=== PATIENT | female | born 1955 | race Caucasian/White ===

== ENCOUNTER 2021-03-06 13:57 | Inpatient (IN) | payer MEDICARE, MEDICAID, SELFPAY ==
[2021-03-06 14:02] VITALS: BP 151/88; PULSE 100; RESP 20; TEMP 36.8; O2SAT 98; BMI 19.1
--- NOTE | 2021-03-06 14:27 | DI.RAD.S_ITS ---
PROCEDURE: XR CHEST 1V INDICATIONS: chest pain TECHNIQUE: One view of the chest was acquired. COMPARISON: , , CHEST 1VW (PORTABLE), 08/28/2012, 6:35. FINDINGS: Surgical changes and devices: Thoracolumbar spine fixation hardware. Cholecystectomy clips. Lungs and pleura: Lungs are clear. No pleural effusions or pneumothorax. Mediastinum: Mediastinal contours appear normal. Heart size is normal. Bones and chest wall: No suspicious bony lesions. Overlying soft tissues appear unremarkable. IMPRESSION: No acute cardiopulmonary disease process. Dictated by: Gertrude Arreola MD, PhD on 03/06/2021 at 15:26 Approved by: Gertrude Arreola MD, PhD on 03/06/2021 at 15:27
[2021-03-06] MEDS: SODIUM CHLORIDE 0.9% 1,000 ML 1000 ML IV (14:32)
[2021-03-06] MEDS: ONDANSETRON 4 MG/2 ML INJ IV ×3 (14:32→23:53)
[2021-03-06 14:44] LABS: Alanine Aminotransferase 14 IU/L (<35); Albumin 5.1 g/dL (3.5-5.0); Albumin Globulin Ratio 1.5 (1.0-2.8); Alkaline Phosphatase 108 U/L (38-126); Aspartate Aminotransferase 26 IU/L (14-36); BUN Creatinine Ratio 23.1 (6-22); Bilirubin Total 0.4 mg/dL (0.2-1.3); Blood Urea Nitrogen 12 mg/dL (7-17); Calcium 10.6 mg/dL (8.4-10.2); Carbon Dioxide 27 mmol/L (22-32); Chloride 105 mmol/L (98-107); Estimated Glomerular Filt Rate > 60.0 mL/min (>60); Globulin 3.5 g/dL (1.7-4.1); Glucose 98 mg/dL (80-110); HEMOLYSIS 29 (0-50); Lipase 23 U/L (23-300); Potassium 4.2 mmol/L (3.4-5.1); Sodium 139 mmol/L (137-145); Total Protein 8.6 g/dL (6.3-8.2)
[2021-03-06 14:45] LABS: Creatine Kinase 23 U/L (30-135)
[2021-03-06 14:46] LABS: Add Manual Diff / Slide Review NO; Basophils Absolute Auto 0 /uL (0-100); Basophils Percent Auto 0.4 % (0-2); Eosinophils Absolute Auto 100 /uL (0-450); Eosinophils Percent Auto 0.6 % (2-4); Hematocrit 45.7 % (36-46); Hemoglobin 15.5 g/dL (12.0-16.0); Lymphocytes Absolute Auto 2200 /uL (1100-4500); Mean Corpuscular Hemoglobin 32.6 PG (26-34); Mean Corpuscular Volume 95.9 fL (80-100); Monocytes Absolute Auto 800 /uL (0-900); Neutrophils Absolute Auto 8300 /uL (1500-7000); Platelet Count 374 X10^3/uL (150-400); Red Blood Cell Count 4.77 X10^6/uL (4.0-5.2); Red Cell Distribution Width 14.6 % (11.6-14.8); White Blood Cell Count 11.4 X10^3/uL (4.5-11.0)
[2021-03-06 14:56] LABS: Troponin I < 0.012 ng/mL (0.01-0.034)
--- NOTE | 2021-03-06 15:20 | DI.CT.S_ITS ---
PROCEDURE: CT ABDOMEN PELVIS W CON INDICATIONS: abdominal pain, upper quadrants, 30lb wt loss in 2 months TECHNIQUE: After the administration of intravenous contrast, axial sections acquired from the lung bases to the pubic symphysis. Coronal and sagittal reformats were performed. For radiation dose reduction, the following was used: automated exposure control, adjustment of mA and/or kV according to patient size. COMPARISON: [facility], CR, L-SPINE 2-3 VIEWS, 09/12/2014, 20:07. [facility], CT, L-SPINE W/O CONTRAST, 07/05/2011, 1:19. [facility], CT, KIDNEY/ URETER/BLADDER, 10/19/2014, 15:34. FINDINGS: Image quality: Excellent. Lung bases: Bibasilar dependent atelectasis at lung bases. Heart: Heart size is normal. There is mild coronary artery calcification. ABDOMEN: Liver: Liver is normal in size. There is intrahepatic biliary dilation. Gallbladder: Surgically absent Biliary ducts: Dilated intrahepatic and extrahepatic biliary system. Common bile duct measures up to 18 mm in diameter. Pancreas: Foci of punctate calcification in pancreas, compatible with chronic pancreatitis. Spleen: Unremarkable. Adrenal Glands: Unremarkable. Kidneys and Ureters: There is a 7.0 x 8.0 cm cyst in the mid to inferior inferior left kidney and a 4.2 x 4.7 cm simple appearing cyst in the inferior pole of the right kidney. Stomach and Bowel: Stomach is normal in size. There is an air-fluid level in stomach, which is nonspecific. There is mild segmental wall thickening involving the proximal small intestine. There is a large amount of stool in colon. Peritoneum: No abnormal intraperitoneal fluid. No free air. Ventral Wall: No hernias. Abdominal Nodes: No retroperitoneal or mesenteric adenopathy by size criteria. Vessels: Aorta and inferior vena cava are normal in size. [id number] atherosclerotic calcifications. PELVIS: Pelvic Organs: Unremarkable. Bladder: Unremarkable. Pelvic Nodes: No enlarged lymph nodes. Miscellaneous: No hernias are seen. Bones: Extensive degenerative changes in lower thoracic and lumbar spine. There is osteopenia. Mild compression fracture of T11 of uncertain chronicity. IMPRESSION: 1. Segmental small bowel wall thickening involving the proximal small intestine. Differential diagnoses include infectious enteritis or inflammatory bowel disease. CT enterography may be helpful if clinically indicated. 2. Punctate calcifications of pancreas consistent with chronic pancreatitis. 3. Cholecystectomy. There is marked intrahepatic and extrahepatic biliary dilation. Recommend clinical correlation for biliary obstruction. If clinically indicated, MRCP may be helpful for further evaluation. 4. A large amount of stool in colon. 5. Bilateral large simple appearing renal cysts. 6. Mild compression fracture of T11 of uncertain chronicity. Dictated by: Yolie Mills M.D. on 03/06/2021 at 16:09 Approved by: Yolie Mills M.D. on 03/06/2021 at 16:26
[2021-03-06] MEDS: HYDROMORPHONE 0.5 MG INJ IV ×6 (15:27→23:42)
[2021-03-06] MEDS: LORazepam 2 MG/ML INJ 0.5 MG IV (15:33)
[2021-03-06 16:04] VITALS: BP 134/60; PULSE 79; O2SAT 97
[2021-03-06 17:50] VITALS: BP 140/75; PULSE 73; O2SAT 97
--- NOTE | 2021-03-06 18:39 | ED_ITS ---
HPI - General Adult General Chief complaint: Abdominal Pain Stated complaint: Digestive blockage-cant eat/weight loss Time Seen by Provider: 03/06/21 14:38 Source: patient Mode of arrival: Ambulatory Limitations: no limitations History of Present Illness HPI narrative: 65-year-old woman with a history of depression presents with abdominal pain and severe weight loss starting in early December. She is having recurrent vomiting, nausea, upper abdominal pain, unable to sleep, exhausted, poor balance overall, significant headache and complains of being cold all the time. She has lost 30 lb in that time frame. She notes that she is a smoker. She has been unable to drink or eat much and has had minimal bowel movements due to that. 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 She currently is reportedly on Suboxone for chronic pain management however she does not indicate that she is using this any longer. Related Data Home Medications Medication Instructions Recorded Confirmed FERROUS SULFATE 325 mg PO BID #0 10/04/16 cholecalciferol (vitamin D3) 1,250 50,000 unit PO QWEEK #0 10/04/16 mcg (50,000 unit) capsule citalopram 10 mg tablet (Celexa) 30 mg PO QDAY #0 10/04/16 folic acid 800 mcg tablet 1 mg PO QDAY #0 10/04/16 Allergies Allergy/AdvReac Type Severity Reaction Status Date / Time aspirin [ASPIRIN] Allergy Unknown Verified 03/06/21 14:02 NSAIDS (Non-Steroidal Allergy Unknown Verified 03/06/21 14:02 Anti-Inflamma [NSAIDS (NON-STEROIDAL ANTI-INFLAMMA] Review of Systems Review of Systems Narrative: Remainder of complete review of systems is otherwise unremarkable except for that included in the HPI. Patient History Surgical History (Updated 03/06/21 @ 18:42 by Carlie Wall MD) History of cholecystectomy Previous back surgery Social History Smoking Status: Current every day smoker Smoking Status: Current every day smoker Substance Use Type: marijuana Exam Narrative Exam Narrative: General: Cachectic with significant upper abdominal pain Able to give a complete and coherent history. HEENT: Moist mucous membranes, normal sclera with reactive pupils, Neck: No JVD, supple, no cervical or supraclavicular adenopathy Respiratory: Lungs are clear to auscultation, no wheezing no rales no rhonchi. Full and symmetrical air movement Cardiac: Regular rate and rhythm no murmurs no bruits Abdomen: Scaphoid, tender across the entire upper abdomen, firm over the lower abdomen without rebound or guarding. No palpable masses Skin: Pale and dry, no rashes Neurologic: Globally weak but Grossly neurologically intact with no obvious asymmetries or abnormalities Extremities: No trauma, well perfused Psych: Cooperative, upset and anxious Initial Vital Signs Initial Vital Signs: Vital Signs Temperature 98.3 F 03/06/21 14:02 Pulse Rate 100 H 03/06/21 14:02 Respiratory Rate 20 03/06/21 14:02 Blood Pressure 151/88 H 03/06/21 14:02 Pulse Oximetry 98 03/06/21 14:02 Course Orders Ordered: ED Orders 03/06/21 14:15 Complete Blood Count AUTO DIFF Stat Comprehensive Metabolic Panel Stat Lipase Stat Troponin & CK Cardiac Panel Stat 03/06/21 14:25 EKG-12 Lead Stat 03/06/21 14:27 XR chest 1V Stat 03/06/21 15:20 CT abdomen pelvis w con Stat 03/06/21 18:58 COVID19 - ADMIT (SYSTEMS ARCHITECTURE ANALYST swab/PCR) Stat Hydromorphone HCl (Hydromorphone 0.5 Mg Inj) 0.5 mg IV Q15MIN PRN PRN Reason: Pain, Last Admin: 03/06/21 18:33 Dose: 0.5 mg Documented by: Admin: 03/06/21 17:22 Dose: 0.5 mg Documented by: Admin: 03/06/21 16:18 Dose: 0.5 mg Documented by: Admin: 03/06/21 15:27 Dose: 0.5 mg Documented by: GIGI Sodium Chloride (Normal Saline 0.9%) 1,000 mls @ 150 mls/hr IV CONT LOTTIE Last Admin: 03/06/21 19:07 Dose: 150 mls/hr Documented by: Discontinued Medications Bisacodyl (Bisacodyl 5 Mg Tablet) 10 mg PO NOW ONE Stop: 03/06/21 18:59 Last Admin: 03/06/21 19:09 Dose: 10 mg Documented by: Diazepam (Diazepam 5 Mg Tablet) 5 mg PO NOW ONE Stop: 03/06/21 18:59 Last Admin: 03/06/21 19:08 Dose: 5 mg Documented by: Sodium Chloride (Normal Saline 0.9%) 1,000 mls @ 1,000 mls/hr IV BOLUS ONE Stop: 03/06/21 15:25 Last Infusion: 03/06/21 15:35 Dose: 0 mls/hr Documented by: Admin: 03/06/21 14:32 Dose: 1,000 mls/hr Documented by: GIGI Lorazepam (Lorazepam 2 Mg/Ml Inj) 0.5 mg IV NOW ONE Stop: 03/06/21 15:21 Last Admin: 03/06/21 15:33 Dose: 0.5 mg Documented by: GIIG Ondansetron HCl (Ondansetron 4 Mg/2 Ml Inj) 4 mg IV NOW ONE Stop: 03/06/21 14:26 Last Admin: 03/06/21 14:32 Dose: 4 mg Documented by: GIGI Ondansetron HCl (Ondansetron 4 Mg/2 Ml Inj) 4 mg IV NOW ONE Stop: 03/06/21 18:06 Last Admin: 03/06/21 18:16 Dose: 4 mg Documented by: GIGI Oxycodone HCl (Oxycodone Ir 5 Mg Tablet) 10 mg PO NOW ONE Stop: 03/06/21 18:59 Last Admin: 03/06/21 19:07 Dose: 10 mg Documented by: Vital Signs Vital signs: Vital Signs - 8 hr 03/06/21 14:02 03/06/21 16:04 03/06/21 17:50 Temperature 98.3 F Pulse Rate 100 H 79 73 Respiratory Rate 20 Blood Pressure 151/88 H 134/60 140/75 Pulse Oximetry 98 97 97 Medical Decision Making Lab Data Result diagrams: 03/06/21 14:15 03/06/21 14:15 Labs: Lab Results 03/06/21 03/06/21 03/06/21 Range/Units 14:15 14:15 14:15 WBC 11.4 H (4.5-11.0) X10^3/uL RBC 4.77 (4.0-5.2) X10^6/uL Hgb 15.5 (12.0-16.0) g/dL Hct 45.7 (36-46) % MCV 95.9 (80-100) fL MCH 32.6 (26-34) PG MCHC 34.0 (30-36) % RDW 14.6 (11.6-14.8) % Plt Count 374 (150-400) X10^3/uL Neut % (Auto) 73.0 (50-75) % Lymph % (Auto) 19.0 L (25-40) % [place] % (Auto) 7.0 (3-14) % Eos % (Auto) 0.6 L (2-4) % Baso % (Auto) 0.4 (0-2) % Neut # (Auto) 8300 H (7647-3070) /uL Lymph # (Auto) 2200 (8253-8216) /uL [place] # (Auto) 800 (0-900) /uL Eos # (Auto) 100 (0-450) /uL Baso # (Auto) 0 (0-100) /uL Sodium 139 (137-145) mmol/L Potassium 4.2 (3.4-5.1) mmol/L Chloride 105 (98-107) mmol/L Carbon Dioxide 27 (22-32) mmol/L BUN 12 (7-17) mg/dL Creatinine 0.52 (0.52-1.04) mg/dL Estimated GFR > 60.0 (>60) mL/min BUN/Creatinine Ratio 23.1 H (6-22) Glucose 98 (80-110) mg/dL Calcium 10.6 H (8.4-10.2) mg/dL Total Bilirubin 0.4 (0.2-1.3) mg/dL AST 26 (14-36) IU/L ALT 14 (<35) IU/L Alkaline Phosphatase 108 (38-126) U/L Total Creatine Kinase 23 L (30-135) U/L CK-MB (CK-2) TNP CK-MB (CK-2) Rel Index TNP Troponin I < 0.012 (0.01-0.034) ng/mL Total Protein 8.6 H (6.3-8.2) g/dL Albumin 5.1 H (3.5-5.0) g/dL Globulin 3.5 (1.7-4.1) g/dL Albumin/Globulin Ratio 1.5 (1.0-2.8) Lipase 23 (23-300) U/L Urine Dip Bedside Urine Glucose Negative Bedside Urine Bilirubin - Negative Bedside Urine Ketone - Negative Urine Specific [place] 1.010 Bedside Urine Occult Blood - Negative Bedside Urine pH 6.5 Bedside Urine Protein - Negative Bedside Urine Urobilinogen - Negative Bedside Urine Nitrite - Negative Bedside Urine Leukocytes - Negative Esterase Point of care testing: Urine Dip Bedside Urine Glucose Negative Bedside Urine Bilirubin - Negative Bedside Urine Ketone - Negative Urine Specific [place] 1.010 Bedside Urine Occult Blood - Negative Bedside Urine pH 6.5 Bedside Urine Protein - Negative Bedside Urine Urobilinogen - Negative Bedside Urine Nitrite - Negative Bedside Urine Leukocytes - Negative Esterase Imaging Data Chest x-ray: Radiologist's Impression: FINDINGS: Surgical changes and devices: Thoracolumbar spine fixation hardware. Cholecystectomy clips. Lungs and pleura: Lungs are clear. No pleural effusions or pneumothorax. Mediastinum: Mediastinal contours appear normal. Heart size is normal. Bones and chest wall: No suspicious bony lesions. Overlying soft tissues appear unremarkable. IMPRESSION: No acute cardiopulmonary disease process. Dictated by: Gertrude Arreola MD, PhD on 03/06/2021 at 15:26 CT scan - abdomen/pelvis: Radiologist's Impression: FINDINGS: Image quality: Excellent. Lung bases: Bibasilar dependent atelectasis at lung bases. Heart: Heart size is normal. There is mild coronary artery calcification. ABDOMEN: Liver: Liver is normal in size. There is intrahepatic biliary dilation. Gallbladder: Surgically absent Biliary ducts: Dilated intrahepatic and extrahepatic biliary system. Common bile duct measures up to 18 mm in diameter. Pancreas: Foci of punctate calcification in pancreas, compatible with chronic pancreatitis. Spleen: Unremarkable. Adrenal Glands: Unremarkable. Kidneys and Ureters: There is a 7.0 x 8.0 cm cyst in the mid to inferior inferior left kidney and a 4.2 x 4.7 cm simple appearing cyst in the inferior pole of the right kidney. Stomach and Bowel: Stomach is normal in size. There is an air-fluid level in stomach, which is nonspecific. There is mild segmental wall thickening involving the proximal small intestine. There is a large amount of stool in colon. Peritoneum: No abnormal intraperitoneal fluid. No free air. Ventral Wall: No hernias. Abdominal Nodes: No retroperitoneal or mesenteric adenopathy by size criteria. Vessels: Aorta and inferior vena cava are normal in size. [id number] atherosclerotic calcifications. PELVIS: Pelvic Organs: Unremarkable. Bladder: Unremarkable. Pelvic Nodes: No enlarged lymph nodes. Miscellaneous: No hernias are seen. Bones: Extensive degenerative changes in lower thoracic and lumbar spine. There is osteopenia. Mild compression fracture of T11 of uncertain chronicity. IMPRESSION: 1. Segmental small bowel wall thickening involving the proximal small intestine. Differential diagnoses include infectious enteritis or inflammatory bowel disease. CT enterography may be helpful if clinically indicated. 2. Punctate calcifications of pancreas consistent with chronic pancreatitis. 3. Cholecystectomy. There is marked intrahepatic and extrahepatic biliary dilation. Recommend clinical correlation for biliary obstruction. If clinically indicated, MRCP may be helpful for further evaluation. 4. A large amount of stool in colon. 5. Bilateral large simple appearing renal cysts. 6. Mild compression fracture of T11 of uncertain chronicity. Dictated by: Yolie Mills M.D. on 03/06/2021 at 16:09 ECG Data Interpretation: Sinus Rhythm at a rate of 85 normal axis, normal intervals No acute ischemic changes MDM Narrative Medical decision making narrative: 65-year-old woman with increased abdominal pain, nausea vomiting weight loss of 30 lb over the last 2 months. Unable to eat or drink at this point. Comes in for additional evaluation. Slightly elevated white blood cell count with normal differential. Chemistries reveal a slightly elevated calcium with normal bilirubin, alkaline phosphatase and AST ALT. CT scan shows marked intrahepatic and extrahepatic biliary dilatation. Given her severe weight loss persistent nausea, and severe upper abdominal pain I am significantly concerned for neoplasia. No obvious source appreciated on the CT scan or on chest x-ray. I do believe additional workup is going to be indicated. She may benefit from either MRCP or CT scan of the abdomen with pancreatic protocols. Head has not been imaged with no acute neurologic findings not sure that is indicated. With her significant dehydration and pain I do believe that hospital admission overnight for continued hydration and nausea control and to further facilitate more thorough workup for her dramatic weight loss and abdominal pain is warranted. Pain and anxiety continued to be a significant component for this evening. She does feel like the nausea is controlled enough that she can try pills. Will add laxative, oxycodone for pain control and Valium for anxiety Care is reviewed with Ms. Ruggiero, hospitalist OF[facility]. Patient will be admitted for further workup, pain and nausea control. Discharge Plan Departure Patient Disposition: Admitted as Observation Clinical Impression: Abnormal weight loss Abdominal pain Qualifiers: Abdominal location: upper abdomen, unspecified Qualified Code(s): R10.10 - Upper abdominal pain, unspecified
[2021-03-06] MEDS: OXYCODONE IR 5 MG TABLET 10 MG PO (19:07)
[2021-03-06] MEDS: SODIUM CHLORIDE 0.9% 1,000 ML 150 ML IV (19:07)
[2021-03-06] MEDS: diazePAM 5 MG TABLET PO (19:08)
[2021-03-06] MEDS: BISACODYL 5 MG TABLET 10 MG PO (19:09)
[2021-03-06 19:42] VITALS: BP 126/71; PULSE 76; RESP 14; O2SAT 95
[2021-03-06 19:50] VITALS: BP 136/72; PULSE 77; RESP 16; TEMP 36.9; O2SAT 96; BMI 19.4
[2021-03-06 20:48] LABS: COVID19 - ADMIT (NP swab/PCR) Negative (Negative)
--- NOTE | 2021-03-06 21:10 | DI.MRI.S_ITS ---
PROCEDURE: MR ABDOMEN WO CON INDICATIONS: Intractable nausea vomiting,abd pain, Wt loss TECHNIQUE: Coronal HASTE through the abdomen, axial 2-D FLASH in- and [id number], and breath-hold T2 FSE with fat saturation through the biliary system and pancreas. Oblique coronal and axial thin-slice HASTE, radial thick-slab HASTE centered on the extrahepatic bile ducts. Intravenous secretin: Not requested. COMPARISON: None. FINDINGS: Image quality: Excellent. Pancreas and biliary system: Status post cholecystectomy. Diffuse enlargement of the extrahepatic bile ducts and the central intrahepatic bile ducts is seen. No filling defect or extrinsic mass is seen within the biliary system. There is mild diffuse enlargement of the main pancreatic duct, which may be related to chronic pancreatitis. Calcifications within the pancreas are better demonstrated on the recent prior CT. Other solid organs: Liver is normal in size. Spleen is normal in size. No adrenal nodules. Large simple appearing renal cysts are seen bilaterally. Nodes and vessels: No retroperitoneal or mesenteric adenopathy by size criteria. Aorta and inferior vena cava are normal in size. Bowel and peritoneum: Unenhanced bowel loops are normal in caliber. No free fluid. Lung bases: No basal pleural effusions. Heart size is normal. Bones and soft tissues: No ventral hernias. Postsurgical changes are seen throughout the included thoracolumbar spine with associated metallic artifact. Previously seen lower thoracic compression fracture is better demonstrated on CT. IMPRESSION: 1. Status post cholecystectomy. Diffuse enlargement of the extrahepatic bile ducts and the central intrahepatic bile ducts is nonspecific. No choledocholithiasis or extrinsic mass. 2. Diffuse enlargement of the pancreatic duct with calcifications seen on CT are consistent with chronic pancreatitis. Dictated by: Bernard Monzon M.D. on 03/07/2021 at 16:46 Approved by: Bernard Monzon M.D. on 03/07/2021 at 16:55
[2021-03-06 21:20] LABS: INR 1.2 (0.9-1.3)
[2021-03-06 21:27] LABS: Magnesium 1.8 mg/dL (1.6-2.3)
[2021-03-06 21:31] LABS: Erythrocyte Sedimentation Rate 6 MM/HR (0-20)
[2021-03-06 21:39] VITALS: O2SAT 96
[2021-03-06 21:46] LABS: HEMOLYSIS < 15 (0-50); Iron 101 ug/dL (37-170)
[2021-03-06 21:57] LABS: Percent Iron Saturation 37 % (15-50); Total Iron Binding Capacity 270 ug/dL (265-497); Transferrin 209 mg/dL (206-381)
[2021-03-06 22:04] LABS: Ferritin 44 ng/mL (11-264)
[2021-03-06 22:19] LABS: C-Reactive Protein Quant 0.6 mg/dL (<1.0)
[2021-03-06] MEDS: LORazepam 0.5 MG TABLET PO (22:31)
[2021-03-06] MEDS: KETOROLAC 30 MG/ML VIAL IV (22:32)
[2021-03-06 22:35] LABS: RBC Urine None Seen (0-5/HPF); WBC Urine None Seen (0-5/HPF)
[2021-03-06 22:36] LABS: Bilirubin Urine UA NEGATIVE (NEGATIVE); Glucose Urine UA TRACE g/dL (Negative); Ketones Urine UA TRACE (NEGATIVE); Leukocyte Esterase Urine UA NEGATIVE (NEGATIVE); Nitrite Urine UA NEGATIVE (Negative); Occult Blood Urine UA TRACE-LYSED (Negative); Protein Urine UA NEGATIVE (Negative); Urobilinogen Urine UA 0.2 E.U./dL (0.2)
[2021-03-06 22:47] LABS: Appearance Urine UA Slightly Cloudy; Color Urine UA Dark Yellow; pH Urine UA 7.5 (4.5-8.0)
[2021-03-06 22:53] LABS: Bacteria Urine Many (>30); Squamous Epithelial Cell Urine 0-1 /HPF (0-5/HPF)
--- NOTE | 2021-03-06 22:53 | PC.NURSE ---
Patient up from ED to AC unit around 2100. Patient believes only home medication is celexa at 10mg. She is anxious after conversation with hospitalist, but cooperative. Patient has two IVF orders, with NS running at 150. Per hospitalist, keep the NS until it runs out, then switch to LR. Ativan PO NOW ordered for anxiety. Glucose not needed at this time as patient drinking coffee with creamer and sugar. Holding heparin as PT is 13 and will resume tomorrow per hospitalist. Urine and stool collected and sent to lab. Patient resting with bed low and locked with call light within reach.
[2021-03-06 22:56] LABS: Amorphous Sediment Urine 2+; Culture Indicated Urine Cult Not Indicated
--- NOTE | 2021-03-06 23:02 | P.HP_ITS ---
History of Present Illness History of Present Illness Date Patient Seen: 03/06/21 Time Patient Seen: 20:43 Chief complaint: Digestive blockage-cant eat/weight loss Narrative: Patient 65-year-old female Mayra Jacobs with a history of Major depression disorder with anxiety, hx of ETOH abuse, chronic pain management for 8 spinal fusions (C-1/Lumbar) presents with severe Rt. abdominal pain, intractable nausea/vomting and severe weight loss starting in early December 2020.? Patient complains of recurrent vomiting and nausea since Mid December due to abd pain, upper RT &LT abdominal pain, Upper & lower Right abd pain- constant dull pain, with sharp pain brought on by movement or eating, nothing improves and is now radiating into her left side back over kidney area. Patient also reports, frequent NARVAEZ, abd bloating, inny changed to outty umbilicus, decreased appetite x 2 months, decreased BM's, bilateral leg swelling, difficulty sleeping, muscle wasting, severe exhaustion, poor balance overall, and complains of being cold all the time.? Patient reports a 30 lb weight loss in the past 2 months. Patient is a 1/2 PPD smoker, history of alcohol abuse stop drinking in 2016, chronic pain management due to her 8 spinal fusion surgeries, and reports a hx of taking butrans per pain management. Patient currently upon admit denies chest pain, shortness of breath, mild nausea but is tolerating sips of coffee with cream and sugar at the bedside without vomiting at this time. Patient denies diarrhea, greasy or foul-smelling stool, hemataemesis, melena, hematuria, urinary symptoms, recent illness injury or trauma, no changes in medication, no travel or exposure to illness. Patient reports a family history father and grandmother of colon cancer. Patient is stable resting comfortably in bed and although complains of severe pain does not physically demonstrate any pain with physical exam/abd palpation. Patient's vitals upon admit are stable temp 98.4?, BP 136/72, HR 77, RR 16, O2 saturation 96% on room air, BMI demonstrates malnutrition of 19.4. Patient has a mildly elevated WBC at 11.4, neutrophils 8300, the rest of patient's CBC and chemistry including liver panel are all within normal limits, mildly elevated calcium at 10.6, total creatinine kinase 23, initial troponin within normal limits, total protein 8.6, lipase WNL. EKG demonstrated normal sinus rhythm with a ventricular rate of [address] or T-wave changes. Of the abdomen demonstrated segmental small bowel wall thickening involving the proximal small intestine. Punctate calcifications of pancreas consistent with chronic pancreatitis, marked intrahepatic and extrahepatic biliary dilation. Patient admitted for intractable nausea vomiting, abdominal pain and weight loss of unk nown etiology. Patient History Medical History (Updated 03/07/21 @ 00:49 by JELENA Gaona-) History of alcohol abuse History of anemia History of chronic pain Major depressive disorder, recurrent episode, in partial remission with anxious distress Tobacco abuse Surgical History (Updated 03/07/21 @ 00:49 by JELENA Gaona-BC) History of cholecystectomy History of hysterectomy History of spinal fusion Previous back surgery Family & Social History Family History (Updated 03/07/21 @ 00:52 by JELENA Gaona-CARMELITA) Father Cancer Grandmother Cancer Social History: household members Lives with her sister, patient on permanent disability. Prior Living Arrangements Apartment/Condo Safety & Behavioral: Feels Safe in Current Yes Environment Been Physically Hurt or No Threatened By a Person Suicidal Ideation Description None Suicide Plan Description No Plan Tobacco & Substance use: Smoking Status Current every day smoker Smoking packs per day 0.5 alcohol intake Hx of abuse, quit in 2017 Substance Use Type marijuana Meds Home Medications and Allergies Home Medications Medication Instructions Recorded Confirmed Type citalopram 10 mg tablet (Celexa) 10 mg PO QDAY #0 10/04/16 03/06/21 History Allergies Allergy/AdvReac Type Severity Reaction Status Date / Time aspirin [ASPIRIN] Allergy Unknown Verified 03/06/21 14:02 NSAIDS (Non-Steroidal Allergy Unknown Verified 03/06/21 14:02 Anti-Inflamma [NSAIDS (NON-STEROIDAL ANTI-INFLAMMA] Review of Systems Review of Systems Narrative: All 12 point systems reviewed with the patient and are negative except otherwise documented. Exam Vital Signs (past 8 hours): - 03/06/21 16:04 03/06/21 17:50 03/06/21 19:42 Temperature Pulse Rate 79 73 76 Respiratory Rate 14 Blood Pressure 134/60 140/75 126/71 Pulse Oximetry 97 97 95 03/06/21 19:50 03/06/21 21:39 Temperature 98.4 F Pulse Rate 77 Respiratory Rate 16 Blood Pressure 136/72 Pulse Oximetry 96 96 Oxygen Delivery Method Room Air Oxygen Flow Rate 0 Narrative Exam Narrative: General: Patient is a thin, frail, poorly nourished, muscle wasted female, no distress at this time. HEENT: Normocephalic, atraumatic, extraocular muscles intact, oral pharynx is clear and mucous membranes are dry. Neck is supple and symmetric, trachea is midline, no adenopathy, no thyroid enlargement, nontender, no masses palpated. Negative for JVD Chest: Secondary kyphosis, no use of accessory muscles, nasal flaring, retractions, or tachypneic labored breathing. Lungs: Auscultation of all lung oneill are clear but coarse, decreased, with out adventitious sounds, wheezes, rhonchi, or rales. Cardio: S1 & S2 with regular rate and rhythm without murmur, rubs, or gallops, no carotid bruit, no cardiac pulsations present. Abdomen: Soft, appears slightly distended, negative for organomegaly, or masses. Patient demonstrated no tenderness with physical exam/ palpation. Hyperactive Bowel sounds are present in all 4 quadrants without guarding or rebound, no CVA tenderness, or suprapubic tenderness Musculoskeletal: Muscle strength and tone are equal, but appear decreased for age, no obvious deformity, crepitus, effusions, cyanosis, or clubbing present. Full range of motion intact radial and pedal pulses are normal. Noted mild equal bilateral non-pitting lower extremity +1 edema. Skin: Warm dry and intact without rashes, ulcerations or petechiae. Neuro: Alert and orientated x3, sensation to touch intact, no gross deficits noted of cranial nerves. Psych: Patient has a moderate-kept appearance, appropriate affect, mental status attitude thought context and judgment are appropriate for age. Patient verbalized repeatedly ?I feel like I am dying, I do not want to . Patient is very anxious. Objective Labs Result Diagrams: 03/06/21 14:15 03/06/21 14:15 Labs: Laboratory Results - last 24 hr 03/06/21 03/06/21 03/06/21 14:15 14:15 14:15 WBC 11.4 H RBC 4.77 Hgb 15.5 Hct 45.7 MCV 95.9 MCH 32.6 MCHC 34.0 RDW 14.6 Plt Count 374 Neut % (Auto) 73.0 Lymph % (Auto) 19.0 L [place] % (Auto) 7.0 Eos % (Auto) 0.6 L Baso % (Auto) 0.4 Neut # (Auto) 8300 H Lymph # (Auto) 2200 [place] # (Auto) 800 Eos # (Auto) 100 Baso # (Auto) 0 ESR PT INR Sodium 139 Potassium 4.2 Chloride 105 Carbon Dioxide 27 BUN 12 Creatinine 0.52 Estimated GFR > 60.0 BUN/Creatinine Ratio 23.1 H Glucose 98 Calcium 10.6 H Magnesium Iron TIBC % Saturation Transferrin Ferritin Total Bilirubin 0.4 AST 26 ALT 14 Alkaline Phosphatase 108 Total Creatine Kinase 23 L CK-MB (CK-2) TNP CK-MB (CK-2) Rel Index TNP Troponin I < 0.012 C-Reactive Protein Total Protein 8.6 H Albumin 5.1 H Globulin 3.5 Albumin/Globulin Ratio 1.5 Lipase 23 Urine Color Urine Appearance Urine pH Ur Specific [place] Urine Protein Urine Glucose (UA) Urine Ketones Urine Occult Blood Urine Nitrate Urine Bilirubin Urine Urobilinogen Ur Leukocyte Esterase Urine RBC Urine WBC Ur Squamous Epith Cells Amorphous Sediment Urine Bacteria Ur Culture Indicated? SARS-CoV-2 (PCR) 03/06/21 03/06/21 03/06/21 19:05 21:02 21:02 WBC RBC Hgb Hct MCV MCH MCHC RDW Plt Count Neut % (Auto) Lymph % (Auto) [place] % (Auto) Eos % (Auto) Baso % (Auto) Neut # (Auto) Lymph # (Auto) [place] # (Auto) Eos # (Auto) Baso # (Auto) ESR 6 PT INR Sodium Potassium Chloride Carbon Dioxide BUN Creatinine Estimated GFR BUN/Creatinine Ratio Glucose Calcium Magnesium 1.8 Iron TIBC % Saturation Transferrin Ferritin 44 Total Bilirubin AST ALT Alkaline Phosphatase Total Creatine Kinase CK-MB (CK-2) CK-MB (CK-2) Rel Index Troponin I C-Reactive Protein Total Protein Albumin Globulin Albumin/Globulin Ratio Lipase Urine Color Urine Appearance Urine pH Ur Specific [place] Urine Protein Urine Glucose (UA) Urine Ketones Urine Occult Blood Urine Nitrate Urine Bilirubin Urine Urobilinogen Ur Leukocyte Esterase Urine RBC Urine WBC Ur Squamous Epith Cells Amorphous Sediment Urine Bacteria Ur Culture Indicated? SARS-CoV-2 (PCR) Negative 03/06/21 03/06/21 03/06/21 21:02 21:02 21:02 WBC RBC Hgb Hct MCV MCH MCHC RDW Plt Count Neut % (Auto) Lymph % (Auto) [place] % (Auto) Eos % (Auto) Baso % (Auto) Neut # (Auto) Lymph # (Auto) [place] # (Auto) Eos # (Auto) Baso # (Auto) ESR PT 13.0 H INR 1.2 Sodium Potassium Chloride Carbon Dioxide BUN Creatinine Estimated GFR BUN/Creatinine Ratio Glucose Calcium Magnesium Iron 101 TIBC 270 % Saturation 37 Transferrin 209 Ferritin Total Bilirubin AST ALT Alkaline Phosphatase Total Creatine Kinase CK-MB (CK-2) CK-MB (CK-2) Rel Index Troponin I C-Reactive Protein 0.6 Total Protein Albumin Globulin Albumin/Globulin Ratio Lipase Urine Color Urine Appearance Urine pH Ur Specific [place] Urine Protein Urine Glucose (UA) Urine Ketones Urine Occult Blood Urine Nitrate Urine Bilirubin Urine Urobilinogen Ur Leukocyte Esterase Urine RBC Urine WBC Ur Squamous Epith Cells Amorphous Sediment Urine Bacteria Ur Culture Indicated? SARS-CoV-2 (PCR) 03/06/21 22:33 WBC RBC Hgb Hct MCV MCH MCHC RDW Plt Count Neut % (Auto) Lymph % (Auto) [place] % (Auto) Eos % (Auto) Baso % (Auto) Neut # (Auto) Lymph # (Auto) [place] # (Auto) Eos # (Auto) Baso # (Auto) ESR PT INR Sodium Potassium Chloride Carbon Dioxide BUN Creatinine Estimated GFR BUN/Creatinine Ratio Glucose Calcium Magnesium Iron TIBC % Saturation Transferrin Ferritin Total Bilirubin AST ALT Alkaline Phosphatase Total Creatine Kinase CK-MB (CK-2) CK-MB (CK-2) Rel Index Troponin I C-Reactive Protein Total Protein Albumin Globulin Albumin/Globulin Ratio Lipase Urine Color Dark yellow Urine Appearance Slightly cloudy Urine pH 7.5 Ur Specific [place] 1.010 Urine Protein Negative Urine Glucose (UA) Trace H Urine Ketones Trace H Urine Occult Blood Trace-lysed Urine Nitrate Negative Urine Bilirubin Negative Urine Urobilinogen 0.2 Ur Leukocyte Esterase Negative Urine RBC None seen Urine WBC None seen Ur Squamous Epith Cells 0-1 /hpf Amorphous Sediment 2+ Urine Bacteria Many (>30) H Ur Culture Indicated? Cult not indicated SARS-CoV-2 (PCR) Assessment & Plan Assessment & Plan narrative: Patient 65-year-old female Mayra Jacobs with a history of Major depression disorder with anxiety, hx of ETOH abuse, chronic pain management due to 8 spinal fusions (T4-10 revision PSF, PCO 02/16) who presented and was admited with severe Rt. abdominal pain, intractable nausea/vomting and severe weight loss starting in early December 2020.? 1. Right abdominal pain ( bilateral upper & lower right), with intractable nausea/vomiting([id number]), resulting in 30 lb weight loss in 2 months, evidenced by malnourished BMI of 19.4, of unknown etiology, acute, present on admission -I suspect possible chronic pancreatitis secondary to history of alcohol abuse with induced pancreatic endocrine insufficiency (adrenal, thyroid,or DM) and biliary obstruction. -Rule out: Acute pancreatitis, Chronic pancreatitis, rotavirus, enteric adenovirus, norovirus, Staph aureus, eosinphillic gastroenteritis, pancreatogenic diabetes, endocrine pancreatic insufficiency, vitamin deficiency, ulcer disease, superimposed pancreatic carcinoma, narcotic bowel, gastroparesis, pancreatic pseudocyst, duodenal or biliary obstruction, inflammatory bowel disease, thyroid dysfunction, or adrenal insufficiency, cannabis hyperemesis syndrome. -I suspect possible chronic pancreatitis secondary to history of alcohol abuse with induced pancreatic endocrine insufficiency (adrenal, thyroid,DM,) and possible biliary obstruction. -ABD/Pelvis CT:Segmental small bowel wall thickening involving the proximal small intestine.? Differential diagnoses include infectious enteritis or inflammatory bowel disease.? CT enterography may be helpful if clinically indicated. 2. Punctate calcifications of pancreas consistent with chronic pancreatitis. 3. Cholecystectomy.? There is marked intrahepatic and extrahepatic biliary dilation.? Recommend clinical correlation for biliary obstruction.? If clinically indicated, MRCP may be helpful for further evaluation. -ERCP ordered for tomorrow NPO 4Hrs prior -Labs Ordered: stool culture and O&P to rule out parasitic infections, CA 19-9 (cancer), a.m. cortisol/A1c/TSH-Endo, Lipase/amylase/B12/vitamin-D/Lipids - Chronic vs acute Pancreatitis. Procalcitonin/sed rate/CRP/Blood cultures- Bacterial/infectious. -urinalysis-positive for trace glucose, trace ketones, many bacteria, no culture indicated. Tox screen positive for oxycodone, benzodiazepine, THC. (note that urine was collected on admit to the floor) -patient started on clear liquids advanced to regular diet as tolerated, if vomiting reoccurs-NPO. -Admit-Telemed, V/S Q4, check orthostatics Qam, activity as tolerated, strict I&O, daily weights, call for urinary output less than 200 mL per shift or an SaO2 less than 92%,Fluids: LR @100cc/Hr -antiemetics to manage the nausea and vomiting, acute pain management. -provide patient with cannabis cessation, and cannabis hyperemesis syndrome education 2. Major depressive disorder with anxiety, acute on chronic, present on admission -Continue patient's Celexa -patient denies SI 3. Elevated blood pressure, without the diagnosis of hypertension, acute, present on admission -ordered to start lisinopril 10 mg p.o. q.day tomorrow I personally reviewed the physical chart note from Medicine 08/29/20 [facility] neuro surgery clinic visit and and nothing documented below was in the chart that was made available to me. Per Dr. Valentin in ED: Medical records are available: Brief review indicates a history of hypertension, ETOH disorder and has been sober since 2017, chronic pancreatitis with dilated ducts and apparently an ERCP has been recommended.? She currently is reportedly on Suboxone for chronic pain management however she does not indicate that she is using this any longer. Code status: Full code Surrogate decision maker: Lora Zepeda sister COVID PCR: Negative COVID vaccination: Pfizer October 2020 DVT/VTE prophylaxis: Heparin 5000 units b.i.d. and SCDs Disposition: Estimated length of stay greater than 2 midnights I have utilized all available immediate resources to obtain, update, or review the patient's current medications. I confirmed that the patient's advanced care plan is present, Code status is documented and/or surrogate decision maker is listed in the patient's medical record. Time Spent With Patient Critical Care time: I spent a total of [] minutes of critical care time on this patient's care today; this time is exclusive of procedural time. Scores [facility] [place] coma scale eye opening: Spontaneous [place] coma scale verbal response: Orientated [place] coma scale motor response: Obey commands [place] coma scale total score: 15
[2021-03-07] VITALS (11 sets, daily range): BP systolic 129–150; BP diastolic 56–86; PULSE 72–87; RESP 16–18; TEMP 36.2–36.6; O2SAT 94–96
[2021-03-07 00:22] LABS: UR Morphine/Opiate cutoff 300 Negative (Negative); Ur Creatinine Normal (Normal); Ur Specific Gravity Normal (Normal); Urine Amphetamines Negative (Negative); Urine Barbiturates Negative (Negative); Urine Benzodiazepines Positive (Negative); Urine Cocaine Negative (Negative); Urine MDMA Negative (Negative); Urine Methadone Negative (Negative); Urine Methamphetamines Negative (Negative); Urine Oxycodone Positive (Negative); Urine Phencyclidine Negative (Negative); Urine Tetrahydrocannabinol Positive (Negative); Urine Tricyclic Antidepressant Negative (Negative); Urine pH Normal (Normal)
[2021-03-07] MEDS: OXYCODONE IR 10 MG TABLET PO ×3 (02:10→14:28)
[2021-03-07] MEDS: LACTATED RINGERS 1,000 ML 100 ML IV ×2 (02:11→13:45)
--- NOTE | 2021-03-07 02:14 | PC.NURSE ---
Addendum entered by Julia Aguilera R.N. 03/07/21 04:32: Patient complaining of 9/10 pain and was offered IV Toradol but adamantly declines stating that will not help and she needs Dilaudid. Last Dilaudid was given at 2342 so is too early to give additional dose now so discussed with Bahman THAKUR. After review of pain meds already given NURSING INFORMATICS ANALYST stated to give additional dose of Dilaudid now for the 9/10 pain but to tell patient future doses will need to be maintained no earlier that q6h. Medicated patient and informed of plan going forward. Patient remains quite upset. Original Note: Patient is alert and oriented. Breath sounds CTA with RA sat of 94%. HRR with telemetry reading of SR w/1st degree AVB. Complains of dull ache in right upper abdomen and sharp pain in mid upper abdomen with severity of 8/10 so was medicated earlier with IV Dilaudid which provided some relief. Currently again complaining of 8/10 abdominal pain so medicated now with oxycodone. Also complained of nausea earlier and was medicated with Zofran. Is currently NPO except for ice chips until vomiting resolved so may be able to advance diet in a.m. Abdomen is soft but appears distended. BT are hyperactive; had formed stool on previous shift. Denies dysuria, frequency or urgency with urination. Able to move self in bed. Up to bathroom with SBA and complains of generalized weakness. Cachectic appearance. Wearing bilateral calf SCD's. Fall risk score is moderate and bed alarm is activated.
[2021-03-07] MEDS: HYDROMORPHONE 0.5 MG INJ IV ×2 (04:31→10:40)
[2021-03-07] MEDS: lisinopriL 10 MG TABLET PO (08:25)
[2021-03-07] MEDS: HEPARIN 5,000 UNIT/ML VIAL 5000 UNIT SUBCUT (08:25)
[2021-03-07] MEDS: CITALOPRAM 10 MG TABLET PO (08:25)
[2021-03-07] MEDS: ONDANSETRON 4 MG/2 ML INJ IV ×3 (08:25→22:58)
[2021-03-07] MEDS: NICOTINE 14 PATCH 14 MG TOP (10:39)
--- NOTE | 2021-03-07 12:18 | DIET.CONS ---
Dietary Consultation Note Admission Date: 03/06/2021 19:21 Assessment: 65y F admitted for dehydration, significant weight loss, and nausea/vomiting referred to nutrition for same. Pt has pmhx of major depression/anxiety, etoh abuse, chronic pain secondary to significant spinal fusions. Pt has UBW 130# most adult life until early December 2020 when she starting having N/V causing her to severely limit her PO intake resulting in 23.9% unintentional weight loss in 2 mo (severe). Pt wants to eat and wants to be alive, she is very upset and scared that she has lost so much weight. Pt has lost weight in the past but never to the extent and as quickly as this. Pt reports significant pain in RUQ which worsens after a meal. Pt vomits bile most mornings before she eats. Pt has had good success in past using both zofran and marinol for nausea control and appetite stimulation. Pt really only tolerating hot coffee (warm feels good in her abdomen) and chocolate milkshakes. Pt is food insecure and on EBT. Pt does like Ensure but having difficulty affording it out of pocket. Nutrition Focused Physical Exam: Significant fat and muscle wasting throughout, rob temples, deltoid, ribs, clavicle, masseter, scapula. Positive for loose skin indicating rapid weight loss. Ht: 152.4 cm Wt: 46.755 kg (-23.9% in 2mo, severe) BMI: 19.4 (severe for age) UBW: 59kg Last BM: 03/07/21 (03/07/21 08:13) Ollie Score: 20 Diet: 03/07/21 Lunch Full Liquid Diet Diet Modifications: chocolate milkshake tid, Ensure Enlive tid Labs: RBC 4.77 X10^6/uL (4.0-5.2) 03/06/21 14:15 Hgb 15.5 g/dL (12.0-16.0) 03/06/21 14:15 Hct 45.7 % (36-46) 03/06/21 14:15 Creatinine 0.52 mg/dL (0.52-1.04) 03/06/21 14:15 Iron 101 ug/dL (37-170) 03/06/21 21:02 % Saturation 37 % (15-50) 03/06/21 21:02 Ferritin 44 ng/mL (11-264) 03/06/21 21:02 Nutrition Diagnosis: Severe Acute Protein Calorie Malnutrition r/t RUQ pain limiting PO intake aeb 23.9% unintended weight loss in 2mo (severe), BMI 20.1 (severe for age), pt only tolerating coffee and milkshakes x2mo, NPFE showing severe muscle and fat wasting in temples, masseter, clavicle, deltoid, ribs, scapula, pt vomits bile each morning when she wakes. Interventions: 1. To support PO intake upon d/c, provided pt coupons for Ensure Enlive which is ONS of choice for this pts malnutrition. Discussed adding scoop protein powder to milkshakes to support muscle mass. 2. To support malnourished state while hospitalized, providing ONS Ensure Enlive tid and chocolate milkshake tid as pt most easily consumes liquids at this time. These nourishments provide 100% protein needs and 100% kcal needs. EER: 1,645 kcal (35kcal/kg per PCM), 60g PRO (1.3g/kg per PCM) Monitoring/Evaluations: POs, diet advancement
[2021-03-07] MEDS: LORazepam 1 MG TABLET PO ×2 (14:28→22:06)
--- NOTE | 2021-03-07 14:45 | CM.DANOTE ---
DCP/Assessment: Reviewed chart. Patient is a 65yr old female admitted to [facility] with abdominal pain with nausea and vomiting. Patient reports that she goes to the [facility] for outpatient health care. Primary payor is 1)Medicare 2)[facility]. Met with patient this afternoon explained CM/SW role. Patient resting in bed, alert and oriented at time of visit. Patient reports current frustration with her medical situation. Patient reports that in the last few months that she has been unable to eat. Patient reports that when she does try to eat she gets abdominal pain with nausea and vomiting. Patient has reached out to her primary care clinical at [facility] but does not feel that they have done a whole lot. Per provider notes patient with chronic pancreatitis which could be cause of her ongoing abdominal pain. MRI scheduled for this afternoon. Patient indicates that she is worried that she might have cancer patient reports that he Father of colon cancer. Patient has h/o ETOH abuse. Patient denies that she currently drinks. Patient does report that she has chronic pain and takes approximately 24mg of suboxene per day. Patient enrolled at [facility], where she gets suboxone. Currently patient is not on suboxone and reports that she has not taken it for a week? Currently patient on narcotics to control pain. Patient complaining of generalized weakness. GEODETIC SURVEYOR will discuss with provider and determine if PT evaluation indicated. Patient also requesting chocolate ensure. Notified RN/Callie of patient's request. P: Anticipate home when stable. GEODETIC SURVEYOR to f/u on 03-08-21 re: d/c planning needs. BRAULIO Discharge Planning/Care Management CM Discharge Assessment Start: 03/07/21 14:35 Freq: Status: Active Protocol: Document 03/07/21 14:35 KJS (Rec: 03/07/21 14:45 KJS [id number]) Discharge Planning Assessment Assigned Protection Engineer TENA Cadena Contact Information Lora Zepeda (sister) # [phone] Advance Directives? No History Provided By Patient,Medical Record Prior Living Arrangements Apartment/Condo Household Members family Type of transporation used prior to Relies on Others admit Independent with ADL's Yes Is patient alert and oriented? Yes Barriers to Discharge No Discharge Plan Home Transportation Arrangement Family? Additional Comment D/C needs unknown at this time . Whiteboard Updated in Patient Room with Yes name and ext. # of Protection Engineer Review Status In Process Next Review Type Continued Stay Review
[2021-03-07 16:10] LABS: Add Manual Diff / Slide Review NO; Basophils Absolute Auto 100 /uL (0-100); Basophils Percent Auto 0.7 % (0-2); Eosinophils Absolute Auto 100 /uL (0-450); Eosinophils Percent Auto 0.7 % (2-4); Hematocrit 41.1 % (36-46); Hemoglobin 13.9 g/dL (12.0-16.0); Lymphocytes Absolute Auto 2000 /uL (1100-4500); Lymphocytes Percent Auto 23.5 % (25-40); Mean Corpuscular HGB Conc 33.8 % (30-36); Mean Corpuscular Hemoglobin 32.3 PG (26-34); Mean Corpuscular Volume 95.5 fL (80-100); Monocytes Absolute Auto 500 /uL (0-900); Monocytes Percent Auto 6.6 % (3-14); Neutrophils Absolute Auto 5700 /uL (1500-7000); Neutrophils Percent Auto 68.5 % (50-75); Platelet Count 346 X10^3/uL (150-400); Red Blood Cell Count 4.31 X10^6/uL (4.0-5.2); Red Cell Distribution Width 14.4 % (11.6-14.8); White Blood Cell Count 8.3 X10^3/uL (4.5-11.0)
--- NOTE | 2021-03-07 16:15 | P.PN_ITS ---
Subjective Subjective Date Patient Seen: 03/07/21 Time Patient Seen: 08:00 Interval history: She continues to complain of abdominal discomfort. She continues to have nausea. No further vomiting. Her pain is mainly in RUQ and epigastric region. Per patient she has seen her PCP and general surgeon for this, they recommended MRCP, she has not done this, and she says she can not get through for follow up. She was recommended colonoscopy but this has also not happened and is not scheduled. Exam Vital Signs (past 8 hours): - 03/07/21 08:25 03/07/21 11:54 Temperature 97.7 F Pulse Rate 75 72 Respiratory Rate 16 Blood Pressure 145/76 H 133/56 L Pulse Oximetry 96 Oxygen Delivery Method Room Air Oxygen Flow Rate 0 Narrative Exam Narrative: General: thin, frail, no acute distress, anxious Lungs: Auscultation of all lung oneill are clear but coarse, decreased, without adventitious sounds, wheezes, rhonchi, or rales. Cardio: regular rate and rhythm without murmur, rubs, or gallops Abdomen: Soft, nondistended, negative for organomegaly, or masses. minimal tenderness to palpation Skin: Warm dry and intact without rashes. Psych: very anxious Objective Labs Result Diagrams: 03/06/21 14:15 03/06/21 14:15 Labs: Laboratory Results - last 24 hr 03/06/21 03/06/21 03/06/21 19:05 21:02 21:02 ESR 6 PT INR Magnesium 1.8 Iron TIBC % Saturation Transferrin Ferritin 44 C-Reactive Protein Urine Color Urine Appearance Urine pH Ur Specific [place] Urine Protein Urine Glucose (UA) Urine Ketones Urine Occult Blood Urine Nitrate Urine Bilirubin Urine Urobilinogen Ur Leukocyte Esterase Urine RBC Urine WBC Ur Squamous Epith Cells Amorphous Sediment Urine Bacteria Ur Culture Indicated? U Opiates 300ng/mL cut Ur Oxycodone Screen Urine Methadone Screen Ur Barbiturates Screen U Tricyclic Antidepress Ur Phencyclidine Scrn Ur Amphetamines Screen U Methamphetamines Scrn Ur MDMA Scrn (Ecstasy) U Benzodiazepines Scrn Urine Cocaine Screen U Marijuana (THC) Screen SARS-CoV-2 (PCR) Negative 03/06/21 03/06/21 03/06/21 21:02 21:02 21:02 ESR PT 13.0 H INR 1.2 Magnesium Iron 101 TIBC 270 % Saturation 37 Transferrin 209 Ferritin C-Reactive Protein 0.6 Urine Color Urine Appearance Urine pH Ur Specific [place] Urine Protein Urine Glucose (UA) Urine Ketones Urine Occult Blood Urine Nitrate Urine Bilirubin Urine Urobilinogen Ur Leukocyte Esterase Urine RBC Urine WBC Ur Squamous Epith Cells Amorphous Sediment Urine Bacteria Ur Culture Indicated? U Opiates 300ng/mL cut Ur Oxycodone Screen Urine Methadone Screen Ur Barbiturates Screen U Tricyclic Antidepress Ur Phencyclidine Scrn Ur Amphetamines Screen U Methamphetamines Scrn Ur MDMA Scrn (Ecstasy) U Benzodiazepines Scrn Urine Cocaine Screen U Marijuana (THC) Screen SARS-CoV-2 (PCR) 03/06/21 03/06/21 22:33 22:33 ESR PT INR Magnesium Iron TIBC % Saturation Transferrin Ferritin C-Reactive Protein Urine Color Dark yellow Urine Appearance Slightly cloudy Urine pH 7.5 Ur Specific [place] 1.010 Urine Protein Negative Urine Glucose (UA) Trace H Urine Ketones Trace H Urine Occult Blood Trace-lysed Urine Nitrate Negative Urine Bilirubin Negative Urine Urobilinogen 0.2 Ur Leukocyte Esterase Negative Urine RBC None seen Urine WBC None seen Ur Squamous Epith Cells 0-1 /hpf Amorphous Sediment 2+ Urine Bacteria Many (>30) H Ur Culture Indicated? Cult not indicated U Opiates 300ng/mL cut Negative Ur Oxycodone Screen Positive H Urine Methadone Screen Negative Ur Barbiturates Screen Negative U Tricyclic Antidepress Negative Ur Phencyclidine Scrn Negative Ur Amphetamines Screen Negative U Methamphetamines Scrn Negative Ur MDMA Scrn (Ecstasy) Negative U Benzodiazepines Scrn Positive H Urine Cocaine Screen Negative U Marijuana (THC) Screen Positive H SARS-CoV-2 (PCR) [facility] Medical History (Updated 03/07/21 @ 00:49 by JELENA Gaona-CARMELITA) History of alcohol abuse History of anemia History of chronic pain Major depressive disorder, recurrent episode, in partial remission with anxious distress Tobacco abuse Surgical History (Updated 03/07/21 @ 00:49 by JELENA Gaona-CARMELITA) History of cholecystectomy History of hysterectomy History of spinal fusion Previous back surgery Family History (Updated 03/07/21 @ 00:52 by JELENA Gaona-CARMELITA) Father Cancer Grandmother Cancer Social History household members: family Smoking Status: Current every day smoker alcohol intake: never Assessment & Plan Assessment & Plan narrative: 65-year-old female Mayra Jacobs with a history of Major depression disorder with anxiety, hx of ETOH abuse, chronic pain management due to 8 spinal fusions (T4-10 revision PSF, PCO 02/16) who presented and was admited with severe Rt. abdominal pain, intractable nausea/vomting and severe weight loss starting in early December 2020. 1. Right abdominal pain ( bilateral upper & lower right), nausea/vomiting([id number]), resulting in 30 lb weight loss in 2 months, with protein calorie malnutrition and BMI of 20.1 -etiology include IBD, chronic pancreatitis, malignancy, gastritis, cannabis hyperemesis -CT shows segmental small bowel thickening, intrahepatic and extrahepatic biliary dilation -ERCP ordered for tomorrow NPO 4Hrs prior -stool culture and O&P pending -CA 19-9 pending -cortisol/A1c/TSH pending -ESR 6 -provide patient with cannabis cessation, and cannabis hyperemesis syndrome education 2. Major depressive disorder with anxiety, acute on chronic, present on admission -Continue patient's Celexa -patient denies SI 3. Elevated blood pressure, without the diagnosis of hypertension, acute, present on admission -ordered to start lisinopril 10 mg p.o. q.day tomorrow 4. Chronic pain -had been on suboxone -will try to avoid IV opiated, and avoid benzos Time Spent With Patient Critical Care time: I spent a total of [] minutes of critical care time on this patient's care today; this time is exclusive of procedural time.
[2021-03-07 16:31] LABS: Amylase 43 U/L (30-110); Blood Urea Nitrogen 8 mg/dL (7-17); Calcium 9.2 mg/dL (8.4-10.2); Carbon Dioxide 22 mmol/L (22-32); Chloride 107 mmol/L (98-107); Cholesterol 147 mg/dL (140-199); Estimated Glomerular Filt Rate > 60.0 mL/min (>60); Glucose 117 mg/dL (80-110); HDL Cholesterol 50 mg/dL (40-60); HEMOLYSIS < 15 (0-50); LDL Cholesterol Calculated 72 mg/dL (<100); Potassium 3.8 mmol/L (3.4-5.1); Sodium 135 mmol/L (137-145); Triglycerides 127 mg/dL (35-150)
[2021-03-07] MEDS: OXYCODONE IR 10 MG TABLET 20 MG PO (16:42)
[2021-03-07 16:43] LABS: Troponin I < 0.012 ng/mL (0.01-0.034)
[2021-03-07] MEDS: PANTOPRAZOLE DR 20 MG TABLET 40 MG PO (16:44)
[2021-03-07 16:48] LABS: Hemoglobin A1C% w Est Avg Glu 5.7 % (4.0-6.0)
[2021-03-07 16:50] LABS: Procalcitonin 0.06 ng/mL (<0.5)
[2021-03-07 16:58] LABS: Vitamin D 25 Hydroxy (D3) 45.6 ng/mL (30.0-100.0)
[2021-03-07 17:03] LABS: Cortisol Random 7.59 ug/dL
[2021-03-07 17:12] LABS: TSH w/ Reflex to FT4 2.01 uIU/mL (0.47-4.68)
[2021-03-07 17:21] LABS: Vitamin B12 374 pg/mL (239-931)
[2021-03-07] MEDS: HYDROMORPHONE 2 MG TABLET PO (22:06)
[2021-03-08] VITALS (7 sets, daily range): BP systolic 143–158; BP diastolic 67–95; PULSE 74–78; RESP 14–22; TEMP 36.1–36.6; O2SAT 93–97
[2021-03-08] MEDS: OXYCODONE IR 10 MG TABLET 20 MG PO ×3 (00:12→14:22)
[2021-03-08 00:45] LABS: Add Manual Diff / Slide Review NO; Basophils Absolute Auto 100 /uL (0-100); Basophils Percent Auto 0.6 % (0-2); Eosinophils Absolute Auto 100 /uL (0-450); Eosinophils Percent Auto 0.9 % (2-4); Hematocrit 40.2 % (36-46); Hemoglobin 13.8 g/dL (12.0-16.0); Lymphocytes Absolute Auto 2300 /uL (1100-4500); Lymphocytes Percent Auto 23.9 % (25-40); Mean Corpuscular HGB Conc 34.4 % (30-36); Mean Corpuscular Hemoglobin 32.5 PG (26-34); Mean Corpuscular Volume 94.5 fL (80-100); Monocytes Absolute Auto 800 /uL (0-900); Neutrophils Absolute Auto 6400 /uL (1500-7000); Neutrophils Percent Auto 66.6 % (50-75); Platelet Count 344 X10^3/uL (150-400); Red Blood Cell Count 4.26 X10^6/uL (4.0-5.2); Red Cell Distribution Width 14.3 % (11.6-14.8); White Blood Cell Count 9.6 X10^3/uL (4.5-11.0)
[2021-03-08] MEDS: LACTATED RINGERS 1,000 ML 100 ML IV ×2 (00:48→10:57)
[2021-03-08 01:08] LABS: Troponin I < 0.012 ng/mL (0.01-0.034)
--- NOTE | 2021-03-08 01:22 | PC.NURSE ---
Addendum entered by Julia Aguilera R.N. 03/08/21 02:22: Complained, at shift change, of spasm like pain in back and shoulders but declined offer to contact [employer] to get additional pain medication ordered. Original Note: Patient complaining heard crying out stating she is in so much pain. Indicates pain is in chest and epigastric area and states severity is 10/10. Medicated with oxycodone and almost immediately patient states it's easing up some now. OFE Ruggiero, informed of chest pain and BP being elevated at 152/95. EKG and troponin ordered and both were negative. Patient continues to state she is having pain and that it is illegal to allow someone to be in this much pain. Wants to see MD and someone from administration. Informed coordinator, Monica, as well as Bahman THAKUR. Is alert and oriented. Breath sounds coarse but CTA with RA sat of 96%. HRR with telemetry reading of SR. Complains of nausea but continues to drink coffee/eat snacks and has had no vomiting; was medicated at shift change with Zofran. Continues to have upper abdominal pain and complains of pain usually at 8/10 range but with FLACC of 0. BT present and abdomen is soft but states it is tender over epigastric area. Voiding frequently but denies dysuria. Able to turn self in bed. Out of bed with SBA. Refusing to wear SCD's tonight so reminded to ankle wave when awake. Fall risk score is moderate and bed alarm is activated.
[2021-03-08 01:27] LABS: Cortisol AM (Before 10AM) 23.4 ug/dL (4.46-22.7)
--- NOTE | 2021-03-08 02:23 | PC.NURSE ---
Patient complaining heard crying out stating she is in so much pain. Indicates pain is in chest and epigastric area and states severity is 10/10. Medicated with oxycodone and almost immediately patient states it's easing up some now. OFE Ruggiero, informed of chest pain and BP being elevated at 152/95. EKG and troponin ordered and both were negative. Patient continues to state she is having pain and that it is illegal to allow someone to be in this much pain. Wants to see MD and someone from administration. Informed coordinator, Monica, as well as Bahman THAKUR. Is alert and oriented. Breath sounds coarse but CTA with RA sat of 96%. HRR with telemetry reading of SR. Complains of nausea but continues to drink coffee/eat snacks and has had no vomiting; was medicated at shift change with Zofran. Continues to have upper abdominal pain and complains of pain usually at 8/10 range but with FLACC of 0. BT present and abdomen is soft but states it is tender over epigastric area. Voiding frequently but denies dysuria. Able to turn self in bed. Out of bed with SBA. Refusing to wear SCD's tonight so reminded to ankle wave when awake. Fall risk score is moderate and bed alarm is activated.
[2021-03-08] MEDS: HYDROMORPHONE 2 MG TABLET PO ×2 (04:03→10:58)
[2021-03-08] MEDS: ONDANSETRON 4 MG/2 ML INJ IV ×2 (07:41→14:22)
[2021-03-08] MEDS: LIPASE/PROTEASE/AMYLASE 5/17/24 CAP 4 CAP PO ×2 (08:14→12:13)
[2021-03-08] MEDS: HEPARIN 5,000 UNIT/ML VIAL 5000 UNIT SUBCUT (08:14)
[2021-03-08] MEDS: CITALOPRAM 10 MG TABLET PO (08:14)
[2021-03-08] MEDS: lisinopriL 10 MG TABLET PO (08:14)
[2021-03-08] MEDS: NICOTINE 14 PATCH 14 MG TOP (08:14)
[2021-03-08 09:34] LABS: Cancer (Carbohydrate) Ag 19-9 11 U/mL (0-35)
[2021-03-08] MEDS: LORazepam 1 MG TABLET PO (09:50)
--- NOTE | 2021-03-08 14:46 | PC.NURSE ---
Pt is ready for d/c to home. Medicated with 20 mg oxycodone and 4 mg of zofran. IV and tele removed. Patient is upset about her prescriptions and discharge. Asking for us to dispense meds here for her to take home. Informed that she will have to fill the prescriptions at a pharmacy and we don't dispense meds for patients to take home with them. Went over discharge instructions. Discussed opiate use, s/s of stroke, and follow up instructions. Patient states that she has no questions but states that she is upset about going home. Refusing WC but walked down by TICK SEWER and sister to d/c to home via private vehicle.
--- NOTE | 2021-03-08 20:47 | PM.DS.1 ---
History of Present Illness History of Present Illness Chief complaint: Digestive blockage-cant eat/weight loss Narrative: Per Rossi Ruggiero: Patient 65-year-old female Mayra Jacobs with a history of Major depression disorder with anxiety, hx of ETOH abuse, chronic pain management for 8 spinal fusions (C-1/Lumbar) presents with severe Rt. abdominal pain, intractable nausea/vomting and severe weight loss starting in early December 2020.? Patient complains of recurrent vomiting and nausea since Mid December due to abd pain, upper RT &LT abdominal pain, Upper & lower Right abd pain- constant dull pain, with sharp pain brought on by movement or eating, nothing improves and is now radiating into her left side back over kidney area. Patient also reports, frequent NARVAEZ, abd bloating, inny changed to outty umbilicus, decreased appetite x 2 months, decreased BM's, bilateral leg swelling, difficulty sleeping, muscle wasting, severe exhaustion, poor balance overall, and complains of being cold all the time.? Patient reports a 30 lb weight loss in the past 2 months. Patient is a 1/2 PPD smoker, history of alcohol abuse stop drinking in 2016, chronic pain management due to her 8 spinal fusion surgeries, and reports a hx of taking butrans per pain management.? Patient currently upon admit denies chest pain, shortness of breath, mild nausea but is tolerating sips of coffee with cream and sugar at the bedside without vomiting at this time.? Patient denies diarrhea, greasy or foul-smelling stool, hemataemesis, melena, hematuria, urinary symptoms, recent illness injury or trauma, no changes in medication, no travel or exposure to illness.? Patient reports a family history father and grandmother of colon cancer.? Patient is stable resting comfortably in bed and although complains of severe pain does not physically demonstrate any pain with physical exam/abd palpation. Patient's vitals upon admit are stable temp 98.4?, BP 136/72, HR 77, RR 16, O2 saturation 96% on room air, BMI demonstrates malnutrition of 19.4.? Patient has a mildly elevated WBC at 11.4, neutrophils 8300, the rest of patient's CBC and chemistry including liver panel are all within normal limits, mildly elevated calcium at 10.6, total creatinine kinase 23, initial troponin within normal limits, total protein 8.6, lipase WNL.? EKG demonstrated normal sinus rhythm with a ventricular rate of [address] or T-wave changes.? Of the abdomen demonstrated segmental small bowel wall thickening involving the proximal small intestine. Punctate calcifications of pancreas consistent with chronic pancreatitis, marked intrahepatic and extrahepatic biliary dilation.? Patient admitted for intractable nausea vomiting, abdominal pain and weight loss of unknown etiology. Discharge Providers Provider Date of admission: 03/06/21 19:21 Discharge Date: 03/08/21 Consults: 03/06/21 20:38 Consult to Dietitian, Adult Routine Comment: Reason For Exam: wt loss BMI 19.4 Discharge provider: Chris Hendrickson MD Summary Hospital Course Discharge Diagnosis: 1. Possible chronic pancreatitis 2. Dilated intrahepatic, extrahepatic bile ducts 3. Dilated pancreatic duct 4. History of chronic pain with opiate addiction, on suboxone 5. Depression with anxiety 6. Weight loss, severe protein calorie malnutrition 7. Tobacco abuse 8. History of alcohol use Hospital Course: Ms. Jacosb presented to the hospital with abdominal pain and weight loss. She has been having these symptoms for approximately 2 months. She did have extensive workup done. Initial CT showed segmental bowel thickening, intrahepatic/extrahepatic dilated ducts, and pancreas calcifications. She was not having significant diarrhea. She did have nausea, no significant vomiting in the hospital. Her liver function tests were normal. She had a mild leukocytosis at 11.4 that resolved on its own. Lipase normal. Lfts normal. CA 19-9 normal. Cortisol in AM was not low. She had not been using her suboxone, per admitting provider patient stated this was for a long period of time, though to me she said it was only a few days and she had stopped it because of reasons of nausea. She did get an MRCP which in addition to the CT findings showed dilated duct in the pancreas. No stones or mass was seen. Did discuss with GI at [facility] about further workup and they recommended an outpatient EUS for further evaluation of the dilated ducts. It is possible they are sequelae from cholecystectomy and chronic pancreatitis. Pain control was attempted with oral opiates, she declined nsaids and tylenol. She requested IV pain meds and IV benzos. Care was given with these medications their addictive potential. She was trialed on creon as well to attempt to help her with eating. She was given small amounts of pain medications, nausea medication, and creon on discharge and urged to follow up closely with her PCP, extracorporeal circulation specialist, and she was referred to gastroenterology. She was offered a referral to a pain specialist, but she has said she has been referred and seen pain specialist previously. Exam Vital Signs (past 8 hours): Oxygen Delivery Method Room Air Oxygen Flow Rate 0 Narrative Exam Narrative: ?General:? thin, frail, no acute distress, anxious Lungs:? Auscultation of all lung oneill are clear? but coarse, decreased, without adventitious sounds, wheezes, rhonchi, or rales. Cardio:? regular rate and rhythm without murmur, rubs, or gallops Abdomen:? Soft, nondistended,? negative for organomegaly, or masses. minimal tenderness to palpation Skin:? Warm dry and intact without rashes. Psych:? very anxious Objective Labs Result Diagrams: 03/08/21 00:27 03/07/21 15:55 Labs: Laboratory Results - last 24 hr 03/06/21 03/06/21 03/08/21 21:02 22:33 00:27 WBC RBC Hgb Hct MCV MCH MCHC RDW Plt Count Neut % (Auto) Lymph % (Auto) [place] % (Auto) Eos % (Auto) Baso % (Auto) Neut # (Auto) Lymph # (Auto) [place] # (Auto) Eos # (Auto) Baso # (Auto) Troponin I CA 19-9 Antigen 11 Cortisol AM Sample 23.4 H Urine Color Dark yellow Urine Appearance Slightly cloudy Urine pH 7.5 Ur Specific [place] 1.010 Urine Protein Negative Urine Glucose (UA) Trace H Urine Ketones Trace H Urine Occult Blood Trace-lysed Urine Nitrate Negative Urine Bilirubin Negative Urine Urobilinogen 0.2 Ur Leukocyte Esterase Negative Urine RBC None seen Urine WBC None seen Ur Squamous Epith Cells 0-1 /hpf Amorphous Sediment 2+ Urine Bacteria Many (>30) H Ur Culture Indicated? Cult not indicated 03/08/21 03/08/21 00:27 00:27 WBC 9.6 RBC 4.26 Hgb 13.8 Hct 40.2 MCV 94.5 MCH 32.5 MCHC 34.4 RDW 14.3 Plt Count 344 Neut % (Auto) 66.6 Lymph % (Auto) 23.9 L [place] % (Auto) 8.0 Eos % (Auto) 0.9 L Baso % (Auto) 0.6 Neut # (Auto) 6400 Lymph # (Auto) 2300 [place] # (Auto) 800 Eos # (Auto) 100 Baso # (Auto) 100 Troponin I < 0.012 CA 19-9 Antigen Cortisol AM Sample Urine Color Urine Appearance Urine pH Ur Specific [place] Urine Protein Urine Glucose (UA) Urine Ketones Urine Occult Blood Urine Nitrate Urine Bilirubin Urine Urobilinogen Ur Leukocyte Esterase Urine RBC Urine WBC Ur Squamous Epith Cells Amorphous Sediment Urine Bacteria Ur Culture Indicated? [facility] Medical History (Updated 03/07/21 @ 00:49 by JELENA Gaona-CARMELITA) History of alcohol abuse History of anemia History of chronic pain Major depressive disorder, recurrent episode, in partial remission with anxious distress Tobacco abuse Surgical History (Updated 03/07/21 @ 00:49 by JELENA Gaona-CARMELITA) History of cholecystectomy History of hysterectomy History of spinal fusion Previous back surgery Family History (Updated 03/07/21 @ 00:52 by JELENA Gaona-CARMELITA) Father Cancer Grandmother Cancer Social History household members: family Smoking Status: Current every day smoker alcohol intake: never Discharge Plan Discharge Plan Patient Disposition: Home Provider Discharge Comment: Ms. Jacobs came in with abdominal pain. She had findings concerning for chronic pancreatitis. She was encouraged to stop smoking. She was ordered for creon. She had an MRCP done that showed that finding. She also is recommended to get an endoscopic ultrasound done for further evaluation as she had some of the ducts slightly enlarged. No cancer was seen on this study, but she should follow up with gastroenterology. Discharge orders & Medications Prescriptions: New hydromorphone 2 mg Tablet 2 mg PO Q8HR Qty: 8 RF: 0 Zenpep 5,000-17,000- 24,000 unit Capsule,Delayed Release(Dr/Ec) 4 cap PO TIDWM Qty: 180 RF: 0 ondansetron HCl [Zofran] 4 mg tablet 4 mg PO Q8H Qty: 30 RF: 0 Continued citalopram [Celexa] 10 MG tablet 10 mg PO QDAY Qty: 0 RF: 0 Follow up/Referrals: [facility] Gastroenterology [Provider Group] (please follow up mohan, patient losing weight, possible chronic pancreatitis, mrcp shows no stone or cancer, but spoke with GI Dr. Goins who recommends endoscopic ultrasound and follow up soon) Diet/Activity/Treatments Diet: Regular Visit Report/Discharge Packet Instructions: DI for Prescription Opioid Use
== END 2021-03-08 14:52 | disposition home or self-care (01) | DRG 438 ==
LOC: ED 19:01 → AC 03-07 07:44
PROVIDERS: Internal Medicine; Admitting Provider Nurse Practitioner Family; Emergency Provider Emergency Medicine; Visit Provider Nurse Practitioner Family
DX: K86.1 Other chronic pancreatitis (principal); E43 Unspecified severe protein-calorie malnutrition; Z68.1 Body mass index [BMI] 19.9 or less, adult; F11.20 Opioid dependence, uncomplicated; K86.89 Other specified diseases of pancreas; K83.8 Other specified diseases of biliary tract; F17.200 Nicotine dependence, unspecified, uncomplicated; F32.9 Major depressive disorder, single episode, unspecified; F41.9 Anxiety disorder, unspecified; R03.0 Elevated blood-pressure reading, without diagnosis of hypertension; G89.29 Other chronic pain; F10.21 Alcohol dependence, in remission; Z20.822 Contact with and (suspected) exposure to COVID-19
CPT/HCPCS: 36415; 71045; 74177; 74181; 80048; 80053; 80061; 80305; 81001; 81003; 82150; 82306; 82533; 82550; 82607; 82728; 82962; 83036; 83540; 83550; 83690; 83735; 84145; 84443; 84484; 85025; 85610; 85651; 86140; 86301; 87040; 87045; 87177; 87635; 87899; 93005; 94760; 96361; 96374; 96375; 96376; 99284; 99285; C9803; A9270; J1170; J1644; J1885; J2060; J2405; Q9967

== ENCOUNTER 2022-05-16 15:25 | Emergency (ER) | payer MEDICARE, MEDICAID, SELFPAY ==
[2022-05-16] VITALS (7 sets, daily range): BP systolic 133–159; BP diastolic 61–83; PULSE 71–82; RESP 18; TEMP 37.1; O2SAT 94–98
--- NOTE | 2022-05-16 16:04 | PC.NURSE ---
failed iv attempt, was able to obtain labs.
[2022-05-16 16:16] LABS: Add Manual Diff / Slide Review NO; Basophils Absolute Auto 100 /uL (0-100); Basophils Percent Auto 0.7 % (0-2); Eosinophils Absolute Auto 100 /uL (0-450); Eosinophils Percent Auto 0.7 % (2-4); Hematocrit 43.2 % (36-46); Hemoglobin 14.6 g/dL (12.0-16.0); Lymphocytes Absolute Auto 2200 /uL (1100-4500); Lymphocytes Percent Auto 19.5 % (25-40); Mean Corpuscular HGB Conc 33.7 % (30-36); Mean Corpuscular Hemoglobin 32.8 PG (26-34); Mean Corpuscular Volume 97.4 fL (80-100); Monocytes Absolute Auto 800 /uL (0-900); Monocytes Percent Auto 6.6 % (3-14); Neutrophils Absolute Auto 8200 /uL (1500-7000); Neutrophils Percent Auto 72.5 % (50-75); Platelet Count 392 X10^3/uL (150-400); Red Blood Cell Count 4.43 X10^6/uL (4.0-5.2); Red Cell Distribution Width 13.8 % (11.6-14.8); White Blood Cell Count 11.4 X10^3/uL (4.5-11.0)
[2022-05-16 16:19] LABS: Alanine Aminotransferase 15 IU/L (<35); Albumin 4.5 g/dL (3.5-5.0); Albumin Globulin Ratio 1.3 (1.0-2.8); Alkaline Phosphatase 108 U/L (38-126); Aspartate Aminotransferase 20 IU/L (14-36); Bilirubin Total 0.4 mg/dL (0.2-1.3); Blood Urea Nitrogen 11 mg/dL (7-17); Carbon Dioxide 29 mmol/L (22-32); Chloride 105 mmol/L (98-107); Estimated Glomerular Filt Rate > 60 mL/min (>60); Globulin 3.5 g/dL (1.7-4.1); Glucose 131 mg/dL (80-110); HEMOLYSIS 16 (0-50); Lipase 29 U/L (23-300); Potassium 4.1 mmol/L (3.4-5.1); Sodium 137 mmol/L (137-145)
[2022-05-16] MEDS: ONDANSETRON 4 MG ODT PO (16:39)
--- NOTE | 2022-05-16 17:05 | DI.CT.S_ITS ---
PROCEDURE: CT ABDOMEN PELVIS W CON INDICATIONS: Epigastric pain, hx of chronic pancreatitis TECHNIQUE: After the administration of oral and IV contrast, axial sections were acquired from the lung bases to the pubic symphysis. Coronal and sagittal reformats were performed. For radiation dose reduction, the following was used: automated exposure control, adjustment of mA and/or kV according to patient size. COMPARISON: [facility], CT, CT ABDOMEN PELVIS WITH CONTRAST, 03/13/2021, 17:45. [facility], CT, CT ABDOMEN PELVIS W CON, 03/06/2021, 15:24. FINDINGS: Image quality: Excellent. Lung bases: Bibasilar opacity may be atelectasis or infiltrate. No pleural effusions. Heart: No significant findings. ABDOMEN: Liver: Unremarkable. Gallbladder: Surgically removed Biliary ducts: There is intrahepatic biliary dilation. Common bile duct is dilated measuring up to 16 mm. No obstructive stones are identified. Pancreas: Pancreas is atrophic Punctate calcifications in pancreas consistent with chronic pancreatitis. Pancreatic duct is mildly dilated measuring 4 mm. Spleen: Unremarkable. Adrenal Glands: Unremarkable. Kidneys and Ureters: There is a large simple cyst in the inferior pole of the left kidney measuring 7.6 x 7.6 cm x 6.1 cm. A large simple cyst is also seen in the inferior pole of the right kidney measuring 4 point 2 x 4.8 x 6.9 cm. Stomach and Bowel: Stomach, small bowel loops, and colon are normal in caliber. There is a large amount of stool in colon. Peritoneum: No abnormal intraperitoneal fluid. No free air. Ventral Wall: No hernia. Abdominal Nodes: No retroperitoneal or mesenteric adenopathy by size criteria. Vessels: Aorta and inferior vena cava are normal in size. PELVIS: Pelvic Organs: Unremarkable. Bladder: Bladder is mildly distended with normal wall thickness. No bladder stones. Pelvic Nodes: No enlarged lymph nodes. Miscellaneous: No inguinal hernias are seen. Bones: Extensive postsurgical changes in lumbar spine. Mild chronic compression fracture of T11 appears unchanged. IMPRESSION: 1. Chronic pancreatitis. 2. Cholecystectomy. There is intrahepatic and extrahepatic biliary dilation. Pancreatic duct is also dilated. Please correlate with serum bilirubin for biliary obstruction. If clinically indicated, MRCP can be obtained. 3. Bilateral large simple appearing renal cysts. 4. A large amount of stool in colon. 5. Bibasilar atelectasis or pneumonia. Dictated by: Yolie Mills M.D. on 05/16/2022 at 18:39 Approved by: Yolie Mills M.D. on 05/16/2022 at 18:48
--- NOTE | 2022-05-16 17:11 | ED.ABDPAIN ---
HPI - Abdominal Pain <Don Maldonado PA-C - Last Filed: 05/16/22 19:25> General Chief Complaint: Abdominal Pain Stated Complaint: pancreatitis flare, pain Time Seen by Provider: 05/16/22 16:12 Source: patient Mode of arrival: Ambulatory History of Present Illness HPI narrative: This is a 66-year-old female presents to the emergency department due to acute abdominal pain onset last night. Patient states that she is is a pancreatitis flare up and she is a history of chronic pancreatitis. Reports nausea and ?can not keep anything down?. Denies any diarrhea, constipation, or any other concerning signs or symptoms. Denies any fevers. On record review patient seen here year ago due to abdominal pain where she had a CT scan which showed findings suggestive of chronic pancreatitis. Patient was admitted for few days for pain control. Ended up being discharged with recommendation she follow up with GI for possible ultrasound ended endoscopy. Related Data Home Medications Medication Instructions Recorded Confirmed citalopram 10 mg tablet (Celexa) 10 mg PO QDAY ##0 10/04/16 03/06/21 Previous Rx's Medication Instructions Recorded hydromorphone 2 mg tablet 2 mg PO Q8HR #8 tabs 03/08/21 ariwtb-odnyizqu-bulxtqq 4 cap PO TIDWM #180 caps 03/08/21 5,000-17,000-24,000 unit capsule, delayed rel (Zenpep) ondansetron HCl 4 mg tablet 4 mg PO Q8H #30 tabs 03/08/21 (Zofran) hydrocodone 5 mg-acetaminophen 325 1 tab PO Q8H PRN pain #14 tabs 05/16/22 mg tablet ondansetron 4 mg disintegrating 4 mg PO Q8H PRN nausea and 05/16/22 tablet vomiting #20 tabs Allergies Allergy/AdvReac Type Severity Reaction Status Date / Time aspirin [ASPIRIN] Allergy Unknown Verified 03/06/21 14:02 NSAIDS (Non-Steroidal Allergy Unknown Verified 03/06/21 14:02 Anti-Inflamma [NSAIDS (NON-STEROIDAL ANTI-INFLAMMA] bupropion [From Wellbutrin] Allergy Anaphylaxis Verified 05/16/22 15:50 gabapentin Allergy Verified 05/16/22 15:50 pregabalin [From Lyrica] Allergy Verified 05/16/22 15:50 Review of Systems <Don Maldonado PA-C - Last Filed: 05/16/22 19:25> Review of Systems Narrative: GENERAL: Denies chills, fatigue, malaise, fever, sweats. HEENT: Denies sinus pain, ear pain, sore throat, difficulty swallowing, dizziness. RESPIRATORY: Denies dyspnea, cough, wheezing, hemoptysis, sputum. CARDIOVASCULAR: Denies chest pain, palpitations, orthopnea, edema, GASTROINTESTINAL: Reports abdominal pain and nausea and vomiting : Denies dysuria, frequency, incontinence, hematuria, urinary retention. MUSCULOSKELETAL: denies weakness, joint pain, or bony pain SKIN: Denies rash, skin lesions, or other NEUROLOGIC: Denies weakness, headache, numbness, change in speech, confusion, seizures, incoordination. PSYCHIATRIC: No concerning psychosocial issues. 12 point review of systems is negative except for those stated above Patient History <Don Maldonado PA-C - Last Filed: 05/16/22 19:25> Medical History (Updated 05/16/22 @ 19:17 by Don Maldonado PA-C) History of alcohol abuse History of anemia History of chronic pain Major depressive disorder, recurrent episode, in partial remission with anxious distress Tobacco abuse Surgical History (Updated 03/07/21 @ 00:49 by KELSEY Gaona) History of cholecystectomy History of hysterectomy History of spinal fusion Previous back surgery Family History (Updated 03/07/21 @ 00:52 by KELSEY Gaona) Father Cancer Grandmother Cancer Social History household members: family Smoking Status: Current every day smoker alcohol intake: never Smoking Status: Current every day smoker Substance Use Type: marijuana Exam <Don Maldonado PA-C - Last Filed: 05/16/22 19:25> Narrative Exam Narrative: GENERAL: Well-developed patient, in mild distress. HEAD: Atraumatic. Normocephalic. EYES: Pupils equal round and reactive. Extraocular motions intact. No scleral icterus. No injection or drainage. ENT: Nose without bleeding, purulent drainage. Throat without erythema, tonsillar hypertrophy or exudate. Airway patent. NECK: Trachea midline. Non tender CARDIOVASCULAR: Regular rate and rhythm without murmurs, gallops, or rubs. RESPIRATORY: Clear to auscultation. Breath sounds equal bilaterally. No wheezes, rales, or rhonchi. GASTROINTESTINAL: Abdomen fairly mildly distended, moderate epigastric tenderness to palpation. EXTREMITIES: No edema or joint tenderness. BACK: Nontender without deformity or crepitance. No flank tenderness. NEURO: AOx3. SKIN: No rash or erythema of visible areas Initial Vital Signs Initial Vital Signs: Vital Signs Temperature 98.7 F 05/16/22 15:43 Pulse Rate 78 05/16/22 15:43 Respiratory Rate 18 05/16/22 15:43 Blood Pressure 159/74 H 05/16/22 15:43 Pulse Oximetry 98 05/16/22 15:43 Oxygen Delivery Method 05/16/22 15:43 <Bea Farfan DO - Last Filed: 05/17/22 08:25> Initial Vital Signs Initial Vital Signs: Vital Signs Temperature 98.7 F 05/16/22 15:43 Pulse Rate 78 05/16/22 15:43 Respiratory Rate 18 05/16/22 15:43 Blood Pressure 159/74 H 05/16/22 15:43 Pulse Oximetry 98 05/16/22 15:43 Oxygen Delivery Method 05/16/22 15:43 Course <Don Maldonado PA-C - Last Filed: 05/16/22 19:25> Orders Ordered: Discontinued Medications Sodium Chloride (Normal Saline 0.9%) 1,000 mls @ 1,000 mls/hr IV BOLUS ONE Stop: 05/16/22 18:04 Last Infusion: 05/16/22 19:00 Dose: 0 mls/hr Documented By: Admin: 05/16/22 17:46 Dose: 1,000 mls/hr Documented By: ARACELIS Morphine Sulfate (Morphine 4 Mg/Ml Inj) 4 mg IV NOW ONE Stop: 05/16/22 17:06 Last Admin: 05/16/22 17:45 Dose: 4 mg Documented By: ARACELIS Morphine Sulfate (Morphine 4 Mg/Ml Inj) 4 mg IV NOW ONE Stop: 05/16/22 19:02 Last Admin: 05/16/22 19:17 Dose: 4 mg Documented By: HELDER Ondansetron HCl (Ondansetron 4 Mg Odt) 4 mg PO NOW ONE Stop: 05/16/22 16:04 Last Admin: 05/16/22 16:39 Dose: 4 mg Documented By: ARACELIS Ondansetron HCl (Ondansetron 4 Mg/2 Ml Inj) 4 mg IV NOW ONE Stop: 05/16/22 16:04 Last Admin: 05/16/22 16:40 Dose: Not Given Documented By: ARACELIS Ondansetron HCl (Ondansetron 4 Mg/2 Ml Inj) 4 mg IV NOW ONE Stop: 05/16/22 17:06 Last Admin: 05/16/22 17:45 Dose: 4 mg Documented By: ARACELIS Vital Signs Vital signs: Vital Signs - 8 hr 05/16/22 15:43 05/16/22 16:35 05/16/22 16:35 Temperature 98.7 F Pulse Rate 78 73 Respiratory Rate 18 Blood Pressure 159/74 H 134/83 Pulse Oximetry 98 95 Oxygen Delivery Method Room Air 05/16/22 17:00 Temperature Pulse Rate 82 Respiratory Rate Blood Pressure Pulse Oximetry 96 Oxygen Delivery Method <Bea Farfan DO - Last Filed: 05/17/22 08:25> Orders Ordered: Discontinued Medications Sodium Chloride (Normal Saline 0.9%) 1,000 mls @ 1,000 mls/hr IV BOLUS ONE Stop: 05/16/22 18:04 Last Infusion: 05/16/22 19:00 Dose: 0 mls/hr Documented By: Admin: 05/16/22 17:46 Dose: 1,000 mls/hr Documented By: ARACELIS Morphine Sulfate (Morphine 4 Mg/Ml Inj) 4 mg IV NOW ONE Stop: 05/16/22 17:06 Last Admin: 05/16/22 17:45 Dose: 4 mg Documented By: ARACELIS Morphine Sulfate (Morphine 4 Mg/Ml Inj) 4 mg IV NOW ONE Stop: 05/16/22 19:02 Last Admin: 05/16/22 19:17 Dose: 4 mg Documented By: HELDER Ondansetron HCl (Ondansetron 4 Mg Odt) 4 mg PO NOW ONE Stop: 05/16/22 16:04 Last Admin: 05/16/22 16:39 Dose: 4 mg Documented By: ARACELIS Ondansetron HCl (Ondansetron 4 Mg/2 Ml Inj) 4 mg IV NOW ONE Stop: 05/16/22 16:04 Last Admin: 05/16/22 16:40 Dose: Not Given Documented By: ARACELIS Ondansetron HCl (Ondansetron 4 Mg/2 Ml Inj) 4 mg IV NOW ONE Stop: 05/16/22 17:06 Last Admin: 05/16/22 17:45 Dose: 4 mg Documented By: ARACELIS Vital Signs Vital signs: Vital Signs - 8 hr 05/16/22 15:43 05/16/22 16:35 05/16/22 16:35 Temperature 98.7 F Pulse Rate 78 73 Respiratory Rate 18 Blood Pressure 159/74 H 134/83 Pulse Oximetry 98 95 Oxygen Delivery Method Room Air 05/16/22 17:00 Temperature Pulse Rate 82 Respiratory Rate Blood Pressure Pulse Oximetry 96 Oxygen Delivery Method MDM - Abdominal Pain <Don Maldonado PA-C - Last Filed: 05/16/22 19:25> Lab Data Result diagrams: 05/16/22 16:00 05/16/22 16:00 Labs: Lab Results 05/16/22 05/16/22 Range/Units 16:00 16:00 WBC 11.4 H (4.5-11.0) X10^3/uL RBC 4.43 (4.0-5.2) X10^6/uL Hgb 14.6 (12.0-16.0) g/dL Hct 43.2 (36-46) % MCV 97.4 (80-100) fL MCH 32.8 (26-34) PG MCHC 33.7 (30-36) % RDW 13.8 (11.6-14.8) % Plt Count 392 (150-400) X10^3/uL Neut % (Auto) 72.5 (50-75) % Lymph % (Auto) 19.5 L (25-40) % Davis % (Auto) 6.6 (3-14) % Eos % (Auto) 0.7 L (2-4) % Baso % (Auto) 0.7 (0-2) % Neut # (Auto) 8200 H (2897-5444) /uL Lymph # (Auto) 2200 (8780-2238) /uL Davis # (Auto) 800 (0-900) /uL Eos # (Auto) 100 (0-450) /uL Baso # (Auto) 100 (0-100) /uL Sodium 137 (137-145) mmol/L Potassium 4.1 (3.4-5.1) mmol/L Chloride 105 (98-107) mmol/L Carbon Dioxide 29 (22-32) mmol/L BUN 11 (7-17) mg/dL Creatinine 0.50 L (0.52-1.04) mg/dL Estimated GFR > 60 (>60) mL/min BUN/Creatinine Ratio 22.0 (6-22) Glucose 131 H (80-110) mg/dL Calcium 10.0 (8.4-10.2) mg/dL Total Bilirubin 0.4 (0.2-1.3) mg/dL AST 20 (14-36) IU/L ALT 15 (<35) IU/L Alkaline Phosphatase 108 (38-126) U/L Total Protein 8.0 (6.3-8.2) g/dL Albumin 4.5 (3.5-5.0) g/dL Globulin 3.5 (1.7-4.1) g/dL Albumin/Globulin Ratio 1.3 (1.0-2.8) Lipase 29 (23-300) U/L Imaging Data CT scan - abdomen/pelvis: Radiologist's Impression: [address] [address] [address] Scan Report Signed Patient: Mayra Jacobs MR#: [id number] : 1955 Acct:[id number] Age/Sex: 66 / F Date of Service: 05/16/22 Loc: ED Accession Number: [id number] ?? Procedure: CT abdomen pelvis w con Ordering Provider: Don Maldonado P.A-C PROCEDURE:? CT ABDOMEN PELVIS W CON ? INDICATIONS:? Epigastric pain, hx of chronic pancreatitis ? TECHNIQUE:? After the administration of oral and IV contrast, axial sections were acquired from the lung bases to the pubic symphysis.? Coronal and sagittal reformats were performed.? For radiation dose reduction, the following was used:? automated exposure control, adjustment of mA and/or kV according to patient size. ? COMPARISON:? [facility], CT, CT ABDOMEN PELVIS WITH CONTRAST, 03/13/2021, 17:45.? [facility], CT, CT ABDOMEN PELVIS W CON, 03/06/2021, 15:24. ? FINDINGS:? Image quality:? Excellent.? ? Lung bases:? Bibasilar opacity may be atelectasis or infiltrate.? No pleural effusions. ? ? Heart:? No significant findings. ? ? ABDOMEN: Liver:? Unremarkable.? ? Gallbladder:? Surgically removed? ? Biliary ducts:? There is intrahepatic biliary dilation.? Common bile duct is dilated measuring up to 16 mm.? No obstructive stones are identified.? ? Pancreas:? Pancreas is atrophic Punctate calcifications in pancreas consistent with chronic pancreatitis.? Pancreatic duct is mildly dilated measuring 4 mm.? ? Spleen:? Unremarkable.? ? Adrenal Glands:? Unremarkable.? ? Kidneys and Ureters:? There is a large simple cyst in the inferior pole of the left kidney measuring 7.6 x 7.6 cm x 6.1 cm.? A large simple cyst is also seen in the inferior pole of the right kidney measuring 4 point 2 x 4.8 x 6.9 cm. ? ? Stomach and Bowel:? Stomach, small bowel loops, and colon are normal in caliber.? There is a large amount of stool in colon.? Peritoneum:? No abnormal intraperitoneal fluid.? No free air.? ? Ventral Wall: ? No hernia.? Abdominal Nodes:? No retroperitoneal or mesenteric adenopathy by size criteria.? Vessels:? Aorta and inferior vena cava are normal in size.? ? PELVIS: Pelvic Organs:? Unremarkable.? ? Bladder:? Bladder is mildly distended with normal wall thickness.? No bladder stones. ? Pelvic Nodes: No enlarged lymph nodes.? Miscellaneous: No inguinal hernias are seen. ? ? ? Bones:? Extensive postsurgical changes in lumbar spine.? Mild chronic compression fracture of T11 appears unchanged. ? ? ? IMPRESSION:? ? 1. Chronic pancreatitis.? 2. Cholecystectomy.? There is intrahepatic and extrahepatic biliary dilation.? Pancreatic duct is also dilated.? Please correlate with serum bilirubin for biliary obstruction.? If clinically indicated, MRCP can be obtained. 3. Bilateral large simple appearing renal cysts. 4. A large amount of stool in colon. 5. Bibasilar atelectasis or pneumonia. ? ? Dictated by: Yolie Mills M.D. on 05/16/2022 at 18:39 ? ? Approved by: Yolie Mills M.D. on 05/16/2022 at 18:48 ? MDM Narrative Medical decision making narrative: This is a 66-year-old female with a history of chronic presents emergency department due to epigastric pain onset last night with associated nausea. Initial lab work unremarkable for infection or other abnormalities. CT showed findings consistent with a chronic pancreatitis noted above. Bilirubin within normal limits. Did recommend a possible MRCP if clinically indicated. Recommend she follow up with the primary care provider and GI who is she has been referred to and has an appointment with next month. It did also note bibasilar atelectasis for which I recommended deep breathing exercises. Low suspicion for pneumonia as low white count and no fevers. Patient as well on history and is being closely followed by primary care as well as GI and recommended she follow up with these. It appears that during her previous hospitalization she was instructed to follow-up with pain management for chronic management of the pancreatic pain but it sounds like she did not do so. Will prescribe a very short course of narcotics for pain management until she is able to follow up with the primary care provider. <Bea Farfan, - Last Filed: 05/17/22 08:25> Lab Data Labs: Lab Results 05/16/22 05/16/22 Range/Units 16:00 16:00 WBC 11.4 H (4.5-11.0) X10^3/uL RBC 4.43 (4.0-5.2) X10^6/uL Hgb 14.6 (12.0-16.0) g/dL Hct 43.2 (36-46) % MCV 97.4 (80-100) fL MCH 32.8 (26-34) PG MCHC 33.7 (30-36) % RDW 13.8 (11.6-14.8) % Plt Count 392 (150-400) X10^3/uL Neut % (Auto) 72.5 (50-75) % Lymph % (Auto) 19.5 L (25-40) % Davis % (Auto) 6.6 (3-14) % Eos % (Auto) 0.7 L (2-4) % Baso % (Auto) 0.7 (0-2) % Neut # (Auto) 8200 H (8574-8879) /uL Lymph # (Auto) 2200 (4437-1932) /uL Davis # (Auto) 800 (0-900) /uL Eos # (Auto) 100 (0-450) /uL Baso # (Auto) 100 (0-100) /uL Sodium 137 (137-145) mmol/L Potassium 4.1 (3.4-5.1) mmol/L Chloride 105 (98-107) mmol/L Carbon Dioxide 29 (22-32) mmol/L BUN 11 (7-17) mg/dL Creatinine 0.50 L (0.52-1.04) mg/dL Estimated GFR > 60 (>60) mL/min BUN/Creatinine Ratio 22.0 (6-22) Glucose 131 H (80-110) mg/dL Calcium 10.0 (8.4-10.2) mg/dL Total Bilirubin 0.4 (0.2-1.3) mg/dL AST 20 (14-36) IU/L ALT 15 (<35) IU/L Alkaline Phosphatase 108 (38-126) U/L Total Protein 8.0 (6.3-8.2) g/dL Albumin 4.5 (3.5-5.0) g/dL Globulin 3.5 (1.7-4.1) g/dL Albumin/Globulin Ratio 1.3 (1.0-2.8) Lipase 29 (23-300) U/L Discharge Plan Departure Patient Disposition: Home Clinical Impression: Acute on chronic pancreatitis Instructions: DI for Pancreatitis Activity Restrictions/Additional Instructions: Thank you for coming to the [facility] Emergency Department today. The CT scan we did today shows no evidence of any new abdominal pathologies. It shows evidence of the chronic pancreatitis which you are aware of. As we discussed I recommend you follow-up with your primary care provider for help with the chronic pain management as well speak to them to referral to a pain management. Please follow-up with the GI specialist you were referred to as they are the best people to manage your symptoms and pathologies. I will prescribe a very short course of may pain medication but please follow-up with your primary care provider for long-term management. I hope you feel better soon. Prescriptions: New hydrocodone-acetaminophen 5-325 mg tablet 1 tab PO Q8H PRN (Reason: pain) Qty: 14 0RF ondansetron 4 mg tablet,disintegrating 4 mg PO Q8H PRN (Reason: nausea and vomiting) Qty: 20 0RF No Action citalopram [Celexa] 10 MG tablet 10 mg PO QDAY Qty: 0 hydromorphone 2 mg Tablet 2 mg PO Q8HR Qty: 8 0RF Zenpep 5,000-17,000- 24,000 unit Capsule,Delayed Release(Dr/Ec) 4 cap PO TIDWM Qty: 180 0RF ondansetron HCl [Zofran] 4 mg tablet 4 mg PO Q8H Qty: 30 0RF Referrals: Amy Ma MD [Primary Care Provider] - Visit Report Forms: Patient Portal/API <Bea Farfan DO - Last Filed: 05/17/22 08:25> Cosign ED Attending Sandeepature Attestation: I was immediately available in the department for consultation. Documentation has been reviewed.
[2022-05-16] MEDS: ONDANSETRON 4 MG/2 ML INJ IV (17:45)
[2022-05-16] MEDS: MORPHINE 4 MG/ML INJ IV ×2 (17:45→19:17)
[2022-05-16] MEDS: SODIUM CHLORIDE 0.9% 1,000 ML 1000 ML IV (17:46)
== END 2022-05-16 19:35 | disposition home or self-care (01) ==
PROVIDERS: Emergency Medicine; Emergency Provider Physician Assistant Medical; PCP Internal Medicine
DX: K85.90 Acute pancreatitis without necrosis or infection, unspecified (principal)
CPT/HCPCS: 36415; 74177; 80053; 83690; 85025; 96361; 96374; 96375; 96376; 99284; J2270; J2405; Q9967

== ENCOUNTER 2023-02-24 15:22 | Inpatient (IN) | payer MEDICARE, MEDICAID, SELFPAY ==
[2023-02-24 15:30] VITALS: BP 145/71; PULSE 102; RESP 18; TEMP 36.9; O2SAT 98; BMI 13.1
--- NOTE | 2023-02-24 16:07 | ED.BACK ---
HPI - Back Pain/Injury General Chief Complaint: Back Pain/Injury Stated Complaint: states failure to thrive/unsafe discharge Time Seen by Provider: 02/24/23 15:57 Source: patient Mode of arrival: Ambulatory History of Present Illness HPI Narrative: 67-year-old female who is here for evaluation of failure to thrive and uncontrolled discomfort. She states that she recently spent a 10 day hospital stay at [facility] to have ?tests? done in order to determine whether not she was going to get surgery on her cervical spine. She stated that the decision ultimately was to not have surgery. Apparently she was offered care home facility but she declined. Has been home for couple days. 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 She has chronic neck pain. States she can not heat because of how much discomfort that she is in. She is lost weight. Is unable to take care of herself. Home health came to see her and stated that she is not safe being home. Related Data Home Medications Medication Instructions Recorded Confirmed albuterol sulfate 90 mcg/actuation 2 puff inhalation Q4-6H PRN 02/24/23 02/24/23 aerosol inhaler wheezing cyclobenzaprine 10 mg tablet 10 mg PO 3XD 02/24/23 02/24/23 duloxetine 60 mg capsule,delayed 60 mg PO QAM 02/24/23 02/24/23 release morphine 15 mg immediate release 15 mg PO TID PRN Pain (Scale Score 02/24/23 02/24/23 tablet 7-10) pantoprazole 40 mg tablet,delayed 40 mg PO DAILY 02/24/23 02/24/23 release tizanidine 4 mg tablet 4 mg PO 3XD 02/24/23 02/24/23 trazodone 100 mg tablet 200 mg PO ONCE PM 02/24/23 02/24/23 Allergies Allergy/AdvReac Type Severity Reaction Status Date / Time bupropion [From Wellbutrin] Allergy Anaphylaxis Verified 02/24/23 15:30 gabapentin Allergy Muscle Verified 02/24/23 15:30 contractions pregabalin [From Lyrica] Allergy Muscle Verified 02/24/23 15:30 contractions aspirin [ASPIRIN] AdvReac Unknown Gastrointestinal Verified 02/24/23 15:30 Upset NSAIDS (Non-Steroidal AdvReac Unknown Gastrointestinal Verified 02/24/23 17:04 Anti-Inflamma Upset [NSAIDS (NON-STEROIDAL ANTI-INFLAMMA] Review of Systems Constitutional Constitutional: Reports system reviewed and no additional complaints, except as documented Cardiovascular Cardiovascular: Reports system reviewed and no additional complaints, except as documented Respiratory Respiratory: Reports system reviewed and no additional complaints, except as documented Gastrointestinal Gastrointestinal: Reports system reviewed and no additional complaints, except as documented Musculoskeletal Musculoskeletal: Reports system reviewed and no additional complaints, except as documented Integumentary/Breasts Skin/Breast: Reports system reviewed and no additional complaints, except as documented Neurologic Neurologic: Reports system reviewed and no additional complaints, except as documented Patient History Medical History Anxiety Cachexia Chronic back pain Dorsalgia Failure of spinal fusion Fibromyalgia History of alcohol abuse History of anemia History of chronic pain Major depressive disorder, recurrent episode, 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, thoracic region Tobacco abuse Surgical History (Updated 03/07/21 @ 00:49 by KELSEY Gaona) History of cholecystectomy History of hysterectomy History of spinal fusion Previous back surgery Family History (Updated 03/07/21 @ 00:52 by KELSEY Gaona) Father Cancer Grandmother Cancer Social History household members: family Smoking Status: Current every day smoker alcohol intake: never Smoking Status: Current every day smoker Substance Use Type: marijuana Exam Initial Vital Signs Initial Vital Signs: Vital Signs Temperature 98.4 F 02/24/23 15:30 Pulse Rate 102 H 02/24/23 15:30 Respiratory Rate 18 02/24/23 15:30 Blood Pressure 145/71 H 02/24/23 15:30 Pulse Oximetry 98 02/24/23 15:30 Oxygen Delivery Method Room Air 02/24/23 15:30 Const General: cooperative, frail appearing and ill appearing HENMT Head: normal to inspection and normocephalic Chest Chest: normal inspection of the chest Resp Effort & Inspection: normal respiratory effort Cardio Rate: regular rate GI Inspection: normal to inspection Skin General: no rashes or lesions noted Extrem General: capillary refill normal Course Orders Ordered: ED Orders 02/24/23 15:37 Consult to [employer]INTER[employer]IL - 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 Stat 02/24/23 15:54 Consult to Physical Therapy Evaluate & Treat 02/24/23 16:30 Complete Blood Count AUTO DIFF Stat Comprehensive Metabolic Panel Stat Ethanol (ETOH) Stat Lipase Stat Thyroid Stimulating Hormone Stat 02/24/23 16:55 Consult to Dietitian, Adult Stat Discontinued Medications Acetaminophen (Acetaminophen 325 Mg Tablet) 975 mg PO NOW ONE Stop: 02/24/23 17:20 Last Admin: 02/24/23 17:35 Dose: 975 mg Documented By: MACK Vital Signs Vital signs: Vital Signs - 8 hr 02/24/23 15:30 02/24/23 18:22 Temperature 98.4 F Pulse Rate 102 H 87 Respiratory Rate 18 18 Blood Pressure 145/71 H 145/73 H Pulse Oximetry 98 97 Oxygen Delivery Method Room Air Room Air MDM - Back Pain/Injury Lab Data Attestation: I reviewed the patient's lab results. 02/24/23 16:30 02/24/23 16:30 Labs: Lab Results 02/24/23 02/24/23 02/24/23 Range/Units 16:30 16:30 16:30 WBC 10.1 (4.5-11.0) X10^3/uL RBC 4.01 (4.0-5.2) X10^6/uL Hgb 13.9 (12.0-16.0) g/dL Hct 39.4 (36-46) % MCV 98.4 (80-100) fL MCH 34.6 H (26-34) PG MCHC 35.2 (30-36) % RDW 13.4 (11.6-14.8) % Plt Count 342 (150-400) X10^3/uL Neut % (Auto) 79.2 H (50-75) % Lymph % (Auto) 15.3 L (25-40) % [place] % (Auto) 4.7 (3-14) % Eos % (Auto) 0.5 L (2-4) % Baso % (Auto) 0.3 (0-2) % Neut # (Auto) 8000 H (8224-8212) /uL Lymph # (Auto) 1500 (3006-8581) /uL [place] # (Auto) 500 (0-900) /uL Eos # (Auto) 100 (0-450) /uL Baso # (Auto) 0 (0-100) /uL Sodium 135 L (137-145) mmol/L Potassium 4.1 (3.4-5.1) mmol/L Chloride 102 (98-107) mmol/L Carbon Dioxide 24 (22-32) mmol/L BUN 15 (7-17) mg/dL Creatinine 0.50 L (0.52-1.04) mg/dL Estimated GFR > 60 (>60) mL/min BUN/Creatinine Ratio 30.0 H (6-22) Glucose 92 (80-110) mg/dL Calcium 9.9 (8.4-10.2) mg/dL Total Bilirubin 0.3 (0.2-1.3) mg/dL AST 30 (14-36) IU/L ALT 26 (<35) IU/L Alkaline Phosphatase 115 (38-126) U/L Total Protein 7.5 (6.3-8.2) g/dL Albumin 4.4 (3.5-5.0) g/dL Globulin 3.1 (1.7-4.1) g/dL Albumin/Globulin Ratio 1.4 (1.0-2.8) Lipase 37 (23-300) U/L TSH 1.44 (0.47-4.68) uIU/mL Ethyl Alcohol < 10 ( - 10) mg/dL Urine Dip Bedside Urine Glucose Negative Bedside Urine Bilirubin - Negative Bedside Urine Ketone - Negative Urine Specific [place] 1.005 Bedside Urine Occult Blood - Negative Bedside Urine pH 7.5 Bedside Urine Protein - Negative Bedside Urine Urobilinogen - Negative Bedside Urine Nitrite - Negative Bedside Urine Leukocytes - Negative Esterase MDM Narrative Medical decision making narrative: Patient is cachectic. Is 30 kg which is down approximately 20-30 kg from a year ago. Patient is obviously malnourished. Her pain is not controlled. There is some concern reading prior notes about drug-seeking behavior. Has been seen by social work and it appears that she is going to qualify for care home facility since she was just admitted to hospital recently. Dietary consult placed. Physical therapy consult placed. Social work consult placed. Discussed the case with Dr. Burleson. We will admit for further evaluation and treatment. Discharge Plan Departure Patient Disposition: Admitted As Inpatient Clinical Impression: Malnutrition, Cervical spine pain, Opioid dependence, Adult failure to thrive
[2023-02-24 16:40] LABS: Add Manual Diff / Slide Review NO; Basophils Absolute Auto 0 /uL (0-100); Basophils Percent Auto 0.3 % (0-2); Eosinophils Absolute Auto 100 /uL (0-450); Eosinophils Percent Auto 0.5 % (2-4); Hematocrit 39.4 % (36-46); Hemoglobin 13.9 g/dL (12.0-16.0); Lymphocytes Absolute Auto 1500 /uL (1100-4500); Lymphocytes Percent Auto 15.3 % (25-40); Mean Corpuscular HGB Conc 35.2 % (30-36); Mean Corpuscular Hemoglobin 34.6 PG (26-34); Mean Corpuscular Volume 98.4 fL (80-100); Monocytes Absolute Auto 500 /uL (0-900); Monocytes Percent Auto 4.7 % (3-14); Neutrophils Absolute Auto 8000 /uL (1500-7000); Neutrophils Percent Auto 79.2 % (50-75); Platelet Count 342 X10^3/uL (150-400); Red Blood Cell Count 4.01 X10^6/uL (4.0-5.2); Red Cell Distribution Width 13.4 % (11.6-14.8); White Blood Cell Count 10.1 X10^3/uL (4.5-11.0)
[2023-02-24 16:57] LABS: Alanine Aminotransferase 26 IU/L (<35); Albumin 4.4 g/dL (3.5-5.0); Albumin Globulin Ratio 1.4 (1.0-2.8); Alkaline Phosphatase 115 U/L (38-126); Aspartate Aminotransferase 30 IU/L (14-36); Bilirubin Total 0.3 mg/dL (0.2-1.3); Blood Urea Nitrogen 15 mg/dL (7-17); Calcium 9.9 mg/dL (8.4-10.2); Carbon Dioxide 24 mmol/L (22-32); Chloride 102 mmol/L (98-107); Estimated Glomerular Filt Rate > 60 mL/min (>60); Ethanol (ETOH) < 10 mg/dL; Globulin 3.1 g/dL (1.7-4.1); Glucose 92 mg/dL (80-110); HEMOLYSIS < 15 (0-50); Lipase 37 U/L (23-300); Potassium 4.1 mmol/L (3.4-5.1); Sodium 135 mmol/L (137-145); Total Protein 7.5 g/dL (6.3-8.2)
[2023-02-24 17:25] LABS: Thyroid Stimulating Hormone 1.44 uIU/mL (0.47-4.68)
[2023-02-24] MEDS: ACETAMINOPHEN 325 MG TABLET 975 MG PO (17:35)
--- NOTE | 2023-02-24 17:45 | CM.SWNOTE ---
ED ENVIRONMENTAL PROGRAMS MANAGER Assessment Patient is 67 y/o female who presents to ED via POV with sister. ENVIRONMENTAL PROGRAMS MANAGER received call from [facility] regarding new referral intake appt with patient today and concern for patient unsafe at home and state that they declined patient for HH services. Patient was seen earlier today at [facility] for medication refill and was not given requested rx because patient just had rx filled on 02/20/23. Patient endorses significant chronic pain. Patient endorses concern for her significant weight loss, not being able to eat because of pain. Patient was admitted at [facility] from 02/11/23 to 02/20/23 regarding surgery regarding repairs from postsurgial spinal fusion changes. Patient reports that she ended up not having surgery and discharged with pain management. ENVIRONMENTAL PROGRAMS MANAGER reviews that patient was also discharged with [facility] referral as patient declined SNF rehab and believed that she could manage care at home. Patient has hx of Opiate dependence, chronic neck and back pain and hx of alcohol use disorder. Patient has hx of muliple thoracolumbar spine surgeries, & unintentional weight loss. Patient's PCP is Dr. Ma, patient has [facility], Medicare & Medicaid insurance. ENVIRONMENTAL PROGRAMS MANAGER enters room to meet with patient, patient presents as tearful and endorses she is in pain. Patient presents as A/Ox4. Patient endorses concern for withdrawing from opiate medication, ENVIRONMENTAL PROGRAMS MANAGER endorses that patient had recent rx filled for opiates on 02/20/23 and ED provider will to manage pain but patient cannot be over-prescribed. Patient endorses she has not been able to eat regularly for several months, but states she last ate yesterday and had a shake. Patient endorses concern for her significant weight loss and is surprised she weighs 30.66 kg, at last ED encounter in April 2022 patient weighed 46+ kg. Prior to meeting with patient, ED director recommends Foreign Student Adviser Teacher consult due to concern for patient's rapid weight loss. Patient endorses hx of senior tax accountant consults and states that they recommend she have protein shakes but patient states I am only able to eat here and there. Patient resides at home with sister Lora in [place], patient endorses she has not been able to bathe, is very shaky when she walks, states she can manage toileting needs, but has not been able to eat due to pain. It is reported that patient's sister helps when she can. Patient denies DME at home. ENVIRONMENTAL PROGRAMS MANAGER discusses SNF rehab and patient endorses that she has concern for managing needs at home and is interested in SNF rehab. Patient denies interest in [facility] and preference for [facility] in [place] or surrounding SNF rehabs in [facility]. ENVIRONMENTAL PROGRAMS MANAGER calls Ya at [facility] SNF rehab and leaves VM regarding referral for SNF. PT and Foreign Student Adviser Teacher orders pending. Plan: pending PT and senior tax accountant TENA hugo seeking SNF rehab placement for patient. Patient to board in ED. JANET Garcia
--- NOTE | 2023-02-24 17:53 | PC.NURSE ---
SURVEY CHIEF note: Assisted pt. in ambulating to the bathroom. pt. sat up on the gurney and ambulated by themselves into the bathroom. Instructed pt. on clean catch urine for a sample.
[2023-02-24 18:22] VITALS: BP 145/73; PULSE 87; RESP 18; O2SAT 97
[2023-02-24] MEDS: MORPHINE IR 15 MG TABLET PO ×2 (19:34→20:07)
--- NOTE | 2023-02-24 19:48 | PC.NURSE ---
Notified Dr. Ritchie, hospitalist director of donor relations: Pt awaiting bed placement. Her morphine IR dose is actually 30 mg tid as prescribed. (she says it is 60mg tid but it is prescribed 30 mg tid prn. It was origionally recorded in med rec as 15 mg tid prn. Just an FYI is you want to change the current order. New order obtained verbally for 30 mg po tid prn severe pain.
[2023-02-24] MEDS: TIZANIDINE 4 MG TABLET PO (20:05)
[2023-02-24] MEDS: CYCLOBENZAPRINE 10 MG TABLET PO (20:07)
[2023-02-24] MEDS: ONDANSETRON 4 MG/2 ML INJ IV (20:15)
[2023-02-24 20:30] VITALS: BP 139/74; PULSE 76; RESP 18; TEMP 36.2; O2SAT 98
[2023-02-24 21:23] VITALS: BMI 13.1
[2023-02-24] MEDS: TRAZODONE 50 MG TABLET 200 MG PO (21:30)
--- NOTE | 2023-02-24 21:31 | PM.HP.1 ---
History of Present Illness History of Present Illness Chief complaint: states failure to thrive/unsafe discharge Narrative: 67-year-old female who is here for evaluation of failure to thrive and uncontrolled discomfort.? She states that she recently spent a 10 day hospital stay at [facility] to have ?tests? done in order to determine whether not she was going to get surgery on her cervical spine.? She stated that the decision ultimately was to not have surgery.? Apparently she was offered usp facility but she declined.? Has been home for couple days.? Went to an outside emergency department this morning because she is out of all of her pain medication and her next appointment with her painter set is not until tomorrow.? She has chronic neck pain.? States she can not heat because of how much discomfort that she is in.? She is lost weight.? Is unable to take care of herself.? Home health came to see her and stated that she is not safe being home. The patient lost around 60 pounds in the last 3 months. Complain of chronic nausea and poor appetite. 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, thoracic region Tobacco abuse Surgical History (Updated 03/07/21 @ 00:49 by KELSEY Gaona) History of cholecystectomy History of hysterectomy History of spinal fusion Previous back surgery Family History (Updated 03/07/21 @ 00:52 by KELSEY Gaona) Father Cancer Grandmother Cancer Social History household members: family Smoking Status: Current every day smoker alcohol intake: never Meds Home Medications and Allergies Home Medications Medication Instructions Recorded Confirmed Type albuterol sulfate 90 mcg/actuation 2 puff inhalation Q4-6H PRN 02/24/23 02/24/23 History aerosol inhaler wheezing cyclobenzaprine 10 mg tablet 10 mg PO 3XD 02/24/23 02/24/23 History duloxetine 60 mg capsule,delayed 60 mg PO QAM 02/24/23 02/24/23 History release morphine 15 mg immediate release 30 mg PO TID PRN Pain (Scale Score 08/28/23 08/28/23 History tablet 7-10) pantoprazole 40 mg tablet,delayed 40 mg PO DAILY 02/24/23 02/24/23 History release tizanidine 4 mg tablet 4 mg PO 3XD 02/24/23 02/24/23 History trazodone 100 mg tablet 200 mg PO ONCE PM 02/24/23 02/24/23 History Allergies Allergy/AdvReac Type Severity Reaction Status Date / Time bupropion [From Wellbutrin] Allergy Anaphylaxis Verified 02/24/23 15:30 gabapentin Allergy Muscle Verified 02/24/23 15:30 contractions pregabalin [From Lyrica] Allergy Muscle Verified 02/24/23 15:30 contractions aspirin [ASPIRIN] AdvReac Unknown Gastrointestinal Verified 02/24/23 15:30 Upset NSAIDS (Non-Steroidal AdvReac Unknown Gastrointestinal Verified 02/24/23 17:04 Anti-Inflamma Upset [NSAIDS (NON-STEROIDAL ANTI-INFLAMMA] Review of Systems Review of Systems ROS: Yes All systems reviewed with the patient and are negative except as otherwise documented Constitutional Constitutional: Reports as per HPI and Reports system reviewed and no additional complaints, except as documented Eyes Eyes: Reports as per HPI and Reports system reviewed and no additional complaints, except as documented ENT Ears, Nose, Mouth, and Throat: Yes as per HPI and Yes system reviewed and no additional complaints, except as documented Cardiovascular Cardiovascular: Reports system reviewed and no additional complaints, except as documented Respiratory Respiratory: Reports system reviewed and no additional complaints, except as documented Gastrointestinal Gastrointestinal: Reports system reviewed and no additional complaints, except as documented Genitourinary Genitourinary: Reports system reviewed and no additional complaints, except as documented Musculoskeletal Musculoskeletal: Reports system reviewed and no additional complaints, except as documented, Reports abnormal gait and Reports numbness Neurologic Neurologic: Reports system reviewed and no additional complaints, except as documented, Reports abnormal gait, Reports confusion and Reports numbness Psychiatric Psychiatric: Reports system reviewed and no additional complaints, except as documented and Reports confusion Exam Vital Signs (past 8 hours): - 02/24/23 15:30 02/24/23 18:22 02/24/23 20:30 Temperature 98.4 F 97.2 F L Pulse Rate 102 H 87 76 Respiratory Rate 18 18 18 Blood Pressure 145/71 H 145/73 H 139/74 Pulse Oximetry 98 97 98 Oxygen Delivery Method Room Air Room Air Oxygen Flow Rate 0 Oxygen Delivery Method Room Air Oxygen Flow Rate 0 Const General: cooperative, comfortable and well developed Orientation: alert and oriented x3 HENOR Head: normal to inspection, normocephalic and atraumatic Face and sinus: normal facial exam Mouth: oral mucosae normal and moist mucous membranes Throat: posterior oropharynx normal Eyes General: appearance normal, both eyes and all related structures Pupils: PERRL EOM: EOM intact bilaterally Neck Neck: normal visual inspection and full ROM Chest Chest: normal inspection of the chest Resp Effort & Inspection: normal respiratory effort and able to speak in complete sentences Auscultation: clear to auscultation bilaterally Cardio Palpation: normal PMI Rate: regular rate Rhythm: regular rhythm Heart Sounds: S1 normal and S2 normal GI Inspection: normal to inspection Palpation: soft and no hepatosplenomegaly Auscultation: normal bowel sounds Skin General: no rashes or lesions noted Lesions: no lesions Rashes: no rashes Trauma: no lacerations or abrasions Neuro General: patient alert, patient awake, patient oriented x3 and no focal motor deficits Cranial Nerves: CN's II-XI intact bilaterally Cognition: normal cognition Speech: speech normal Gait: normal gait Motor: muscle tone normal throughout Sensory Exam: no sensory deficits noted Extrem General: full ROM and no calf tenderness Psych Appearance: grossly normal Mental Status: mental status grossly normal Speech and Movement: speech and movement normal Objective Labs 02/24/23 16:30 02/24/23 16:30 Labs: Laboratory Results - last 24 hr 02/24/23 02/24/23 02/24/23 16:30 16:30 16:30 WBC 10.1 RBC 4.01 Hgb 13.9 Hct 39.4 MCV 98.4 MCH 34.6 H MCHC 35.2 RDW 13.4 Plt Count 342 Neut % (Auto) 79.2 H Lymph % (Auto) 15.3 L Lyman % (Auto) 4.7 Eos % (Auto) 0.5 L Baso % (Auto) 0.3 Neut # (Auto) 8000 H Lymph # (Auto) 1500 Lyman # (Auto) 500 Eos # (Auto) 100 Baso # (Auto) 0 Sodium 135 L Potassium 4.1 Chloride 102 Carbon Dioxide 24 BUN 15 Creatinine 0.50 L Estimated GFR > 60 BUN/Creatinine Ratio 30.0 H Glucose 92 Calcium 9.9 Total Bilirubin 0.3 AST 30 ALT 26 Alkaline Phosphatase 115 Total Protein 7.5 Albumin 4.4 Globulin 3.1 Albumin/Globulin Ratio 1.4 Lipase 37 TSH 1.44 Ethyl Alcohol < 10 Assessment & Plan Assessment and plan (1) Adult failure to thrive: Status: Acute Plan: -Have physical therapy and occupational therapy consultation and opinion in the morning in regards to appropriate assessment of patient's needs for mobility and maintenance of activities of daily living as appropriate for patient's medical condition and age. -warehouse production worker consult for placement (2) Malnutrition: Problem details: Lost around 60 pounds in the last 3 months Status: Acute Plan: - Dietitian consult (3) Major depressive disorder, recurrent episode, in partial remission with anxious distress: Problem details: Depression and chronic pain Status: Acute Plan: -Restart Lyrica, Wellbutrin and gabapentin -Restart morphine (4) Tobacco abuse: Status: Acute Plan: - We will order nicotine patch Time Spent With Patient Time with patient: 50 to 69 minutes with 50% spent counseling/coordinating care Quality VTE Deep Vein Thrombosis/Pulmonary Embolism Present on Admission: No MIPS - Admit I confirm the patient?s Advance Care Plan is present, Code status is documented, Surrogate decision maker is in patient?s record [If Yes, STOP here]: Yes MIPS - Meds 'Current medications' to include all prescriptions, [id number] products, herbals, cannabis/cannabidiol products, and vitamin/mineral/dietary (nutritional) supplements. I have utilized all available resources to obtain, update, or review the patient?s current medications. [If Yes, STOP here]: Yes
[2023-02-24 21:43] VITALS: BMI 17.7
[2023-02-24 21:44] LABS: BUN Creatinine Ratio 33.3 (6-22); Blood Urea Nitrogen 15 mg/dL (7-17); Calcium 9.1 mg/dL (8.4-10.2); Carbon Dioxide 23 mmol/L (22-32); Chloride 105 mmol/L (98-107); Estimated Glomerular Filt Rate > 60 mL/min (>60); Glucose 105 mg/dL (80-110); HEMOLYSIS < 15 (0-50); Sodium 133 mmol/L (137-145)
[2023-02-24] MEDS: HYDROMORPHONE 4 MG TABLET PO (21:54)
--- NOTE | 2023-02-24 22:03 | PC.NURSE ---
Addendum entered by Tera Lopez R.N. 02/24/23 22:05: Med rec difficult to complete d/t discrepency report from pt and rx. Filled out to best of this Rn abilities w/ sister telling me rx from home. Original Note: Med rec completed via phone w/ sister Lora Zepeda.
[2023-02-24] MEDS: PRAMIPEXOLE 0.25 MG TABLET 0.125 MG PO (23:10)
--- NOTE | 2023-02-24 23:28 | PC.ADMIT ---
Addendum entered by Julia Aguilera R.N. 02/25/23 06:26: Has had a total of 4 cups of coffee w/3 creams and 1 sugar in each, 1 carton of milk, 11 packs of saltines and 2 turkey sandwiches this shift. Was given chocolate ensure but only taking sips. After she receives pain medication will ask when she can next have pain meds and requests then 30 min before they are due. When up to bathroom makes no grimacing or difficulty with ambulation, talks pleasantly and very conversant but then will state her pain is 8/10 in neck, back and shoulders. Original Note: [address] Admission Note: The patient,Mayra Jacobs,67 y/o, was given written information regarding hospital policies, unit procedures and contact persons. Patient's smoking status: Current every day smoker. Vital Signs - 8 hr 02/24/23 15:30 02/24/23 18:22 02/24/23 20:30 Temperature 98.4 F 97.2 F L Pulse Rate 102 H 87 76 Respiratory Rate 18 18 18 Blood Pressure 145/71 H 145/73 H 139/74 Pulse Oximetry 98 97 98 Oxygen Delivery Method Room Air Room Air Oxygen Flow Rate 0 02/24/23 22:00 Temperature Pulse Rate Respiratory Rate Blood Pressure Pulse Oximetry Oxygen Delivery Method Room Air Oxygen Flow Rate Patient admitted to room 218 per wheelchair from ER. Is alert and oriented although anxious and complaining of chronic pain. Breath sounds CTA with RA sat of 98%. HRR. Denies nausea although states she has had nausea related to pain and did receive Zofran earlier in ER. BT present and denies any problems with constipation/diarrhea. Reports weight loss in past 3 months stating she has lost weight to 60 pounds although admission weight is indicating she is 41.2kg upon admit. Denies dysuria, frequency or urgency with urination; has not voided as yet. Is able to turn herself in bed and ER nurse reports she was able to walk to bathroom with SBA. Complains of chronic back, neck and bilateral shoulder pain; received Morphine 30mg in ER but states she was taking 60mg at home. RNTera, contacted sister and verified her prescription bottle was for 15mg 1-[address] tabs [address] Arthur saw patient via telecommunications and was sent heart and lung sounds via [employer]. He did order prn Dilaudid which was given at 2154 and patient stated pain only improved from 7/10 to 6/10 but when checked on short time ago was asleep. Is also receiving scheduled Flexeril, Tizanidine and Mirapex. Declined her Duloxetine stating that made her sleep walk. Bilateral calf SCD's were applied. Fall risk score is high and bed alarm is activated. Oriented to call light and bed controls. Did request coffee and saltines and ate several packets of crackers and then requested more.
[2023-02-25] MEDS: hydrOXYzine pamoate 25 MG CAPSULE 50 MG PO ×3 (01:03→14:03)
[2023-02-25 01:58] LABS: Appearance Urine UA CLEAR; Bilirubin Urine UA NEGATIVE (NEGATIVE); Color Urine UA YELLOW; Glucose Urine UA NEGATIVE (Negative); Ketones Urine UA NEGATIVE (NEGATIVE); Leukocyte Esterase Urine UA TRACE (NEGATIVE); Nitrite Urine UA NEGATIVE (Negative); Occult Blood Urine UA NEGATIVE (Negative); Protein Urine UA NEGATIVE (Negative); Urobilinogen Urine UA 0.2 E.U./dL (0.2)
[2023-02-25] MEDS: HYDROMORPHONE 4 MG TABLET PO ×2 (02:02→06:22)
[2023-02-25 02:08] LABS: Bacteria Urine None Seen; RBC Urine None Seen (0-5/HPF); Squamous Epithelial Cell Urine None Seen (0-5/HPF); WBC Urine 0-1/HPF (0-5/HPF)
[2023-02-25 02:09] LABS: Culture Indicated Urine Specimen Cultured
[2023-02-25] MEDS: MORPHINE IR 15 MG TABLET 30 MG PO ×3 (04:28→20:31)
[2023-02-25 07:00] VITALS: BP 135/73; PULSE 81; RESP 18; TEMP 36.2; O2SAT 96
[2023-02-25] MEDS: ONDANSETRON 4 MG/2 ML INJ IV (08:32)
[2023-02-25] MEDS: CYCLOBENZAPRINE 10 MG TABLET PO ×3 (08:32→20:31)
[2023-02-25] MEDS: BACLOFEN 10 MG TABLET 5 MG PO (08:32)
[2023-02-25] MEDS: TIZANIDINE 4 MG TABLET PO ×3 (08:32→20:31)
[2023-02-25] MEDS: NICOTINE 14 PATCH 14 MG TOP (08:32)
[2023-02-25] MEDS: PANTOPRAZOLE DR 40 MG TABLET PO (08:32)
[2023-02-25] MEDS: SODIUM CHLORIDE 0.9% FLUSH 10 ML IV ×4 (08:33→23:08)
--- NOTE | 2023-02-25 09:29 | PT-IP ANOTE ---
The pt is agreeable to PT evaluation initially. After subjective portion of PT eval, the pt reports she is in too much pain to attempt objective portion of eval and is requesting to try again later this morning.
[2023-02-25] MEDS: methocarbamoL 500 MG TABLET PO ×2 (10:01→15:50)
[2023-02-25] MEDS: HYDROMORPHONE 1 MG INJ IV ×3 (10:01→15:50)
[2023-02-25] MEDS: THIAMINE 100 MG TABLET PO (10:01)
[2023-02-25 10:27] LABS: Magnesium 1.7 mg/dL (1.6-2.3)
[2023-02-25 10:34] LABS: Prealbumin 27.8 mg/dL (17.6-36.0)
[2023-02-25] MEDS: MAGNESIUM SULFATE 2 GM/50 ML PIGGYBACK IV (11:32)
[2023-02-25 11:35] LABS: Folate 7.6 ng/mL (2.76-20.0); Vitamin B12 Reflex MMA if <400 554 pg/mL (239-931)
[2023-02-25] MEDS: KETOROLAC 30 MG/ML VIAL IV ×3 (11:43→23:02)
[2023-02-25] MEDS: droNABinol 2.5 MG CAPSULE 5 MG PO (11:51)
--- NOTE | 2023-02-25 11:57 | DIET.CONS ---
Dietary Consultation Note Admission Date: 02/24/2023 19:05 Assessment: 67y F with pmhx chronic pancreatitis admitted for pain management and failure to thrive (FULL CODE) referred to nutrition for MNA 3 (malnourished). RD last saw patient 02/2021 for malnutrition related to chronic N/V and chronic pain where BMI was 19.4 (severe for age). RD met with pt at bedside. Pt reports inability to eat due to pain, nausea. Despite adequate nutrition education at various hospitals, pt has not regained the weight she lost 2y ago and continues to drop lower. Current weight is 31% below UBW and 24% below adequate body weight for age. Pt is cachectic with nutrition focused physical exam positive for severely wasted muscles and absent fat mass globally. Pt experiencing food insecurity in home environment, receives SSI and EBT food benefits but reports runs out of funds after 2 weeks each month then her sister/housemate goes to food [employer] for remainder of month. Pt desires weight and mobility repletion to be able to visit her great granddaughter in [place], currently too weak to travel. Pt with high opiate use and tolerance which likely impacts appetite and worsens nausea/constipation. Per pt, no difficulty swallowing, per CT imaging pts pancreas is atrophic, punctate calcifications in pancreas consistent with chronic pancreatitis. Pt has been unable to replete weight to safe levels for age via PO or ONS intake x2y. Pt indicated for enteral nutrition supported weight repletion. Ht: 152.4 cm Wt: 41.2 kg (31% below UBW) BMI: 17.7 (severe) UBW: 59kg Last BM: 02/24/23 (02/24/23 21:43) MNA: 3 (malnourished) Ollie Score: 22 Diet: 02/25/23 Breakfast Heart Healthy Diet Diet Modifications: Nutrition Percent Meal Consumed 10 02/25/23 09:09 Labs: RBC 4.01 X10^6/uL (4.0-5.2) 02/24/23 16:30 Hgb 13.9 g/dL (12.0-16.0) 02/24/23 16:30 Hct 39.4 % (36-46) 02/24/23 16:30 Creatinine 0.45 mg/dL (0.52-1.04) L 02/24/23 21:07 Nutrition Diagnosis: Severe Acute on Chronic Protein Calorie Malnutrition r/t inability to meet nutrition needs orally and opioid dependence aeb BMI 17.7 (severe), MNA 3 (malnourished), pt food insecure running out of food for 2 weeks each month, pt weight continues to drop despite nutrition education and ONS therapy, pt with chronic uncontrolled pain despite high opioid use. Interventions: 1. Recc initiation of enteral nutrition via NG tube. Pt at moderate risk for refeeding sydrome, please check K+, Mg, and Phos labs bid until goal rate reached and replete per protocol. Continuous enteral nutrition via NG using Jevity 1.2 formula. Starting Rate: 20mL/h increase by 10mL/h q12h as tolerated up to goal of 50mL/h. Free water flushes 60mL q4h. Goal rate formula provides 968mL free water, 1440 kcals (35kcal/kg), 67g PRO (1.6g/kg), 203g CHO and 47g fat. Free water in formula and flushes provide 1,328mL fluids. Pt may drink 250mL water PO or add as flush depending on tolerance. EER: 1440kcals (35kcal/kg per PCM), 67g PRO (1.6g/kg per PCM) Monitoring/Evaluations: following daily for tolerance Electronically Signed by: Rae Morales 02/25/23 11:57 Clinical Dietitian [address] [address]
[2023-02-25] MEDS: ACETAMINOPHEN 325 MG TABLET 650 MG PO (12:11)
--- NOTE | 2023-02-25 12:54 | PM.PN.1 ---
Subjective Subjective Interval history: Patient says she is in alot of pain. Has barely eaten anything in weeks other than crackers and ensure. Has very little appetite. NG tube being placement for tube feeds after dietary assessed and rec enteral nutrition. Exam Vital Signs (past 8 hours): - 02/25/23 07:00 Temperature 97.1 F L Pulse Rate 81 Respiratory Rate 18 Blood Pressure 135/73 Pulse Oximetry 96 Oxygen Delivery Method Room Air Oxygen Flow Rate 0 Narrative Exam Narrative: GEN: no acute distress, cachectic and anorexic appearing female HEENT: moist mucous membranes, PERRL NECK: trachea midline, no JVD CV: regular rate and rhythm, no murmurs PULM: clear bilaterally ABD: firm, nontender, distended, no organomegaly EXT: warm and well perfused with no edema NEURO: awake, alert, oriented, no focal deficits Objective Labs 02/24/23 16:30 02/24/23 21:07 Labs: Laboratory Results - last 24 hr 02/24/23 02/24/23 02/24/23 16:30 16:30 16:30 WBC 10.1 RBC 4.01 Hgb 13.9 Hct 39.4 MCV 98.4 MCH 34.6 H MCHC 35.2 RDW 13.4 Plt Count 342 Neut % (Auto) 79.2 H Lymph % (Auto) 15.3 L Collin % (Auto) 4.7 Eos % (Auto) 0.5 L Baso % (Auto) 0.3 Neut # (Auto) 8000 H Lymph # (Auto) 1500 Collin # (Auto) 500 Eos # (Auto) 100 Baso # (Auto) 0 Sodium 135 L Potassium 4.1 Chloride 102 Carbon Dioxide 24 BUN 15 Creatinine 0.50 L Estimated GFR > 60 BUN/Creatinine Ratio 30.0 H Glucose 92 Calcium 9.9 Magnesium Total Bilirubin 0.3 AST 30 ALT 26 Alkaline Phosphatase 115 Total Protein 7.5 Albumin 4.4 Globulin 3.1 Albumin/Globulin Ratio 1.4 Prealbumin Lipase 37 Vitamin B12 Folate TSH 1.44 Urine Color Urine Appearance Urine pH Ur Specific [place] Urine Protein Urine Glucose (UA) Urine Ketones Urine Occult Blood Urine Nitrate Urine Bilirubin Urine Urobilinogen Ur Leukocyte Esterase Urine RBC Urine WBC Ur Squamous Epith Cells Urine Bacteria Ur Culture Indicated? Ethyl Alcohol < 10 02/24/23 02/25/23 02/25/23 21:07 01:55 09:51 WBC RBC Hgb Hct MCV MCH MCHC RDW Plt Count Neut % (Auto) Lymph % (Auto) Collin % (Auto) Eos % (Auto) Baso % (Auto) Neut # (Auto) Lymph # (Auto) Collin # (Auto) Eos # (Auto) Baso # (Auto) Sodium 133 L Potassium 4.0 Chloride 105 Carbon Dioxide 23 BUN 15 Creatinine 0.45 L Estimated GFR > 60 BUN/Creatinine Ratio 33.3 H Glucose 105 Calcium 9.1 Magnesium 1.7 Total Bilirubin AST ALT Alkaline Phosphatase Total Protein Albumin Globulin Albumin/Globulin Ratio Prealbumin 27.8 Lipase Vitamin B12 554 Folate 7.6 TSH Urine Color Yellow Urine Appearance Clear Urine pH 7.0 Ur Specific [place] 1.010 Urine Protein Negative Urine Glucose (UA) Negative Urine Ketones Negative Urine Occult Blood Negative Urine Nitrate Negative Urine Bilirubin Negative Urine Urobilinogen 0.2 Ur Leukocyte Esterase Trace H Urine RBC None seen Urine WBC 0-1/hpf Ur Squamous Epith Cells None seen Urine Bacteria None seen Ur Culture Indicated? 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 CISCO ADMINISTRATOR arranging. (2) Malnutrition: Problem details: Lost around 60 pounds in the last 3 months Status: Acute Plan: - Dietitian consulted and will have NG tube placed for tube feeds due to severe malnutrition -goal TF 50mL/hr (3) Chronic pain: Status: Acute Plan: -continue home morphine 30mg q8h with IV dilaudid for breakthrough pain -may try to transition back to subutex 8mg TID which she was on previously (4) Major depressive disorder, recurrent episode, in partial remission with anxious distress: Problem details: Depression and chronic pain Status: Acute Plan: -Restart Lyrica, Wellbutrin and gabapentin, cymbalta -Restart morphine (5) Tobacco abuse: Status: Acute Plan: -continue nicotine patch Plan Dispo: Pending SNF placement and tube feeds at goal. Time Spent With Patient Time with patient: 50 to 69 minutes with 50% spent counseling/coordinating care Quality VTE Deep Vein Thrombosis/Pulmonary Embolism Present on Admission: No
--- NOTE | 2023-02-25 13:00 | OT.IPNOTE ---
Per nursing pt is in lots of pain, just given Ativan earlier and best to see pt tomorrow for OT eval. To check on the pt tomorrow.
--- NOTE | 2023-02-25 13:20 | DI.RAD.S_ITS ---
PROCEDURE: XR CHEST 1V INDICATIONS: NG tube placement TECHNIQUE: One view of the chest was acquired. COMPARISON: [facility], CT, CT ABDOMEN PELVIS WITH CONTRAST, 02/03/2023, 18:20. [facility], CT, CT THORACIC SPINE WITHOUT CONTRAST, 02/10/2023, 21:35. [facility], CR, XR CHEST 1V, 03/06/2021, 14:46. FINDINGS: Surgical changes and devices: A gastric tube is placed. The tip is not well seen, yet it does not seen below the level of the diaphragm. Advanced thoracolumbar fixation rods are seen. Cholecystectomy clips are seen. Lungs and pleura: Lungs are clear. No pleural effusions or pneumothorax. Mediastinum: Mediastinal contours appear normal. Heart size is normal. Bones and chest wall: No suspicious bony lesions. Overlying soft tissues appear unremarkable. IMPRESSION: Gastric tube seen, with the tip not traversing below the level of diaphragm. Recommended advancement 10-15 cm. Dictated by: Salvador Mckeon M.D. on 02/25/2023 at 13:39 Approved by: Salvador Mckeon M.D. on 02/25/2023 at 13:40
[2023-02-25] MEDS: LORazepam 2 MG/ML INJ 0.5 MG IV (13:34)
--- NOTE | 2023-02-25 14:56 | DI.RAD.S_ITS ---
PROCEDURE: XR CHEST 1V INDICATIONS: recheck NG tube s/p advancement TECHNIQUE: One view of the chest was acquired. COMPARISON: [facility], CR, XR CHEST 1V, 02/25/2023, 13:24. FINDINGS: Surgical changes and devices: NG tube tip is in the region of proximal stomach lumen below the left hemidiaphragm. Extensive spinal fixation is seen. Lungs and pleura: Lungs are clear. No pleural effusions or pneumothorax. Mediastinum: Mediastinal contours appear normal. Heart size is normal. Bones and chest wall: No suspicious bony lesions. Overlying soft tissues appear unremarkable. IMPRESSION: NG tube tip is in the expected location of proximal stomach lumen below the left hemidiaphragm. No acute cardiopulmonary pathology. Dictated by: Jhon Lockhart M.D. on 02/25/2023 at 16:31 Approved by: Jhon Lockhart M.D. on 02/25/2023 at 16:32
--- NOTE | 2023-02-25 15:07 | CM.DPC ---
Addendum entered by TENA Donnelly 02/25/23 15:34: ELECTRICAL ENGINEERING DIRECTOR completed PASRR. ELECTRICAL ENGINEERING DIRECTOR gave PASRR to ABDI Lucio. RENE Original Note: DCP Continued: ELECTRICAL ENGINEERING DIRECTOR called and lvm with Savanna at [facility] to inquire about benefits/potential pending KENZIE applications for patient. ELECTRICAL ENGINEERING DIRECTOR lvm with Mary, decorating supervisor with [facility] to inquire about benefits/potential pending KENZIE applications for patient. ELECTRICAL ENGINEERING DIRECTOR lvm with Genevieve [facility] office to inquire about benefits/potential pending KENZIE applications for patient. CM team will continue to follow and pursue Medicaid benefits to assist in d/c/longterm care giving planning. TENA Donnelly
[2023-02-25] MEDS: droNABinol 2.5 MG CAPSULE PO (16:35)
[2023-02-25] MEDS: HYDROMORPHONE 0.5 MG INJ 1 MG IV (16:36)
[2023-02-25] MEDS: HYDROMORPHONE 1 MG INJ 2 MG IV ×2 (18:48→23:03)
[2023-02-25 19:00] VITALS: BP 115/61; PULSE 91; RESP 16; TEMP 36.2; O2SAT 96
[2023-02-25] MEDS: PRAMIPEXOLE 0.25 MG TABLET 0.125 MG PO (20:31)
[2023-02-25] MEDS: TRAZODONE 50 MG TABLET 200 MG PO (20:31)
[2023-02-26] MEDS: MORPHINE IR 15 MG TABLET 30 MG PO ×2 (03:02→11:27)
[2023-02-26] MEDS: HYDROMORPHONE 1 MG INJ 2 MG IV ×4 (03:03→12:17)
[2023-02-26] MEDS: KETOROLAC 30 MG/ML VIAL IV ×4 (05:32→23:59)
[2023-02-26] MEDS: SODIUM CHLORIDE 0.9% FLUSH 10 ML IV ×6 (05:33→20:54)
[2023-02-26 06:04] LABS: Magnesium 2.1 mg/dL (1.6-2.3)
[2023-02-26 07:00] VITALS: BP 129/74; PULSE 70; RESP 18; TEMP 36.3; O2SAT 98
--- NOTE | 2023-02-26 07:52 | PM.PN.1 ---
Subjective Subjective Interval history: Patient was doing ok on morphine 30mg TID, dilaudid IV 2mg q3h but states the IV dilaudid isn't quite taking the pain away enough. Calculated her COLTEN and found it to be 230 per day. Attempted to switch her to methadone and called her PCP Dr. Cochran to verify that she can prescribe it and she says she will. After switching over to methadone plus IV morphine, patient called me to room and was distraught saying she is in so much pain and that methadone doesn't work for her. Says she has been on it in the past and it made her head fuzzy. She is begging to go back on her prior regimen with the goal to switch to her subutex 8mg TID once she is out of the SNF. She will return to [facility] to prescribe this. She states she is motivated to try to get out of pain and not rely so much on her pain meds, but that she is in agony without them currently. Orders were placed to go back to po morphine, but with IV plus po dilaudid for breakthrough pain. Exam Vital Signs (past 8 hours): Oxygen Delivery Method Room Air Oxygen Flow Rate 0 Narrative Exam Narrative: GEN: no acute distress, cachectic and anorexic appearing female HEENT: moist mucous membranes, PERRL NECK: trachea midline, no JVD CV: regular rate and rhythm, no murmurs PULM: clear bilaterally ABD: firm, nontender, distended, no organomegaly EXT: warm and well perfused with no edema NEURO: awake, alert, oriented, no focal deficits Objective Labs 02/26/23 15:00 02/26/23 15:00 Labs: Laboratory Results - last 24 hr 02/25/23 02/26/23 09:51 05:10 Magnesium 1.7 2.1 Prealbumin 27.8 Vitamin B12 554 Folate 7.6 PFSH Medical History Anxiety Cachexia Chronic back pain Dorsalgia Failure of spinal fusion Fibromyalgia History of alcohol abuse History of anemia History of chronic pain Major depressive disorder, recurrent episode, 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 APPLICATION DEFENSE MANAGER arranging. (2) Malnutrition: Problem details: Lost around 60 pounds in the last 3 months Status: Acute Plan: -Dietitian consulted and will have NG tube placed for tube feeds due to severe malnutrition -goal TF 50mL/hr (3) Chronic pain: Status: Acute Plan: -attempted to switch to methadone 10mg per day, QTc was 418, but patient refused and said she doesn't want methadone -will continue home morphine 30mg q8h with IV and po dilaudid plus IV toradol for breakthrough pain -she will try to transition back to subutex 8mg TID which she was on previously for 5 years once she leaves the SNF, to be prescribed by Dr. Núñez at [facility] (4) Major depressive disorder, recurrent episode, in partial remission with anxious distress: Problem details: Depression and chronic pain Status: Acute Plan: -Restart Lyrica, Wellbutrin and gabapentin -patient states she no longer takes cymbalta as she feels funny on it -may try to use venlafaxine (5) Tobacco abuse: Status: Acute Plan: -continue nicotine patch Plan Dispo: Pending SNF placement and tube feeds at goal. Time Spent With Patient Time with patient: 50 to 69 minutes with 50% spent counseling/coordinating care Quality VTE Deep Vein Thrombosis/Pulmonary Embolism Present on Admission: No
[2023-02-26] MEDS: CYCLOBENZAPRINE 10 MG TABLET PO ×3 (09:09→20:54)
[2023-02-26] MEDS: PANTOPRAZOLE DR 40 MG TABLET PO (09:09)
[2023-02-26] MEDS: TIZANIDINE 4 MG TABLET PO ×3 (09:09→20:54)
[2023-02-26] MEDS: NICOTINE 14 PATCH 14 MG TOP (09:09)
[2023-02-26] MEDS: ONDANSETRON 4 MG/2 ML INJ IV (09:09)
[2023-02-26] MEDS: THIAMINE 100 MG TABLET PO (09:10)
[2023-02-26] MEDS: droNABinol 2.5 MG CAPSULE PO ×2 (10:27→17:24)
--- NOTE | 2023-02-26 10:54 | PT.IIE ---
Current Diagnoses Unspecified protein-calorie malnutrition (02/24/23) Major depressive disorder, recurrent, in partial remission (02/24/23) Other specified anxiety disorders (02/24/23) Other chronic pain (02/24/23) Adult failure to thrive (02/24/23) Tobacco use (02/24/23) Surgical History (Last Updated 03/07/21 @ 00:49 by JELENA Gaona-) History of cholecystectomy History of hysterectomy History of spinal fusion Previous back surgery Medical History (Last Reviewed 02/24/23 @ 18:51 by Javier Lindsay DO) Anxiety Cachexia Chronic back pain Dorsalgia Failure of spinal fusion Fibromyalgia History of alcohol abuse History of anemia History of chronic pain Major depressive disorder, recurrent episode, 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 She has a 4WW that she uses sometimes as needed to manage her pain. At the grocery store she hold onto a cart. Activities of Daily Living and IADL's Independent with basic ADL's. She normally does the cooking. Her Sister does the driving. She normally stands to take a shower. She has not been able to shower nor cook since getting home from [facility]. Prior Functional Level (Other details) Pt was at [facility] 02/11- and since going home she had been very limited in her activity tolerance due to high levels of pain and nausea. She had not eaten very much at home lately. She has been able to walk around the house and get to the toilet. She can not lift her arms up due to pain in her neck. Social History Household Members family Living Arrangements Apartment/Condo Number of Floors (Floors) One Floor Number of Stairs To Enter/Railing? none Home Environment Standard Height Toilet,Tub/ Shower Home Equipment Four Wheel Walker Additional Social History Comment she also has walking stick M2 PT-IP Current Condition Start: 02/26/23 12:32 Freq: NEEDED Status: Active Protocol: Document 02/26/23 10:54 DLM (Rec: 02/26/23 13:14 DL [id number]) Physical Therapy Current Condition Current Condition Evaluation Date 02/26/23 Treatment Diagnosis Chronic pain and nausea, decreased activity tolerance Onset Date 02/24/23 M3 PT-IP Subjective Start: 02/26/23 12:32 Freq: NEEDED Status: Active Protocol: Document 02/26/23 10:54 DLM (Rec: 02/26/23 13:14 DL [id number]) Subjective Physical Therapy Visit Type Type Initial Evaluation Visit Start Time 10:25 Visit Stop Time 10:54 Total Visit Minutes 29 Number of TOWER EQUIPMENT REPAIRER Visits 0 Physical Therapy Visit Comments Patient Comments She thinks she needs SNF rehab , was not doing well at home since leaving [facility]. She reports her pain goal is a 6/ 10. She believes if her pain was lower she would not be nauseated and she can return to eating normally. Patient Goals improve her pain Therapy Pain Assessment Pain When Pain Assessed During Mobility Pain Present Pain Present Pain Reported Location back, neck, shoulders Intensity 8 Scale Used Numeric (0 - 10) Description Aching,Radiating,Tender, Tightness,With Movement Pain Behaviors Facial Grimacing,Guarding, Holding Area Pain Management Techniques Re-positioning,Timing of Activity with Medications M4 PT-IP Mobility and Gait Start: 02/26/23 12:32 Freq: NEEDED Status: Active Protocol: Document 02/26/23 10:54 DLM (Rec: 02/26/23 13:14 DL [id number]) PT-Bed Mobility Assessment Rolling Level of Assist Independent Supine to Sit Supine to Sit Independent Scooting Scooting to Edge of Bed Independent PT-Transfer Assessment Sit to and From Stand Sit to and from Stand Standby Assistance,Contact Guard Assistance,Use of Upper Extremities Equipment Transfer Assistive Device Gait Belt Transfers Transfer Destination Chair Transfer Technique Stand Step Pivot Transfer Ability Level of Assist Standby Assistance,Contact Guard Assistance,Use of Upper Extremities Comments Mobility Comments Her upper back pain limits her functional movements. She was left up in the recliner this visit with waffle cushion for pressure relief and pillows for back/neck support. Gait Assessment Gait Gait Assistance Required: Standby Assistance,Contact Guard Assist Distance (Feet) 120 Able to Maintain Weight Bearing Status Yes During Gait Assistive Devices Assistive Device Gait Belt Factors Limiting Gait Function Factors Limiting Gait Function Decreased Activity Tolerance, Decreased Strength,Limited Range of Motion,Pain,Poor Balance Comments Gait Comments She demonstrates mild decreased standing balance during gait with lateral deviations in her path. She has poor ROM of her neck that also affects her balance since she can not look directly up nor turn her head functionaly to see her environment. Pt intermittently holds her head to support her neck/upper back when up moving. Stair Climbing Assessment Comments Stair Climbing Comments not assessed this visit since she reports no stairs at home PT-Balance Assessment Sitting Balance and Reactions Static Sitting Balance Ability Good Dynamic Sitting Balance Ability Good Standing Balance and Reactions Static Standing Balance Ability Good Dynamic Standing Balance Ability Fair Device Used none M5 PT-IP Objective Assessments Start: 02/26/23 12:32 Freq: NEEDED Status: Active Protocol: Document 02/26/23 10:54 DLM (Rec: 02/26/23 13:14 DLM [id number]) Orientation Orientation/Cognition Level of Alertness Alert Orientation Name,Age,Birthday,Month,Date, Year,Day of Week,Place, Situation Language Function Ability No Deficits Noted Safety Awareness Understands Safety Issues Memory Description No Deficits Noted Gross Range of Motion Upper Extremity ROM Assessment Bilaterally Impaired Impairments shoulder elevation limited by her neck/upper back pain, intermittent pain into her UE' s Lower Extremity ROM Assessment Within Functional Limits Strength Upper Extremity Strength Assessment Bilaterally Impaired Shoulder see OT Eval Lower Extremity Strength Assessment Bilaterally Impaired Hip flexion 3+/5 with back pain Knee ext 4/5 with back pain, flex 4 +/5 Ankle DF 5/5 Comments Strength Comments low back pain with resisted LE movements, functional UE strength in shoulders limited by neck and upper back pain Cervical ROM is severely limited with very little active movement which are painful. She hold her head in forward position and can not look directly up in front of her. Leaning back in the recliner with back and neck support she reports decreased pain. Coordination Assessment Gross Coordination Gross Coordination WNL Sensation Assessment Comments Sensation Comments no changes reported by pt this admission Muscle Tone Muscle Tone WNL Yes M6 PT-IP Treatment Start: 02/26/23 12:32 Freq: NEEDED Status: Active Protocol: Document 02/26/23 10:54 DLM (Rec: 02/26/23 13:14 DLM [id number]) Physical Therapy Treatment Education Education Provided Safety M7 PT-IP Assessment and Plan Start: 02/26/23 12:32 Freq: NEEDED Status: Active Protocol: Document 02/26/23 10:54 SJ (Rec: 02/26/23 13:14 DLM [id number]) PT Summary Assessment and Plan Potential Rehabilitation Potential Good Status of Condition at Evaluation Evolving Summary Impairments Pain,ROM,Strength,Balance, Transfers,Gait,Activity Tolerance Progress Towards Goals Slow Progress due to Pain Assessment Summary Mayra is alert and resting in bed. She agrees to participate in physical therapy. She reports her pain has improved this admission but is not at her goal of 6/10 yet. She was able to ambulate in the singer with mild decreased standing balance and increased neck pain. She agreed to sit up in the recliner. Her back and neck pain is significantly limiting her functional strength. She did not do well at home after her discharge from [facility] on 02/20/23. She is agreeable to going to SNF rehab at discharge to better manage her pain and functionally improve. She reports she does not feel safe to discharge home and that her Sister can not care for her. Goals Bed Mobility Goal Independent Transfer Goal Independent Gait Goal Independent,Cane,Four Wheel Walker Gait Distance 300 feet Other Goals up/down curb with SBA for community ambulation Days to Meet Goals 5 Frequency of Treatment Frequency Of Treatment Once a Day Treatment Plan Physical Therapy Treatment Plan Bed Mobility Training,Transfer Training,Gait Training, Therapeutic Exercise,Balance Retraining,Post Op Education, Discharge Planning,Hot or Cold Pack,Neuromuscular Re-ed Other Recommendations and Next Treatment determine the least Focus restrictive assistive device for pt that helps manage her pain Precautions Other Precautions chronic neck and back pain has NG tube for tube feedings Recommendations To Nursing Amount of Assist Needed 1 Person Assist Discharge Recommendations PT Discharge Recommendations SNF Rehab Transportation Needs at Discharge Private Vehicle
--- NOTE | 2023-02-26 10:59 | OT.IP.EVAL ---
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, thoracic region Tobacco abuse Surgical History (Last Updated 03/07/21 @ 00:49 by JELENA Gaona-) History of cholecystectomy History of hysterectomy History of spinal fusion Previous back surgery Occupational Therapy Inpatient Evaluation/Re-Eval M1 PT/OT-IP Prior Functional Status Start: 02/26/23 12:32 Freq: NEEDED Status: Active Protocol: Document 02/26/23 10:54 D[facility] (Rec: 02/26/23 13:14 DLM [id number]) Medical Review Prior Functional Status Medical History Reviewed Yes Diet/Fluid Consistency Regular Communication WFL, has dentures, has not been eating at home due to high levels of pain and nausea Mobility and Gait Independent without device. She has a 4WW that she uses sometimes as needed to manage her pain. At the grocery store she hold onto a cart. Activities of Daily Living and IADL's Independent with basic ADL's. She normally does the cooking. Her Sister does the driving. She normally stands to take a shower. She has not been able to shower nor cook since getting home from [facility]. Prior Functional Level (Other details) Pt was at [facility] 02/11- and since going home she had been very limited in her activity tolerance due to high levels of pain and nausea. She had not eaten very much at home lately. She has been able to walk around the house and get to the toilet. She can not lift her arms up due to pain in her neck. Social History Household Members family Living Arrangements Apartment/Condo Number of Floors (Floors) One Floor Number of Stairs To Enter/Railing? none Home Environment Standard Height Toilet,Tub/ Shower Home Equipment Four Wheel Walker Additional Social History Comment she also has walking stick M2 OT-IP Current Condition Start: 02/26/23 14:06 Freq: Status: Active Protocol: Document 02/26/23 10:35 [facility] (Rec: 02/26/23 14:19 [facility] [id number]) Occupational Therapy Current Condition Current Condition Evaluation Date 02/26/23 Treatment Diagnosis Chronic pain, generalized weakness. Diagnosis Onset Date 02/24/23 Post Operative Precautions Lumbar Precautions Log Roll,No Twisting,Limit Bending,Lifting Restriction of 10 lbs,Gait Belt above Incisional Area M3 OT- IP Subjective and Pain Start: 02/26/23 14:06 Freq: Status: Active Protocol: Document 02/26/23 10:35 [facility] (Rec: 02/26/23 14:19 [facility] [id number]) OT- Subjective Occupational Therapy Visit Type Type Initial Evaluation Visit Start Time 10:35 Visit Stop Time 10:59 Total Visit Minutes 24 Occupational Therapy Visit Comments Patient Comments Pt just having pain medication agreed to get up with OT/PT for eval. Patient/Caregiver Goals To get better and not hurt so much. OT Pain Assessment Pain When Pain Assessed At Rest Pain Present Pain Present Pain Reported Location back, neck, shoulders Intensity 9 Scale Used Numeric (0 - 10) M4 OT- IP ADL's Start: 02/26/23 14:06 Freq: Status: Active Protocol: Document 02/26/23 10:35 [facility] (Rec: 02/26/23 14:19 [facility] [id number]) OT [id number] Comments OT Self-Feeding Comments Pt has NG tube OT ADL-Grooming General Evaluation Grooming Ability Minimal Assistance Areas Needing Assistance Combing/Brushing Hair Comments OT Grooming Comments Pt able to do while seated in the recliner and needing assist to help comb the back of her hair due to decreased AROM. OT ADL-Oral Care Comments Oral Care Comments Pt not wanting to do at this time. OT ADL-Dressing General Eval Lower Body Dressing Ability Minimal Assistance,Maximum Assistance Areas Needing Assistance Socks Assistive Devices Dressing Assistive Devices Manufactured Buildings Supervisor,Sock Aid Comments OT Dressing Comments Pt has back and neck pain and needing assist for all LB dressing needs. Pt able to practice use of the internet marketing specialist and sock aid for her socks. Pt will benefit from more practice. OT ADL-Toileting Comments OT Toileting Comments Not performed. OT ADL-Bathing Comments OT Bathing Comments Not performed. M5 OT- IP IADL's Start: 02/26/23 14:06 Freq: Status: Active Protocol: Document 02/26/23 10:35 [facility] (Rec: 02/26/23 14:19 [facility] [id number]) OT-Instrumental Activities of Daily Living Deficits IADL Deficits Identified Deficits Home Safety Awareness Home Safety Comments Pt states has not been able to take care of herself due to pain and weakness. M6 OT- IP Functional Cognition Start: 02/26/23 14:06 Freq: Status: Active Protocol: Document 02/26/23 10:35 [facility] (Rec: 02/26/23 14:19 [facility] [id number]) Cognitive Factors Limiting Selfcare Function Cognitive Ability Level of Alertness Alert Patient Orientation Name,Place,Situation Attention Span Ability Capable of Focused Attention, Capable of Sustained Attention Ability to Follow Commands Able to Follow One Step Commands Cognitive Comments Cognitive Assessment Comments Pt able to follow commands for ADl and mobility needs. OT- Vision and Hearing OT- Hearing Assessment OT- Hearing Assessment WFL M7 OT- IP Mobility and Balance Start: 02/26/23 14:06 Freq: Status: Active Protocol: Document 02/26/23 10:35 [facility] (Rec: 02/26/23 14:19 [facility] [id number]) OT- Bed Mobility Assessment Supine to Sit Supine to Sit Assist Contact Guard Assistance OT-Transfer Assessment Sit to and From Stand Sit to and from Stand Contact Guard Assistance Transfers Transfer Ability Contact Guard Assistance Technique Transfer Destination Bed,Chair Transfer Technique Stand Step Pivot Devices Transfer Assistive Devices Gait Belt,Front Wheeled Walker Comments Mobility Comments CGA to get up to the edge of the bed and to transfer without device at this time. OT- Balance Assessment Sitting Balance and Reactions Static Sitting Balance Ability Normal Dynamic Sitting Balance Ability Good Standing Balance and Reactions Static Standing Balance Ability Good Dynamic Standing Balance Ability Fair M8 OT- IP Objective Assessments Start: 02/26/23 14:06 Freq: Status: Active Protocol: Document 02/26/23 10:35 [facility] (Rec: 02/26/23 14:19 [facility] [id number]) OT Gross Range of Motion Upper Extremity Range of Motion Assessment Bilaterally Impaired OT Strength Upper Extremity Strength Assessment Bilaterally Impaired M9 OT- IP Assessment and Plan Start: 02/26/23 14:06 Freq: Status: Active Protocol: Document 02/26/23 10:35 [facility] (Rec: 02/26/23 14:19 [facility] [id number]) OT Summary Assessment and Plan Potential Rehabilitation Potential Good Analytic Complexity at Evaluation Moderate Summary OT Impairments Pain,Range of Motion,Strength, Balance,Functional Mobility, Grooming,Dressing,Toileting, Bathing,Toilet Transfers, Shower Transfers,Activity Tolerance Progress Towards Goals Slow Progress due to Pain,Slow Progress due to Medical Issues Assessment Summary Pt MOD complexity and main barrier are pain, decreased activity tolerance , now needing assist for ADL needs due to her pain and limited AROM with BUE. Pt will benefit from skilled rehab to improve her independence with needs and for pain management needs. Goals Self-Feeding Goal Independent Grooming Goal Independent Dressing Goal Independent,Manufactured Buildings Supervisor,Sock Aid Toileting Goal Independent Bathing Goal Independent Toilet Transfer Goal Independent Shower Transfer Goal Independent Days to Meet Goals 15 Frequency of Treatment Frequency Of Treatment Once a Day Treatment Plan OT Treatment Plan ADL Training,Functional Mobility,Patient/Family Education,Discharge Planning Other Treatment Recommendations and Next stand at sink for ADL needs Treatment Focus Discharge Recommendations OT Discharge Recommendations SNF Rehab Transportation Needs at Discharge Wheelchair/Cabulance
[2023-02-26] MEDS: hydrOXYzine pamoate 25 MG CAPSULE 50 MG PO (12:17)
--- NOTE | 2023-02-26 12:56 | CM.DPC ---
DCP Cont. T/C-Left message for November at [facility] re: referral and request to review for rehab acceptance. Requested that if she accepts, to please initiate the auth prior to d/c. Pt appears much more comfortable at lunch time, visiting w/her sister. Will continue to monitor.
--- NOTE | 2023-02-26 14:34 | CM.DANOTE ---
Initial D/C Assessment Note FIELD RESEARCH ASSISTANT reviewed EMR for medical status and SW needs. Pt is a 67-year old female admitted for failure to thrive, acute/chronic unmanaged pain, and severe malnutrition. PCP: Dr. Lilly, [facility] Payor: [facility], Medicaid Met with pt, introduced self and role. Pt presents as withdrawn, expressing severe pain, appearing very cachectic and emaciated. Multiple comorbidities and several back surgeries have resulted in chronic pain, surgery deemed not an option. Last hospitalization was 02/11-02/20 at [facility] due to pain, she was not able to get refills for her pain from PCP due to overuse of opiods, as well as several prescriptions coming from different pharmacies. Pt shared that pain and the drowsiness from pain meds result in poor appetite. Additionally, she indicates food insecurity. She does have EBT for food assistance, however, she states that her and her sister are both disabled, and that they run out of food within 2-weeks of receiving benefits each month. Pt is totally dependent on her sister for transportation and home ADL's. She shares that she is now ready to go to a rehab facility, wants everything done. NG feeding tube placed 02/25, which is anticipated to be a possible barrier to SNIF placement. FIELD RESEARCH ASSISTANT will begin the process of referrals for rehab. She also shared that her primary goal was to improve enough to meet her new great grand baby out of state. PT eval pending, pt has refused to participate as of 02/25 due to acute pain. Pain and symptom management, as well as nutritional improvement are primary areas of focus at this time. Will continue to monitor pt's status and assist with ongoing d/c planning needs. Discharge Planning/Care Management CM Discharge Assessment Start: 02/26/23 14:22 Freq: Status: Active Protocol: Document 02/26/23 14:22 [facility] (Rec: 02/26/23 14:33 [facility] [id number]) Discharge Planning Assessment Assigned Director College TE[employer] Lucio DPOA/Assigned Designee Name N/A Advance Directives? No History Provided By Patient,Medical Record Expected Length of Stay 3 Has Patient been admitted in last 30 No days? Comment Pt was admitted at [facility] 02/11-02/20. Prior Living Arrangements Apartment/Condo Household Members family Comment Sister Type of transporation used prior to Relies on Others admit Independent with ADL's No Is patient alert and oriented? Yes Needs Assistance With Bathing,Grooming,Meal Prep, Managing Medications,Home Chores / Shopping Comment Sister assists as much as she can. Caregiver for Another No Patient/Family Preference [facility] Facility Comment [facility] is reviewing chart for admission. Pending. Barriers to Discharge No Discharge Plan Home Transportation Arrangement SNIF, need to still confirm once she's been accepted. Referrals Initiated Penitentiary Additional Comment Pending acceptance to [facility]. If patient plan is SNF: Has PASSR been Yes completed? Inpatient Status as of 02/24/23 Medicare Choice List Provided Yes Medicare choice list reviewed on patient electronic tablet with SNF/HH Preference [facility], also [facility] Boggs [facility]. Has Agency SNF been contacted Yes Whiteboard Updated in Patient Room with Yes name and ext. # of Director College Review Status In Process Please Provide Date Initial DC 02/25/23 Assessment Was Performed
[2023-02-26 15:06] LABS: Add Manual Diff / Slide Review NO; Basophils Absolute Auto 100 /uL (0-100); Basophils Percent Auto 0.5 % (0-2); Eosinophils Absolute Auto 200 /uL (0-450); Eosinophils Percent Auto 1.6 % (2-4); Lymphocytes Absolute Auto 1300 /uL (1100-4500); Lymphocytes Percent Auto 11.5 % (25-40); Mean Corpuscular HGB Conc 34.2 % (30-36); Mean Corpuscular Hemoglobin 33.7 PG (26-34); Mean Corpuscular Volume 98.7 fL (80-100); Monocytes Absolute Auto 700 /uL (0-900); Neutrophils Absolute Auto 9400 /uL (1500-7000); Neutrophils Percent Auto 80.4 % (50-75); Platelet Count 333 X10^3/uL (150-400); Red Blood Cell Count 3.85 X10^6/uL (4.0-5.2); Red Cell Distribution Width 13.6 % (11.6-14.8); White Blood Cell Count 11.7 X10^3/uL (4.5-11.0)
[2023-02-26 15:19] LABS: Alanine Aminotransferase 24 IU/L (<35); Albumin 3.9 g/dL (3.5-5.0); Albumin Globulin Ratio 1.4 (1.0-2.8); Alkaline Phosphatase 94 U/L (38-126); Aspartate Aminotransferase 30 IU/L (14-36); BUN Creatinine Ratio 31.3 (6-22); Bilirubin Total 0.4 mg/dL (0.2-1.3); Blood Urea Nitrogen 15 mg/dL (7-17); Calcium 9.6 mg/dL (8.4-10.2); Carbon Dioxide 26 mmol/L (22-32); Chloride 101 mmol/L (98-107); Estimated Glomerular Filt Rate > 60 mL/min (>60); Globulin 2.8 g/dL (1.7-4.1); Glucose 123 mg/dL (80-110); HEMOLYSIS 29 (0-50); Potassium 4.6 mmol/L (3.4-5.1); Sodium 132 mmol/L (137-145); Total Protein 6.7 g/dL (6.3-8.2)
[2023-02-26] MEDS: MORPHINE 2 MG/ML INJ IV (15:58)
[2023-02-26] MEDS: METHADONE 5 MG TABLET 2.5 MG PO (17:25)
[2023-02-26] MEDS: HYDROMORPHONE 4 MG TABLET PO (18:14)
[2023-02-26] MEDS: HYDROMORPHONE 2 MG INJ IV (18:28)
--- NOTE | 2023-02-26 18:35 | PC.NURSE ---
MADE AWARE OF PATIENTS CONTINUOUS ASKING FOR MORE PAIN MEDS, MD TALKED WITH PATIENT MEDS CHANGED. NEW MEDS GIVE PER MD.PATIENT CALM ASKING FOR COFFEE NOW
[2023-02-26 19:22] VITALS: BP 119/58; PULSE 83; RESP 18; TEMP 36.7; O2SAT 97
[2023-02-26] MEDS: TRAZODONE 50 MG TABLET 200 MG PO (20:54)
[2023-02-26] MEDS: PRAMIPEXOLE 0.25 MG TABLET 0.125 MG PO (20:54)
[2023-02-26] MEDS: MORPHINE 10 MG/0.5 ML ORAL SYRINGE 30 MG PO (21:54)
[2023-02-27] MEDS: HYDROMORPHONE 2 MG INJ IV (02:21)
[2023-02-27] MEDS: KETOROLAC 30 MG/ML VIAL IV ×2 (05:31→11:04)
[2023-02-27] MEDS: MORPHINE 10 MG/0.5 ML ORAL SYRINGE 30 MG PO ×3 (05:31→20:03)
[2023-02-27] MEDS: SODIUM CHLORIDE 0.9% FLUSH 10 ML IV ×3 (05:32→22:45)
[2023-02-27 05:37] LABS: Add Manual Diff / Slide Review NO; Basophils Absolute Auto 0 /uL (0-100); Basophils Percent Auto 0.4 % (0-2); Eosinophils Absolute Auto 300 /uL (0-450); Eosinophils Percent Auto 3.4 % (2-4); Hematocrit 34.4 % (36-46); Hemoglobin 12.1 g/dL (12.0-16.0); Lymphocytes Absolute Auto 1700 /uL (1100-4500); Lymphocytes Percent Auto 17.9 % (25-40); Mean Corpuscular HGB Conc 35.3 % (30-36); Mean Corpuscular Hemoglobin 34.7 PG (26-34); Mean Corpuscular Volume 98.2 fL (80-100); Monocytes Absolute Auto 700 /uL (0-900); Neutrophils Absolute Auto 6600 /uL (1500-7000); Neutrophils Percent Auto 70.3 % (50-75); Platelet Count 319 X10^3/uL (150-400); Red Cell Distribution Width 13.6 % (11.6-14.8); White Blood Cell Count 9.3 X10^3/uL (4.5-11.0)
[2023-02-27 05:57] LABS: Alanine Aminotransferase 23 IU/L (<35); Albumin 3.3 g/dL (3.5-5.0); Albumin Globulin Ratio 1.3 (1.0-2.8); Alkaline Phosphatase 99 U/L (38-126); Aspartate Aminotransferase 25 IU/L (14-36); BUN Creatinine Ratio 33.3 (6-22); Bilirubin Total 0.2 mg/dL (0.2-1.3); Blood Urea Nitrogen 22 mg/dL (7-17); Calcium 9.6 mg/dL (8.4-10.2); Carbon Dioxide 28 mmol/L (22-32); Chloride 100 mmol/L (98-107); Estimated Glomerular Filt Rate > 60 mL/min (>60); Globulin 2.6 g/dL (1.7-4.1); Glucose 143 mg/dL (80-110); HEMOLYSIS < 15 (0-50); Magnesium 1.8 mg/dL (1.6-2.3); Phosphorous 4.2 mg/dL (2.8-4.1); Potassium 4.4 mmol/L (3.4-5.1); Sodium 132 mmol/L (137-145); Total Protein 5.9 g/dL (6.3-8.2)
[2023-02-27 08:10] VITALS: BP 129/63; PULSE 87; RESP 18; TEMP 36.3; O2SAT 94
[2023-02-27] MEDS: PANTOPRAZOLE DR 40 MG TABLET PO (08:52)
[2023-02-27] MEDS: THIAMINE 100 MG TABLET PO (08:52)
[2023-02-27] MEDS: CYCLOBENZAPRINE 10 MG TABLET PO ×3 (08:52→22:59)
[2023-02-27] MEDS: droNABinol 2.5 MG CAPSULE PO ×2 (08:53→16:54)
[2023-02-27] MEDS: NICOTINE 14 PATCH 14 MG TOP (08:53)
[2023-02-27] MEDS: TIZANIDINE 4 MG TABLET PO ×3 (08:53→20:02)
[2023-02-27] MEDS: HYDROMORPHONE 4 MG TABLET PO ×4 (08:53→22:59)
--- NOTE | 2023-02-27 10:28 | DIET.CONS2 ---
Dietary Inpatient Consultation Note Admission Date: 02/24/2023 19:05 Pt tolerating TF at 40mL/h as of last evening, goal rate is 50mL/h. No s/sx refeeding with electrolytes WNL. Pt cleared to advance to goal rate. Pt would benefit from placement of PEG tube due to chronic malnutrition and inability to meet PO needs with oral diet- regular or oral nutrition supplements on top of severe food insecurity. Pt may start bolus feeds after PEG placed. Diet: 02/25/23 Dinner Tube Feeding Diet Diet Modifications: TF Supplement type: Jevity 1.2 tonja TF mode of delivery: Continuous Starting flow rate mL/hr: 20 Flow rate goal mL/hr: 50 Titration Schedule to reach Goal Rate: increase by 10mL q12h as tolerated Max total daily volume in mL: 1,300 Free fluid: 60 Free Water Frequency: Q4H Nutrition Percent Meal Consumed 02/26/23 18:58 Type of Feeding Tube NG/OG 02/25/23 22:44 Type of Feeding Tube NG/OG 02/25/23 18:08 Electronically Signed by: Rae Morales 02/27/23 10:28 Clinical Diet[address] [address]
--- NOTE | 2023-02-27 11:31 | CM.DPC ---
DCP Cont. Plan is now for PEG tube placement as of 02/28/23. Left message for Ya at [facility] to please call this HYDROGENATION OPERATOR today to update, she had said previously that she could run the auth on 02/28, requested that she update us tomorrow as well re: auth status once she has it. Secondly, HYDROGENATION OPERATOR inquired as to if they would be able to admit over the weekend, if she's ready late Friday or Friday, depending on the tube feed progress. Hospitalist is working at improving her pain. She does appear much more comfortable today, was able to eat small amounts of food at breakfast, sitting upright alert and interactive w/staff. Cooling System Operator came and explained the reasoning for the PEG tube placement, pt was agreeable. Continue to monitor for d/c, confirm acceptance over the weekend.
--- NOTE | 2023-02-27 12:18 | PC.NURSE ---
Patient is alert and oriented x4, she was given dilaudid 4mg po for breakthrough pain this morning, muscle relaxer, and marinol to help stimulate her appetite. She has an NG tube in for tube feeding, which is infusing at 50cc/hr. Patient did not eat any of her regular breakfast but she did have some fluids. She is unhappy with her pain medication regimen and tries to be manipulative and ask for pain medication when she knows that it is not time. This RN has talked to Dr. Hendrickson about her medications and he is going to leave the orders the way they are now. She will get some more oral dilaudid at 1230.
--- NOTE | 2023-02-27 12:28 | PM.PN.1 ---
Subjective Subjective Date Patient Seen: 02/27/23 Time Patient Seen: 08:00 Interval history: She feels her pain is better controlled today. She has minimal appetite. Exam Vital Signs (past 8 hours): - 02/27/23 08:10 Temperature 97.4 F L Pulse Rate 87 Respiratory Rate 18 Blood Pressure 129/63 Pulse Oximetry 94 Oxygen Flow Rate 0 Oxygen Delivery Method Room Air Oxygen Flow Rate 0 Narrative Exam Narrative: GEN: no acute distress, cachectic and anorexic appearing female CV: regular rate and rhythm, no murmurs PULM: clear bilaterally ABD: firm, nontender, distended, no organomegaly Objective Labs 02/27/23 05:03 02/27/23 05:03 Labs: Laboratory Results - last 24 hr 02/26/23 02/26/23 02/27/23 15:00 15:00 05:03 WBC 11.7 H RBC 3.85 L Hgb 13.0 Hct 38.0 MCV 98.7 MCH 33.7 MCHC 34.2 RDW 13.6 Plt Count 333 Neut % (Auto) 80.4 H Lymph % (Auto) 11.5 L Craven % (Auto) 6.0 Eos % (Auto) 1.6 L Baso % (Auto) 0.5 Neut # (Auto) 9400 H Lymph # (Auto) 1300 Craven # (Auto) 700 Eos # (Auto) 200 Baso # (Auto) 100 Sodium 132 L 132 L Potassium 4.6 4.4 Chloride 101 100 Carbon Dioxide 26 28 BUN 15 22 H Creatinine 0.48 L 0.66 Estimated GFR > 60 > 60 BUN/Creatinine Ratio 31.3 H 33.3 H Glucose 123 H 143 H Calcium 9.6 9.6 Phosphorus 4.2 H Magnesium 1.8 Total Bilirubin 0.4 0.2 AST 30 25 ALT 24 23 Alkaline Phosphatase 94 99 Total Protein 6.7 5.9 L Albumin 3.9 3.3 L Globulin 2.8 2.6 Albumin/Globulin Ratio 1.4 1.3 02/27/23 05:03 WBC 9.3 RBC 3.50 L Hgb 12.1 Hct 34.4 L MCV 98.2 MCH 34.7 H MCHC 35.3 RDW 13.6 Plt Count 319 Neut % (Auto) 70.3 Lymph % (Auto) 17.9 L Craven % (Auto) 8.0 Eos % (Auto) 3.4 Baso % (Auto) 0.4 Neut # (Auto) 6600 Lymph # (Auto) 1700 Craven # (Auto) 700 Eos # (Auto) 300 Baso # (Auto) 0 Sodium Potassium Chloride Carbon Dioxide BUN Creatinine Estimated GFR BUN/Creatinine Ratio Glucose Calcium Phosphorus Magnesium Total Bilirubin AST ALT Alkaline Phosphatase Total Protein Albumin Globulin Albumin/Globulin Ratio [facility] Medical History Anxiety Cachexia Chronic back pain Dorsalgia Failure of spinal fusion Fibromyalgia History of alcohol abuse History of anemia History of chronic pain Major depressive disorder, recurrent episode, 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 AIR CONDITIONER INSTALLER HELPER arranging (2) Malnutrition: Problem details: Lost around 60 pounds in the last 3 months Status: Acute Plan: -Dietitian initially consulted and had NG tube placed for tube feeds due to severe malnutrition -goal TF 50mL/hr -plan for PEG placement to continue tube feeds -monitor for refeeding syndrome, follow labs (3) Chronic pain: Status: Acute Plan: -attempted to switch to methadone 10mg per day, QTc was 418, but patient refused and said she doesn't want methadone -will continue home morphine 30mg q8h with po dilaudid plus IV toradol for breakthrough pain -she will try to transition back to subutex 8mg TID which she was on previously for 5 years once she leaves the SNF, to be prescribed by Dr. Núñez at [facility] (4) Major depressive disorder, recurrent episode, in partial remission with anxious distress: Problem details: Depression and chronic pain Status: Acute Plan: -Restart Lyrica, Wellbutrin and gabapentin -patient states she no longer takes cymbalta as she feels funny on it -may try to use venlafaxine (5) Tobacco abuse: Status: Acute Plan: -continue nicotine patch Plan Dispo: Pending SNF placement and tube feeds at goal. Time Spent With Patient Time with patient: 50 to 69 minutes with 50% spent counseling/coordinating care Quality VTE Deep Vein Thrombosis/Pulmonary Embolism Present on Admission: No
--- NOTE | 2023-02-27 13:27 | CM.DPC ---
DCP Cont. Plan is for SNIF placement, hopefully at [facility], pending official acceptance and auth, auth will be submitted following the PEG placement, and pt will need to be off of IV pain meds for 24-hours (with good control). PEG will be placed 02/28, call November at [facility] to update once she meets the above conditions.
--- NOTE | 2023-02-27 13:48 | PT.IPTN ---
Current Diagnoses Unspecified protein-calorie malnutrition (02/24/23) Major depressive disorder, recurrent, in partial remission (02/24/23) Other specified anxiety disorders (02/24/23) Other chronic pain (02/24/23) Adult failure to thrive (02/24/23) Tobacco use (02/24/23) Physical Therapy Treatment Note M2 PT-IP Current Condition Start: 02/26/23 12:32 Freq: NEEDED Status: Active Protocol: Document 02/26/23 10:54 DLM (Rec: 02/26/23 13:14 DLM [id number]) Physical Therapy Current Condition Current Condition Evaluation Date 02/26/23 Treatment Diagnosis Chronic pain and nausea, decreased activity tolerance Onset Date 02/24/23 M3 PT-IP Subjective Start: 02/26/23 12:32 Freq: NEEDED Status: Active Protocol: Document 02/27/23 14:13 TS (Rec: 02/27/23 14:41 TS [id number]) Subjective Physical Therapy Visit Type Type Treatment Note Visit Start Time 13:48 Visit Stop Time 14:09 Total Visit Minutes 21 Number of INDIAN TRADER Visits 1 Physical Therapy Visit Comments Patient Comments Pt found resting in bed, sister in room, agreeable to PT. Patient Goals improve her pain Therapy Pain Assessment Pain When Pain Assessed During Mobility Pain Present Pain Present Pain Reported M4 PT-IP Mobility and Gait Start: 02/26/23 12:32 Freq: NEEDED Status: Active Protocol: Document 02/27/23 14:13 TS (Rec: 02/27/23 14:41 TS [id number]) PT-Bed Mobility Assessment Rolling Level of Assist Independent Supine to Sit Supine to Sit Independent Sit to Supine Sit to Supine Independent Scooting Scooting to Edge of Bed Independent PT-Transfer Assessment Sit to and From Stand Sit to and from Stand Standby Assistance,Use of Upper Extremities Equipment Transfer Assistive Device None,Gait Belt Comments Mobility Comments Supine to sit with HOB elevated Ind with BUE support for uprighting trunk. Sit to stand with no AD SBA. pt unsteady initially with gait, had x1 LOB requiring Twyla for correction. She ambulated ~250 'SBA with no AD, balance improved with increased time with gait, required management of IV pole. Back in room pt performed steps x3 with LUE handrail assist SBA, had no buckling or LOB. Pt was left back in bed, sister in room, all needs met. Gait Assessment Gait Gait Assistance Required: Standby Assistance,Contact Guard Assist Distance (Feet) 250 Able to Maintain Weight Bearing Status Yes During Gait Assistive Devices Assistive Device None,Gait Belt Factors Limiting Gait Function Factors Limiting Gait Function Decreased Activity Tolerance, Decreased Strength,Limited Range of Motion,Pain,Poor Balance Comments Gait Comments Pt had x1 LOB initially with gait requiring Twyla for correction. Stair Climbing Assessment Evaluation Level of Assist On Stairs Standby Assistance Devices Stair Climbing Assistive Devices Left Railing Technique/Endurance Stair Climbing Direction Ascend and Descend Stair Climbing Technique Step to Step Number of Steps Climbed 3 Comments Stair Climbing Comments Assessed for community ambulation PT-Balance Assessment Sitting Balance and Reactions Static Sitting Balance Ability Good Dynamic Sitting Balance Ability Good Standing Balance and Reactions Static Standing Balance Ability Good Dynamic Standing Balance Ability Fair Device Used none M5 PT-IP Objective Assessments Start: 02/26/23 12:32 Freq: NEEDED Status: Active Protocol: Document 02/26/23 10:54 DLM (Rec: 02/26/23 13:14 DLM [id number]) Orientation Orientation/Cognition Level of Alertness Alert Orientation Name,Age,Birthday,Month,Date, Year,Day of Week,Place, Situation Language Function Ability No Deficits Noted Safety Awareness Understands Safety Issues Memory Description No Deficits Noted Gross Range of Motion Upper Extremity ROM Assessment Bilaterally Impaired Impairments shoulder elevation limited by her neck/upper back pain, intermittent pain into her UE' s Lower Extremity ROM Assessment Within Functional Limits Strength Upper Extremity Strength Assessment Bilaterally Impaired Shoulder see OT Eval Lower Extremity Strength Assessment Bilaterally Impaired Hip flexion 3+/5 with back pain Knee ext 4/5 with back pain, flex 4 +/5 Ankle DF 5/5 Comments Strength Comments low back pain with resisted LE movements, functional UE strength in shoulders limited by neck and upper back pain Cervical ROM is severely limited with very little active movement which are painful. She hold her head in forward position and can not look directly up in front of her. Leaning back in the recliner with back and neck support she reports decreased pain. Coordination Assessment Gross Coordination Gross Coordination WNL Sensation Assessment Comments Sensation Comments no changes reported by pt this admission Muscle Tone Muscle Tone WNL Yes M6 PT-IP Treatment Start: 02/26/23 12:32 Freq: NEEDED Status: Active Protocol: Document 02/27/23 14:13 TS (Rec: 02/27/23 14:41 TS [id number]) Physical Therapy Treatment Education Education Provided Safety M7 PT-IP Assessment and Plan Start: 02/26/23 12:32 Freq: NEEDED Status: Active Protocol: Document 02/27/23 14:13 TS (Rec: 02/27/23 14:41 TS [id number]) PT Summary Assessment and Plan Potential Rehabilitation Potential Good Summary Impairments Pain,ROM,Strength,Balance, Transfers,Gait,Activity Tolerance Progress Towards Goals Progressing Toward Goals Assessment Summary Pt is progressing well with her mobility. Pain is less severe this afternoon after receiving pain medication prior to session. She progressed her gait to ~250' SBA, initially with gait she had x1LOB requiring Twyla for correction, pt improved with increased gait. She progressed stair training to x3 steps SBA with LUE handrial support, pt had no buckling or LOB. PT continues to recommend SNF rehab to progress activity tolerance and continued skilled therapy. Goals Bed Mobility Goal Independent Transfer Goal Independent Gait Goal Independent,Cane,Four Wheel Walker Gait Distance 300 feet Other Goals up/down curb with SBA for community ambulation Days to Meet Goals 5 Frequency of Treatment Frequency Of Treatment Once a Day Treatment Plan Physical Therapy Treatment Plan Bed Mobility Training,Transfer Training,Gait Training, Therapeutic Exercise,Balance Retraining,Post Op Education, Discharge Planning,Hot or Cold Pack,Neuromuscular Re-ed Other Recommendations and Next Treatment determine the least Focus restrictive assistive device for pt that helps manage her pain Precautions Other Precautions chronic neck and back pain has NG tube for tube feedings Recommendations To Nursing Amount of Assist Needed 1 Person Assist Discharge Recommendations PT Discharge Recommendations SNF Rehab Transportation Needs at Discharge Private Vehicle
--- NOTE | 2023-02-27 15:46 | OT.IP.TRT ---
Current Diagnoses Unspecified protein-calorie malnutrition (02/24/23) Major depressive disorder, recurrent, in partial remission (02/24/23) Other specified anxiety disorders (02/24/23) Other chronic pain (02/24/23) Adult failure to thrive (02/24/23) Tobacco use (02/24/23) Occupational Therapy Treatment Note M2 OT-IP Current Condition Start: 02/26/23 14:06 Freq: Status: Active Protocol: Document 02/26/23 10:35 [facility] (Rec: 02/26/23 14:19 [facility] [id number]) Occupational Therapy Current Condition Current Condition Evaluation Date 02/26/23 Treatment Diagnosis Chronic pain, generalized weakness. Diagnosis Onset Date 02/24/23 Post Operative Precautions Lumbar Precautions Log Roll,No Twisting,Limit Bending,Lifting Restriction of 10 lbs,Gait Belt above Incisional Area M3 OT- IP Subjective and Pain Start: 02/26/23 14:06 Freq: Status: Active Protocol: Document 02/27/23 15:46 [facility] (Rec: 02/27/23 15:58 [facility] [id number]) OT- Subjective Occupational Therapy Visit Type Type Treatment Note Visit Start Time 15:30 Visit Stop Time 15:44 Total Visit Minutes 14 Occupational Therapy Visit Comments Patient Comments Pt states able to sponge off with nursing today and awaiting pain medications. Patient/Caregiver Goals TO get better. OT Pain Assessment Pain When Pain Assessed At Rest Pain Present Pain Present Pain Reported M4 OT- IP ADL's Start: 02/26/23 14:06 Freq: Status: Active Protocol: Document 02/26/23 10:35 [facility] (Rec: 02/26/23 14:19 [facility] [id number]) OT [id number] Comments OT Self-Feeding Comments Pt has NG tube OT ADL-Grooming General Evaluation Grooming Ability Minimal Assistance Areas Needing Assistance Combing/Brushing Hair Comments OT Grooming Comments Pt able to do while seated in the recliner and needing assist to help comb the back of her hair due to decreased AROM. OT ADL-Oral Care Comments Oral Care Comments Pt not wanting to do at this time. OT ADL-Dressing General Eval Lower Body Dressing Ability Minimal Assistance,Maximum Assistance Areas Needing Assistance Socks Assistive Devices Dressing Assistive Devices [employer] Liqu[employer] Sales Representative,Sock Aid Comments OT Dressing Comments Pt has back and neck pain and needing assist for all LB dressing needs. Pt able to practice use of the type cutter and sock aid for her socks. Pt will benefit from more practice. OT ADL-Toileting Comments OT Toileting Comments Not performed. OT ADL-Bathing Comments OT Bathing Comments Not performed. M5 OT- IP IADL's Start: 02/26/23 14:06 Freq: Status: Active Protocol: Document 02/26/23 10:35 [facility] (Rec: 02/26/23 14:19 [facility] [id number]) OT-Instrumental Activities of Daily Living Deficits IADL Deficits Identified Deficits Home Safety Awareness Home Safety Comments Pt states has not been able to take care of herself due to pain and weakness. M6 OT- IP Functional Cognition Start: 02/26/23 14:06 Freq: Status: Active Protocol: Document 02/27/23 15:46 [facility] (Rec: 02/27/23 15:58 [facility] [id number]) Cognitive Factors Limiting Selfcare Function Cognitive Comments Cognitive Assessment Comments Able to talk able stress management with pt is how it may help with her pain. Able to give pt markers and paper so able to draw. Pt staates loves to draw trees and has not done so since not feeling well. Pt also spoke of wanting to volunteer for children to be able to read to them. M7 OT- IP Mobility and Balance Start: 02/26/23 14:06 Freq: Status: Active Protocol: Document 02/26/23 10:35 [facility] (Rec: 02/26/23 14:19 [facility] [id number]) OT- Bed Mobility Assessment Supine to Sit Supine to Sit Assist Contact Guard Assistance OT-Transfer Assessment Sit to and From Stand Sit to and from Stand Contact Guard Assistance Transfers Transfer Ability Contact Guard Assistance Technique Transfer Destination Bed,Chair Transfer Technique Stand Step Pivot Devices Transfer Assistive Devices Gait Belt,Front Wheeled Walker Comments Mobility Comments CGA to get up to the edge of the bed and to transfer without device at this time. OT- Balance Assessment Sitting Balance and Reactions Static Sitting Balance Ability Normal Dynamic Sitting Balance Ability Good Standing Balance and Reactions Static Standing Balance Ability Good Dynamic Standing Balance Ability Fair M8 OT- IP Objective Assessments Start: 02/26/23 14:06 Freq: Status: Active Protocol: Document 02/26/23 10:35 [facility] (Rec: 02/26/23 14:19 [facility] [id number]) OT Gross Range of Motion Upper Extremity Range of Motion Assessment Bilaterally Impaired OT Strength Upper Extremity Strength Assessment Bilaterally Impaired M9 OT- IP Assessment and Plan Start: 02/26/23 14:06 Freq: Status: Active Protocol: Document 02/27/23 15:46 [facility] (Rec: 02/27/23 15:58 [facility] [id number]) OT Summary Assessment and Plan Potential Rehabilitation Potential Good Analytic Complexity at Evaluation Moderate Summary OT Impairments Pain,Range of Motion,Strength, Balance,Functional Mobility, Grooming,Dressing,Toileting, Bathing,Toilet Transfers, Shower Transfers,Activity Tolerance Progress Towards Goals Progressing Toward Goals,Slow Progress due to Pain,Slow Progress due to Medical Issues Assessment Summary Pt able to take a sponge bath and walk in the hallways with POOL COORDINATOR today. Able to talk to pt regarding stress management and ways to try to help her get her mind off her pain. Pt mentions likes to draw trees and able to give pt markers and paper so able to draw. Also able to talk to her about ways to volunteer as pt wanting to help kids read. Pt looking to go to skilled rehab. Goals Self-Feeding Goal Independent Grooming Goal Independent Dressing Goal Independent,[employer] Sales Representative,Sock Aid Toileting Goal Independent Bathing Goal Independent Toilet Transfer Goal Independent Shower Transfer Goal Independent Days to Meet Goals 10 Frequency of Treatment Frequency Of Treatment Once a Day Treatment Plan OT Treatment Plan ADL Training,Functional Mobility,Patient/Family Education,Discharge Planning Discharge Recommendations OT Discharge Recommendations SNF Rehab Transportation Needs at Discharge Wheelchair/Cabulance
[2023-02-27] MEDS: CALCIUM CARBONATE 500 MG TAB 1000 MG PO (17:21)
[2023-02-27 18:05] VITALS: BP 119/64; PULSE 84; RESP 18; TEMP 36.3; O2SAT 95
[2023-02-27 19:00] VITALS: BP 139/79; PULSE 86; RESP 17; TEMP 36.4; O2SAT 94
[2023-02-27] MEDS: PRAMIPEXOLE 0.25 MG TABLET 0.125 MG PO ×2 (20:02→22:59)
[2023-02-27] MEDS: TRAZODONE 50 MG TABLET 200 MG PO (22:59)
[2023-02-28] MEDS: LACTATED RINGERS 1,000 ML 42 ML IV (00:11)
[2023-02-28] MEDS: KETOROLAC 30 MG/ML VIAL IV ×5 (00:11→23:56)
[2023-02-28] MEDS: HYDROMORPHONE 4 MG TABLET PO (05:00)
[2023-02-28 05:49] LABS: Hematocrit 35.3 % (36-46); Hemoglobin 12.5 g/dL (12.0-16.0); Mean Corpuscular HGB Conc 35.3 % (30-36); Mean Corpuscular Hemoglobin 34.7 PG (26-34); Mean Corpuscular Volume 98.2 fL (80-100); Platelet Count 320 X10^3/uL (150-400); Red Blood Cell Count 3.59 X10^6/uL (4.0-5.2); Red Cell Distribution Width 13.7 % (11.6-14.8); White Blood Cell Count 9.3 X10^3/uL (4.5-11.0)
[2023-02-28 06:01] LABS: Alanine Aminotransferase 21 IU/L (<35); Albumin 3.5 g/dL (3.5-5.0); Albumin Globulin Ratio 1.3 (1.0-2.8); Alkaline Phosphatase 92 U/L (38-126); Aspartate Aminotransferase 22 IU/L (14-36); BUN Creatinine Ratio 32.1 (6-22); Bilirubin Total 0.4 mg/dL (0.2-1.3); Blood Urea Nitrogen 17 mg/dL (7-17); Calcium 9.9 mg/dL (8.4-10.2); Carbon Dioxide 26 mmol/L (22-32); Chloride 103 mmol/L (98-107); Estimated Glomerular Filt Rate > 60 mL/min (>60); Globulin 2.7 g/dL (1.7-4.1); Glucose 139 mg/dL (80-110); Magnesium 1.9 mg/dL (1.6-2.3); Phosphorous 3.7 mg/dL (2.8-4.1); Potassium 4.3 mmol/L (3.4-5.1); Sodium 133 mmol/L (137-145); Total Protein 6.2 g/dL (6.3-8.2)
[2023-02-28 06:03] LABS: HEMOLYSIS < 15 (0-50)
[2023-02-28] MEDS: MORPHINE 10 MG/0.5 ML ORAL SYRINGE 30 MG PO ×3 (06:34→21:36)
--- NOTE | 2023-02-28 08:40 | PC.NURSE ---
Addendum entered by Antoinette Mancia R.N. 02/28/23 16:25: Patient is tolerating her ng tube feeds at 50cc/hr of Jevity 1.2 with water flushes every 4 hours. Addendum entered by Antoinette Mancia R.N. 02/28/23 15:52: Patients surgery has been cancelled and will be done on Friday. She has a fentanyl patch on now to her r.upper chest. Patient has a high pain tolerance and does tolerated pain medication. Her respirations have been wnl and vss. O lethargy noted. This RN has talked to patient about transitioning to po pain medication closer to discharges but she doesnt really want to discuss this. Patient is upset that her surgery will not happen today but is understanding. Resting comfortably. Addendum entered by Antoinette Mancia R.N. 02/28/23 13:15: Assess- Patient given dilaudid 2mg at 1200 and talked to as he was doing his rounds and asked for more pain medication. She can be manipulative and get upset when she does not get her way with pain medication. He wrote a one time order for dilaudid and did not know that she just had it at 1200. Will give patient her iv dilaudid at 1330. She is crying and upset because they have not come to get her for surgery yet and states that everything hurts. She was doing well yesterday on po pain medication at 4mg every 3 hours along with her long acting morphine but now because she is upset with surgery being late, her whole demeanor has changed and she is hyper focused on iv pain management. This RN did not feel comfortable giving her another 2mg of iv pain medication when she just had it at 1200. She is alert and oriented x4. Original Note: Patient will be going down for surgery to have a peg tube placed. She is comfortable this am. Talked to Dr. Sanz and we will hold her po medications and he will change per prn pain medication to IV for the time being. Resing comfortably. NG tube patent and tube feeds infusing at 50cc/hr with water flush every 4 hours.
--- NOTE | 2023-02-28 08:53 | PT-IP ANOTE ---
Pt refused to work with PT this morning, pt is to have peg tube placed sometime today, will check back in afternoon if available.
[2023-02-28] MEDS: HYDROMORPHONE 2 MG INJ IV ×4 (09:23→16:41)
[2023-02-28] MEDS: NICOTINE 14 PATCH 14 MG TOP (09:23)
[2023-02-28] MEDS: SODIUM CHLORIDE 0.9% FLUSH 10 ML IV ×3 (09:24→23:57)
[2023-02-28 10:00] VITALS: BP 140/60; PULSE 88; RESP 17; TEMP 37; O2SAT 95
--- NOTE | 2023-02-28 10:53 | OT.IP.TRT ---
Current Diagnoses Unspecified protein-calorie malnutrition (02/24/23) Major depressive disorder, recurrent, in partial remission (02/24/23) Other specified anxiety disorders (02/24/23) Other chronic pain (02/24/23) Adult failure to thrive (02/24/23) Tobacco use (02/24/23) Surgery Performed Operation Date: 02/28/23 12:00 <No data on this case meets the specified criteria> Operation Date: 02/28/23 15:45 <No data on this case meets the specified criteria> Occupational Therapy Treatment Note M2 OT-IP Current Condition Start: 02/26/23 14:06 Freq: Status: Active Protocol: Document 02/26/23 10:35 [facility] (Rec: 02/26/23 14:19 [facility] [id number]) Occupational Therapy Current Condition Current Condition Evaluation Date 02/26/23 Treatment Diagnosis Chronic pain, generalized weakness. Diagnosis Onset Date 02/24/23 Post Operative Precautions Lumbar Precautions Log Roll,No Twisting,Limit Bending,Lifting Restriction of 10 lbs,Gait Belt above Incisional Area M3 OT- IP Subjective and Pain Start: 02/26/23 14:06 Freq: Status: Active Protocol: Document 02/28/23 11:00 [facility] (Rec: 02/28/23 11:45 [facility] [id number]) OT- Subjective Occupational Therapy Visit Type Visit Start Time 10:45 Visit Stop Time 10:53 Total Visit Minutes 8 Occupational Therapy Visit Comments Patient Comments Pt agreed to stand up to get on the scale. Pt was a bit nervous about getting the PEG surgery. Patient/Caregiver Goals To get better. OT Pain Assessment Pain When Pain Assessed At Rest Pain Present Pain Present Pain Reported M7 OT- IP Mobility and Balance Start: 02/26/23 14:06 Freq: Status: Active Protocol: Document 02/28/23 11:00 [facility] (Rec: 02/28/23 11:45 [facility] [id number]) OT-Transfer Assessment Sit to and From Stand Sit to and from Stand Standby Assistance Transfers Transfer Ability Contact Guard Assistance Technique Transfer Destination Chair Transfer Technique Stand Step Pivot Comments Mobility Comments Pt able to step up and down from the scale with CGA and her weight with gown on 95.2lbs. OT- Balance Assessment Sitting Balance and Reactions Static Sitting Balance Ability Normal Dynamic Sitting Balance Ability Good Standing Balance and Reactions Static Standing Balance Ability Good Dynamic Standing Balance Ability Fair M8 OT- IP Objective Assessments Start: 02/26/23 14:06 Freq: Status: Active Protocol: Document 02/26/23 10:35 [facility] (Rec: 02/26/23 14:19 [facility] [id number]) OT Gross Range of Motion Upper Extremity Range of Motion Assessment Bilaterally Impaired OT Strength Upper Extremity Strength Assessment Bilaterally Impaired M9 OT- IP Assessment and Plan Start: 02/26/23 14:06 Freq: Status: Active Protocol: Document 02/28/23 11:00 [facility] (Rec: 02/28/23 11:45 [facility] [id number]) OT Summary Assessment and Plan Potential Rehabilitation Potential Good Analytic Complexity at Evaluation Moderate Summary OT Impairments Pain,Range of Motion,Strength, Balance,Functional Mobility, Grooming,Dressing,Toileting, Bathing,Toilet Transfers, Shower Transfers,Activity Tolerance Progress Towards Goals Progressing Toward Goals,Slow Progress due to Pain,Slow Progress due to Medical Issues Assessment Summary Pt going for PEG tube surgery. able to talk to pt regarding positive thinking and ways to deal with her stress. Goals Self-Feeding Goal Independent Grooming Goal Independent Dressing Goal Independent,Newspaper Photographer,Sock Aid Toileting Goal Independent Bathing Goal Independent Toilet Transfer Goal Independent Shower Transfer Goal Independent Days to Meet Goals 10 Frequency of Treatment Frequency Of Treatment Once a Day Treatment Plan OT Treatment Plan ADL Training,Functional Mobility,Patient/Family Education,Discharge Planning Discharge Recommendations OT Discharge Recommendations SNF Rehab Transportation Needs at Discharge Wheelchair/Cabulance
[2023-02-28] MEDS: CYCLOBENZAPRINE 10 MG TABLET PO ×3 (11:21→20:57)
[2023-02-28] MEDS: TIZANIDINE 4 MG TABLET PO ×3 (11:21→20:57)
--- NOTE | 2023-02-28 13:35 | DIET.CONS2 ---
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 Pt may start using PEG 4h after surgery if cleared by surgeon. Pt to transition to bolus feeds with PEG. Pt currently outside of refeeding window. Goal: 240mL bolus enteral feeding via PEG of Jevity 1.2 five times per day with 60mL free water flushes after each feed at suggested intervals of 0800, 1100, 1300, 1600, 1800. Recommend first feed of 100mL formula with 60mL free water flush. Titrate up to goal bolus feeds as tolerated by patient. Okay to skip a feed if feeling distended. Goal rate formula provides 968mL free water, 1440 kcals (35kcal/kg), 67g PRO (1.6g/kg), 203g CHO and 47g fat. Free water in formula and flushes provide 1,328mL fluids. Pt may drink 250mL water PO or add as flush depending on tolerance. EER: 1440kcals (35kcal/kg per PCM), 67g PRO (1.6g/kg per PCM) Diet: 02/28/23 00:01 NPO Diet Diet Modifications: NPO Type: NPO after Midnight Nutrition Percent Meal Consumed 0% 02/27/23 18:15 Percent Meal Consumed 0% 02/27/23 10:33 Percent Meal Consumed 20 02/26/23 18:58 Nutrition Diagnosis: Severe Acute on Chronic Protein Calorie Malnutrition r/t inability to meet nutrition needs orally and opioid dependence aeb BMI 17.7 (severe), MNA 3 (malnourished), pt food insecure running out of food for 2 weeks each month, pt weight continues to drop despite nutrition education and ONS therapy, pt with chronic uncontrolled pain despite high opioid use. Electronically Signed by: Rae Morales 02/28/23 13:35 Clinical Dietitian [place] [address] [place] [address]
[2023-02-28] MEDS: fentaNYL 50 MCG/PATCH TOP (15:09)
--- NOTE | 2023-02-28 15:55 | PM.PN.1 ---
Subjective Subjective Interval history: Pain she feels is a bit better. Surgery delayed as she did not have tube feedings shut off. Exam Vital Signs (past 8 hours): - 02/28/23 10:00 Temperature 98.6 F Pulse Rate 88 Respiratory Rate 17 Blood Pressure 140/60 Pulse Oximetry 95 Oxygen Flow Rate 0 Oxygen Delivery Method Room Air Oxygen Flow Rate 0 Narrative Exam Narrative: GEN: no acute distress, cachectic and anorexic appearing female CV: regular rate and rhythm, no murmurs PULM: clear bilaterally ABD: firm, nontender, distended, no organomegaly Objective Labs 02/28/23 05:35 02/28/23 05:35 Labs: Laboratory Results - last 24 hr 02/28/23 02/28/23 05:35 05:35 WBC 9.3 RBC 3.59 L Hgb 12.5 Hct 35.3 L MCV 98.2 MCH 34.7 H MCHC 35.3 RDW 13.7 Plt Count 320 Sodium 133 L Potassium 4.3 Chloride 103 Carbon Dioxide 26 BUN 17 Creatinine 0.53 Estimated GFR > 60 BUN/Creatinine Ratio 32.1 H Glucose 139 H Calcium 9.9 Phosphorus 3.7 Magnesium 1.9 Total Bilirubin 0.4 AST 22 ALT 21 Alkaline Phosphatase 92 Total Protein 6.2 L Albumin 3.5 Globulin 2.7 Albumin/Globulin Ratio 1.3 PFSH Medical History Anxiety Cachexia Chronic back pain Dorsalgia Failure of spinal fusion Fibromyalgia History of alcohol abuse History of anemia History of chronic pain Major depressive disorder, recurrent episode, 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 RN EMERGENCY ROOM arranging but given recommendations for tube feedings will need PEG prior to placement. (2) Malnutrition: Problem details: Lost around 60 pounds in the last 3 months Status: Acute Plan: -Dietitian initially consulted and had NG tube placed for tube feeds due to severe malnutrition -goal TF 50mL/hr -plan for PEG placement to continue tube feeds -monitor for refeeding syndrome, follow labs (3) Chronic pain: Status: Acute Plan: -attempted to switch to methadone 10mg per day, QTc was 418, but patient refused and said she doesn't want methadone -will continue home morphine 30mg q8h with po dilaudid plus IV toradol for breakthrough pain. Has been on fentanyl patches previously, will reattempt. Previously she reports 100 mcg daily, will trial 50 mcg and continue to titrate. -she will try to transition back to subutex 8mg TID which she was on previously for 5 years once she leaves the SNF, to be prescribed by Dr. Núñez at [facility] (4) Major depressive disorder, recurrent episode, in partial remission with anxious distress: Problem details: Depression and chronic pain Status: Acute Plan: -no longer on medications as an outpatient -patient states she no longer takes cymbalta as she feels funny on it (5) Tobacco abuse: Status: Acute Plan: -continue nicotine patch Plan Dispo: Pending SNF placement and tube feeds at goal. Time Spent With Patient Time with patient: 50 to 69 minutes with 50% spent counseling/coordinating care Quality VTE Deep Vein Thrombosis/Pulmonary Embolism Present on Admission: No
[2023-02-28] MEDS: droNABinol 2.5 MG CAPSULE PO (16:41)
[2023-02-28 19:26] VITALS: BP 120/61; PULSE 95; RESP 17; TEMP 36.8; O2SAT 94
[2023-02-28] MEDS: TRAZODONE 50 MG TABLET 200 MG PO (20:57)
[2023-02-28] MEDS: PRAMIPEXOLE 0.25 MG TABLET 0.125 MG PO (20:58)
--- NOTE | 2023-02-28 23:38 | PC.NURSE ---
Addendum entered by Julia Aguilera R.N. 03/01/23 06:53: Received notification that tube is in distal esophagus so tube advanced and new xray ordered. Addendum entered by Julia Aguilera R.N. 03/01/23 05:17: When gotten up to bathroom at 0400 patient's tube feed was indicating a downstream flow plugged alarm. Attempted to flush tube but unable to do so. Dr. Ritchie informed and order for replacement of NG tube with use of Cetacaine spray for comfort during insertion. Plugged NG tube was removed. New 14Fr NG placed by POP Lopes via right nare and patient tolerated fair. Xray here for confirmation of placement and awaiting radiologist read prior to restarting feeding. Original Note: Patient is alert and oriented. Breath sounds CTA with RA sat of 94%. HRR. Denies nausea. Currently has tube feed at 50cc/h via NG tube. She does complain of feeling bloated and having reflux so residual checked and had no residual; HOB elevated. BT present and reports she did have BM earlier today. States she is feeling so much better since getting tube feeds. Continues to take in po food/fluids and has no difficulty swallowing and feels her appetite has improved since Marinol was started. Voiding with sx of dysuria. Is able to ambulate with SBA when out of bed and denies any weakness or unsteadiness. Is able to turn herself in bed but does report she is having discomfort on coccyx which is noted to be reddened but blanchable so waffle cushion provided and encouraged to lie on sides intermittently to prevent decubit. Refuses use of SCD's but is moving well. Has chronic pain in back, neck and bilateral shoulders but states pain is much better controlled now; is receiving Fentanyl patch, scheduled Morphine, Ketorolac, Flexeril and Tizanidine as well as prn Dilaudid for breakthrough pain. Fall risk score is moderate but bed alarm is on for safety.
[2023-03-01] MEDS: HYDROMORPHONE 2 MG INJ IV ×3 (02:45→18:39)
[2023-03-01] MEDS: TETRACAINE/BENZOCAINE/BUTAMBEN (CETACAINE) BOTTLE 1 SPRAY TOP (04:29)
--- NOTE | 2023-03-01 04:52 | DI.RAD.S_ITS ---
PROCEDURE: XR CHEST 1V INDICATIONS: verify NG tube placement TECHNIQUE: One view of the chest was acquired. COMPARISON: [facility], , XR CHEST 1V, 02/25/2023, 13:24. [facility], CR, XR CHEST 1V, 02/25/2023, 14:54. FINDINGS: Surgical changes and devices: There is a nasogastric tube with the tip at the distal esophagus/gastroesophageal junction. Lungs and pleura: Bibasilar opacities are likely atelectasis. No pleural effusions or pneumothorax. Mediastinum: Mediastinal contours appear normal. Heart size is normal. Bones and chest wall: Postsurgical changes in thoracolumbar spine. No suspicious bony lesions. Overlying soft tissues appear unremarkable. IMPRESSION: 1. The tip of the nasogastric tube the gastroesophageal junction. 2. Bibasilar atelectasis. Dictated by: Yolie Mills M.D. on 03/01/2023 at 8:46 Approved by: Yolie Mills M.D. on 03/01/2023 at 8:47
[2023-03-01] MEDS: MORPHINE 10 MG/0.5 ML ORAL SYRINGE 30 MG PO ×2 (05:31→14:00)
[2023-03-01] MEDS: KETOROLAC 30 MG/ML VIAL IV (05:32)
[2023-03-01] MEDS: SODIUM CHLORIDE 0.9% FLUSH 10 ML IV ×4 (05:32→23:39)
[2023-03-01] MEDS: BENZOCAINE/MENTHOL 1 LOZ PKT 1 EACH PO (06:04)
[2023-03-01 06:23] LABS: Alanine Aminotransferase 20 IU/L (<35); Albumin 3.6 g/dL (3.5-5.0); Albumin Globulin Ratio 1.2 (1.0-2.8); Alkaline Phosphatase 110 U/L (38-126); Aspartate Aminotransferase 23 IU/L (14-36); BUN Creatinine Ratio 37.5 (6-22); Bilirubin Total 0.3 mg/dL (0.2-1.3); Blood Urea Nitrogen 24 mg/dL (7-17); Calcium 9.4 mg/dL (8.4-10.2); Carbon Dioxide 26 mmol/L (22-32); Chloride 100 mmol/L (98-107); Estimated Glomerular Filt Rate > 60 mL/min (>60); Glucose 120 mg/dL (80-110); HEMOLYSIS < 15 (0-50); Phosphorous 3.9 mg/dL (2.8-4.1); Potassium 4.5 mmol/L (3.4-5.1); Sodium 132 mmol/L (137-145); Total Protein 6.6 g/dL (6.3-8.2)
--- NOTE | 2023-03-01 06:52 | DI.RAD.S_ITS ---
PROCEDURE: XR CHEST 1V INDICATIONS: confirm NG placement TECHNIQUE: One view of the chest was acquired. COMPARISON: [facility], , XR CHEST 1V, 03/01/2023, 5:03. FINDINGS: Surgical changes and devices: There is a nasogastric tube with the tip in the area of the stomach. Lungs and pleura: Bibasilar atelectasis. No pleural effusions or pneumothorax. Mediastinum: Mediastinal contours appear normal. Heart size is normal. Bones and chest wall: Extensive postsurgical changes in spine. No suspicious bony lesions. Overlying soft tissues appear unremarkable. IMPRESSION: NG tube tip within the stomach. Dictated by: Yolie Mills M.D. on 03/01/2023 at 7:25 Approved by: Yolie Mills M.D. on 03/01/2023 at 7:26
[2023-03-01 07:00] VITALS: BP 126/48; PULSE 99; RESP 17; TEMP 36.3; O2SAT 99
[2023-03-01] MEDS: droNABinol 2.5 MG CAPSULE PO ×2 (08:42→17:08)
[2023-03-01] MEDS: NICOTINE 14 PATCH 14 MG TOP (08:42)
[2023-03-01] MEDS: ONDANSETRON 4 MG/2 ML INJ IV ×2 (08:42→20:22)
[2023-03-01] MEDS: HYDROMORPHONE 4 MG TABLET PO ×3 (08:42→17:08)
[2023-03-01] MEDS: ENOXAPARIN 30 MG/0.3 ML SYRINGE SUBCUT (08:42)
[2023-03-01] MEDS: TIZANIDINE 4 MG TABLET PO ×3 (08:43→20:45)
[2023-03-01] MEDS: THIAMINE 100 MG TABLET PO (08:43)
[2023-03-01] MEDS: PANTOPRAZOLE DR 40 MG TABLET PO (08:43)
[2023-03-01] MEDS: CYCLOBENZAPRINE 10 MG TABLET PO ×3 (08:43→20:45)
--- NOTE | 2023-03-01 11:06 | PM.CN ---
History of Present Illness Consult details Date Patient Seen: 03/01/23 Chief complaint: states failure to thrive/unsafe discharge Narrative: 67-year-old woman with history of chronic pain and malnutrition admitted to the hospital for failure to thrive. Consulted in regards to placement of feeding tube. She is eating but small amounts, from her perspective because of minimal appetite nausea and chronic pain. No mechanical swallow issue. Meds Home Medications and Allergies Home Medications Medication Instructions Recorded Confirmed Type albuterol sulfate 90 mcg/actuation 2 puff inhalation Q4-6H PRN 02/24/23 02/24/23 History aerosol inhaler wheezing baclofen 5 mg tablet 5 mg PO 3XD PRN pain 02/24/23 02/24/23 History cyclobenzaprine 10 mg tablet 10 mg PO 3XD PRN pain 02/24/23 02/24/23 History hydroxyzine HCl 50 mg tablet 50 mg PO Q6H PRN anxiety, sleep, 02/24/23 02/24/23 History or pain morphine 15 mg immediate release 15 mg PO Q4H PRN pain 02/24/23 02/24/23 History tablet pantoprazole 40 mg tablet,delayed 40 mg PO DAILY 02/24/23 02/24/23 History release pramipexole 0.125 mg tablet 0.125 mg PO ONCE PM 02/24/23 02/24/23 History tizanidine 4 mg tablet 4 mg PO 3XD 02/24/23 02/24/23 History trazodone 100 mg tablet 200 mg PO ONCE PM 02/24/23 02/24/23 History dronabinol 2.5 mg capsule (Marinol) 2.5 mg PO BID #60 caps 02/25/23 Rx Allergies Allergy/AdvReac Type Severity Reaction Status Date / Time bupropion [From Wellbutrin] Allergy Anaphylaxis Verified 02/24/23 15:30 gabapentin Allergy Muscle Verified 02/24/23 15:30 contractions pregabalin [From Lyrica] Allergy Muscle Verified 02/24/23 15:30 contractions aspirin [ASPIRIN] AdvReac Unknown Gastrointestinal Verified 02/24/23 15:30 Upset NSAIDS (Non-Steroidal AdvReac Unknown Gastrointestinal Verified 02/24/23 17:04 Anti-Inflamma Upset [NSAIDS (NON-STEROIDAL ANTI-INFLAMMA] Exam Vital Signs (past 8 hours): - 03/01/23 07:00 Temperature 97.3 F L Pulse Rate 99 H Respiratory Rate 17 Blood Pressure 126/48 L Pulse Oximetry 99 Oxygen Flow Rate 0 Oxygen Delivery Method Room Air Oxygen Flow Rate 0 Narrative Exam Narrative: Gen-Adult woman cachetic Abdomen-Soft non tender Objective Labs 02/28/23 05:35 03/01/23 05:55 Labs: Laboratory Results - last 24 hr 03/01/23 05:55 Sodium 132 L Potassium 4.5 Chloride 100 Carbon Dioxide 26 BUN 24 H Creatinine 0.64 Estimated GFR > 60 BUN/Creatinine Ratio 37.5 H Glucose 120 H Calcium 9.4 Phosphorus 3.9 Magnesium 2.0 Total Bilirubin 0.3 AST 23 ALT 20 Alkaline Phosphatase 110 Total Protein 6.6 Albumin 3.6 Globulin 3.0 Albumin/Globulin Ratio 1.2 [facility] Medical History Anxiety Cachexia Chronic back pain Dorsalgia Failure of spinal fusion Fibromyalgia History of alcohol abuse History of anemia History of chronic pain Major depressive disorder, recurrent episode, 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, thoracic region Tobacco abuse Surgical History (Updated 03/07/21 @ 00:49 by JELENA Gaona-CARMELITA) History of cholecystectomy History of hysterectomy History of spinal fusion Previous back surgery Family History (Updated 03/07/21 @ 00:52 by KELSEY Gaona) Father Cancer Grandmother Cancer Social History household members: family Tobacco & Substance Use Smoking Status: Current every day smoker alcohol intake: never Assessment & Plan Assessment and plan (1) Adult failure to thrive: Status: Acute Assessment & Plan narrative: 67-year-old woman with chronic pain admitted to the hospital for failure to thrive. Consulted in regards to feeding tube placement. She has no intestinal or swallow disorder. I do not think it is appropriate to proceed with feeding tube placement at this point until she has failed to improve with stimulation of appetite and control of her nausea. -Remove NGT -Appetite stimulation and nausea control
--- NOTE | 2023-03-01 12:18 | PT-IP ANOTE ---
Pt refused to work with PT this afternoon. States she is having too much pain and maybe after she has her pain meds she could do some PT. May check back in later if time is available.
[2023-03-01] MEDS: ACETAMINOPHEN 325 MG TABLET 650 MG PO (12:53)
--- NOTE | 2023-03-01 14:19 | PM.PN.1 ---
Subjective Subjective Interval history: Pain she feels is a bit better. Discussed with surgery and given improvement with PO intake would like reattempt of oral nutrition. NG tube was removed by me. Exam Vital Signs (past 8 hours): - 03/01/23 07:00 Temperature 97.3 F L Pulse Rate 99 H Respiratory Rate 17 Blood Pressure 126/48 L Pulse Oximetry 99 Oxygen Flow Rate 0 Oxygen Delivery Method Room Air Oxygen Flow Rate 0 Narrative Exam Narrative: GEN: no acute distress, cachectic and anorexic appearing female CV: regular rate and rhythm, no murmurs PULM: clear bilaterally ABD: firm, nontender, distended, no organomegaly Objective Labs 02/28/23 05:35 03/01/23 05:55 Labs: Laboratory Results - last 24 hr 03/01/23 05:55 Sodium 132 L Potassium 4.5 Chloride 100 Carbon Dioxide 26 BUN 24 H Creatinine 0.64 Estimated GFR > 60 BUN/Creatinine Ratio 37.5 H Glucose 120 H Calcium 9.4 Phosphorus 3.9 Magnesium 2.0 Total Bilirubin 0.3 AST 23 ALT 20 Alkaline Phosphatase 110 Total Protein 6.6 Albumin 3.6 Globulin 3.0 Albumin/Globulin Ratio 1.2 [facility] Medical History Anxiety Cachexia Chronic back pain Dorsalgia Failure of spinal fusion Fibromyalgia History of alcohol abuse History of anemia History of chronic pain Major depressive disorder, recurrent episode, 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 [employer] arranging but need to manage nutrition adequately prior to discharge. (2) Malnutrition: Problem details: Lost around 60 pounds in the last 3 months Status: Acute Plan: -Dietitian initially consulted and had NG tube placed for tube feeds due to severe malnutrition, she has had improvement with improved pain control and addition of fentanyl patch. -patient had continued throat discomfort and not tolerating tube feeds symptomatically well. Will reattempt oral feeding prior to PEG placement after discussion with surgery today. -monitor for refeeding syndrome, follow labs (3) Chronic pain: Status: Acute Plan: -attempted to switch to methadone 10mg per day, QTc was 418, but patient refused and said she doesn't want methadone -Change to oral morphine ER 60 BID today from 30 q8 for continued discomfort. Pain is improved today with 50 mcg of fentanyl patch. Will continue to work on pain management with opiate changes. -she will try to transition back to subutex 8mg TID which she was on previously for 5 years once she leaves the SNF, to be prescribed by Dr. Núñez at [facility] though I suspect given her chronic needs this may not suffice. (4) Major depressive disorder, recurrent episode, in partial remission with anxious distress: Problem details: Depression and chronic pain Status: Acute Plan: -no longer on medications as an outpatient -patient states she no longer takes cymbalta as she feels funny on it (5) Tobacco abuse: Status: Acute Plan: -continue nicotine patch Plan Dispo: Pending SNF placement and tube feeds at goal. Time Spent With Patient Time with patient: 50 to 69 minutes with 50% spent counseling/coordinating care Quality VTE Deep Vein Thrombosis/Pulmonary Embolism Present on Admission: No
--- NOTE | 2023-03-01 16:04 | PT-IP ANOTE ---
Pt refused to work with PT this afternoon. Pt reports getting up with nursing for a walk in the singer earlier this afternoon. Will check back in with pt tomorrow.
[2023-03-01] MEDS: KETOROLAC 30 MG/ML VIAL 15 MG IV ×2 (17:07→23:39)
[2023-03-01 19:55] VITALS: BP 132/55; PULSE 82; RESP 18; TEMP 37.2; O2SAT 95
[2023-03-01] MEDS: CALCIUM CARBONATE 500 MG TAB 1000 MG PO (20:22)
[2023-03-01] MEDS: TRAZODONE 50 MG TABLET 200 MG PO (20:45)
[2023-03-01] MEDS: MORPHINE ER 30 MG TABLET 60 MG PO (20:45)
[2023-03-01] MEDS: PRAMIPEXOLE 0.25 MG TABLET 0.125 MG PO (20:46)
--- NOTE | 2023-03-01 22:50 | PC.NURSE ---
Patient is alert and oriented. Breath sounds CTA although diminished in right LL; RA sat is 95%. HRR. Did complain of feeling nauseated and having reflux along with abdominal bloating; medicated with zofran + TUMS and has no further complaints. Abdomen seems less firm than last night and is nontender to palpation and has + BT and reports earlier BM. Is now walking around independently but using a walker for more stability. Instructed to use walker when out of bed tonight or call for SBA to bathroom in order to help prevent falls and she verbalized understanding. Continues to refuse SCD's; encourage to ankle wave when awake. Chronic back, neck and bilateral shoulder pain now better controlled with scheduled Morphine, Toradol, Fentanyl patch as well as Flexeril and Tizanidine. Will try to minimize use of IV Dilaudid for breakthrough pain as needs to be off IV pain medication x 24h before SNF will accept. IV site and new IV placement attempted x 3 by POP Pang, and then patient requested no further attempts as current IV is patent and without sx of infection. Will try to have US guided IV replacement tomorrow to which she is agreeable. Fall risk score is high but based on patient agreeing to use walker or call for assist at tonight alarm is not activated.
[2023-03-02] MEDS: HYDROMORPHONE 4 MG TABLET PO ×3 (04:41→12:07)
[2023-03-02] MEDS: KETOROLAC 30 MG/ML VIAL 15 MG IV (05:56)
[2023-03-02] MEDS: SODIUM CHLORIDE 0.9% FLUSH 10 ML IV ×2 (05:57→08:17)
[2023-03-02 07:00] VITALS: BP 129/59; PULSE 82; RESP 18; TEMP 36.3; O2SAT 95
[2023-03-02] MEDS: CYCLOBENZAPRINE 10 MG TABLET PO ×2 (08:15→14:35)
[2023-03-02] MEDS: droNABinol 2.5 MG CAPSULE PO (08:15)
[2023-03-02] MEDS: PANTOPRAZOLE DR 40 MG TABLET PO (08:16)
[2023-03-02] MEDS: THIAMINE 100 MG TABLET PO (08:16)
[2023-03-02] MEDS: MORPHINE ER 30 MG TABLET 60 MG PO (08:16)
[2023-03-02] MEDS: TIZANIDINE 4 MG TABLET PO ×2 (08:16→14:35)
[2023-03-02] MEDS: ENOXAPARIN 30 MG/0.3 ML SYRINGE SUBCUT (08:16)
[2023-03-02] MEDS: NICOTINE 14 PATCH 14 MG TOP (08:17)
--- NOTE | 2023-03-02 10:26 | PT.IPTN ---
Current Diagnoses Unspecified protein-calorie malnutrition (02/24/23) Major depressive disorder, recurrent, in partial remission (02/24/23) Other specified anxiety disorders (02/24/23) Other chronic pain (02/24/23) Adult failure to thrive (02/24/23) Tobacco use (02/24/23) Surgery Performed Operation Date: 02/28/23 12:00 <No data on this case meets the specified criteria> Operation Date: 02/28/23 15:45 <No data on this case meets the specified criteria> Physical Therapy Treatment Note M2 PT-IP Current Condition Start: 02/26/23 12:32 Freq: NEEDED Status: Active Protocol: Document 02/26/23 10:54 DLM (Rec: 02/26/23 13:14 DLM [id number]) Physical Therapy Current Condition Current Condition Evaluation Date 02/26/23 Treatment Diagnosis Chronic pain and nausea, decreased activity tolerance Onset Date 02/24/23 M3 PT-IP Subjective Start: 02/26/23 12:32 Freq: NEEDED Status: Active Protocol: Document 03/02/23 10:11 KS (Rec: 03/02/23 11:20 KS [id number]) Subjective Physical Therapy Visit Type Type Treatment Note Visit Start Time 10:11 Visit Stop Time 10:26 Total Visit Minutes 15 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 Patient Goals improve her pain Therapy Pain Assessment Pain When Pain Assessed During Mobility Pain Present Pain Present Pain Reported Location back, neck, shoulders Intensity 8 Scale Used Numeric (0 - 10) Description Aching,Radiating,Tender, Tightness,With Movement Pain Management Techniques Distraction,Timing of Activity with Medications M4 PT-IP Mobility and Gait Start: 02/26/23 12:32 Freq: NEEDED Status: Active Protocol: Document 03/02/23 10:11 KS (Rec: 03/02/23 11:20 KS [id number]) PT-Transfer Assessment Sit to and From Stand Sit to and from Stand Standby Assistance,Use of Upper Extremities Equipment Transfer Assistive Device Gait Belt,Front Wheeled Walker Transfers Transfer Destination Chair Transfer Technique ambulated Transfer Ability Level of Assist Standby Assistance,Contact Guard Assistance,Use of Upper Extremities Comments Mobility Comments Pt in chair upon arrival, reports high pain but agreeable to ambulate. SBA for sit<>Stand w/ FWW, pt ambulated ~400 ft w/ FWW SBA. No LOB, but did requires cues for proper use of FWW (staying close to FWW). Pt denied increased pain following ambulation. Returned to chair and complete ankle pumps and glute sets. Left in chair w/ all needs in reach. Gait Assessment Gait Gait Assistance Required: Standby Assistance,1 Person Assist Distance (Feet) 400 Able to Maintain Weight Bearing Status Yes During Gait Assistive Devices Assistive Device Gait Belt,Front Wheeled Walker Factors Limiting Gait Function Factors Limiting Gait Function Decreased Activity Tolerance, Decreased Strength,Limited Range of Motion,Pain,Poor Balance Comments Gait Comments Elected to use FWW to increase safety. Pt tolerated well, states she has been using FWW in room. Had no LOB. PT-Balance Assessment Sitting Balance and Reactions Static Sitting Balance Ability Good Dynamic Sitting Balance Ability Good Standing Balance and Reactions Static Standing Balance Ability Good Dynamic Standing Balance Ability Good Device Used FWW M5 PT-IP Objective Assessments Start: 02/26/23 12:32 Freq: NEEDED Status: Active Protocol: Document 02/26/23 10:54 DLM (Rec: 02/26/23 13:14 DLM [id number]) Orientation Orientation/Cognition Level of Alertness Alert Orientation Name,Age,Birthday,Month,Date, Year,Day of Week,Place, Situation Language Function Ability No Deficits Noted Safety Awareness Understands Safety Issues Memory Description No Deficits Noted Gross Range of Motion Upper Extremity ROM Assessment Bilaterally Impaired Impairments shoulder elevation limited by her neck/upper back pain, intermittent pain into her UE' s Lower Extremity ROM Assessment Within Functional Limits Strength Upper Extremity Strength Assessment Bilaterally Impaired Shoulder see OT Eval Lower Extremity Strength Assessment Bilaterally Impaired Hip flexion 3+/5 with back pain Knee ext 4/5 with back pain, flex 4 +/5 Ankle DF 5/5 Comments Strength Comments low back pain with resisted LE movements, functional UE strength in shoulders limited by neck and upper back pain Cervical ROM is severely limited with very little active movement which are painful. She hold her head in forward position and can not look directly up in front of her. Leaning back in the recliner with back and neck support she reports decreased pain. Coordination Assessment Gross Coordination Gross Coordination WNL Sensation Assessment Comments Sensation Comments no changes reported by pt this admission Muscle Tone Muscle Tone WNL Yes M6 PT-IP Treatment Start: 02/26/23 12:32 Freq: NEEDED Status: Active Protocol: Document 03/02/23 10:11 KS (Rec: 03/02/23 11:20 KS [id number]) Physical Therapy Treatment Exercises Exercises Ankle Pumps,Gluteal Sets Education Education Provided Safety M7 PT-IP Assessment and Plan Start: 02/26/23 12:32 Freq: NEEDED Status: Active Protocol: Document 03/02/23 10:11 KS (Rec: 03/02/23 11:20 KS [id number]) PT Summary Assessment and Plan Potential Rehabilitation Potential Good Summary Impairments Pain,ROM,Strength,Balance, Transfers,Gait,Activity Tolerance Progress Towards Goals Progressing Toward Goals Assessment Summary Pt able to increase ambulation distance this date but did use FWW to improve balance and decrease pain. She continues to report 8/10 pain throughout back. Discussed w/ PT who agrees that at this time, pt would benefit from HHPT to improve activity tolerance, strength, and balance. Goals Bed Mobility Goal Independent Transfer Goal Independent Gait Goal Independent,Cane,Four Wheel Walker Gait Distance 300 feet Other Goals up/down curb with SBA for community ambulation Days to Meet Goals 5 Frequency of Treatment Frequency Of Treatment Once a Day Treatment Plan Physical Therapy Treatment Plan Bed Mobility Training,Transfer Training,Gait Training, Therapeutic Exercise,Balance Retraining,Post Op Education, Discharge Planning,Hot or Cold Pack,Neuromuscular Re-ed Other Recommendations and Next Treatment determine the least Focus restrictive assistive device for pt that helps manage her pain Precautions Other Precautions chronic neck and back pain has NG tube for tube feedings Recommendations To Nursing Amount of Assist Needed 1 Person Assist Discharge Recommendations PT Discharge Recommendations Home with 20/01 Assist Available,Home Health Transportation Needs at Discharge Private Vehicle
[2023-03-02] MEDS: ONDANSETRON 4 MG ODT SL (12:07)
--- NOTE | 2023-03-02 15:54 | CM.DPNOTE ---
DC Note Patient and medical team decided against peg tube placement over the last 24-48 hrs, patient able to eat and has been encouraged to maintain a diet Patient walking down the hallway today, pain well controlled on po meds. Patient will be discharged home w/family support, one week of pain medication prescribed by Dr Hendrickson, follow up at [facility] for Suboxone management and with PCP for ongoing medical management and referral JW
--- NOTE | 2023-03-03 18:50 | PM.DS.1 ---
History of Present Illness History of Present Illness Chief complaint: states failure to thrive/unsafe discharge Narrative: Per admitting provider: 67-year-old female who is here for evaluation of failure to thrive and uncontrolled discomfort.? She states that she recently spent a 10 day hospital stay at [facility] to have ?tests? done in order to determine whether not she was going to get surgery on her cervical spine.? She stated that the decision ultimately was to not have surgery.? Apparently she was offered [facility] facility but she declined.? Has been home for couple days.? 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 She has chronic neck pain.? States she can not heat because of how much discomfort that she is in.? She is lost weight.? Is unable to take care of herself.? Home health came to see her and stated that she is not safe being home. The patient lost around 60 pounds in the last 3 months. Complain of chronic nausea and poor appetite. Discharge Providers Provider Date of admission: 02/24/23 19:05 Discharge Date: 03/02/23 Primary care physician: Amy Cochran MD Consults: 02/24/23 16:55 Consult to Dietitian, Adult Stat Comment: Reason For Exam: BMI 13.2 02/24/23 19:19 Consult to Discharge Planning Routine Comment: Consult to Occupational Therapy Evaluate & Treat Comment: Physician Instructions: Evaluate and treat Consult to Physical Therapy Evaluate & Treat Comment: Physician Instructions: Evaluate and Treat 02/24/23 21:29 Consult to [facility] - Customer Facilities Supervisor Routine Comment: 02/25/23 12:03 Consult to Occupational Therapy Evaluate & Treat Comment: please check standing weight Physician Instructions: Evaluate and treat 02/27/23 21:44 Consult to General Surgery Routine Comment: Consulting Provider: Sina Hay Reason for consultation: peg tube Has provider been notified: Yes Discharge provider: Chris Hendrickson MD Summary Hospital Course Discharge Diagnosis: 1. Adult failure to thrive 2. Opiate use disorder, chronic pain 3. Depression 4. Severe protein calorie malnutrition Hospital Course: Ms. Jacobs was admitted after being unable to control pain after running out of some medication after recent discharge from prior to this admission. She has a long history of chronic pain, opiate use disorder, and has been on suboxone for quite some time prior to her recent hospitalization at . Here in the hospital she was noted to have BMI 17.7, severe weight loss, which she attributes to nausea and lack of appetite due to pain. She initially had NG tube placed and tube feeds were started. Her pain medications were increased. She consistently appeared comfortable to me, but she was consistently asking for IV opiates. She was discharged on fentanyl patch and long acting opiates and given a short course, but ultimately she is encouraged to follow up quickly with her PCP for further management. She does want to get back on suboxone in the future. She did have improved appetite and ultimately had NG tube removed and was discharged home. Exam Vital Signs (past 8 hours): Oxygen Delivery Method Room Air Oxygen Flow Rate 0 Narrative Exam Narrative: GEN: no acute distress, cachectic and anorexic appearing female CV: regular rate and rhythm, no murmurs PULM: clear bilaterally ABD: firm, nontender, distended, no organomegaly Objective Labs 02/28/23 05:35 03/01/23 05:55 [facility] Medical History Anxiety Cachexia Chronic back pain Dorsalgia Failure of spinal fusion Fibromyalgia History of alcohol abuse History of anemia History of chronic pain Major depressive disorder, recurrent episode, 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, thoracic region Tobacco abuse Surgical History (Updated 03/07/21 @ 00:49 by KELSEY Goana) History of cholecystectomy History of hysterectomy History of spinal fusion Previous back surgery Family History (Updated 03/07/21 @ 00:52 by KELSEY Gaona) Father Cancer Grandmother Cancer Social History household members: family Smoking Status: Current every day smoker alcohol intake: never Discharge Plan Discharge Plan Patient Disposition: Home Health Service Provider Discharge Comment: Ms. Jacobs came in to the hospital with pain. She improved with increasing pain management. She started eating more after this. She should follow up with her PCP this week and also with [facility] to get on an appropriate pain regimen and make sure she continues to do well. Discharge orders & Medications Prescriptions: New dronabinol [Marinol] 2.5 mg capsule 2.5 mg PO BID Qty: 60 0RF Rx Instructions: administer before lunch and evening meal/dinner fentanyl 50 mcg/hr Patch 72 Hour 50 mcg topical Q72H Qty: 5 0RF morphine 30 mg Tablet Extended Release 60 mg PO BID Qty: 14 0RF hydromorphone 4 mg Tablet 4 mg PO Q4HR PRN (Reason: Pain, Moderate (4-6)) Qty: 12 0RF Continued albuterol sulfate 90 mcg/actuation HFA aerosol inhaler 2 puff inhalation Q4-6H PRN (Reason: wheezing) cyclobenzaprine 10 mg tablet 10 mg PO 3XD PRN (Reason: pain) tizanidine 4 mg tablet 4 mg PO 3XD hydroxyzine HCl 50 mg tablet 50 mg PO Q6H PRN (Reason: anxiety, sleep, or pain) trazodone 100 mg tablet 200 mg PO ONCE PM pantoprazole 40 mg tablet,delayed release (DR/EC) 40 mg PO DAILY pramipexole 0.125 mg tablet 0.125 mg PO ONCE PM baclofen 5 mg tablet 5 mg PO 3XD PRN (Reason: pain) Discontinued morphine 15 mg tablet 15 mg PO Q4H PRN (Reason: pain) Rx Instructions: can take 1-2 tabs Follow up/Referrals: Amy Cochran MD [Primary Care Provider] - 03/11/23 2:00 pm (please try to follow up within 3-5 days) Diet/Activity/Treatments Diet: Regular Visit Report/Discharge Packet Instructions: How to Prevent Falls, DI for Prescription Opioid Use Stand Alone Forms: Patient Portal/API, Stroke Signs & Symptoms Discharge Data Primary Care Provider: Amy Cochran Discharges patient from system. Discharge Date/Time: 03/02/23 14:37 Quality VTE Deep Vein Thrombosis/Pulmonary Embolism Present on Admission: No
== END 2023-03-02 14:37 | disposition home or self-care (01) | DRG 640 ==
LOC: ED 18:27 → AC 19:06
PROVIDERS: Emergency Medicine; Internal Medicine; Admitting Provider Internal Medicine; Emergency Provider Emergency Medicine; PCP Internal Medicine; Referring Provider Emergency Medicine; Visit Provider Student in an Organized Health Care Education/Training Program
DX: R62.7 Adult failure to thrive (principal); E43 Unspecified severe protein-calorie malnutrition; Z68.1 Body mass index [BMI] 19.9 or less, adult; F33.3 Major depressive disorder, recurrent, severe with psychotic symptoms; F17.210 Nicotine dependence, cigarettes, uncomplicated; G89.29 Other chronic pain; M54.2 Cervicalgia; F11.90 Opioid use, unspecified, uncomplicated
CPT/HCPCS: 36415; 71045; 80048; 80053; 80320; 81001; 81003; 82607; 82746; 82962; 83690; 83735; 84100; 84134; 84443; 85025; 85027; 87086; 93005; 97116; 97162; 97166; 97530; 99231; 99283; 99284; A9270; J1170; J1650; J1885; J2060; J2270; J2405; J3475

== ENCOUNTER 2023-03-08 12:47 | Emergency (ER) | payer MEDICARE, MEDICAID, SELFPAY ==
[2023-03-08 13:01] VITALS: BP 153/70; PULSE 99; RESP 18; TEMP 36.8; O2SAT 96; BMI 18.5
--- NOTE | 2023-03-08 14:16 | ED.RECABL ---
HPI - Recheck/Abnormal Lab/Rx <Don Maldonado PA-C - Last Filed: 03/08/23 14:38> General Chief Complaint: Recheck/Abnormal Lab/Rx Stated Complaint: needs meds for upper body pain Time Seen by Provider: 03/08/23 13:50 Source: patient Mode of arrival: Ambulatory History of Present Illness HPI narrative: This is a 67-year-old female presents emergency department due to request for refills of pain medication. Patient states that she was recently hospitalized at the [facility] as well as here the [facility] for chronic neck pain that she determined not to have surgery on. Patient states that she was discharged with pain medication but it was not enough to cover until she is able to see a primary care provider on 03/12, which is 4 days from now. Patient states that she just needs the to pain medications but does not need the fentanyl patches. No new symptoms. Related Data Home Medications Medication Instructions Recorded Confirmed albuterol sulfate 90 mcg/actuation 2 puff inhalation Q4-6H PRN 02/24/23 02/24/23 aerosol inhaler wheezing baclofen 5 mg tablet 5 mg PO 3XD PRN pain 02/24/23 02/24/23 cyclobenzaprine 10 mg tablet 10 mg PO 3XD PRN pain 02/24/23 02/24/23 hydroxyzine HCl 50 mg tablet 50 mg PO Q6H PRN anxiety, sleep, 02/24/23 02/24/23 or pain pantoprazole 40 mg tablet,delayed 40 mg PO DAILY 02/24/23 02/24/23 release pramipexole 0.125 mg tablet 0.125 mg PO ONCE PM 02/24/23 02/24/23 tizanidine 4 mg tablet 4 mg PO 3XD 02/24/23 02/24/23 trazodone 100 mg tablet 200 mg PO ONCE PM 02/24/23 02/24/23 Previous Rx's Medication Instructions Recorded dronabinol 2.5 mg capsule (Marinol) 2.5 mg PO BID #60 caps 02/25/23 fentanyl 50 mcg/hr transdermal 50 mcg topical Q72H #5 ea 03/02/23 patch hydromorphone 4 mg tablet 4 mg PO Q4HR PRN Pain, Moderate 03/02/23 (4-6) #12 tabs morphine 30 mg tablet,extended 60 mg PO BID #14 tabs 03/02/23 release hydromorphone 4 mg tablet 4 mg PO Q4H PRN pain #20 tabs 03/08/23 morphine 30 mg capsule,extended 30 mg PO BID #10 caps 03/08/23 release 24 hr multiphase Allergies Allergy/AdvReac Type Severity Reaction Status Date / Time bupropion [From Wellbutrin] Allergy Anaphylaxis Verified 03/08/23 13:06 gabapentin Allergy Muscle Verified 03/08/23 13:06 contractions pregabalin [From Lyrica] Allergy Muscle Verified 03/08/23 13:06 contractions aspirin [ASPIRIN] AdvReac Unknown Gastrointestinal Verified 03/08/23 13:06 Upset NSAIDS (Non-Steroidal AdvReac Unknown Gastrointestinal Verified 03/08/23 13:06 Anti-Inflamma Upset [NSAIDS (NON-STEROIDAL ANTI-INFLAMMA] Review of Systems <Don Maldonado PA-C - Last Filed: 03/08/23 14:38> Review of Systems Narrative: GENERAL: Denies chills, fatigue, malaise, fever, sweats. HEENT: Denies sinus pain, ear pain, sore throat, difficulty swallowing, dizziness. RESPIRATORY: Denies dyspnea, cough, wheezing, hemoptysis, sputum. CARDIOVASCULAR: Denies chest pain, palpitations, orthopnea, edema, GASTROINTESTINAL: Denies nausea, vomiting, abdominal pain, diarrhea, constipation, melena. : Denies dysuria, frequency, incontinence, hematuria, urinary retention. MUSCULOSKELETAL: Chronic cervical pain SKIN: Denies rash, skin lesions, or other NEUROLOGIC: Denies weakness, headache, numbness, change in speech, confusion, seizures, incoordination. PSYCHIATRIC: No concerning psychosocial issues. 12 point review of systems is negative except for those stated above Patient History <Don Maldonado PA-C - Last Filed: 03/08/23 14:38> Medical History Anxiety Cachexia Chronic back pain Dorsalgia Failure of spinal fusion Fibromyalgia History of alcohol abuse History of anemia History of chronic pain Major depressive disorder, recurrent episode, 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, thoracic region Tobacco abuse Surgical History (Updated 03/07/21 @ 00:49 by KELSEY Gaona) History of cholecystectomy History of hysterectomy History of spinal fusion Previous back surgery Family History (Updated 03/07/21 @ 00:52 by KELSEY Gaona) Father Cancer Grandmother Cancer Social History household members: family Smoking Status: Current every day smoker alcohol intake: never Smoking Status: Current every day smoker Substance Use Type: marijuana Exam <Don Maldonado PA-C - Last Filed: 03/08/23 14:38> Narrative Exam Narrative: GENERAL: Well-developed patient, in mild distress. HEAD: Atraumatic. Normocephalic. EYES: Pupils equal round and reactive. Extraocular motions intact. No scleral icterus. No injection or drainage. ENT: Nose without bleeding, purulent drainage. Throat without erythema, tonsillar hypertrophy or exudate. Airway patent. NECK: Trachea midline. Non tender CARDIOVASCULAR: Regular rate and rhythm without murmurs, gallops, or rubs. RESPIRATORY: Clear to auscultation. Breath sounds equal bilaterally. No wheezes, rales, or rhonchi. GASTROINTESTINAL: Abdomen soft, non-tender, nondistended. EXTREMITIES: No edema or joint tenderness. BACK: Nontender without deformity or crepitance. No flank tenderness. NEURO: AOx3. SKIN: No rash or erythema of visible areas Initial Vital Signs Initial Vital Signs: Vital Signs Temperature 98.3 F 03/08/23 13:01 Pulse Rate 99 H 03/08/23 13:01 Respiratory Rate 18 03/08/23 13:01 Blood Pressure 153/70 H 03/08/23 13:01 Pulse Oximetry 96 03/08/23 13:01 Oxygen Delivery Method Room Air 03/08/23 13:01 <Bea Farfan DO - Last Filed: 03/23/23 04:12> Initial Vital Signs Initial Vital Signs: Vital Signs Temperature 98.3 F 03/08/23 13:01 Pulse Rate 99 H 03/08/23 13:01 Respiratory Rate 18 03/08/23 13:01 Blood Pressure 153/70 H 03/08/23 13:01 Pulse Oximetry 96 03/08/23 13:01 Oxygen Delivery Method Room Air 03/08/23 13:01 Course <Don Maldonado PA-C - Last Filed: 03/08/23 14:38> Vital Signs Vital signs: Vital Signs - 8 hr 03/08/23 13:01 Temperature 98.3 F Pulse Rate 99 H Respiratory Rate 18 Blood Pressure 153/70 H Pulse Oximetry 96 Oxygen Delivery Method Room Air <Bea Argelia Farfan DO - Last Filed: 03/23/23 04:12> Vital Signs Vital signs: Vital Signs - 8 hr 03/08/23 13:01 Temperature 98.3 F Pulse Rate 99 H Respiratory Rate 18 Blood Pressure 153/70 H Pulse Oximetry 96 Oxygen Delivery Method Room Air MDM - Recheck/Abnormal Lab/Rx <Don Maldonado PA-C - Last Filed: 03/08/23 14:38> MDM Narrative Medical decision making narrative: MDM * differential diagnosis includes but not limited tochronic cervical neck pain * Prior records reviewed:Patient was seen here approximately 12 days ago for back pain and failure to thrive. Patient states that she was seen at [facility] for cervical spine both ultimately determined not to have surgery. History of chronic neck pain. Patient was admitted for malnutrition, cervical spine pain, opiate dependence, and failure to thrive. Patient was hospitalized for 7 days and discharged on 03/03. Reports losing about 60 lb in the last 3 months. Long history of chronic pain, opiate use disorder and has been on Suboxone. Patient was started on tube feeds. Discharged with a fentanyl patch and long-acting opiates and given a short course and recommended to follow up with the primary care provider for further management. NG tube was eventually removed. Patient was discharged with 5 fentanyl patches as well as 7 days' worth of morphine as well as 2 days' worth of Dilaudid. * My lab interpretation: None obtained * My imaging interpretation: None obtained * Clinical Decision Rules/Scores evaluated: None * Independent discussions with: None ED Course: This is a 67-year-old female presents emergency department solely for a pain medication refill after being discharged from a recent hospitalization here [facility]. No new symptoms to address. Patient will be prescribed a short course of pain medication until she is able to follow up with the primary care provider in 4 days. Strongly reinforced that the emergency department is not the appropriate place for routine refills which patient expressed understanding. Shared Decision Making: Discussed plan with patient who is comfortable with the plan Social Considerations: None Disposition: Discharged to home Discharge Plan Departure Patient Disposition: Home Clinical Impression: Chronic neck pain Activity Restrictions/Additional Instructions: Thank you for coming to the [facility] Emergency Department today. We are able to failure medications here in the hospital but please do not make it a routine to coming here for routine refills. I strongly recommend you follow up with the primary care provider on 03/12 for long-term management of your symptoms. I am glad you are feeling somewhat better from before. Please follow up with your primary care provider within a week if your symptoms continue. If you do not have a primary care provider please contact the [facility] Resource line at [phone]. They will ask some questions about your medical history and help you get set up with a provider in the community. Prescriptions: New morphine 30 mg capsule, ER multiphase 24 hr 30 mg PO BID Qty: 10 0RF hydromorphone 4 mg tablet 4 mg PO Q4H PRN (Reason: pain) Qty: 20 0RF No Action albuterol sulfate 90 mcg/actuation HFA aerosol inhaler 2 puff inhalation Q4-6H PRN (Reason: wheezing) cyclobenzaprine 10 mg tablet 10 mg PO 3XD PRN (Reason: pain) tizanidine 4 mg tablet 4 mg PO 3XD hydroxyzine HCl 50 mg tablet 50 mg PO Q6H PRN (Reason: anxiety, sleep, or pain) trazodone 100 mg tablet 200 mg PO ONCE PM pantoprazole 40 mg tablet,delayed release (DR/EC) 40 mg PO DAILY pramipexole 0.125 mg tablet 0.125 mg PO ONCE PM baclofen 5 mg tablet 5 mg PO 3XD PRN (Reason: pain) dronabinol [Marinol] 2.5 mg capsule 2.5 mg PO BID Qty: 60 0RF Rx Instructions: administer before lunch and evening meal/dinner fentanyl 50 mcg/hr Patch 72 Hour 50 mcg topical Q72H Qty: 5 0RF morphine 30 mg Tablet Extended Release 60 mg PO BID Qty: 14 0RF hydromorphone 4 mg Tablet 4 mg PO Q4HR PRN (Reason: Pain, Moderate (4-6)) Qty: 12 0RF Referrals: Amy Cochran MD [Primary Care Provider] - Stand Alone Forms: Patient Portal/API <Bea Farfan DO - Last Filed: 09/24/23 04:12> Cosign ED Attending Cosignature Attestation: I was immediately available in the department for consultation. Documentation has been reviewed.
[2023-03-08 14:42] VITALS: BP 132/79; PULSE 85; RESP 16; O2SAT 98
== END 2023-03-08 14:44 | disposition home or self-care (01) ==
PROVIDERS: Emergency Provider Physician Assistant Medical; PCP Internal Medicine
DX: M54.2 Cervicalgia (principal); Z79.899 Other long term (current) drug therapy
CPT/HCPCS: 99281

== ENCOUNTER 2023-03-24 10:08 | Emergency (ER) | payer MEDICARE, MEDICAID, SELFPAY ==
[2023-03-24] VITALS (8 sets, daily range): BP systolic 148–163; BP diastolic 66–78; PULSE 63–83; RESP 15–24; TEMP 37.6; O2SAT 94–97; BMI 40.8
--- NOTE | 2023-03-24 10:19 | DI.RAD.S_ITS ---
PROCEDURE: XR LUMBAR SPINE 2-3V INDICATIONS: hx of fusion with pain TECHNIQUE: 3 views of the lumbar spine were acquired. COMPARISON: [facility], , L-SPINE 2-3 VIEWS, 09/12/2014, 20:07. FINDINGS: Bones: 5 [id number] vertebrae are present. There is normal bony alignment. No vertebral body compression fractures. No suspicious bony lesions. Extensive orthopedic hardware, with bilateral thoracolumbar alfredo and pedicle screw fixation. There are bilateral pedicle screws at T9, through T11, as well as L1 through L5. No evidence of hardware failure or loosening. Soft tissues: Overlying bowel gas pattern is normal. No suspicious soft tissue calcifications. IMPRESSION: Expected appearance of orthopedic fusion hardware. No acute bony abnormality noted. Dictated by: Russell Booth M.D. on 03/24/2023 at 10:39 Approved by: Russell Booth M.D. on 03/24/2023 at 10:40
--- NOTE | 2023-03-24 10:19 | DI.RAD.S_ITS ---
PROCEDURE: XR THORACIC SPINE 3V INDICATIONS: hx of fusion with increase in pain TECHNIQUE: 3 views of the thoracic spine were acquired. COMPARISON: [facility], CR, XR LUMBAR SPINE 2-3V, 03/24/2023, 10:21. FINDINGS: Bones: No fractures or dislocations. No suspicious bony lesions. 12 pairs of ribs are noted, and appear intact where visualized. Extensive thoracic fusion hardware is well as lumbar fusion hardware. Thoracic alfredo and pedicle screw fixation with pedicle screws present in T6 through T11. Lumbar fusion hardware spans L1 through L5. No evidence of hardware failure or loosening. Old compressions of T7, T8, T9, and T12. Soft tissues: No paravertebral stripe thickening. IMPRESSION: 1. Expected appearance of thoracic fusion hardware with no evidence of hardware failure or loosening. 2. Old thoracic compressions. 3. No acute bony abnormality. Dictated by: Russell Booth M.D. on 03/24/2023 at 10:40 Approved by: Russell Booth M.D. on 03/24/2023 at 10:42
--- NOTE | 2023-03-24 10:33 | ED_ITS ---
HPI - Back Pain/Injury General Chief Complaint: Back Pain/Injury Stated Complaint: back pain Time Seen by Provider: 03/24/23 10:13 Source: EMS Mode of arrival: EMS Limitations: no limitations History of Present Illness HPI Narrative: Patient is a 67-year-old female with chronic neck and back discomfort. She is been seen here in the emergency department over the past several weeks multiple times for pain control issues. Apparently she has run out of her fentanyl patches. She states she is tried to contact her primary doctor since the middle of last week but has been unable to get hold of him. It is her primary doctor who has been prescribing the medicines. She does have upper neck pain and back discomfort. She has had quite a bit of fusion in her back she was concerned that maybe the fusion has loosened although she is not had any specific trauma. She did receive 200 mcg of fentanyl and 12 mg of Zofran by EMS prior to arrival. Related Data Home Medications Medication Instructions Recorded Confirmed albuterol sulfate 90 mcg/actuation 2 puff inhalation Q4-6H PRN 02/24/23 02/24/23 aerosol inhaler wheezing baclofen 5 mg tablet 5 mg PO 3XD PRN pain 02/24/23 02/24/23 cyclobenzaprine 10 mg tablet 10 mg PO 3XD PRN pain 02/24/23 02/24/23 hydroxyzine HCl 50 mg tablet 50 mg PO Q6H PRN anxiety, sleep, 02/24/23 02/24/23 or pain pantoprazole 40 mg tablet,delayed 40 mg PO DAILY 02/24/23 02/24/23 release pramipexole 0.125 mg tablet 0.125 mg PO ONCE PM 02/24/23 02/24/23 tizanidine 4 mg tablet 4 mg PO 3XD 02/24/23 02/24/23 trazodone 100 mg tablet 200 mg PO ONCE PM 02/24/23 02/24/23 Previous Rx's Medication Instructions Recorded dronabinol 2.5 mg capsule (Marinol) 2.5 mg PO BID #60 caps 02/25/23 fentanyl 50 mcg/hr transdermal 50 mcg topical Q72H #5 ea 03/02/23 patch hydromorphone 4 mg tablet 4 mg PO Q4HR PRN Pain, Moderate 03/02/23 (4-6) #12 tabs morphine 30 mg tablet,extended 60 mg PO BID #14 tabs 03/02/23 release hydromorphone 4 mg tablet 4 mg PO Q4H PRN pain #20 tabs 03/08/23 morphine 30 mg capsule,extended 30 mg PO BID #10 caps 03/08/23 release 24 hr multiphase ondansetron 4 mg disintegrating 4 mg PO Q6H PRN nausea and 03/24/23 tablet vomiting #20 tabs Allergies Allergy/AdvReac Type Severity Reaction Status Date / Time bupropion [From Wellbutrin] Allergy Anaphylaxis Verified 03/08/23 13:06 gabapentin Allergy Muscle Verified 03/08/23 13:06 contractions pregabalin [From Lyrica] Allergy Muscle Verified 03/08/23 13:06 contractions aspirin [ASPIRIN] AdvReac Unknown Gastrointestinal Verified 03/08/23 13:06 Upset NSAIDS (Non-Steroidal AdvReac Unknown Gastrointestinal Verified 03/08/23 13:06 Anti-Inflamma Upset [NSAIDS (NON-STEROIDAL ANTI-INFLAMMA] Review of Systems Constitutional Constitutional: Reports system reviewed and no additional complaints, except as documented Musculoskeletal Musculoskeletal: Reports system reviewed and no additional complaints, except as documented Integumentary/Breasts Skin/Breast: Reports system reviewed and no additional complaints, except as documented Neurologic Neurologic: Reports system reviewed and no additional complaints, except as documented Hematologic/Lymphatic On Anticoagulants: No Patient History Medical History Anxiety Cachexia Chronic back pain Dorsalgia Failure of spinal fusion Fibromyalgia History of alcohol abuse History of anemia History of chronic pain Major depressive disorder, recurrent episode, 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, thoracic region Tobacco abuse Surgical History (Updated 03/07/21 @ 00:49 by KELSEY Gaona) History of cholecystectomy History of hysterectomy History of spinal fusion Previous back surgery Family History (Updated 03/07/21 @ 00:52 by KELSEY Gaona) Father Cancer Grandmother Cancer Social History household members: family Smoking Status: Current every day smoker alcohol intake: never Smoking Status: Current every day smoker tobacco type: cigarettes Substance Use Type: marijuana Exam Initial Vital Signs Initial Vital Signs: Vital Signs Pulse Rate 76 03/24/23 10:14 Pulse Oximetry 94 09/25/23 10:14 HENPR Head: normal to inspection and normocephalic Resp Effort & Inspection: normal respiratory effort Auscultation: clear to auscultation bilaterally Cardio Rate: regular rate Rhythm: regular rhythm GI Inspection: normal to inspection Skin General: no rashes or lesions noted Other: Well-healed surgical scars on her back. Neuro General: patient alert, patient awake and moves all extremities Extrem General: capillary refill normal Course Orders Ordered: ED Orders 03/24/23 10:19 XR lumbar spine 2-3V Stat XR thoracic spine 3V Stat Discontinued Medications Fentanyl (Fentanyl 50 Mcg/Patch) 50 mcg TOP NOW ONE Stop: 03/24/23 10:20 Vital Signs Vital signs: Vital Signs - 8 hr 03/24/23 10:20 03/24/23 10:14 03/24/23 10:15 Temperature 99.6 F Pulse Rate 83 76 73 Respiratory Rate 16 Blood Pressure 148/73 H Pulse Oximetry 94 94 95 Oxygen Delivery Method Room Air 03/24/23 10:15 03/24/23 10:34 03/24/23 10:34 Temperature Pulse Rate 63 Respiratory Rate 15 Blood Pressure 148/73 H 150/69 H Pulse Oximetry 96 Oxygen Delivery Method MDM - Back Pain/Injury Imaging Data Lumbar spine x-ray: Radiologist's Impression: PROCEDURE:? XR LUMBAR SPINE 2-3V ? INDICATIONS:? hx of fusion with pain ? TECHNIQUE:? 3 views of the lumbar spine were acquired.? ? COMPARISON:? [facility], , L-SPINE 2-3 VIEWS, 09/12/2014, 20:07. ? FINDINGS:? ? Bones:? 5 [id number] vertebrae are present.? There is normal bony alignment.? No vertebral body compression fractures.? No suspicious bony lesions.? Extensive orthopedic hardware, with bilateral thoracolumbar alfredo and pedicle screw fixation.? There are bilateral pedicle screws at T9, through T11, as well as L1 through L5.? No evidence of hardware failure or loosening. ? Soft tissues:? Overlying bowel gas pattern is normal.? No suspicious soft tissue calcifications.? ? ? IMPRESSION:? Expected appearance of orthopedic fusion hardware.? No acute bony abnormality noted. Thoracic spine x-ray: Radiologist's Impression: PROCEDURE:? XR THORACIC SPINE 3V ? INDICATIONS:? hx of fusion with increase in pain ? TECHNIQUE:? 3 views of the thoracic spine were acquired.? ? COMPARISON:? [facility], CR, XR LUMBAR SPINE 2-3V, 03/24/2023, 10:21. ? FINDINGS:? ? Bones:? No fractures or dislocations.? No suspicious bony lesions.? 12 pairs of ribs are noted, and appear intact where visualized.? Extensive thoracic fusion hardware is well as lumbar fusion hardware.? Thoracic alfredo and pedicle screw fixation with pedicle screws present in T6 through T11.? Lumbar fusion hardware spans L1 through L5.? No evidence of hardware failure or loosening.? Old compressions of T7, T8, T9, and T12. ? Soft tissues:? No paravertebral stripe thickening.? ? ? IMPRESSION:? ? 1. Expected appearance of thoracic fusion hardware with no evidence of hardware failure or loosening. ? 2. Old thoracic compressions. ? 3. No acute bony abnormality MDM Narrative Medical decision making narrative: Patient has been out of her fentanyl patches for the past couple days. She stated that she tried to contact her primary doctor but is yet to receive a phone call back. She did receive fentanyl by EMS. I replaced her 50 mcg fentanyl patch here in the ER. Her x-ray show no signs of fractures or loosening of the hardware. She reports no new discomfort accept for her thoracic back pain. Informed patient that I would not be refilling any of her o pioid pain medication. She would need to contact her primary doctor for this. She was informed that the emergency department when no longer refill any of her chronic pain medications and that she needs to either get this done by her primary doctor or a paint coating machine operator. No further workup required in the emergency department. Discharge Plan Departure Patient Disposition: Home Clinical Impression: Cervical spine pain Instructions: DI for Chronic Pain -- Adult Activity Restrictions/Additional Instructions: Unfortunately the policy of the emergency department is that we will no longer provide any refills of chronic pain medication. This does need to be managed by the your primary doctor or paint coating machine operator. I recommend you contact your primary doctor for follow-up. Prescriptions: New ondansetron 4 mg tablet,disintegrating 4 mg PO Q6H PRN (Reason: nausea and vomiting) Qty: 20 0RF No Action albuterol sulfate 90 mcg/actuation HFA aerosol inhaler 2 puff inhalation Q4-6H PRN (Reason: wheezing) cyclobenzaprine 10 mg tablet 10 mg PO 3XD PRN (Reason: pain) tizanidine 4 mg tablet 4 mg PO 3XD hydroxyzine HCl 50 mg tablet 50 mg PO Q6H PRN (Reason: anxiety, sleep, or pain) trazodone 100 mg tablet 200 mg PO ONCE PM pantoprazole 40 mg tablet,delayed release (DR/EC) 40 mg PO DAILY pramipexole 0.125 mg tablet 0.125 mg PO ONCE PM baclofen 5 mg tablet 5 mg PO 3XD PRN (Reason: pain) dronabinol [Marinol] 2.5 mg capsule 2.5 mg PO BID Qty: 60 0RF Rx Instructions: administer before lunch and evening meal/dinner fentanyl 50 mcg/hr Patch 72 Hour 50 mcg topical Q72H Qty: 5 0RF morphine 30 mg Tablet Extended Release 60 mg PO BID Qty: 14 0RF hydromorphone 4 mg Tablet 4 mg PO Q4HR PRN (Reason: Pain, Moderate (4-6)) Qty: 12 0RF morphine 30 mg capsule, ER multiphase 24 hr 30 mg PO BID Qty: 10 0RF hydromorphone 4 mg tablet 4 mg PO Q4H PRN (Reason: pain) Qty: 20 0RF Referrals: Amy Cochran MD [Primary Care Provider] - Stand Alone Forms: Patient Portal/API
[2023-03-24] MEDS: fentaNYL 50 MCG/PATCH TOP (10:35)
--- NOTE | 2023-03-24 12:11 | PC.NURSE ---
Pt states she is out of her oxycodone and her morphine tablets. Morphine ER was refilled 03/14 for 28 tablets & 42 tablets of oxycodone on 03/14. Both were 2 week supplies.
== END 2023-03-24 13:10 | disposition home or self-care (01) ==
PROVIDERS: Emergency Provider Emergency Medicine; PCP Internal Medicine
DX: M54.2 Cervicalgia (principal)
CPT/HCPCS: 72072; 72100; 99282; 99283

== ENCOUNTER 2024-01-29 17:22 | Emergency (ER) | payer MEDICARE, MEDICAID, SELFPAY ==
[2024-01-29] VITALS (10 sets, daily range): BP systolic 128–137; BP diastolic 58–65; PULSE 84–98; RESP 12–20; TEMP 38; O2SAT 91–99; BMI 17.6
[2024-01-29 18:06] LABS: Add Manual Diff / Slide Review NO; Basophils Absolute Auto 100 /uL (0-100); Basophils Percent Auto 0.7 % (0-2); Eosinophils Absolute Auto 200 /uL (0-450); Eosinophils Percent Auto 1.5 % (2-4); Hematocrit 39.6 % (36-46); Hemoglobin 13.7 g/dL (12.0-16.0); Lymphocytes Absolute Auto 2300 /uL (1100-4500); Lymphocytes Percent Auto 19.3 % (25-40); Mean Corpuscular HGB Conc 34.5 % (30-36); Mean Corpuscular Hemoglobin 34.8 PG (26-34); Monocytes Absolute Auto 900 /uL (0-900); Monocytes Percent Auto 7.5 % (3-14); Neutrophils Absolute Auto 8500 /uL (1500-7000); Platelet Count 425 X10^3/uL (150-400); Red Blood Cell Count 3.92 X10^6/uL (4.0-5.2); Red Cell Distribution Width 13.5 % (11.6-14.8); White Blood Cell Count 11.9 X10^3/uL (4.5-11.0)
--- NOTE | 2024-01-29 18:16 | DI.CT.S_ITS ---
PROCEDURE: CT ABDOMEN PELVIS W CON INDICATIONS: ABD PAIN, DISTENSION. FEEDING TUBE PLACEMENT 4 DAYS AGO TECHNIQUE: After the administration of intravenous contrast, axial sections acquired from the lung bases to the pubic symphysis. Coronal and sagittal reformats were performed. For radiation dose reduction, the following was used: automated exposure control, adjustment of mA and/or kV according to patient size. COMPARISON: [facility], CT, CT ABDOMEN PELVIS WITH CONTRAST, 02/03/2023, 18:20. [facility], CT, CT ABDOMEN PELVIS W CON, 05/16/2022, 17:56. FINDINGS: Image quality: Mild motion artifact. There is also metallic artifact Lower chest: Bibasilar atelectasis. Possible small areas of air trapping and emphysema. No drainable pleural effusions Liver: Unremarkable Gallbladder and biliary system: Biliary stent. The proximal portion is in the mid CBD and distal portion is within the duodenum. Moderate biliary ductal dilation, and pneumobilia Pancreas: Sequelae of chronic pancreatitis, pancreas is not well evaluated Spleen: Nonenlarged Adrenals: Not well seen, no large nodule Kidneys: There are renal cysts. No complicated or definite solid lesion within the limits of evaluation. Vessels and lymph nodes: No abdominal aortic aneurysm. The main portal vein appears patent. No pathologic lymph nodes by size criteria. Bowel and peritoneum: A percutaneous gastrostomy appears to be in appropriate position. No acute small bowel obstruction. Moderate to large colonic distention, mostly filled with contrast and likely fecal material. There is no drainable ascites. Soft tissue emphysematous changes seen adjacent to the percutaneous gastrostomy, Body wall: Moderate edema is seen adjacent to the percutaneous gastrostomy without an abscess identified. Pelvis: Bladder is distended and unremarkable. Uterus not seen. Bones: Left posterior iliac deformity again seen. There also degenerative changes and postsurgical changes in the lumbar spine. Old right rib deformity IMPRESSION: There is moderate edema adjacent to the percutaneous gastrostomy, without a drainable abscess. There is also adjacent soft tissue emphysematous changes. Some gas is seen adjacent to the parietal peritoneum. Findings may be postprocedural. A small perforation or leak adjacent to the gastrostomy can appear similar The percutaneous gastrostomy balloon appears to be within the stomach. Moderate to large colonic distention mostly filled contrast and stool. No small bowel obstruction. Moderate biliary ductal dilation and pneumobilia, stents are in place. The distal end is within the mid duodenum, correlate with intended area of positioning. Other findings as above. Dictated by: Harvinder Vo M.D. on 01/29/2024 at 19:14 Approved by: Harvinder Vo M.D. on 01/29/2024 at 19:22
--- NOTE | 2024-01-29 18:19 | ED_ITS ---
HPI - Abdominal Pain General Chief Complaint: Abdominal Pain Stated Complaint: Abdomen pain Time Seen by Provider: 01/29/24 17:45 Source: patient and EMS Mode of arrival: EMS History of Present Illness HPI narrative: 68-year-old female with history of chronic pancreatitis, pain med abuse presents by ambulance from home for abdominal pain. Patient states that she was discharged from [facility] 4 days ago after PEG tube placement. Patient states that PEG tube was placed due to chronic malnutrition. Patient reports severe abdominal pain, cramping in nature. Temperature 100.4? F in the ER. She states that the tube seemed to ?pop? out, but never fully fell out. Patient also reports 1 week ago she had biliary and pancreatic stents placed for her chronic pancreatitis at [facility]. Related Data Home Medications Medication Instructions Recorded Confirmed albuterol sulfate 90 mcg/actuation 2 puff inhalation Q4-6H PRN 02/24/23 02/24/23 aerosol inhaler wheezing baclofen 5 mg tablet 5 mg PO 3XD PRN pain 02/24/23 02/24/23 cyclobenzaprine 10 mg tablet 10 mg PO 3XD PRN pain 02/24/23 02/24/23 hydroxyzine HCl 50 mg tablet 50 mg PO Q6H PRN anxiety, sleep, 02/24/23 02/24/23 or pain pantoprazole 40 mg tablet,delayed 40 mg PO DAILY 02/24/23 02/24/23 release pramipexole 0.125 mg tablet 0.125 mg PO ONCE PM 02/24/23 02/24/23 tizanidine 4 mg tablet 4 mg PO 3XD 02/24/23 02/24/23 trazodone 100 mg tablet 200 mg PO ONCE PM 02/24/23 02/24/23 Previous Rx's Medication Instructions Recorded dronabinol 2.5 mg capsule (Marinol) 2.5 mg PO BID #60 caps 02/25/23 fentanyl 50 mcg/hr transdermal 50 mcg topical Q72H #5 ea 03/02/23 patch hydromorphone 4 mg tablet 4 mg PO Q4HR PRN Pain, Moderate 03/02/23 (4-6) #12 tabs morphine 30 mg tablet,extended 60 mg (2 x 30 mg) PO BID #14 tabs 03/02/23 release hydromorphone 4 mg tablet 4 mg PO Q4H PRN pain #20 tabs 03/08/23 morphine 30 mg capsule,extended 30 mg PO BID #10 caps 03/08/23 release 24 hr multiphase ondansetron 4 mg disintegrating 4 mg PO Q6H PRN nausea and 03/24/23 tablet vomiting #20 tabs Allergies Allergy/AdvReac Type Severity Reaction Status Date / Time bupropion [From Wellbutrin] Allergy Anaphylaxis Verified 03/08/23 13:06 gabapentin Allergy Muscle Verified 03/08/23 13:06 contractions pregabalin [From Lyrica] Allergy Muscle Verified 03/08/23 13:06 contractions aspirin [ASPIRIN] AdvReac Unknown Gastrointestinal Verified 03/08/23 13:06 Upset NSAIDS (Non-Steroidal AdvReac Unknown Gastrointestinal Verified 03/08/23 13:06 Anti-Inflamma Upset [NSAIDS (NON-STEROIDAL ANTI-INFLAMMA] Patient History Medical History 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, thoracic region Dorsalgia Cachexia Chronic back pain Anxiety Fibromyalgia History of anemia History of chronic pain Tobacco abuse History of alcohol abuse Major depressive disorder, recurrent episode, in partial remission with anxious distress Surgical History History of hysterectomy History of spinal fusion History of cholecystectomy Previous back surgery Family History Father Cancer Grandmother Cancer Social History household members: family Smoking Status: Current every day smoker alcohol intake: never Smoking Status: Current every day smoker tobacco type: cigarettes Substance Use Type: marijuana Exam Initial Vital Signs Initial Vital Signs: Vital Signs Pulse Oximetry 99 01/29/24 17:27 Const: Awake, alert, appears chronically unwell, older than stated age, frail Cardiac: regular rate, regular rhythm RESP: unlabored, clear bilaterally, no wheezing GI: Mild distention, generalized tenderness to palpation without rebound or guarding, peg tube in place with clean margins Skin: Warm, Dry, intact, no rashes Neuro: AO x3, CN II-XII grossly intact, moves all extremities Course Orders Ordered: ED Orders 01/29/24 17:58 Blood Culture Stat Complete Blood Count AUTO DIFF Stat Comprehensive Metabolic Panel Stat Lactate (Lactic Acid) Stat Lipase Stat Procalcitonin Stat 01/29/24 18:16 CT abdomen pelvis w con Stat 01/29/24 18:45 Ammonia (NH3) Stat Discontinued Medications Hydromorphone HCl (Hydromorphone 0.5 Mg Inj) 0.5 mg IV NOW ONE Stop: 01/29/24 18:17 Last Admin: 01/29/24 18:36 Dose: 0.5 mg Documented By: YURIY Sodium Chloride (Normal Saline 0.9%) 1,000 mls @ 1,000 mls/hr IV BOLUS ONE Stop: 01/29/24 19:15 Last Infusion: 01/29/24 20:35 Dose: Infused Documented By: Admin: 01/29/24 19:50 Dose: 1,000 mls/hr Documented By: Piperacillin Sod/Tazobactam (Sod 3.375 gm/ Sodium Chloride) 100 mls @ 25 mls/hr IV NOW ONE Stop: 01/29/24 18:20 Last Infusion: 01/29/24 20:35 Dose: Infused Documented By: Admin: 01/29/24 18:51 Dose: 25 mls/hr Documented By: YURIY Lactulose (Lactulose 20 Gm/30 Ml Solution) 40 gm PO NOW ONE Stop: 01/29/24 20:15 Last Admin: 01/29/24 20:19 Dose: 40 gm Documented By: YURIY Vital Signs Vital signs: Vital Signs - 8 hr 01/29/24 17:27 01/29/24 17:29 01/29/24 17:29 Temperature Pulse Rate 96 H Respiratory Rate Blood Pressure 128/62 Pulse Oximetry 99 92 Oxygen Delivery Method 01/29/24 17:30 01/29/24 17:31 01/29/24 17:31 Temperature Pulse Rate 98 H 95 H Respiratory Rate Blood Pressure 137/65 Pulse Oximetry 93 93 Oxygen Delivery Method 01/29/24 17:33 01/29/24 18:00 01/29/24 18:00 Temperature 100.4 F H Pulse Rate 91 H 90 Respiratory Rate 20 Blood Pressure 137/65 133/58 L Pulse Oximetry 93 93 Oxygen Delivery Method Room Air 01/29/24 18:30 01/29/24 18:30 01/29/24 19:00 Temperature Pulse Rate 87 86 Respiratory Rate 19 20 Blood Pressure 136/64 Pulse Oximetry 92 91 Oxygen Delivery Method 01/29/24 19:30 01/29/24 20:00 Temperature Pulse Rate 86 84 Respiratory Rate 15 12 Blood Pressure Pulse Oximetry 95 96 Oxygen Delivery Method MDM - Abdominal Pain Differential Diagnosis Differential diagnosis: Likely abdominal pain, constipation and diverticulitis Lab Data 01/29/24 17:58 01/29/24 17:58 Labs: Lab Results 01/29/24 01/29/24 Range/Units 17:58 18:45 WBC 11.9 H (4.5-11.0) X10^3/uL RBC 3.92 L (4.0-5.2) X10^6/uL Hgb 13.7 (12.0-16.0) g/dL Hct 39.6 (36-46) % MCV 101.0 H (80-100) fL MCH 34.8 H (26-34) PG MCHC 34.5 (30-36) % RDW 13.5 (11.6-14.8) % Plt Count 425 H (150-400) X10^3/uL Neut % (Auto) 71.0 (50-75) % Lymph % (Auto) 19.3 L (25-40) % Bulloch % (Auto) 7.5 (3-14) % Eos % (Auto) 1.5 L (2-4) % Baso % (Auto) 0.7 (0-2) % Neut # (Auto) 8500 H (9311-1877) /uL Lymph # (Auto) 2300 (3705-3827) /uL Bulloch # (Auto) 900 (0-900) /uL Eos # (Auto) 200 (0-450) /uL Baso # (Auto) 100 (0-100) /uL Sodium 135 L (137-145) mmol/L Potassium 4.4 (3.4-5.1) mmol/L Chloride 102 (98-107) mmol/L Carbon Dioxide 30 (22-32) mmol/L BUN 22 H (7-17) mg/dL Creatinine 0.47 L (0.52-1.04) mg/dL Estimated GFR > 60 (>60) mL/min BUN/Creatinine Ratio 46.8 H (6-22) Glucose 126 H (80-110) mg/dL Lactate 1.0 (0.7-2.1) mmol/L Calcium 10.1 (8.4-10.2) mg/dL Total Bilirubin 0.4 (0.2-1.3) mg/dL AST 24 (14-36) IU/L ALT 21 (<35) IU/L Alkaline Phosphatase 114 (38-126) U/L Ammonia < 9 L (9-30) umol/L Total Protein 6.8 (6.3-8.2) g/dL Albumin 3.9 (3.5-5.0) g/dL Globulin 2.9 (1.7-4.1) g/dL Albumin/Globulin Ratio 1.3 (1.0-2.8) Lipase 40 (23-300) U/L Procalcitonin 0.171 (<0.5) ng/mL Imaging Data CT scan - abdomen/pelvis: Radiologist's Impression: PROCEDURE: CT ABDOMEN PELVIS W CON INDICATIONS: ABD PAIN, DISTENSION. FEEDING TUBE PLACEMENT 4 DAYS AGO TECHNIQUE: After the administration of intravenous contrast, axial sections acquired from the lung bases to the pubic symphysis. Coronal and sagittal reformats were performed. For radiation dose reduction, the following was used: automated exposure control, adjustment of mA and/or kV according to patient size. COMPARISON: [facility], CT, CT ABDOMEN PELVIS WITH CONTRAST, 02/03/2023, 18:20. [facility], CT, CT ABDOMEN PELVIS W CON, 05/16/2022, 17:56. FINDINGS: Image quality: Mild motion artifact. There is also metallic artifact Lower chest: Bibasilar atelectasis. Possible small areas of air trapping and emphysema. No drainable pleural effusions Liver: Unremarkable Gallbladder and biliary system: Biliary stent. The proximal portion is in the mid CBD and distal portion is within the duodenum. Moderate biliary ductal dilation, and pneumobilia Pancreas: Sequelae of chronic pancreatitis, pancreas is not well evaluated Spleen: Nonenlarged Adrenals: Not well seen, no large nodule Kidneys: There are renal cysts. No complicated or definite solid lesion within the limits of evaluation. Vessels and lymph nodes: No abdominal aortic aneurysm. The main portal vein appears patent. No pathologic lymph nodes by size criteria. Bowel and peritoneum: A percutaneous gastrostomy appears to be in appropriate position. No acute small bowel obstruction. Moderate to large colonic distention, mostly filled with contrast and likely fecal material. There is no drainable ascites. Soft tissue emphysematous changes seen adjacent to the percutaneous gastrostomy, Body wall: Moderate edema is seen adjacent to the percutaneous gastrostomy without an abscess identified. Pelvis: Bladder is distended and unremarkable. Uterus not seen. Bones: Left posterior iliac deformity again seen. There also degenerative changes and postsurgical changes in the lumbar spine. Old right rib deformity IMPRESSION: There is moderate edema adjacent to the percutaneous gastrostomy, without a drainable abscess. There is also adjacent soft tissue emphysematous changes. Some gas is seen adjacent to the parietal peritoneum. Findings may be postprocedural. A small perforation or leak adjacent to the gastrostomy can appear similar The percutaneous gastrostomy balloon appears to be within the stomach. Moderate to large colonic distention mostly filled contrast and stool. No small bowel obstruction. Moderate biliary ductal dilation and pneumobilia, stents are in place. The distal end is within the mid duodenum, correlate with intended area of positioning. Other findings as above. Dictated by: Harvinder oV M.D. on 01/29/2024 at 19:14 Approved by: Harvinder Vo M.D. on 01/29/2024 at 19:22 MDM Narrative Medical decision making narrative: Abdominal pain and pain with feedings, patient was day 5 postop from PEG tube placement at [facility]. Abdomen has some distention, overall soft, diffusely tender to deep palpation without peritoneal signs. Laboratory work and imaging obtained. Laboratory work shows WBC count 11.9, hemoglobin 13.7, platelets 425, sodium 135, potassium 4.4, creatinine 0.42, normal liver enzymes, procalcitonin 0.171, lactic acid 1.0. CT of the abdomen and pelvis with mild amount of air in the parietal peritoneum, minimal stranding around G-tube insertion site, bulb is in lumen of stomach. Large amount of constipation present. Pneumobilia present, however patient reports recent stenting of her gallbladder and bile duct 1 week prior. Findings discussed with on-call General surgery Dr. Hay, who stated that these were likely normal postop findings and patient could continue tube feeds. If patient has pain with tube feeds then she could lower the rate and gradually go up to normal as tolerated. Nursing staff able to easily flush G- tube in emergency department without any resistance or pain. Patient counseled on lab and imaging findings as well as General surgery recommendations. Given lactulose for constipation as this may help relieve some of patient's abdominal pain. Discharge Plan Departure Patient Disposition: Home Clinical Impression: Abdominal pain Instructions: DI for Abdominal Pain-Adult Activity Restrictions/Additional Instructions: Your peg tube is in the appropriate position. Your laboratory work today was overall reassuring. There does not appear to be abscess or infection at this time. Continue your tube feeds as instructed. Follow up with your GI specialists at [facility] Prescriptions: No Action albuterol sulfate 90 mcg/actuation HFA aerosol inhaler 2 puff inhalation Q4-6H PRN (Reason: wheezing) cyclobenzaprine 10 mg tablet 10 mg PO 3XD PRN (Reason: pain) tizanidine 4 mg tablet 4 mg PO 3XD hydroxyzine HCl 50 mg tablet 50 mg PO Q6H PRN (Reason: anxiety, sleep, or pain) trazodone 100 mg tablet 200 mg PO ONCE PM pantoprazole 40 mg tablet,delayed release (DR/EC) 40 mg PO DAILY pramipexole 0.125 mg tablet 0.125 mg PO ONCE PM baclofen 5 mg tablet 5 mg PO 3XD PRN (Reason: pain) dronabinol [Marinol] 2.5 mg capsule 2.5 mg PO BID Qty: 60 0RF Rx Instructions: administer before lunch and evening meal/dinner fentanyl 50 mcg/hr Patch 72 Hour 50 mcg topical Q72H Qty: 5 0RF morphine 30 mg Tablet Extended Release 60 mg PO BID Qty: 14 0RF hydromorphone 4 mg Tablet 4 mg PO Q4HR PRN (Reason: Pain, Moderate (4-6)) Qty: 12 0RF ondansetron 4 mg tablet,disintegrating 4 mg PO Q6H PRN (Reason: nausea and vomiting) Qty: 20 0RF morphine 30 mg capsule, ER multiphase 24 hr 30 mg PO BID Qty: 10 0RF hydromorphone 4 mg tablet 4 mg PO Q4H PRN (Reason: pain) Qty: 20 0RF Referrals: Amy Cochran MD [Primary Care Provider] - Stand Alone Forms: Patient Portal/API
[2024-01-29 18:22] LABS: Alanine Aminotransferase 21 IU/L (<35); Albumin 3.9 g/dL (3.5-5.0); Albumin Globulin Ratio 1.3 (1.0-2.8); Alkaline Phosphatase 114 U/L (38-126); Aspartate Aminotransferase 24 IU/L (14-36); BUN Creatinine Ratio 46.8 (6-22); Bilirubin Total 0.4 mg/dL (0.2-1.3); Blood Urea Nitrogen 22 mg/dL (7-17); Calcium 10.1 mg/dL (8.4-10.2); Carbon Dioxide 30 mmol/L (22-32); Chloride 102 mmol/L (98-107); Estimated Glomerular Filt Rate > 60 mL/min (>60); Globulin 2.9 g/dL (1.7-4.1); Glucose 126 mg/dL (80-110); HEMOLYSIS < 15 (0-50); Lipase 40 U/L (23-300); Potassium 4.4 mmol/L (3.4-5.1); Sodium 135 mmol/L (137-145); Total Protein 6.8 g/dL (6.3-8.2)
[2024-01-29] MEDS: HYDROMORPHONE 0.5 MG INJ IV (18:36)
[2024-01-29 18:38] LABS: Procalcitonin 0.171 ng/mL (<0.5)
[2024-01-29] MEDS: PIPERACILLIN/TAZO 3.375 GM in SODIUM CHLORIDE 0.9% 100 ML IV (18:51)
[2024-01-29 19:01] LABS: Ammonia (NH3) < 9 umol/L (9-30)
[2024-01-29] MEDS: SODIUM CHLORIDE 0.9% 1,000 ML 1000 ML IV (19:50)
[2024-01-29] MEDS: LACTULOSE 20 GM/30 ML SOLUTION 40 GM PO (20:19)
== END 2024-01-29 20:41 | disposition home or self-care (01) ==
PROVIDERS: Emergency Medicine; Emergency Provider Emergency Medicine; PCP Internal Medicine
DX: R10.9 Unspecified abdominal pain (principal); R50.9 Fever, unspecified
CPT/HCPCS: 36415; 74177; 80053; 82140; 83605; 83690; 84145; 85025; 87040; 96365; 96366; 96375; 99284; J1170; J2543; Q9967

== ENCOUNTER 2025-03-18 11:39 | Emergency (ER) | payer MEDICARE, MEDICAID, SELFPAY ==
[2025-03-18] VITALS (19 sets, daily range): BP systolic 120–149; BP diastolic 55–82; PULSE 63–78; RESP 16; TEMP 36.7; O2SAT 93–97; BMI 19.9
--- NOTE | 2025-03-18 | DI.CT.S_ITS ---
PROCEDURE: CT LUMBAR SPINE WO CON INDICATIONS: LOW BACK PAIN TECHNIQUE: Noncontrast 3 mm thick sections acquired from the T12 level to the sacrum. Sagittal and coronal reformats were constructed. For radiation dose reduction, the following was used: automated exposure control. COMPARISON: [facility], CT, CT THORACIC SPINE WO CON, 03/18/2025, 14:48. [facility], CT, CT CERVICAL SPINE WO CON, 03/18/2025, 14:48. [facility], CT, CT ABDOMEN PELVIS WITH CONTRAST, 08/13/2024, 16:43. FINDINGS: Image quality: Excellent. Bones: Extensive thoracolumbar fixation hardware can be seen, with pedicle screws and vertical fixation rods, extending down to the L5 level. Disc spacers are seen at L1-L2, L2-L3, and L3-L4. No findings of hardware failure or hardware loosening are seen. Bone grafting material is noted. There has been removal of portions of the posterior elements. There is normal bony alignment. No acute vertebral body compression fractures. No suspicious lytic or blastic bony lesions. No pars defects. T12-L1: No significant abnormality is seen. L1-L2: Moderate loss of disc height is seen. At least moderate disc bulge is seen. There is moderate left-sided and mild right-sided neural foraminal narrowing. The central canal is widely patent. L2-L3: Moderate loss of disc height is seen. Moderate generalized disc bulge is seen. There is [id number] right-sided and no left-sided neural foraminal narrowing. The central canal is widely patent. L3-L4: Moderate loss of disc height is seen. Mild generalized disc bulge is seen. There is a superimposed central disc osteophyte protrusion. No neural foraminal narrowing or central canal narrowing can be seen. L4-L5: [id number] loss of disc height is seen. Mild generalized disc bulge is seen. Moderate to prominent facet hypertrophy can be seen. No neural foraminal narrowing is seen. The central canal is widely patent. L5-S1: Mild loss of disc height is seen. Mild generalized disc bulge is seen. Moderate facet joint hypertrophy is seen. No neural foraminal narrowing or central canal narrowing can be seen. Soft tissues: No retroperitoneal masses or hematomas. Visualized aorta is normal in caliber. Atherosclerotic calcification is noted. A moderate volume of stool is partially seen within the colon. Cholecystectomy clips and biliary gas can be partially seen. IMPRESSION: No acute abnormality is seen. Extensive postoperative and degenerative changes are seen. There is a moderate amount of stool seen within the colon. Please correlate with an underlying history of constipation. Additional findings: Cholecystectomy clips and biliary gas Dictated by: Salvador Mckeon M.D. on 03/18/2025 at 14:58 Approved by: Salvador Mckeon M.D. on 03/18/2025 at 15:03
--- NOTE | 2025-03-18 14:05 | PC.NURSE ---
The patient appeared to be drowsy when the nurse walked into the room. Her eyes were drooping. When asked how she was feeling she stated that she was better. Then she stated that she could use some more pain meds. Then the pt began to become tearful again and stated that she was in a lot of pain still.
--- NOTE | 2025-03-18 14:30 | ED.BACK ---
HPI - Back Pain/Injury <Moraima Solomon, DO - Last Filed: 03/19/25 07:37> General Chief Complaint: Back Pain/Injury Stated Complaint: back pain Time Seen by Provider: 03/18/25 14:26 Source: patient and EMS History of Present Illness HPI Narrative: Patient is a 69-year-old female who has chronic back pain previous thoracic surgery with rods presenting today with worsening back pain. She says yesterday she was doing laundry she is able to get up walk around however today she has a really severe pain between her vertebrae it is definitely worse with movement this feels like her worsening back pain. No significant chest pain or shortness of breath. She denies any loss of bowel or urine she actually has a suprapubic catheter in place so unable to tell. Related Data Home Medications ?Medication ?Instructions ?Recorded ?Confirmed albuterol sulfate 90 mcg/actuation 2 puff inhalation Q4-6H PRN 02/24/23 02/24/23 aerosol inhaler wheezing baclofen 5 mg tablet 5 mg PO 3XD PRN pain 02/24/23 02/24/23 cyclobenzaprine 10 mg tablet 10 mg PO 3XD PRN pain 02/24/23 02/24/23 hydroxyzine HCl 50 mg tablet 50 mg PO Q6H PRN anxiety, sleep, 02/24/23 02/24/23 or pain pantoprazole 40 mg tablet,delayed 40 mg PO DAILY 02/24/23 02/24/23 release pramipexole 0.125 mg tablet 0.125 mg PO ONCE PM 02/24/23 02/24/23 tizanidine 4 mg tablet 4 mg PO 3XD 02/24/23 02/24/23 trazodone 100 mg tablet 200 mg PO ONCE PM 02/24/23 02/24/23 Previous Rx's ?Medication ?Instructions ?Recorded dronabinol 2.5 mg capsule (Marinol) 2.5 mg PO BID #60 caps 02/25/23 fentanyl 50 mcg/hr transdermal 50 mcg topical Q72H #5 ea 03/02/23 patch hydromorphone 4 mg tablet 4 mg PO Q4HR PRN Pain, Moderate 03/02/23 (4-6) #12 tabs morphine 30 mg tablet,extended 60 mg (2 x 30 mg) PO BID #14 tabs 03/02/23 release hydromorphone 4 mg tablet 4 mg PO Q4H PRN pain #20 tabs 03/08/23 morphine 30 mg capsule,extended 30 mg PO BID #10 caps 03/08/23 release 24 hr multiphase ondansetron 4 mg disintegrating 4 mg PO Q6H PRN nausea and 03/24/23 tablet vomiting #20 tabs Allergies Allergy/AdvReac Type Severity Reaction Status Date / Time bupropion (From Wellbutrin) Allergy Anaphylaxis Verified 03/18/25 11:49 gabapentin Allergy Muscle Verified 03/18/25 11:49 contractions ketamine Allergy Hallucinati Verified 03/18/25 11:49 ng pregabalin (From Lyrica) Allergy Muscle Verified 03/18/25 11:49 contractions aspirin (ASPIRIN) AdvReac Unknown Gastrointestinal Verified 03/18/25 11:49 Upset NSAIDS (Non-Steroidal AdvReac Unknown Gastrointestinal Verified 03/18/25 11:49 Anti-Inflamma (NSAIDS Upset (NON-STEROIDAL ANTI-INFLAMMA) Patient History <Moraima Carbajal DO - Last Filed: 03/19/25 07:37> Medical History 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, thoracic region Dorsalgia Cachexia Chronic back pain Anxiety Fibromyalgia History of anemia History of chronic pain Tobacco abuse History of alcohol abuse Major depressive disorder, recurrent episode, in partial remission with anxious distress Surgical History History of hysterectomy History of spinal fusion History of cholecystectomy Previous back surgery Family History Father Cancer Grandmother Cancer Social History household members: family alcohol intake: never tobacco type: cigarettes Exam <Moraima Carbajal DO - Last Filed: 03/19/25 07:37> Initial Vital Signs Initial Vital Signs: Vital Signs Temperature 98.1 F 03/18/25 11:43 Pulse Rate 75 03/18/25 11:43 Respiratory Rate 16 03/18/25 11:43 Blood Pressure 120/55 L 03/18/25 11:43 Pulse Oximetry 94 03/18/25 11:43 Oxygen Delivery Method Room Air 03/18/25 11:43 GENERAL: Appears older than stated age 69 years HEENT: Head atraumatic,EOMI, pupils reactive, face symmetric, [moist] mucous membranes CARDIOVASCULAR: Regular rate and rhythm without murmurs, rubs or gallops. RESPIRATORY: Breath sounds equal bilaterally, no wheezes rales or rhonchi. ABDOMEN: Soft, nontender. Normoactive bowel sounds all 4 quadrants. No guarding or rebound. Suprapubic catheter in BACK: Significant thoracic pain reproducible. [employer] strength equal bilaterally against resistance lower extremity strength intact EXTREMITIES: Normal range of motion, no clubbing or edema. Neurovascularly intact NEUROLOGICAL: Alert and oriented x4.Normal gait and speech. Cranial nerves II through XII grossly intact. SKIN: Warm, dry, no laceration, no petechiae, no rashes or lesions. <Carlie Wall MD - Last Filed: 03/18/25 23:51> Initial Vital Signs Initial Vital Signs: Vital Signs Temperature 98.1 F 03/18/25 11:43 Pulse Rate 75 03/18/25 11:43 Respiratory Rate 16 03/18/25 11:43 Blood Pressure 120/55 L 03/18/25 11:43 Pulse Oximetry 94 03/18/25 11:43 Oxygen Delivery Method Room Air 03/18/25 11:43 Course <Moraima Carbajal DO - Last Filed: 03/19/25 07:37> Orders Ordered: Discontinued Medications Fentanyl (Fentanyl 100 Mcg/2 Ml Inj) 100 mcg IV Q15MIN PRN PRN Reason: pain Last Admin: 03/18/25 18:14 Dose: 100 mcg Documented By: Admin: 03/18/25 17:48 Dose: 100 mcg Documented By: Admin: 03/18/25 17:19 Dose: 100 mcg Documented By: ADI Fentanyl (Fentanyl 12 Mcg/Patch) 12 mcg TOP NOW ONE Stop: 03/18/25 19:09 Last Admin: 03/18/25 19:38 Dose: 12 mcg Documented By: ANASTASIYA Hydromorphone HCl (Hydromorphone 1 Mg/Ml Syringe) 1 mg IV NOW ONE Stop: 03/18/25 13:23 Last Admin: 03/18/25 13:33 Dose: 1 mg Documented By: ANASTASIYA Hydromorphone HCl (Hydromorphone 1 Mg/Ml Syringe) 1 mg IV Q2HR PRN PRN Reason: Pain, Moderate (4-6) Last Admin: 03/18/25 16:35 Dose: 1 mg Documented By: Admin: 03/18/25 14:47 Dose: 1 mg Documented By: ANASTASIYA Ketorolac Tromethamine (Ketorolac 30 Mg/Ml Vial) 15 mg IV NOW ONE Stop: 03/18/25 19:09 Last Admin: 03/18/25 19:37 Dose: 15 mg Documented By: ANASTASIYA Lorazepam (Lorazepam 2 Mg/Ml Inj) 0.5 mg IV NOW ONE Stop: 03/18/25 14:39 Last Admin: 03/18/25 14:46 Dose: 0.5 mg Documented By: ANASTASIYA Vital Signs Vital signs: Vital Signs - 8 hr 03/18/25 16:00 03/18/25 16:00 03/18/25 16:30 Pulse Rate 66 70 Respiratory Rate Blood Pressure 135/63 Pulse Oximetry 97 95 Oxygen Delivery Method 03/18/25 16:30 03/18/25 17:00 03/18/25 17:00 Pulse Rate 70 Respiratory Rate Blood Pressure 135/62 145/82 H Pulse Oximetry 95 Oxygen Delivery Method 03/18/25 17:30 03/18/25 17:30 03/18/25 18:00 Pulse Rate 71 63 Respiratory Rate Blood Pressure 149/73 H Pulse Oximetry 95 95 Oxygen Delivery Method 03/18/25 18:01 03/18/25 18:01 03/18/25 19:48 Pulse Rate 70 67 Respiratory Rate 16 Blood Pressure 149/64 H 146/66 H Pulse Oximetry 95 96 Oxygen Delivery Method Room Air <Carlie Wall MD - Last Filed: 03/18/25 23:51> Orders Ordered: Discontinued Medications Fentanyl (Fentanyl 100 Mcg/2 Ml Inj) 100 mcg IV Q15MIN PRN PRN Reason: pain Last Admin: 03/18/25 18:14 Dose: 100 mcg Documented By: Admin: 03/18/25 17:48 Dose: 100 mcg Documented By: Admin: 03/18/25 17:19 Dose: 100 mcg Documented By: ADI Fentanyl (Fentanyl 12 Mcg/Patch) 12 mcg TOP NOW ONE Stop: 03/18/25 19:09 Last Admin: 03/18/25 19:38 Dose: 12 mcg Documented By: ANASTASIYA Hydromorphone HCl (Hydromorphone 1 Mg/Ml Syringe) 1 mg IV NOW ONE Stop: 03/18/25 13:23 Last Admin: 03/18/25 13:33 Dose: 1 mg Documented By: ANASTASIYA Hydromorphone HCl (Hydromorphone 1 Mg/Ml Syringe) 1 mg IV Q2HR PRN PRN Reason: Pain, Moderate (4-6) Last Admin: 03/18/25 16:35 Dose: 1 mg Documented By: Admin: 03/18/25 14:47 Dose: 1 mg Documented By: ANASTASIYA Ketorolac Tromethamine (Ketorolac 30 Mg/Ml Vial) 15 mg IV NOW ONE Stop: 03/18/25 19:09 Last Admin: 03/18/25 19:37 Dose: 15 mg Documented By: ANASTASIYA Lorazepam (Lorazepam 2 Mg/Ml Inj) 0.5 mg IV NOW ONE Stop: 03/18/25 14:39 Last Admin: 03/18/25 14:46 Dose: 0.5 mg Documented By: ANASTASIYA Vital Signs Vital signs: Vital Signs - 8 hr 03/18/25 16:00 03/18/25 16:00 03/18/25 16:30 Pulse Rate 66 70 Respiratory Rate Blood Pressure 135/63 Pulse Oximetry 97 95 Oxygen Delivery Method 03/18/25 16:30 03/18/25 17:00 03/18/25 17:00 Pulse Rate 70 Respiratory Rate Blood Pressure 135/62 145/82 H Pulse Oximetry 95 Oxygen Delivery Method 03/18/25 17:30 03/18/25 17:30 03/18/25 18:00 Pulse Rate 71 63 Respiratory Rate Blood Pressure 149/73 H Pulse Oximetry 95 95 Oxygen Delivery Method 03/18/25 18:01 03/18/25 18:01 03/18/25 19:48 Pulse Rate 70 67 Respiratory Rate 16 Blood Pressure 149/64 H 146/66 H Pulse Oximetry 95 96 Oxygen Delivery Method Room Air MDM - Back Pain/Injury <Moraima Carbajal, - Last Filed: 03/19/25 07:37> Imaging Data CT - cervical spine: Radiologist's Impression: PROCEDURE: CT CERVICAL SPINE WO CON INDICATIONS: pain TECHNIQUE: Noncontrast 3 mm thick sections acquired from the skull base to the T4 level. Sagittal and coronal reformats were then constructed. For radiation dose reduction, the following was used: automated exposure control, adjustment of mA and/or kV according to patient size. COMPARISON: [facility], CT, CT LUMBAR SPINE WO CON, 03/18/2025, 14:48. [facility], CT, CT THORACIC SPINE WO CON, 03/18/2025, 14:48. (Additional prior imaging is not available for review from the archive at the time of this dictation.) FINDINGS: Image quality: There is artifact associated with the metallic hardware. Artifact from the metallic hardware is reduced by metal reconstruction algorithm. Bones: No fractures or dislocations. Visualized superior ribs are intact. Focal degenerative change is seen involving the C1-C2 interface anteriorly. There is at least moderate disc space narrowing seen at C4-C5, C5-C6, and C6-C7. Endplate irregularity and sclerosis can be seen at these levels. At these levels, posteriorly directed endplate osteophytes are also seen. There is minimal anterolisthesis at C3-C4, with minimal retrolisthesis at C4-C5. Minimal anterolisthesis is seen at C7-T1. Thoracic spine fusion hardware is partially seen. Soft tissues: Prevertebral soft tissues are normal in thickness. No paravertebral hematomas. No apical pneumothoraces. Emphysematous changes can be seen at the lung apices. IMPRESSION: No displaced fracture or traumatic subluxation. Significant lower cervical spine degenerative change can be seen. Dictated by: Salvador Mckeon M.D. on 03/18/2025 at 14:51 CT thoracic: Radiologist's Impression: PROCEDURE: CT THORACIC SPINE WO CON INDICATIONS: pain with surgery TECHNIQUE: Noncontrast 3 mm thick sections acquired through the region of interest in the thoracic spine. Sagittal and coronal reformats were then constructed. For radiation dose reduction, the following was used: automated exposure control. COMPARISON: [facility], CT, CT ABDOMEN PELVIS WITH CONTRAST, 08/13/2024, 16:43. [facility], CT, CT ABDOMEN PELVIS WITH CONTRAST, 02/03/2023, 18:20. [facility], CT, CT LUMBAR SPINE WO CON, 03/18/2025, 14:48. [facility], CT, CT CERVICAL SPINE WO CON, 03/18/2025, 14:48. [facility], CT, CT THORACIC SPINE WITHOUT CONTRAST, 02/10/2023, 21:35. [facility], CT, CT THORACIC SPINE WITHOUT CONTRAST, 01/05/2023, 19:39. [facility], CR, XR THORACIC SPINE 3 VIEWS, 01/05/2023, 18:47. FINDINGS: Image quality: There is artifact associated with the metallic hardware. Artifact from the metallic hardware is reduced by metal reconstruction algorithm. Motion artifact is also seen. Bones: Extensive postop hardware can be seen, with pedicle fixation screws and vertical fixation rods seen beginning at the T4 level and extending through the inferior aspect of this study. The screws appear similar to the prior, with superiorly directed screws at the T8 level. Several remote anterior wedge deformities can be seen, without significant progression compared to 2022. There is normal overall bony alignment. No acute vertebral body compression fractures. No suspicious sclerotic or lytic bony lesions. Central spinal canal is of normal overall caliber. Soft tissues: No paravertebral masses or hematomas. Visualized posteromedial lungs appear clear. Centrilobular emphysematous changes are seen. These are more prominent at the lung apices than at the lung bases. Biliary gas is partially seen, as before. IMPRESSION: No acute abnormality is seen. Remote, stable anterior wedge deformities are seen. Extensive postoperative hardware can be seen. Additional findings: Centrilobular emphysematous changes Biliary gas, as before Dictated by: Salvador Mckeon M.D. on 03/18/2025 at 14:54 CT lumbar: Radiologist's Impression: PROCEDURE: CT LUMBAR SPINE WO CON INDICATIONS: LOW BACK PAIN TECHNIQUE: Noncontrast 3 mm thick sections acquired from the T12 level to the sacrum. Sagittal and coronal reformats were constructed. For radiation dose reduction, the following was used: automated exposure control. COMPARISON: [facility], CT, CT THORACIC SPINE WO CON, 03/18/2025, 14:48. [facility], CT, CT CERVICAL SPINE WO CON, 03/18/2025, 14:48. [facility], CT, CT ABDOMEN PELVIS WITH CONTRAST, 08/13/2024, 16:43. FINDINGS: Image quality: Excellent. Bones: Extensive thoracolumbar fixation hardware can be seen, with pedicle screws and vertical fixation rods, extending down to the L5 level. Disc spacers are seen at L1-L2, L2-L3, and L3-L4. No findings of hardware failure or hardware loosening are seen. Bone grafting material is noted. There has been removal of portions of the posterior elements. There is normal bony alignment. No acute vertebral body compression fractures. No suspicious lytic or blastic bony lesions. No pars defects. T12-L1: No significant abnormality is seen. L1-L2: Moderate loss of disc height is seen. At least moderate disc bulge is seen. There is moderate left-sided and mild right-sided neural foraminal narrowing. The central canal is widely patent. L2-L3: Moderate loss of disc height is seen. Moderate generalized disc bulge is seen. There is [id number] right-sided and no left-sided neural foraminal narrowing. The central canal is widely patent. L3-L4: Moderate loss of disc height is seen. Mild generalized disc bulge is seen. There is a superimposed central disc osteophyte protrusion. No neural foraminal narrowing or central canal narrowing can be seen. L4-L5: [id number] loss of disc height is seen. Mild generalized disc bulge is seen. Moderate to prominent facet hypertrophy can be seen. No neural foraminal narrowing is seen. The central canal is widely patent. L5-S1: Mild loss of disc height is seen. Mild generalized disc bulge is seen. Moderate facet joint hypertrophy is seen. No neural foraminal narrowing or central canal narrowing can be seen. Soft tissues: No retroperitoneal masses or hematomas. Visualized aorta is normal in caliber. Atherosclerotic calcification is noted. A moderate volume of stool is partially seen within the colon. Cholecystectomy clips and biliary gas can be partially seen. IMPRESSION: No acute abnormality is seen. Extensive postoperative and degenerative changes are seen. There is a moderate amount of stool seen within the colon. Please correlate with an underlying history of constipation. Additional findings: Cholecystectomy clips and biliary gas Dictated by: Salvador Mckeon M.D. on 03/18/2025 at 14:58 MDM Narrative Medical decision making narrative: Patient is 69-year-old female history of chronic ongoing back pain with previous thoracic surgery presenting today with worsening back pain. No significant chest pain or shortness of breath or abdominal pain. Patient received Dilaudid and Ativan which has helped some. Waiting for CT imaging Low suspicion for dissection because it is so reproducible blood pressure is also within normal limits. Consistent with cauda equina syndrome. I do believe this is acute on chronic back pain. Awaiting for CTs. Patient is signed out to Dr. Yecenia Wall Care is assumed, patient is independently evaluated, chart is reviewed. CT scans of the cervical thoracic and lumbar spine all show extensive postoperative and degenerative changes but no new findings to explain her pain Her pain is completely reproducible with thoracic twisting movement of her right arm that causes any movement of the upper thoracic spine. I do not suspect acute coronary disease, aortic dissection, pneumonia, pneumothorax or other medical issue is the source of her current pain at this time Patient is on 32 mg of buprenorphine currently. Initial doses of Dilaudid were ineffective. Fentanyl was slightly more effective. Patient states that she can not take nonsteroidals on any long-term basis as it causes significant GI upset. In the past she has been on a fentanyl patch is wondering if that might be possible to be discharged home with. We did discuss a stay in the hospital to help with intractable pain and she preferred to not do that. She is given 15 mg of IV Toradol in the emergency department, 25 mcg fentanyl patch that we will be effective for 3 days is given. Encouraged her continue taking her buprenorphine as prescribed and follow up with her orthopedic provider There was no indication of new injury or reason for hospitalization at this time she is safe for discharge <Carlie Wall MD - Last Filed: 03/18/25 23:51> [facility] Narrative Medical decision making narrative: Patient is 69-year-old female history of chronic ongoing back pain with previous thoracic surgery presenting today with worsening back pain. No significant chest pain or shortness of breath or abdominal pain Waiting for CT imaging Low suspicion for dissection because it is so reproducible blood pressure is also within normal limits. Dr Wall Care is assumed, patient is independently evaluated, chart is reviewed. CT scans of the cervical thoracic and lumbar spine all show extensive postoperative and degenerative changes but no new findings to explain her pain Her pain is completely reproducible with thoracic twisting movement of her right arm that causes any movement of the upper thoracic spine. I do not suspect acute coronary disease, aortic dissection, pneumonia, pneumothorax or other medical issue is the source of her current pain at this time Patient is on 32 mg of buprenorphine currently. Initial doses of Dilaudid were ineffective. Fentanyl was slightly more effective. Patient states that she can not take nonsteroidals on any long-term basis as it causes significant GI upset. In the past she has been on a fentanyl patch is wondering if that might be possible to be discharged home with. We did discuss a stay in the hospital to help with intractable pain and she preferred to not do that. She is given 15 mg of IV Toradol in the emergency department, 25 mcg fentanyl patch that we will be effective for 3 days is given. Encouraged her continue taking her buprenorphine as prescribed and follow up with her orthopedic provider There was no indication of new injury or reason for hospitalization at this time she is safe for discharge Discharge Plan Departure Patient Disposition: Home Clinical Impression: Thoracic spine pain Instructions: DI for Back Spasm Activity Restrictions/Additional Instructions: I am sorry that you are suffering so much with your chronic back issues I suspect that your pain today is very much related to your back and musculoskeletal findings. I do not think this is heart attack or a life-threatening event We did CT scan your cervical, thoracic spine and lumbar spine and found lots of chronic problems but no new fractures and no obvious changes with your hardware that would require emergent consultation or hospitalization With the buprenorphine that you take, fentanyl is 1 of the only narcotics that can actually be somewhat effective. The pain was somewhat better with the IV fentanyl dosing. We discussed staying in the hospital for better pain control. Together we decided on 25 mcg fentanyl patch, you have been on that previously. This is placed in the emergency department and will wear off in about 3 days and can be removed. You can continue to take Tylenol Please do follow up with your primary care physician as well as your orthopedic physician Prescriptions: No Action albuterol sulfate 90 mcg/actuation HFA aerosol inhaler 2 puff inhalation Q4-6H PRN (Reason: wheezing) cyclobenzaprine 10 mg tablet 10 mg PO 3XD PRN (Reason: pain) tizanidine 4 mg tablet 4 mg PO 3XD hydroxyzine HCl 50 mg tablet 50 mg PO Q6H PRN (Reason: anxiety, sleep, or pain) trazodone 100 mg tablet 200 mg PO ONCE PM pantoprazole 40 mg tablet,delayed release (DR/EC) 40 mg PO DAILY pramipexole 0.125 mg tablet 0.125 mg PO ONCE PM baclofen 5 mg tablet 5 mg PO 3XD PRN (Reason: pain) dronabinol [Marinol] 2.5 mg capsule 2.5 mg PO BID Qty: 60 0RF Rx Instructions: administer before lunch and evening meal/dinner fentanyl 50 mcg/hr Patch 72 Hour 50 mcg topical Q72H Qty: 5 0RF morphine 30 mg Tablet Extended Release 60 mg PO BID Qty: 14 0RF hydromorphone 4 mg Tablet 4 mg PO Q4HR PRN (Reason: Pain, Moderate (4-6)) Qty: 12 0RF ondansetron 4 mg tablet,disintegrating 4 mg PO Q6H PRN (Reason: nausea and vomiting) Qty: 20 0RF morphine 30 mg capsule, ER multiphase 24 hr 30 mg PO BID Qty: 10 0RF hydromorphone 4 mg tablet 4 mg PO Q4H PRN (Reason: pain) Qty: 20 0RF Referrals: Amy Cochran MD [Primary Care Provider, Internal Medicine] Stand Alone Forms: Patient Portal/API
--- NOTE | 2025-03-18 14:39 | DI.CT.S_ITS ---
PROCEDURE: CT CERVICAL SPINE WO CON INDICATIONS: pain TECHNIQUE: Noncontrast 3 mm thick sections acquired from the skull base to the T4 level. Sagittal and coronal reformats were then constructed. For radiation dose reduction, the following was used: automated exposure control, adjustment of mA and/or kV according to patient size. COMPARISON: [facility], CT, CT LUMBAR SPINE WO CON, 03/18/2025, 14:48. [facility], CT, CT THORACIC SPINE WO CON, 03/18/2025, 14:48. (Additional prior imaging is not available for review from the archive at the time of this dictation.) FINDINGS: Image quality: There is artifact associated with the metallic hardware. Artifact from the metallic hardware is reduced by metal reconstruction algorithm. Bones: No fractures or dislocations. Visualized superior ribs are intact. Focal degenerative change is seen involving the C1-C2 interface anteriorly. There is at least moderate disc space narrowing seen at C4-C5, C5-C6, and C6-C7. Endplate irregularity and sclerosis can be seen at these levels. At these levels, posteriorly directed endplate osteophytes are also seen. There is minimal anterolisthesis at C3-C4, with minimal retrolisthesis at C4-C5. Minimal anterolisthesis is seen at C7-T1. Thoracic spine fusion hardware is partially seen. Soft tissues: Prevertebral soft tissues are normal in thickness. No paravertebral hematomas. No apical pneumothoraces. Emphysematous changes can be seen at the lung apices. IMPRESSION: No displaced fracture or traumatic subluxation. Significant lower cervical spine degenerative change can be seen. Dictated by: Salvador Mckeon M.D. on 03/18/2025 at 14:51 Approved by: Salvador Mckeon M.D. on 03/18/2025 at 14:54
--- NOTE | 2025-03-18 14:39 | DI.CT.S_ITS ---
PROCEDURE: CT THORACIC SPINE WO CON INDICATIONS: pain with surgery TECHNIQUE: Noncontrast 3 mm thick sections acquired through the region of interest in the thoracic spine. Sagittal and coronal reformats were then constructed. For radiation dose reduction, the following was used: automated exposure control. COMPARISON: [facility], CT, CT ABDOMEN PELVIS WITH CONTRAST, 08/13/2024, 16:43. [facility], CT, CT ABDOMEN PELVIS WITH CONTRAST, 02/03/2023, 18:20. [facility], CT, CT LUMBAR SPINE WO CON, 03/18/2025, 14:48. [facility], CT, CT CERVICAL SPINE WO CON, 03/18/2025, 14:48. [facility], CT, CT THORACIC SPINE WITHOUT CONTRAST, 02/10/2023, 21:35. [facility], CT, CT THORACIC SPINE WITHOUT CONTRAST, 01/05/2023, 19:39. [facility], CR, XR THORACIC SPINE 3 VIEWS, 01/05/2023, 18:47. FINDINGS: Image quality: There is artifact associated with the metallic hardware. Artifact from the metallic hardware is reduced by metal reconstruction algorithm. Motion artifact is also seen. Bones: Extensive postop hardware can be seen, with pedicle fixation screws and vertical fixation rods seen beginning at the T4 level and extending through the inferior aspect of this study. The screws appear similar to the prior, with superiorly directed screws at the T8 level. Several remote anterior wedge deformities can be seen, without significant progression compared to 2022. There is normal overall bony alignment. No acute vertebral body compression fractures. No suspicious sclerotic or lytic bony lesions. Central spinal canal is of normal overall caliber. Soft tissues: No paravertebral masses or hematomas. Visualized posteromedial lungs appear clear. Centrilobular emphysematous changes are seen. These are more prominent at the lung apices than at the lung bases. Biliary gas is partially seen, as before. IMPRESSION: No acute abnormality is seen. Remote, stable anterior wedge deformities are seen. Extensive postoperative hardware can be seen. Additional findings: Centrilobular emphysematous changes Biliary gas, as before Dictated by: Salvador Mckeon M.D. on 03/18/2025 at 14:54 Approved by: Salvador Mckeon M.D. on 03/18/2025 at 14:58
--- NOTE | 2025-03-18 15:37 | PC.NURSE ---
Patient in the room and was drowsy. Patient stated that she was trying to distract herself from the pain.
[2025-03-18] MEDS: fentaNYL 100 MCG/2 ML INJ IV ×3 (17:19→18:14)
--- NOTE | 2025-03-18 18:44 | PC.NURSE ---
patient in room resting and states that she wants to go home.
[2025-03-18] MEDS: KETOROLAC 30 MG/ML VIAL 15 MG IV (19:37)
[2025-03-18] MEDS: fentaNYL 12 MCG/PATCH TOP (19:38)
== END 2025-03-18 19:50 | disposition home or self-care (01) ==
PROVIDERS: Emergency Provider Emergency Medicine; PCP Internal Medicine
DX: M54.6 Pain in thoracic spine (principal)
CPT/HCPCS: 72125; 72128; 72131; 96374; 96375; 96376; 99283; 99284; J1171; J1885; J2060; J3010

== ENCOUNTER 2025-03-19 13:54 | Inpatient (IN) | payer MEDICARE, MEDICAID, SELFPAY ==
[2025-03-19] VITALS (14 sets, daily range): BP systolic 116–170; BP diastolic 68–91; PULSE 64–89; RESP 18–20; TEMP 36.1–36.7; O2SAT 79–98; BMI 19.9
--- NOTE | 2025-03-19 14:16 | DI.RAD.S_ITS ---
PROCEDURE: XR CHEST 1V INDICATIONS: chest pain TECHNIQUE: One view of the chest was acquired. COMPARISON: [facility], CR, XR CHEST 1V, 03/01/2023, 7:14. FINDINGS: Surgical changes and devices: Large thoracolumbar posterior spinal construct similar prior exam. Lungs and pleura: Lungs are clear. No pleural effusions or pneumothorax. Mediastinum: Mediastinal contours appear normal. Heart size is normal. Bones and chest wall: No suspicious bony lesions. Overlying soft tissues appear unremarkable. IMPRESSION: No acute cardiopulmonary abnormality is seen. Approved by: Jose Damon M.D. on 03/19/2025 at 14:47
[2025-03-19 14:32] LABS: Add Manual Diff / Slide Review NO; Hematocrit 43.2 % (36-46); Hemoglobin 15.3 g/dL (12.0-16.0); Lymphocytes Absolute Auto 1100 /uL (1100-4500); Mean Corpuscular HGB Conc 35.4 % (30-36); Mean Corpuscular Hemoglobin 35.2 PG (26-34); Mean Corpuscular Volume 99.3 fL (80-100); Platelet Count 278 X10^3/uL (150-400)
--- NOTE | 2025-03-19 14:42 | EKG_ITS ---
[place] [id number] [place] [id number] Test Date: 2025-03-19 Pat Name: Mayra Jacobs Department: [facility] Room: Gender: Female Records Technician: TIMOTHY : 1955 Requested By: Order Number: [id number] Reading MD: Marty East MD Measurements Intervals [place] Rate: 79 P: 61 MS: 158 QRS: 58 QRSD: 70 T: 52 QT: 364 QTc: 417 Interpretive Statements Normal sinus rhythm Possible Left atrial enlargement Electronically Signed On 03-20-2025 14:44:01 PDT by Marty East MD
[2025-03-19 14:43] LABS: Alanine Aminotransferase 18 IU/L (<35); Albumin 4.5 g/dL (3.5-5.0); Albumin Globulin Ratio 1.5 (1.0-2.8); Alkaline Phosphatase 92 U/L (38-126); Blood Urea Nitrogen 15 mg/dL (7-17); Calcium 10.1 mg/dL (8.4-10.2); Carbon Dioxide 21 mmol/L (22-32); Chloride 108 mmol/L (98-107); Creatine Kinase 35 U/L (30-135); Estimated Glomerular Filt Rate > 60 mL/min (>60); Globulin 3.1 g/dL (1.7-4.1); Glucose 158 mg/dL (70-99); HEMOLYSIS 20 (0-50); Lipase 24 U/L (23-300); Potassium 4.0 mmol/L (3.4-5.1); Sodium 135 mmol/L (137-145); Total Protein 7.6 g/dL (6.3-8.2)
[2025-03-19 14:55] LABS: Troponin I < 0.012 ng/mL (0.01-0.034)
--- NOTE | 2025-03-19 15:03 | ED.BACK ---
HPI - Back Pain/Injury General Chief Complaint: Extremity Injury, Upper Stated Complaint: R shoulder pain (was here yesterday) Time Seen by Provider: 03/19/25 14:16 Source: patient History of Present Illness HPI Narrative: Patient is 69-year-old female history of chronic back pain multiple prior surgeries presenting for the 2nd time with ongoing back pain. He was seen evaluated here yesterday by myself. At that time she was having worsening thoracic pain she had a CT cervical thoracic and lumbar. Given multiple doses of pain medication a fentanyl patch and ultimately discharged home. She is back now because she feels like she has more neck and shoulder pain. Pain is not controlled overall feeling debilitated can not get herself dressed. She was offered admission last night but declined now requesting admission. Related Data Home Medications ?Medication ?Instructions ?Recorded ?Confirmed albuterol sulfate 90 mcg/actuation 2 puff inhalation Q4-6H PRN 02/24/23 03/19/25 aerosol inhaler wheezing hydroxyzine HCl 50 mg tablet 50 mg PO Q6H PRN anxiety, sleep, 02/24/23 03/19/25 or pain pantoprazole 40 mg tablet,delayed 40 mg PO DAILY 02/24/23 03/19/25 release pramipexole 0.125 mg tablet 0.125 mg PO ONCE PM 02/24/23 03/19/25 tizanidine 4 mg tablet 4 mg PO 3XD 02/24/23 03/19/25 trazodone 100 mg tablet 200 mg PO ONCE PM 02/24/23 03/19/25 buprenorphine 300 mg/1.5 mL 300 mg SUBCUT QMONTH 03/19/25 03/19/25 solution,exten.rel.subcutaneous syringe (Sublocade) buprenorphine HCl 8 mg sublingual 8 mg sublingual QID chronic pain 03/19/25 03/19/25 tablet Previous Rx's ?Medication ?Instructions ?Recorded dronabinol 2.5 mg capsule (Marinol) 2.5 mg PO BID #60 caps 02/25/23 ondansetron 4 mg disintegrating 4 mg PO Q6H PRN nausea and 03/24/23 tablet vomiting #20 tabs Allergies Allergy/AdvReac Type Severity Reaction Status Date / Time bupropion (From Wellbutrin) Allergy Anaphylaxis Verified 03/19/25 14:08 gabapentin Allergy Muscle Verified 03/19/25 14:08 contractions ketamine Allergy Hallucinati Verified 03/19/25 14:08 ng pregabalin (From Lyrica) Allergy Muscle Verified 03/19/25 14:08 contractions aspirin (ASPIRIN) AdvReac Unknown Gastrointestinal Verified 03/19/25 14:08 Upset NSAIDS (Non-Steroidal AdvReac Unknown Gastrointestinal Verified 03/19/25 14:08 Anti-Inflamma (NSAIDS Upset (NON-STEROIDAL ANTI-INFLAMMA) Patient History Medical History 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, thoracic region Dorsalgia Cachexia Chronic back pain Anxiety Fibromyalgia History of anemia History of chronic pain Tobacco abuse History of alcohol abuse Major depressive disorder, recurrent episode, in partial remission with anxious distress Surgical History History of hysterectomy History of spinal fusion History of cholecystectomy Previous back surgery Family History Father Cancer Grandmother Cancer Social History household members: family alcohol intake: never tobacco type: cigarettes Exam Initial Vital Signs Initial Vital Signs: Vital Signs Temperature 98.1 F 03/19/25 13:58 Pulse Rate 88 03/19/25 13:58 Respiratory Rate 20 03/19/25 13:58 Blood Pressure 170/81 H 03/19/25 13:58 Pulse Oximetry 98 03/19/25 13:58 Oxygen Delivery Method Room Air 03/19/25 13:58 GENERAL: Tearful 69-year-old female HEENT: Head atraumatic,EOMI, pupils reactive, face symmetric, moist mucous membranes NECK: Decreased rotation to the right CARDIOVASCULAR: Regular rate and rhythm without murmurs, rubs or gallops. RESPIRATORY: Breath sounds equal bilaterally, no wheezes rales or rhonchi. ABDOMEN: Soft, nontender. Normoactive bowel sounds all 4 quadrants. No guarding or rebound. : Suprapubic catheter in place EXTREMITIES: Normal range of motion, no clubbing or edema. Neurovascularly intact NEUROLOGICAL: Alert and oriented x4.Normal gait and speech. Moving all extremities SKIN: Warm, dry, no laceration, no petechiae, no rashes or lesions. Course Orders Ordered: ED Orders 03/19/25 14:16 XR chest 1V Stat EKG-12 Lead Stat 03/19/25 14:26 Complete Blood Count AUTO DIFF Stat Comprehensive Metabolic Panel Stat D Dimer Stat Lipase Stat PTT Partial Thromboplastin Nitesh Stat Prothrombin Time INR Stat Troponin & CK Cardiac Panel Stat 03/19/25 16:10 Consult to Hospitalist Service Stat Consult to MALE INFERTILITY SPECIALIST - Railway Signalling Engineer Stat 03/19/25 16:43 Consult to Dietitian, Adult Stat Discontinued Medications Buprenorphine/Naloxone (Buprenorphine/Naloxone 8mg/2mg 1 Tab) 1 tab SL NOW ONE Stop: 03/19/25 17:45 Diazepam (Diazepam 10 Mg/2 Ml Syringe) 5 mg IV NOW ONE Stop: 03/19/25 17:42 Last Admin: 03/19/25 18:01 Dose: 5 mg Documented By: Fentanyl (Fentanyl 100 Mcg/2 Ml Inj) 50 mcg IV NOW ONE Stop: 03/19/25 14:59 Last Admin: 03/19/25 15:08 Dose: 50 mcg Documented By: BENI Fentanyl (Fentanyl 100 Mcg/2 Ml Inj) 50 mcg IV NOW ONE Stop: 03/19/25 16:05 Last Admin: 03/19/25 16:15 Dose: 50 mcg Documented By: Fentanyl (Fentanyl 100 Mcg/2 Ml Inj) 50 mcg IV NOW ONE Stop: 03/19/25 17:45 Fentanyl (Fentanyl 100 Mcg/2 Ml Inj) 25 mcg IV NOW ONE Stop: 03/19/25 17:47 Last Admin: 03/19/25 18:02 Dose: 25 mcg Documented By: Lidocaine (Lidocaine 5% Patch) 1 each TOP NOW ONE Stop: 03/19/25 18:35 Last Admin: 03/19/25 18:42 Dose: 1 each Documented By: Lorazepam (Lorazepam 2 Mg/Ml Inj) 1 mg IV NOW ONE Stop: 03/19/25 15:02 Last Admin: 03/19/25 15:11 Dose: 1 mg Documented By: BENI Methocarbamol (Methocarbamol 500 Mg Tablet) 1,000 mg PO NOW ONE Stop: 03/19/25 17:40 Last Admin: 03/19/25 18:03 Dose: 1,000 mg Documented By: Vital Signs Vital signs: Vital Signs - 8 hr 03/19/25 13:58 Temperature 98.1 F Pulse Rate 88 Respiratory Rate 20 Blood Pressure 170/81 H Pulse Oximetry 98 Oxygen Delivery Method Room Air MDM - Back Pain/Injury Lab Data 03/19/25 14:26 03/19/25 14:26 Labs: Lab Results 03/19/25 Range/Units 14:26 WBC 7.6 (4.5-11.0) X10^3/uL RBC 4.35 (4.0-5.2) X10^6/uL Hgb 15.3 (12.0-16.0) g/dL Hct 43.2 (36-46) % MCV 99.3 (80-100) fL MCH 35.2 H (26-34) PG MCHC 35.4 (30-36) % RDW 13.0 (11.6-14.8) % Plt Count 278 (150-400) X10^3/uL Neut % (Auto) 77.0 H (50-75) % Lymph % (Auto) 14.3 L (25-40) % [place] % (Auto) 7.6 (3-14) % Eos % (Auto) 0.6 L (2-4) % Baso % (Auto) 0.5 (0-2) % Neut # (Auto) 5900 (9981-4451) /uL Lymph # (Auto) 1100 (3152-2003) /uL [place] # (Auto) 600 (0-900) /uL Eos # (Auto) 0 (0-450) /uL Baso # (Auto) 0 (0-100) /uL PT 11.6 (9.4-12.5) SECONDS INR 1.0 (0.9-1.3) APTT 26 (25.1-36.5) SECONDS D-Dimer 565 H (<500) ng/ml Sodium 135 L (137-145) mmol/L Potassium 4.0 (3.4-5.1) mmol/L Chloride 108 H (98-107) mmol/L Carbon Dioxide 21 L (22-32) mmol/L BUN 15 (7-17) mg/dL Creatinine 0.58 (0.52-1.04) mg/dL Estimated GFR > 60 (>60) mL/min BUN/Creatinine Ratio 25.9 H (6-22) Glucose 158 H (70-99) mg/dL Calcium 10.1 (8.4-10.2) mg/dL Total Bilirubin 0.8 (0.2-1.3) mg/dL AST 28 (14-36) IU/L ALT 18 (<35) IU/L Alkaline Phosphatase 92 (38-126) U/L Total Creatine Kinase 35 (30-135) U/L Troponin I < 0.012 (0.01-0.034) ng/mL Total Protein 7.6 (6.3-8.2) g/dL Albumin 4.5 (3.5-5.0) g/dL Globulin 3.1 (1.7-4.1) g/dL Albumin/Globulin Ratio 1.5 (1.0-2.8) Lipase 24 (23-300) U/L ECG Data Attestation: I personally reviewed and interpreted this ECG as follows: Prior ECG tracings: available for review Interpretation: Normal sinus rhythm rate 79 IA interval 158 QRS [address] changes MDM Narrative Medical decision making narrative: Patient is 69-year-old female history of chronic pain chronic back pain multiple surgeries current tobacco use presenting today with ongoing back and shoulder pain. It does seem to be very musculoskeletal in nature. Yesterday was really located and parathoracic area now is definitely neck and right shoulder. Pain is not controlled despite fentanyl patch. FIGO is unable to perform daily living activities. Blood work has been reviewed CBC no leukocytosis no anemia platelets are 270 CMP no electrolyte abnormalities Troponin negative EKGs normal sinus rhythm no ischemia Chest x-ray no acute cardiopulmonary process Patient given fentanyl and Ativan here in the emergency department overall has failed outpatient pain management would like admission Patient has been followed by chronic pain provider being given Suboxone orally and monthly injectables for her chronic pain. Dr. Cespedes in ED to see and evaluate patient. Trying to get pain under control here and avoid admission however if it does not work would consider observation Patient got Robaxin Valium she does appear little bit more comfortable. Discussion with her about pain management. She still does not feel like she is able to go home she does not feel like she can do for tube feeds although she seems to be making the motion. Dr. Cespedes kindly agrees to observation Discharge Plan Departure Patient Disposition: Admitted as Observation Clinical Impression: Intractable cervical neuropathic pain
[2025-03-19] MEDS: fentaNYL 100 MCG/2 ML INJ 50 MCG IV ×3 (15:08→21:01)
[2025-03-19 15:51] LABS: INR 1.0 (0.9-1.3); Prothrombin Time 11.6 SECONDS (9.4-12.5)
[2025-03-19 15:53] LABS: PTT Partial Thromboplastin Tim 26 SECONDS (25.1-36.5)
--- NOTE | 2025-03-19 17:18 | CM.DANOTE ---
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 Pt lives in an apartment alone. Pt's Primary Care Provider is Dr. Amy Cochran and insurance is [facility] and Medicaid. Reviewed chart and discussed with multidisciplinary team pt's medical status and initial discharge needs. Per RN, pt preference for admission for pain management, will need coordination for home health or additional support when pain managed. Patient has established care for JANEEN/Suboxone therapy with [facility] in [place]. Plan: Medical work up to continue, possible admission due to not being able to care for self because of increased pain. CM team will follow closely for coordination of discharge plans. Tita Brown [facility] Discharge Planning/Care Management CM Discharge Assessment Start: 03/19/25 17:16 Freq: Status: Active Protocol: Document 03/19/25 17:16 MW (Rec: 03/19/25 17:18 MW [id number]) Discharge Planning Assessment Assigned Discharge TE[facility] Provider Amy Cochran MD Insurance Medicaid,[facility] DPOA/Assigned Lora Zeepda, Sister Designee Name Contact Information [phone] Advance Directives? No History Provided By Patient,Medical Record Prior Living Apartment/Condo Arrangements Household Members family Independent with ADL No 's Is patient alert and Yes oriented? Discharge Plan Home If patient plan is Yes SNF: Has PASSR been completed? Review Status In Process Please Provide Date 03/19/25 Initial DC Assessment Was Performed Next Review Type Continued Stay Review
[2025-03-19] MEDS: fentaNYL 100 MCG/2 ML INJ 25 MCG IV (18:02)
--- NOTE | 2025-03-19 18:26 | PC.NURSE ---
Administered tube feeding to pt. Water given.
--- NOTE | 2025-03-19 18:37 | PM.CN ---
History of Present Illness Consult details Chief complaint: R shoulder pain (was here yesterday) Narrative: 69-year-old female with longstanding history of chronic pain, history of opioid use disorder on chronic Subutex and now sublocade treatment, history of chronic pancreatitis resulting in severe protein calorie malnutrition for which a PEG tube was placed and she now receives enteral feeds, tobacco dependence, depression, chronic neck and back pain secondary to failed spinal fusion, history of alcohol dependence in remission since 2017, and tobacco dependence who presented to the emergency department for the 2nd time in 24 hours complaining of intractable pain. She reports she had been in her usual state of health until yesterday morning. The previous day she reported she was doing laundry and was able to perform her usual ADLs. Apparently, yesterday morning when she woke up, she noted a severe pain in her right upper back/shoulder area. Meds Home Medications and Allergies Home Medications ?Medication ?Instructions ?Recorded ?Confirmed ?Type albuterol sulfate 90 mcg/actuation 2 puff inhalation Q4-6H PRN 02/24/23 03/19/25 History aerosol inhaler wheezing hydroxyzine HCl 50 mg tablet 50 mg PO Q6H PRN anxiety, sleep, 02/24/23 03/19/25 History or pain pantoprazole 40 mg tablet,delayed 40 mg PO DAILY 02/24/23 03/19/25 History release pramipexole 0.125 mg tablet 0.125 mg PO ONCE PM 02/24/23 03/19/25 History tizanidine 4 mg tablet 4 mg PO 3XD 02/24/23 03/19/25 History trazodone 100 mg tablet 200 mg PO ONCE PM 02/24/23 03/19/25 History dronabinol 2.5 mg capsule (Marinol) 2.5 mg PO BID #60 caps 02/25/23 03/19/25 Rx ondansetron 4 mg disintegrating 4 mg PO Q6H PRN nausea and 03/24/23 03/19/25 Rx tablet vomiting #20 tabs buprenorphine 300 mg/1.5 mL 300 mg SUBCUT QMONTH 03/19/25 03/19/25 History solution,exten.rel.subcutaneous syringe (Sublocade) buprenorphine HCl 8 mg sublingual 8 mg sublingual QID chronic pain 03/19/25 03/19/25 History tablet Allergies Allergy/AdvReac Type Severity Reaction Status Date / Time bupropion (From Wellbutrin) Allergy Anaphylaxis Verified 03/19/25 14:08 gabapentin Allergy Muscle Verified 03/19/25 14:08 contractions ketamine Allergy Hallucinati Verified 03/19/25 14:08 ng pregabalin (From Lyrica) Allergy Muscle Verified 03/19/25 14:08 contractions aspirin (ASPIRIN) AdvReac Unknown Gastrointestinal Verified 03/19/25 14:08 Upset NSAIDS (Non-Steroidal AdvReac Unknown Gastrointestinal Verified 03/19/25 14:08 Anti-Inflamma (NSAIDS Upset (NON-STEROIDAL ANTI-INFLAMMA) Exam Vital Signs (past 8 hours): - 03/19/25 13:58 Temperature 98.1 F Pulse Rate 88 Respiratory Rate 20 Blood Pressure 170/81 H Pulse Oximetry 98 Oxygen Delivery Method Room Air Oxygen Delivery Method Room Air Objective Labs 03/19/25 14:26 03/19/25 14:26 Labs: Laboratory Results - last 24 hr 03/19/25 14:26 WBC 7.6 RBC 4.35 Hgb 15.3 Hct 43.2 MCV 99.3 MCH 35.2 H MCHC 35.4 RDW 13.0 Plt Count 278 Neut % (Auto) 77.0 H Lymph % (Auto) 14.3 L [place] % (Auto) 7.6 Eos % (Auto) 0.6 L Baso % (Auto) 0.5 Neut # (Auto) 5900 Lymph # (Auto) 1100 [place] # (Auto) 600 Eos # (Auto) 0 Baso # (Auto) 0 PT 11.6 INR 1.0 APTT 26 D-Dimer 565 H Sodium 135 L Potassium 4.0 Chloride 108 H Carbon Dioxide 21 L BUN 15 Creatinine 0.58 Estimated GFR > 60 BUN/Creatinine Ratio 25.9 H Glucose 158 H Calcium 10.1 Total Bilirubin 0.8 AST 28 ALT 18 Alkaline Phosphatase 92 Total Creatine Kinase 35 Troponin I < 0.012 Total Protein 7.6 Albumin 4.5 Globulin 3.1 Albumin/Globulin Ratio 1.5 Lipase 24 PFSH Medical History 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, thoracic region Dorsalgia Cachexia Chronic back pain Anxiety Fibromyalgia History of anemia History of chronic pain Tobacco abuse History of alcohol abuse Major depressive disorder, recurrent episode, in partial remission with anxious distress Surgical History History of hysterectomy History of spinal fusion History of cholecystectomy Previous back surgery Family History Father Cancer Grandmother Cancer Social History household members: family Tobacco & Substance Use alcohol intake: never Assessment & Plan Time-Based Coding :: [TOTAL MINUTES] spent with patient and on the chart (including review of chart, obtaining history, exam, reviewing outside data, placing orders, documenting exam and treatment plan, and counseling patient) on [DATE].
[2025-03-19] MEDS: LIDOCAINE 5% PATCH 1 EACH TOP (18:42)
--- NOTE | 2025-03-19 18:43 | P.HP_ITS ---
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 She reports she had been in her usual state of health until yesterday morning. The previous day she reported she was doing laundry and was able to perform her usual ADLs. Apparently, yesterday morning when she woke up, she noted a severe pain in her right upper back/shoulder area. She presented to the emergency department yesterday afternoon. She underwent evaluation including exam, imaging which revealed no acute abnormalities. She received 2 doses of IV fentanyl 100 mcg, 3 doses of hydromorphone 1 mg, Toradol 15 mg, lorazepam 0.5 mg, and a 12 mcg fentanyl patch. She ultimately discharged home after declining admission. Unfortunately, she returned today with ongoing intractable pain. She stated she had been unable to take care of herself at home. She had been unable to perform her own tube feeds secondary to her intractable pain. She was unable to dress herself today. Upon her return today, she did request admission. In the emergency department, she did receive 2 doses of fentanyl 50 mcg along with 1 mg of IV lorazepam. She noted these were partially effective but still complained of severe pain. Upon my assessment, she tells me that if she were home she would ?starve to ?. She states she has not had her tube feeds in a day and a half secondary to inability to get the tube feeds and do her bolus feeds. She is uncertain what formula she uses but believes it is a 2 calorie formula. She lives home alone. She notes her sister does live on [facility] as well, but states her sister does not wish to take care of her. Patient does have a chronic pain specialist who recently initiated her on Sublocade (continuous release buprenorphine) which she most recently received on March 04. She also uses sublingual buprenorphine 8 mg up to 4 times a day for her pain. She feels quite strongly that the buprenorphine will not work for her pain. Additionally, she tells me 2 years ago an orthopedic surgeon at [facility] told her she needed additional surgery. He advised that her hardware was loose. However, he told her she would need to gain weight and get healthier before he would pursue any surgical intervention. While she was in the emergency department I consulted. She received a dose of Robaxin 1000 mg p.o., diazepam 5 mg IV, fentanyl 25 mcg IV, and when she was re- evaluated by the emergency department physician, she was resting comfortably. However, she continued to insist that she could not go home. Ultimately, the emergency department physician advised that she could be admitted overnight only, as she has no acute orthopedic issues, no metabolic issues, and this is a primarily chronic pain problem. Patient was agreeable. [facility] Medical History 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, thoracic region Dorsalgia Cachexia Chronic back pain Anxiety Fibromyalgia History of anemia History of chronic pain Tobacco abuse History of alcohol abuse Major depressive disorder, recurrent episode, in partial remission with anxious distress Surgical History History of hysterectomy History of spinal fusion History of cholecystectomy Previous back surgery Family History Father Cancer Grandmother Cancer Social History household members: family alcohol intake: never Meds Home Medications and Allergies Home Medications ?Medication ?Instructions ?Recorded ?Confirmed ?Type albuterol sulfate 90 mcg/actuation 2 puff inhalation Q 4-6H PRN 02/24/23 03/19/25 History aerosol inhaler wheezing hydroxyzine HCl 50 mg tablet 50 mg PO Q6H PRN anxiety, sleep, 02/24/23 03/19/25 History or pain pantoprazole 40 mg tablet,delayed 40 mg PO DAILY 02/2403/19/25 History release pramipexole 0.125 mg tablet 0.125 mg PO ONCE PM 03/19/25 History tizanidine 4 mg tablet 4 mg PO 3XD 08/28/23 09/20/2 5 History trazodone 100 mg tablet 200 mg PO ONCE PM 02/24/23 0 03/19/25 History dronabinol 2.5 mg capsule (Marinol) 2.5 mg PO BID #60 caps 02/25/23 03/19/25 Rx ondansetron 4 mg disintegrating 4 mg PO Q6H PRN nausea and 03/24/23 03/19/25 Rx tablet vomiting #20 tabs buprenorphine 300 mg/1.5 mL 300 mg SUBCUT QMONTH 03/1903/19/25 History solution,exten.rel.subcutaneous syringe (Sublocade) buprenorphine HCl 8 mg sublingual 8 mg sublingual QID chronic pain 03/19/25 03/19/25 History tablet Allergies Allergy/AdvReac Type Severity Reaction Status Date / Time bupropion (From Wellbutrin) Allergy Anaphylaxis Verified 03/19/25 14:08 gabapentin Allergy Muscle Verified 03/19/25 14:08 contractions ketamine Allergy Hallucinati Verified 03/19/25 14:08 ng pregabalin (From Lyrica) Allergy Muscle Verified 03/19/25 14:08 contractions aspirin (ASPIRIN) AdvReac Unknown Gastrointestinal Verified 03/19/25 14:08 Upset NSAIDS (Non-Steroidal AdvReac Unknown Gastrointestinal Verified 03/19/25 14:08 Anti-Inflamma (NSAIDS Upset (NON-STEROIDAL ANTI-INFLAMMA) Review of Systems Review of Systems Narrative: Patient is notably extremely anxious, All other systems were reviewed negative Exam Vital Signs (past 8 hours): - 03/19/25 13:58 Temperature 98.1 F Pulse Rate 88 Respiratory Rate 20 Blood Pressure 170/81 H Pulse Oximetry 98 Oxygen Delivery Method Room Air Oxygen Delivery Method Room Air Narrative Exam Narrative: GEN: Middle-aged female who appears older than physiologic age, Alert and oriented x3, anxious, tearful HEENT: Normocephalic, face symmetric, pupils equal round reactive to light, extraocular movements intact, sclerae anicteric, conjunctiva clear, nares patent NECK: difficult to do a and evaluation secondary to her tense posture and subsequently moving around with her pain CHEST: Respiratory excursions symmetric, clear to auscultation bilaterally CV: Regular rate and rhythm, no murmurs, rubs, gallops, PMI nondisplaced ABD: Soft, nontender, nondistended, bowel sounds present in all 4 quadrants, no organomegaly or masses appreciated, peg tube site is clean/dry/intact EXTR: Warm, well perfused, no clubbing/cyanosis/edema SKIN: Warm and dry, without rash NEURO: Alert and oriented x3, grossly intact PSYCH: As noted she is very anxious and tearful MUSC: Upon palpation of her upper thoracic/lower cervical spine, she has no significant tenderness. However, with palpation of her trapezius and rhomboids, she cries out. There is no obvious deformity, swelling, or other abnormality Objective Labs 03/19/25 14:26 03/19/25 14:26 Labs: Laboratory Results - last 24 hr 03/19/25 14:26 WBC 7.6 RBC 4.35 Hgb 15.3 Hct 43.2 MCV 99.3 MCH 35.2 H MCHC 35.4 RDW 13.0 Plt Count 278 Neut % (Auto) 77.0 H Lymph % (Auto) 14.3 L [place] % (Auto) 7.6 Eos % (Auto) 0.6 L Baso % (Auto) 0.5 Neut # (Auto) 5900 Lymph # (Auto) 1100 [place] # (Auto) 600 Eos # (Auto) 0 Baso # (Auto) 0 PT 11.6 INR 1.0 APTT 26 D-Dimer 565 H Sodium 135 L Potassium 4.0 Chloride 108 H Carbon Dioxide 21 L BUN 15 Creatinine 0.58 Estimated GFR > 60 BUN/Creatinine Ratio 25.9 H Glucose 158 H Calcium 10.1 Total Bilirubin 0.8 AST 28 ALT 18 Alkaline Phosphatase 92 Total Creatine Kinase 35 Troponin I < 0.012 Total Protein 7.6 Albumin 4.5 Globulin 3.1 Albumin/Globulin Ratio 1.5 Lipase 24 Assessment & Plan Assessment & Plan narrative: 1. Acute on chronic back pain I suspect this is primarily muscular in nature. She does seem to have episodic bouts of increased pain consistent with muscle spasm. As noted, I did order Robaxin, diazepam, and a dose of fentanyl which she responded well to. I suspect she responded mostly to the diazepam and Robaxin. Will additionally order a lidocaine patch. Will ask physical therapy to do some gentle stretching exercises with her in the morning. 2. Chronic opioid use disorder/chronic pain We will continue her usual dose of Subutex 3. Chronic protein calorie malnutrition She reports previously her weight was down to 80 lb and is now 102 lb. BMI is 19.9. Will resume tube feeds. 4. Tobacco dependence She is wearing a nicotine patch. Will discontinue that patch and initiate a hospital approved patch. Code status Full Prophylaxis Will start Lovenox Disposition Admit under observation status. Anticipate discharge tomorrow Time-Based Coding :: [TOTAL MINUTES] spent with patient and on the chart (including review of chart, obtaining history, exam, reviewing outside data, placing orders, documenting exam and treatment plan, and counseling patient) on [DATE].
[2025-03-19] MEDS: ACETAMINOPHEN 325 MG TABLET 650 MG PO (19:17)
[2025-03-19] MEDS: PRAMIPEXOLE 0.25 MG TABLET 0.125 MG PO (20:52)
[2025-03-19] MEDS: NICOTINE 14 PATCH 14 MG TOP (23:52)
[2025-03-19] MEDS: ONDANSETRON 4 MG ODT PO (23:54)
[2025-03-20] MEDS: ACETAMINOPHEN 325 MG TABLET 650 MG PO ×2 (00:17→20:01)
[2025-03-20] MEDS: MORPHINE 2 MG/ML INJ 4 MG IV (00:17)
[2025-03-20] MEDS: BUPRENORPHINE/NALOXONE 8MG/2MG 1 TAB SL ×3 (01:52→16:48)
[2025-03-20] MEDS: HALOPERIDOL 5 MG/ML VIAL IV (03:47)
[2025-03-20] MEDS: fentaNYL 100 MCG/2 ML INJ 50 MCG IV ×2 (03:48→17:32)
[2025-03-20 07:39] VITALS: BP 129/66; PULSE 59; RESP 18; TEMP 35.7; O2SAT 94
[2025-03-20] MEDS: ENOXAPARIN 40 MG/0.4 ML SYRINGE SUBCUT (09:36)
[2025-03-20] MEDS: LIDOCAINE 5% PATCH 1 EACH TOP (09:36)
[2025-03-20] MEDS: NICOTINE 14 PATCH 14 MG TOP (09:36)
[2025-03-20] MEDS: PANTOPRAZOLE DR 40 MG TABLET PO (09:36)
--- NOTE | 2025-03-20 11:08 | CM.DPC ---
DCP Cont: Per MD, pt had pain medications overnight and continues to have increased pain above her baseline and adjusting medications to work with her monthly pain shot at baseline. PT to work with pt today. Met bedside with pt and explained role and pt still tearful from the new pain in her right arm/shoulder and up through her neck. Pt confirms that she typically completes her own ADLs at baseline (vacuuming, laundry, tube feeds) and states she does not use DME for ambulation at baseline. Pt does not drive and typically her sister will provide transport for appointments or pt has used Medicaid Transportation before as well. Pt states that due to her multiple back/cervical surgeries she cannot take [employer] bus or [employer] as the vehicles are too jolting and rough on her back to ride in. Pt states she lives in an apt in [place] supposedly with her sister but states sister has a boyfriend in [place] and stays with him about 4-5 days a week and at their apt only 2-3 nights a week. Pt gets her enteral feeds through [facility] and states she has been able to complete her own PEG tube feeds independently until now with her shoulder pain she cannot do the pushes into the tube. She denies any hx of HH or SNF but would be agreeable to either if pain more manageable then home with HH but if ongoing then would be agreeable to any SNF that is contracted with her [facility] and auths. SW made initial referral to [facility] for review to see if they could accept and submit for SNF auth. [facility] not yet done. Called [facility] Pharmacist and he confirms that pt gets Nutren 2.0 infused 218 mils 4x day (3.5 cans a day of the 250) and updated MD for orders for ongoing PEG tube feeds. Pt states she barely takes any nutrition by mouth, mostly just coffee, and the rest is tube feeds for her nutrition as she gets nauseous by mouth. Pt has gained weight since the PEG tube placement but has not called [facility] since to determine if her weight has increased enough that they would accept her for the recommended hardware revision on her back, strongly encouraged pt to call [facility] along with support from her PCP to determine if surgery could be scheduled for her ongoing chronic pain issues. Pt also states she has attempted to contact [facility] regarding when her PEG tube could be removed (was only supposed to be temporary) although uncertain as pt states she cannot get adequate intake orally by mouth? Plan: SW to follow closely for PT eval today and [facility] review to determine if they can accept and start auth. If pt's pain improves then possible plan of home via [facility] or Medicaid taxi with new HH referral. TENA Roach
--- NOTE | 2025-03-20 12:06 | PT-IP ANOTE ---
Pt refuses to participate in PT due to pain. She states she has been waiting for pain medication for 5 hours.
[2025-03-20] MEDS: KETOROLAC 30 MG/ML VIAL 15 MG IV ×2 (16:15→21:54)
[2025-03-20] MEDS: fentaNYL 12 MCG/PATCH TOP (17:32)
--- NOTE | 2025-03-20 17:47 | PM.PN.1 ---
Subjective Subjective Interval history: 69-year-old female with longstanding history of chronic pain, history of opioid use disorder on chronic Subutex and now sublocade treatment, history of chronic pancreatitis resulting in severe protein calorie malnutrition for which a PEG tube was placed and she now receives enteral feeds, tobacco dependence, depression, chronic neck and back pain secondary to failed spinal fusion, history of alcohol dependence in remission since 2017, and tobacco dependence who was admitted yesterday after to ED visits in 24 hours due to acute on chronic back pain and inability to care for herself at home Overnight, patient was given a dose of morphine which she reported was not effective as well as IV fentanyl q.3h as needed. She received 1 dose and reported that it ?only takes the edge off?. She refused to work with physical therapy today as she stated she had been ?suffering for the last 5 hours?. Physical therapy attempted to see her at noon. Care management met with her today and patient felt that if her pain could be managed she could return home with home health but otherwise she would be receptive to [facility] facility placement. She tells me that she was able to get some sleep with the IV fentanyl overnight, but feels that she suffered all day. When I came by several times throughout the day today, she was notably sleeping. Nurse reports she was able to get up to the bathroom independently and was also able to toilet herself independently. Nurse also reported that her pain has been reasonably well controlled through the day. Now, the patient is quite tearful and is asking for IV fentanyl. She states she is unable to perform her tube feeds because she can not use the syringe to push the tube feed into her PEG tube. She has not active to continuous feeds or nocturnal feeds. She states if she goes home and is unable to perform her tube feeds she will simply starve to ?. When asked why she would not consider going to nocturnal feeds or continuous feeds, she states that she forgot about the tubing connected when she tried nocturnal feeds and it was disconnected and created a mass that she had to clean up. She states if she went to a continuous feeding system she does not feel she could carry the bag around on shoulder. Exam Vital Signs (past 8 hours): Oxygen Delivery Method Room Air Oxygen Flow Rate 0 Narrative Exam Narrative: GEN: Middle-aged female who appears older than physiologic age, Alert and oriented x3, anxious, tearful HEENT: Normocephalic, face symmetric CHEST: Respiratory excursions symmetric, clear to auscultation bilaterally CV: Regular rate and rhythm, no murmurs, rubs, gallops, PMI nondisplaced ABD: Soft, nontender, nondistended, bowel sounds present in all 4 quadrants, no organomegaly or masses appreciated, peg tube site is clean/dry/intact EXTR: Warm, well perfused, no clubbing/cyanosis/edema SKIN: Warm and dry, without rash NEURO: Alert and oriented x3, grossly intact PSYCH: As noted she is very anxious and tearful MUSC: She has a small muscle knot noted in her upper trapezius area on the right which upon palpation she describes an additional sharp pain that goes into her neck Objective Labs 03/19/25 14:26 03/19/25 14:26 [facility] Medical History 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, thoracic region Dorsalgia Cachexia Chronic back pain Anxiety Fibromyalgia History of anemia History of chronic pain Tobacco abuse History of alcohol abuse Major depressive disorder, recurrent episode, in partial remission with anxious distress Surgical History History of hysterectomy History of spinal fusion History of cholecystectomy Previous back surgery Family History Father Cancer Grandmother Cancer Social History household members: family Smoking Status: Current every day smoker alcohol intake: former Assessment & Plan Assessment & Plan narrative: 1. Acute on chronic back pain This continues to appear muscular in nature. She does get very anxious when discussing her pain but is notably comfortable whenever she has not interacting with nursing or myself. I did discontinue the as needed IV medications as she will not be able to go to [facility] if she is receiving this. I will change her fentanyl patch to 12 mcg every 48 hours given her relative paucity of subcutaneous fat. Will discontinue Subutex and add oxycodone as needed. I have also added IV Toradol. Continue scheduled Tylenol, Robaxin, as needed diazepam and lidocaine patches. Await physical therapy assessment for gentle stretching exercises. Patient intends to follow-up with her orthopedic surgeon at [facility] as she states he advised she will need surgery but needed to gain weight in order to pursue it and she has since gained 22 lb. 2. Chronic opioid use disorder/chronic pain Holding her usual dose of Subutex. She is followed by [facility] in [place] 3. Chronic protein calorie malnutrition She reports previously her weight was down to 80 lb and is now 102 lb. BMI is 19.9. She is back on tube feeds given via bolus. 4. Tobacco dependence Nicotine patch as needed Code status Full Prophylaxis On Lovenox Disposition Await PT assessment. Possible placement versus home with home health Time-Based Coding :: [TOTAL MINUTES] spent with patient and on the chart (including review of chart, obtaining history, exam, reviewing outside data, placing orders, documenting exam and treatment plan, and counseling patient) on [DATE].
--- NOTE | 2025-03-20 17:52 | PC.NURSE ---
Pt up to BSC independantly, voided 300 ml. Skin CDI; Sacral coccyx blanchable but red, prophylactic mepilex applied. Pt on cont. pulse ox satting above 95% on RA after fentaynl IV and patch place to right lower abd. Now reports acceptable pain level of 7/10 to RUE. Intake for the day so far is 2 of the 237 ml Pivot supplements and 400 ml of water to G-tube.
[2025-03-20 19:55] VITALS: BP 132/74; PULSE 76; RESP 18; TEMP 36.1; O2SAT 95
[2025-03-20] MEDS: PRAMIPEXOLE 0.25 MG TABLET 0.125 MG PO (20:02)
[2025-03-20] MEDS: REMOVE LIDOCAINE PATCH 1 EACH TOP (20:02)
[2025-03-21] MEDS: ACETAMINOPHEN 325 MG TABLET 650 MG PO ×4 (01:12→18:49)
[2025-03-21] MEDS: KETOROLAC 30 MG/ML VIAL 15 MG IV ×4 (02:53→21:17)
[2025-03-21 06:25] LABS: Add Manual Diff / Slide Review NO; Hematocrit 42.5 % (36-46); Hemoglobin 14.9 g/dL (12.0-16.0); Lymphocytes Absolute Auto 2100 /uL (1100-4500); Mean Corpuscular HGB Conc 35.1 % (30-36); Mean Corpuscular Hemoglobin 34.7 PG (26-34); Mean Corpuscular Volume 99.0 fL (80-100); Platelet Count 245 X10^3/uL (150-400)
[2025-03-21 06:38] LABS: Blood Urea Nitrogen 15 mg/dL (7-17); Calcium 9.9 mg/dL (8.4-10.2); Carbon Dioxide 22 mmol/L (22-32); Chloride 107 mmol/L (98-107); Estimated Glomerular Filt Rate > 60 mL/min (>60); Glucose 104 mg/dL (70-99); HEMOLYSIS < 15 (0-50); Potassium 3.9 mmol/L (3.4-5.1); Sodium 135 mmol/L (137-145)
[2025-03-21 08:19] VITALS: BP 132/77; PULSE 69; RESP 14; TEMP 36.3; O2SAT 95
[2025-03-21] MEDS: NICOTINE 14 PATCH 14 MG TOP (09:04)
[2025-03-21] MEDS: PANTOPRAZOLE DR 40 MG TABLET PO (09:05)
[2025-03-21] MEDS: LIDOCAINE 5% PATCH 1 EACH TOP (09:05)
[2025-03-21] MEDS: ENOXAPARIN 40 MG/0.4 ML SYRINGE SUBCUT (09:06)
[2025-03-21] MEDS: MORPHINE 2 MG/ML INJ IV ×2 (11:15→13:44)
--- NOTE | 2025-03-21 11:36 | P.PN_ITS ---
Subjective Subjective Interval history: S: She was having a lot of pain just medial to her scapula. She can not really use her right arm because of this pain. This is prohibiting her from hooking up her tube feeds at home. Oral pain medication over the last 24 hours has been ineffective. She requests morphine. She does take Subutex chronically. Exam Vital Signs (past 8 hours): - 03/21/25 08:19 Temperature 97.4 F L Pulse Rate 69 Respiratory Rate 14 Blood Pressure 132/77 Pulse Oximetry 95 Oxygen Flow Rate 0 Oxygen Delivery Method Room Air Oxygen Flow Rate 0 Narrative Exam Narrative: She was cachectic, and uncomfortable as well as anxious. Lungs are clear with normal effort. Heart is regular Abdomen is soft and nontender Extremities are free of edema She was very tender with palpation just medial to her right scapula over the superior aspect. There was no deformity. Objective Labs 03/21/25 05:57 03/21/25 05:57 Labs: Laboratory Results - last 24 hr 03/21/25 05:57 WBC 8.2 RBC 4.30 Hgb 14.9 Hct 42.5 MCV 99.0 MCH 34.7 H MCHC 35.1 RDW 12.8 Plt Count 245 Neut % (Auto) 64.4 Lymph % (Auto) 25.5 [place] % (Auto) 7.2 Eos % (Auto) 2.2 Baso % (Auto) 0.7 Neut # (Auto) 5300 Lymph # (Auto) 2100 [place] # (Auto) 600 Eos # (Auto) 200 Baso # (Auto) 100 Sodium 135 L Potassium 3.9 Chloride 107 Carbon Dioxide 22 BUN 15 Creatinine 0.52 Estimated GFR > 60 BUN/Creatinine Ratio 28.8 H Glucose 104 H Calcium 9.9 PFSH Medical History 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, thoracic region Dorsalgia Cachexia Chronic back pain Anxiety Fibromyalgia History of anemia History of chronic pain Tobacco abuse History of alcohol abuse Major depressive disorder, recurrent episode, in partial remission with anxious distress Surgical History History of hysterectomy History of spinal fusion History of cholecystectomy Previous back surgery Family History Father Cancer Grandmother Cancer Social History household members: family Smoking Status: Current every day smoker alcohol intake: former Assessment & Plan Assessment & Plan narrative: 1. Acute on chronic back pain, active. This continues to appear muscular in nature. She does get very anxious when discussing her pain but is notably comfortable whenever she has not interacting with nursing or myself. I did discontinue the as needed IV medications as she will not be able to go to residential if she is receiving this. I will change her fentanyl patch to 12 mcg every 48 hours given her relative paucity of subcutaneous fat. Will discontinue Subutex and add oxycodone as needed. I have also added IV Toradol. Continue scheduled Tylenol, Robaxin, as needed diazepam and lidocaine patches. Await physical therapy assessment for gentle stretching exercises. Patient intends to follow-up with her orthopedic surgeon at [facility] as she states he advised she will need surgery but needed to gain weight in order to pursue it and she has since gained 22 lb. 2. Chronic opioid use disorder/chronic pain, active. Holding her usual dose of Subutex. She is followed by [facility] in [place] 3. Chronic protein calorie malnutrition, active. She reports previously her weight was down to 80 lb and is now 102 lb. BMI is 19.9. She is back on tube feeds given via bolus. 4. Tobacco dependence, active. Nicotine patch as needed PLAN: -morphine IV to see if this improves her cycle of pain. -discharge planning. Code status Full Prophylaxis On Lovenox Time-Based Coding :: [TOTAL MINUTES] spent with patient and on the chart (including review of chart, obtaining history, exam, reviewing outside data, placing orders, documenting exam and treatment plan, and counseling patient) on [DATE].
[2025-03-21 12:00] VITALS: BP 109/73; PULSE 84; RESP 14; TEMP 36.4; O2SAT 94
[2025-03-21] MEDS: [UNRECOGNIZED DRUG - MIXTURE] 1 EACH TUBE ×2 (13:02→16:30)
--- NOTE | 2025-03-21 13:12 | CM.DPC ---
Addendum entered by TENA Roach 03/21/25 14:17: ADD: SW updated MD and waiting to determine if SNF an option through insurance. Discussed pt's ongoing pain and statements of I can't take much more of this. If SNF not an option at d/c or pt not able to be well managed then MD plans to have Goals of Care discussion and information regarding Hospice for malnutrition and pain. BF Original Note: DCP Cont: Per MD, pt continues with pain and automat car attendant spoke to [facility] and confirmed enteral orders for ongoing PEG tube feeds and awaiting further PT/OT to determine home with HH vs SNF. Per PT yesterday, pt declined due to pain. PT/OT pending for today. [place] called [facility] and they have pt's referral but need to have their ED/DNS review to see if they can meet pt's tube feeding needs and pain issues and have not submitted for auth yet as waiting to confirm if they can accept. SW met bedside with pt who was clearly in discomfort and discussed barriers to SNF being that she can ambulate but that due to shoulder/neck pain she cannot complete some ADLs or tube feeding independently at this time which is below baseline but unclear if her insurance will approve SNF. Discussed that pt will need to show that she can work somewhat with PT/OT in order for insurance to even consider approving SNF and pt acknowledged understanding. Inquired if SW could call her sister to discuss staying with pt for a few days after d/c to help with 4x day tube feedings and pt declines stating she already talked to her sister last night and sister is refusing to help at this time as my sister is resentful of having to be my caregiver anymore. Confirmed pt cannot think of any other person that could help her temporarily at discharge. [employer] Associate attempted supporting pt with trialing tube feeds herself bedside and pt currently unable to complete as it requires both arms. [employer] Associate spoke to [facility] automat car attendant and discussed that if pt cannot complete the push feeds then possible option of [place] feeds via hanging bag that would not require two arms to complete if needed and [facility] RN could do the teach with pt in the hospital or at home if pt goes home and needs gravity feeds. TENA Roach
--- NOTE | 2025-03-21 13:37 | DIET.CONS ---
Dietary Consultation Note Admission Date: 03/19/2025 19:12 Assessment: 69 y F admitted for acute on chronic back pain. Dietitian consulted for tube feed. Met with pt at bedside. Reports unable to give herself bolus feeds d/t pain for last 4 days before admission to hospital. Before this, was able to deliver formula independently. Normally does Nutren 2.0 218 mL 4x/day with 60 mL flush before and after (3.5 carton per day). Orally drinks coffee. Unable to tolerate much orally d/t nausea. Reports nausea for 1 hour after tube feeds is normal for her. Bolus usually take 10 minutes for pt to do when able. Hx of chronic pancreatitis resulting in severe malnutrition, thus PEG was placed. Pt reports attempting to gain weight needed for ortho to do surgery. Unsure what weight they want her to be at. [facility]itian at [facility] where [facility]. Reports alternatives include pt doing syringe bolus without plunger or bolus feeds using gravity with bag and IV pole. Pt has previously tried intermittent feeds and was unsuccessful in setting up and reports is unable to carry equipment/feeds on back with pain to do a continuous feed. [facility] can have a nurse do teaching on gravity method at pt's house if needed with no extra cost to patient. Unknown whether pt would be able to complete setting up this method of feeding up herself. Pt reports previously taking Marinol for appetite stimulant 2 years ago and being successful in helping pt orally eat more, but now unable to get insurance to cover. Has ondansteron rx now, but reports it not being as helpful. Nutrition focused physical exam showing severe muscle wasting in temporalis, deltoid, trapezius, pectoralis major, interosseous and severe subcutaneous fat loss in buccal and orbital fat pads Ht: 152.4 cm Wt: 46.5 kg BMI: 20.0 UBW: 80 lb per pt last year Last BM: 03/17/25 (03/19/25 22:07) MNA: 7 Ollie Score: 20 Diet: 03/21/25 Breakfast General (Regular) Diet Diet Modifications: Food Texture: Level 7 - Regular Liquid Consistency: Level 0 - Thin Tube Feeding Diet Diet Modifications: see comment on free water flush TF Supplement type: Pivot 1.5 tonja TF mode of delivery: Bolus Starting flow rate mL/hr: 237 Flow rate goal mL/hr: 237 Titration Schedule to reach Goal Rate: 1 can (237mL) 4x/day: 0800, 1200, 1600, 1999 Max total daily volume in mL: 1,500 Free fluid: 60 Free Water Frequency: Q6H Comment: *Free water frequency: Flush w/ free water 60 mL before & after each bolus Nutrition Percent Meal Consumed 120 ml pivot supp 03/20/25 17:49 Percent Meal Consumed 25% 03/20/25 15:36 Labs: RBC 4.30 X10^6/uL (4.0-5.2) 03/21/25 05:57 Hgb 14.9 g/dL (12.0-16.0) 03/21/25 05:57 Hct 42.5 % (36-46) 03/21/25 05:57 Creatinine 0.52 mg/dL (0.52-1.04) 03/21/25 05:57 Nutrition Diagnosis: 1. Inability to manage self care r/t inability to complete physical movement needed to feed self through enteral bolus via PEG as evidenced by acute on chronic back pain, pt unable to deliver her enteral feedings via syringe resulting in 4 days no enteral feeds before admission and pt still remains unable to deliver herself enteral feeds today 2. Severe chronic protein calorie malnutrition r/t alterations in GI related organs as evidenced by history of chronic pancreatitis resulting in inadequate oral intake and PEG placement, severe muscle wasting in temporalis, deltoid, trapezius, pectoralis major, interosseous and severe subcutaneous fat loss in buccal and orbital fat pads Interventions: 1. Recc bolus of Pivot 1.5 at 237 mL (1 carton) 4x/d: 0800, 1200, 1600, 1999. Flush free water 60 mL before and after each bolus. Enteral feeds provide 1422 kcals (81% EER) and 89 g protein (100% EER) and 163 g CHO. Formula + water flush provides 1191 mL fluids, pt also orally able to drink liquids to meet needs. 2. Accompanied OT to their therapy session with pt to asses any modification/techniques to help pt be able to deliver her bolus feeds. Tried to have pt administer feed via syringe both with and out plunger and pt was unable to do so based on currently mobility and pain. EER: Per RD at [facility] the current enteral feeds at home meet 1750 kcals, 73.5 g protein, 189 g carbs Monitoring/Evaluations: following daily to assess tolerance of feeds here and d/c plan Electronically Signed by: Yoli Santacruz 03/21/25 13:37 Clinical Dietitian [address] [address]
--- NOTE | 2025-03-21 14:08 | DI.MRI.S_ITS ---
PROCEDURE: MR SHOULDER RT WO CON INDICATIONS: Severe shoulder pain, right TECHNIQUE: Noncontrast oblique coronal T2 fast spin echo with fat saturation, oblique sagittal T1 spin echo and T2 fast spin echo with fat saturation, axial T1 spin echo and T2 fast spin echo with fat saturation through the shoulder. COMPARISON: [facility], CR, XR CHEST 1V, 03/19/2025, 14:19. FINDINGS: Image quality: Degraded by motion artifact. Rotator cuff: No high-grade tear of the rotator cuff. There is a low-grade insertional, interstitial tear of the supraspinatus at the footprint. No significant retraction. No high-grade discontinuity of subscapularis or teres minor. No significant atrophy or fatty infiltration. Bones and bursae: No focal bone marrow edema or suspicious marrow replacing process. No glenohumeral joint effusion.. No acromioclavicular joint degeneration. The acromion demonstrates conventional anatomy, without an os acromiale. No pathologic subacromial-subdeltoid or subcoracoid bursal fluid is present. Capsule and soft tissues: Degraded assessment of the labrum secondary to significant motion artifact. Degraded assessment of the articular cartilage secondary to motion artifact. The long head of the biceps tendon demonstrates normal location and morphology. The rotator interval appears normal, without fibrosis. The coracohumeral ligament is normal in thickness. IMPRESSION: 1. Severely degraded exam secondary to motion artifact. 2. Low-grade interstitial tear of the supraspinatus at the footprint. No significant glenohumeral joint effusion or suspicious marrow replacing process to suggest underlying osteomyelitis or septic arthritis. 3. Degraded assessment for fracture, recommend correlation with left shoulder radiographs to evaluate for underlying osseous abnormality. Dictated by: Duke Coates M.D. on 03/21/2025 at 19:17 Approved by: Duke Coates M.D. on 03/21/2025 at 19:21
--- NOTE | 2025-03-21 15:24 | OT.IP.EVAL ---
Past Medical History (Last Reviewed 03/21/25 @ 11:38 by Donaldo Najera MD) Anxiety Cachexia Chronic back pain Dorsalgia Failure of spinal fusion Fibromyalgia History of alcohol abuse History of anemia History of chronic pain Major depressive disorder, recurrent episode, 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, thoracic region Tobacco abuse Surgical History (Last Reviewed 03/21/25 @ 11:38 by Donaldo Najera MD) History of cholecystectomy History of hysterectomy History of spinal fusion Previous back surgery Occupational Therapy Inpatient Evaluation/Re-Eval M1 PT/OT-IP Prior Functional Status Start: 03/21/25 14:26 Freq: NEEDED Status: Active Protocol: Document 03/21/25 14:26 ROD (Rec: 03/21/25 14:41 ROD [id number]) Medical Review Prior Functional Status Medical History Yes Reviewed Communication Pt is able to make her needs known Mobility and Gait Pt reports she was able to amb without AD throughout her home. Activities of Daily Pt reports was able to perform all her BADLs and light Living and IADL's housework prior to recent onset of L upper shoulder and back pain. Pts sister assist with grocery shopping. Pt was I with performing her tube feedings prior as well. Social History Household Members family Living Arrangements Apartment/Condo Number of Stairs To Pts sister is sometimes in the house with her; however, Enter/Railing? pt reports that she does not assist with her care and will not be willing to assist on d/c. Home Environment Standard Height Toilet,Tub/Shower Home Equipment Four Wheel Walker,Shower Seat with Backrest,Hand Held Shower,Grab Bars Near Toilet,Grab Bars In Shower M2 OT-IP Current Condition Start: 03/21/25 14:26 Freq: Status: Active Protocol: Document 03/21/25 14:26 ROD (Rec: 03/21/25 14:41 ROD [id number]) Occupational Therapy Current Condition Current Condition Evaluation Date 03/21/25 Treatment Diagnosis Intractable cervical neuropathic pain, decreased self care Diagnosis Onset Date 03/19/25 Post Operative Precautions Other Precautions chronic neck and back pain has NG tube for tube feedings M3 OT- IP Subjective and Pain Start: 03/21/25 14:26 Freq: Status: Active Protocol: Document 03/21/25 14:26 ROD (Rec: 03/21/25 14:41 [facility] [id number]) OT- Subjective Occupational Therapy Visit Type Type Initial Evaluation Visit Start Time 12:40 Visit Stop Time 13:20 Notes Pt was reclined in bed on entrance of OT with nsg present. Pt agreed to participate in OT eval. Occupational Therapy Visit Comments Patient Comments Pt reports that she cannot take care of herself like I am right now at home. Patient/Caregiver To get better. Goals OT Pain Assessment Pain When Pain Assessed At Rest Pain Present Pain Present Pain Reported Location back, neck, shoulders Intensity 9 Scale Used Numeric (0 - 10) Pain Behaviors Calling Out,Crying,Facial Grimacing,Guarding,Holding Area,Moaning,Restlessness,Wincing Management Re-positioning Techniques M4 OT- IP ADL's Start: 03/21/25 14:26 Freq: Status: Active Protocol: Document 03/21/25 14:26 [facility] (Rec: 03/21/25 14:41 [facility] [id number]) OT SZF-Dcqo-Zhsgzso General Evaluation Self-Feeding Ability Total Assistance Comments OT Self-Feeding Pt has NG tube. Pt was I with feeds prior to admission. Comments The cracking machine operator, Yoli, consulted with OT prior to eval to assess pt's I with feedings together. Yoli, present during eval for feeding assessment. Yoli recommends getting a referral for a gravity fed feeding bag when d /c home as pt is currently requires TOTAL A for effective feeding. OT educated on alternative positions to allow painful R UE to assist while performing feeding, however, none of the positions were comfortable enough to be effective. OT ADL-Grooming Comments OT Grooming Comments not observed due to p! OT ADL-Oral Care Comments Oral Care Comments not observed due to p! OT ADL-Dressing General Eval Lower Body Dressing Total Assistance Ability Areas Needing Socks Assistance OT ADL-Toileting Comments OT Toileting Not performed. Comments OT ADL-Bathing Comments OT Bathing Comments Not performed. Sponge bath may be most appropriate at this time. M5 OT- IP IADL's Start: 03/21/25 14:26 Freq: Status: Active Protocol: Document 03/21/25 14:26 [facility] (Rec: 03/21/25 14:41 [facility] [id number]) OT-Instrumental Activities of Daily Living Deficits IADL Deficits Deficits Identified Home Safety Awareness Awareness of Need Good Awareness for Assistance at Home Home Safety Comments Pt reports that she does not believe she will be able to take care of herself when she goes home due to p! Medication Management Medication Pt was performing this task prior to admission, pt may Management Comments need assist at dc Money Management Money Management No Deficits Identified Meal Preparation Meal Preparation at this time, pt would need assist on dc Comments Kitchen Bath Designer Kitchen Bath Designer at this time, pt would need assist on dc Comments Driving Driving Comments at this time, pt would need assist on dc M6 OT- IP Functional Cognition Start: 03/21/25 14:26 Freq: Status: Active Protocol: Document 03/21/25 14:26 ROD (Rec: 03/21/25 14:41 [facility] [id number]) Cognitive Factors Limiting Selfcare Function Cognitive Ability Level of Alertness Alert Patient Orientation Name,Age,Place,Situation Attention Span Capable of Focused Attention,Capable of Sustained Ability Attention Ability to Follow Able to Follow One Step Commands Commands Cognitive Comments Cognitive Assessment Pt has a difficult time focusing on anything other than Comments her R shoulder/neck/back pain. Pt is very fixated on it and how to improve it, this significantly limits her ability to participate in all aspects of the eval. OT attempts to re-direct and reposition pt, but this is not successful. OT- Vision and Hearing OT- Hearing Assessment OT- Hearing WFL Assessment OT- Vision Assessment Visual Acuity WFL M7 OT- IP Mobility and Balance Start: 03/21/25 14:26 Freq: Status: Active Protocol: Document 03/21/25 14:26 ROD (Rec: 03/21/25 14:41 [facility] [id number]) OT- Bed Mobility Assessment Supine to Sit Supine to Sit Assist Contact Guard Assistance,1 Person Assistance,Head of Bed Elevated,Bedrails Sit to Supine Sit to Supine Assist Contact Guard Assistance,1 Person Assistance,Head of Bed Elevated,Bedrails OT-Transfer Assessment Comments Mobility Comments Pt has a difficult time focusing on anything other than her R shoulder/neck/back pain. Pt initially agreed to get up and perform sink side ADLs, when pt got into a sitting position she became very fixated on her R UE pain and how to improve it. Pt fidgeted and moved her UE in all different positions, none of them provided relief. She then initiated sit>supine and was unable to participate further. OT- Balance Assessment Sitting Balance and Reactions Static Sitting Fair Balance Ability Dynamic Sitting Fair Balance Ability M8 OT- IP Objective Assessments Start: 03/21/25 14:26 Freq: Status: Active Protocol: Document 03/21/25 14:26 [facility] (Rec: 03/21/25 14:41 [facility] [id number]) OT Gross Range of Motion Upper Extremity Range of Motion Assessment Right Impaired ROM Impairments L UE WFL, R UE not assessed due to pts p! and guarding OT Strength Hand Manuscript Editor Strength Hand Dominance Right Comments Strength Comments Unable to formally assess pts strength on R due to p! and on L due to pt's agitation and fixation on R UE. OT Sensation Assessment Edema Edema Absent M9 OT- IP Assessment and Plan Start: 03/21/25 14:26 Freq: Status: Active Protocol: Document 03/21/25 14:26 [facility] (Rec: 03/21/25 14:41 [facility] [id number]) OT Summary Assessment and Plan Potential Rehabilitation Fair Potential Analytic Complexity High at Evaluation Summary OT Impairments Pain,Range of Motion,Strength,Functional Mobility, Grooming,Dressing,Toileting,Bathing,Toilet Transfers, Shower Transfers,Activity Tolerance Progress Towards Progressing Toward Goals,Slow Progress due to Pain,Slow Goals Progress due to Medical Issues Assessment Summary Pt is a 69 yo F who has a history of chronic pain and opiod disorder. Pt presents with intractable cervical neuropathic pain, decreased self care, decreased active functional use of R UE, and decreased participation in meaningful activities. Pt becomes fixated on her pain and on trying to alleviate it that she has a limited ability to participate functionally in OT eval, despite verbally being agreeable to participating. Latin Dancer, Yoli, was present for part of eval, to assess if pt will be able to continue her peg tube feedings on d/c. OT made suggestions for positioning, but pt is unable to tolerate any of them due to her p! in R UE. Yoli suggested making a referral for a gravity fed feeding on d/c . OT and pt agree that this will be best. Pt agreeable to participating in OT assessment of her BADLs and functional mobility, however, once pt t/f to sitting pt could not tolerate her p! and almost immediately returned to supine. Pt required TOTAL A for her socks and CGA for sup<>sit. Pt would benefit from connie bathing/dressing techniques to assist in limiting her R UE movement to reduce pain, if she is able to tolerate therapy. At this time, pt will need significant assistance on d/c. OT recommends SNF to address deficits and promote return toward PLOF. Goals Self-Feeding Goal Independent Grooming Goal Independent Dressing Goal Independent,Paper Bag Maker,Sock Aid Toileting Goal Independent Bathing Goal Independent Toilet Transfer Goal Independent Shower Transfer Goal Independent Days to Meet Goals 20 Frequency of Treatment Other frequency 5x/wk Treatment Plan OT Treatment Plan ADL Training,Functional Mobility,Therapeutic Exercises, Patient/Family Education,Discharge Planning Discharge Recommendations OT Discharge SNF Rehab Recommendations Transportation Needs Wheelchair/Cabulance,Stretcher/Ambulance at Discharge
[2025-03-21] MEDS: MORPHINE 2 MG/ML INJ 4 MG IV ×4 (15:33→22:30)
[2025-03-21] MEDS: MORPHINE 4 MG/ML INJ IV (18:24)
[2025-03-21 19:50] VITALS: BP 126/67; PULSE 71; RESP 15; TEMP 36.3; O2SAT 92
[2025-03-21] MEDS: PRAMIPEXOLE 0.25 MG TABLET 0.125 MG PO (20:14)
[2025-03-21] MEDS: REMOVE LIDOCAINE PATCH 1 EACH TOP (20:23)
[2025-03-22 00:01] VITALS: BP 124/69; PULSE 74; RESP 16; TEMP 36.4; O2SAT 94
[2025-03-22] MEDS: ACETAMINOPHEN 325 MG TABLET 650 MG PO ×4 (00:38→21:08)
[2025-03-22] MEDS: MORPHINE 2 MG/ML INJ 4 MG IV ×4 (00:39→08:48)
[2025-03-22] MEDS: KETOROLAC 30 MG/ML VIAL 15 MG IV ×4 (02:55→21:09)
--- NOTE | 2025-03-22 07:24 | P.PN_ITS ---
Subjective Subjective Interval history: Summary: 69-year-old female with longstanding history of chronic pain, history of opioid use disorder on chronic Subutex and now sublocade treatment, history of chronic pancreatitis resulting in severe protein calorie malnutrition for which a PEG tube was placed and she now receives enteral feeds, tobacco dependence, depression, chronic neck and back pain secondary to failed spinal fusion, history of alcohol dependence in remission since 2017, and tobacco dependence who was admitted yesterday after to ED visits in 24 hours due to acute on chronic back pain and inability to care for herself at home 03/20: Overnight, patient was given a dose of morphine which she reported was not effective as well as IV fentanyl q.3h as needed. She received 1 dose and reported that it ?only takes the edge off?. She refused to work with physical therapy today as she stated she had been ?suffering for the last 5 hours?. Physical therapy attempted to see her at noon. Care management met with her today and patient felt that if her pain could be managed she could return home with home health but otherwise she would be receptive to group home facility placement. She tells me that she was able to get some sleep with the IV fentanyl overnight, but feels that she suffered all day. When I came by several times throughout the day today, she was notably sleeping. Nurse reports she was able to get up to the bathroom independently and was also able to toilet herself independently. Nurse also reported that her pain has been reasonably well controlled through the day. Now, the patient is quite tearful and is asking for IV fentanyl. She states she is unable to perform her tube feeds because she can not use the syringe to push the tube feed into her PEG tube. She has not active to continuous feeds or nocturnal feeds. She states if she goes home and is unable to perform her tube feeds she will simply starve to ?. When asked why she would not consider going to nocturnal feeds or continuous feeds, she states that she forgot about the tubing connected when she tried nocturnal feeds and it was disconnected and created a mess that she had to clean up. She states if she went to a continuous feeding system she does not feel she could carry the bag around on shoulder. 03/21: Ongoing pain complaints, IV morphine given. MRI of right shoulder obtained. Mostly tender in the medial aspect of the right scapula. S: Ongoing pain just medial to the right scapula. This increases with any movement of her right arm or palpation. This is prohibiting her from using her equipment to self administer tube feeds, and she lives alone. Imaging as noted below does not show any acute issues that might respond to acute treatment. She was being evaluated for group home facility. O: Cachectic, anxious. Alert and oriented. Fluent speech. Lungs are clear, normal rate and effort. Heart is regular, no murmur gallop or rub. Abdomen is soft, non distended. Extremities are free of edema. Imaging: Shoulder MRI: 1. Severely degraded exam secondary to motion artifact. 2. Low-grade interstitial tear of the supraspinatus at the footprint. No significant glenohumeral joint effusion or suspicious marrow replacing process to suggest underlying osteomyelitis or septic arthritis. 3. Degraded assessment for fracture, recommend correlation with left shoulder radiographs to evaluate for underlying osseous abnormality. Chest x-ray: No acute cardiopulmonary abnormality is seen. Thoracic spine CT: No acute abnormality is seen. Remote, stable anterior wedge deformities are seen. Extensive postoperative hardware can be seen. Additional findings: Centrilobular emphysematous changes Biliary gas, as before Cervical spine CT: No displaced fracture or traumatic subluxation. Lumbar spine CT: No acute abnormality is seen. Extensive postoperative and degenerative changes are seen. There is a moderate amount of stool seen within the colon. Please correlate with an underlying history of constipation. A/P: 1. Acute on chronic back pain, active. This continues to appear muscular in nature. This has been activity limiting and prohibits her from taking care of herself by administering her tube feeds. This is not really improved over the last 2 days with IV pain medications and M*Modal management. 2. Chronic opioid use disorder/chronic pain, active. Holding her usual dose of Subutex. She is followed by [facility] in [place] 3. Chronic protein calorie malnutrition, active. She reports previously her weight was down to 80 lb and is now 102 lb. BMI is 19.9. She is back on tube feeds given via bolus. 4. Tobacco dependence, active. Nicotine patch as needed PLAN: -Hydromorphone IV to see if this improves her cycle of pain. Continue with low- dose Duragesic patch, consider increasing strength. Continue intermittent Toradol and lidocaine patch. -discharge planning. Possible SNF for ADL support, pain control, and tube feeding support. 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, thoracic region Dorsalgia Cachexia Chronic back pain Anxiety Fibromyalgia History of anemia History of chronic pain Tobacco abuse History of alcohol abuse Major depressive disorder, recurrent episode, in partial remission with anxious distress Surgical History History of hysterectomy History of spinal fusion History of cholecystectomy Previous back surgery Family History Father Cancer Grandmother Cancer Social History household members: family Smoking Status: Current every day smoker alcohol intake: former Assessment & Plan Time-Based Coding :: [TOTAL MINUTES] spent with patient and on the chart (including review of chart, obtaining history, exam, reviewing outside data, placing orders, documenting exam and treatment plan, and counseling patient) on [DATE].
[2025-03-22] MEDS: LIDOCAINE 5% PATCH 1 EACH TOP (08:48)
[2025-03-22] MEDS: NICOTINE 14 PATCH 14 MG TOP (08:48)
[2025-03-22] MEDS: ENOXAPARIN 40 MG/0.4 ML SYRINGE SUBCUT (08:48)
[2025-03-22] MEDS: PANTOPRAZOLE DR 40 MG TABLET PO (08:48)
[2025-03-22] MEDS: [UNRECOGNIZED DRUG - MIXTURE] 1 EACH TUBE ×3 (08:50→17:05)
[2025-03-22] MEDS: SODIUM CHLORIDE 0.9% FLUSH 10 ML IV ×2 (10:04→21:08)
--- NOTE | 2025-03-22 10:35 | PT.IIE ---
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, thoracic region Tobacco abuse Physical Therapy Inpatient Evaluation/Re-Eval M1 PT/OT-IP Prior Functional Status Start: 03/22/25 12:03 Freq: NEEDED Status: Active Protocol: Document 03/22/25 10:35 AB (Rec: 03/22/25 12:35 AB [id number]) Medical Review Prior Functional Status Medical History Yes Reviewed Communication Pt is able to make her needs known Mobility and Gait pt stated that she was independent with all mobilities and ambulation without AD Activities of Daily per OT note: Pt reports was able to perform all her Living and IADL's BADLs and light housework prior to recent onset of L upper shoulder and back pain. Pts sister assist with grocery shopping. Pt was I with performing her tube feedings prior as well. Social History Household Members family Living Arrangements Apartment/Condo Number of Floors ( One Floor Floors) Number of Stairs To pt lives on the first floor apartment Enter/Railing? Home Environment Standard Height Toilet,Tub/Shower Home Equipment Straight Cane,Shower Seat with Backrest,Hand Held Shower,Grab Bars Near Toilet Additional Social pt stated that she lives with her sister but sister is History Comment usually not home and will not be able to assist her M2 PT-IP Current Condition Start: 03/22/25 12:03 Freq: NEEDED Status: Active Protocol: Document 03/22/25 10:35 AB (Rec: 03/22/25 12:35 AB [id number]) Physical Therapy Current Condition Current Condition Evaluation Date 03/22/25 Treatment Diagnosis cervical pain; difficulty in walking Onset Date 03/21/25 M3 PT-IP Subjective Start: 03/22/25 12:03 Freq: NEEDED Status: Active Protocol: Document 03/22/25 10:35 AB (Rec: 03/22/25 12:35 AB [id number]) Subjective Physical Therapy Visit Type Type Initial Evaluation Visit Start Time 10:35 Visit Stop Time 10:55 Number of REFRIGERATION TECHNICIAN Visits 0 Physical Therapy Visit Comments Patient Comments c/o increase R shoulder pain and pt asking for her pain meds Therapy Pain Assessment Pain When Pain Assessed At Rest Pain Present Pain Present Pain Reported Location Right Shoulder Intensity 10 Scale Used Numeric (0 - 10) Pain Behaviors Guarding,Holding Area Pain Management Apply Heat,Distraction,Modification of Treatment,Re- Techniques positioning,Timing of Activity with Medications M4 PT-IP Mobility and Gait Start: 03/22/25 12:03 Freq: NEEDED Status: Active Protocol: Document 03/22/25 10:35 AB (Rec: 03/22/25 12:35 [id number]) PT-Bed Mobility Assessment Supine to Sit Supine to Sit Maximum Assistance,Head of Bed Elevated Sit to Supine Sit to Supine Standby Assistance,1 Person Assistance,Head of Bed Elevated PT-Transfer Assessment Sit to and From Stand Sit to and from Standby Assistance,1 Person Assistance,Use of Upper Stand Extremities Equipment Transfer Assistive None Device Orthotic/Prosthetic No Devices or Brace: Transfers Transfer Destination Bed Transfer Technique ambulated Transfer Ability Level of Assist Standby Assistance,1 Person Assistance,Use of Upper Extremities Comments Mobility Comments checked on pt and pt using the toilet. able to get out from the toilet SBA and ambulated towards the sink without AD SBA. presents with slight antalgic gait but without AD. able to stand by the sink SBA while completing handwashing. pt ambulated to the bed without AD SBA. sit to supine SBA. obtained PLOF and home set up. instructed pt to sit up on EOB and completed max A with HOB elevated. pt with chronic back pain and with h/o back surgeries from upper back down to low back. pt c/ o R midback pain to R shoulder. pt presents with R traps tightness. pt with forward head /shoulder posture . per hospitalist's order: traps stretching/rhomboid strain. initiated traps MFR/stretching but pt unable to tolerate and focus on pain meds. stated that pain is more after stretching initiated and now she will need more pain meds per pt. educated pt on correcting forward head/shoulder position but pt not receptive, stated that she can only move her head/upper back much. pt wants to just go back to bed. SBA for sit to supine. positioned in bed. call light and table next to pt. informed case resource manager regarding pt's mobility and c/o pain affecting PT participation. Gait Assessment Gait Gait Assistance Standby Assistance Required: Distance (Feet) 20 Able to Maintain Yes Weight Bearing Status During Gait Assistive Devices Assistive Device None Orthotic/Prosthetic No Devices or Brace: Gait Deviations General Gait Pattern Antalgic,Decreased Stride Length,Decreased Feet Clearance Factors Limiting Gait Function Factors Limiting Decreased Activity Tolerance,Decreased Strength,Limited Gait Function Range of Motion,Pain,Poor Balance,Poor Safety Awareness PT-Balance Assessment Sitting Balance and Reactions Static Sitting Normal Balance Ability Dynamic Sitting Good Balance Ability Standing Balance and Reactions Static Standing Good Balance Ability Dynamic Standing Good Balance Ability Device Used without AD M5 PT-IP Objective Assessments Start: 03/22/25 12:03 Freq: NEEDED Status: Active Protocol: Document 03/22/25 10:35 AB (Rec: 03/22/25 12:35 AB [id number]) Orientation Orientation/Cognition Level of Alertness Alert Orientation Age,Place,Situation Safety Awareness Decreased Safety Awareness Memory Description No Deficits Noted Gross Range of Motion Lower Extremity ROM Assessment Within Functional Limits Strength Upper Extremity Strength Assessment Within Functional Limits Muscle Tone Muscle Tone WNL Yes M6 PT-IP Treatment Start: 03/22/25 12:03 Freq: NEEDED Status: Active Protocol: Document 03/22/25 10:35 AB (Rec: 03/22/25 12:35 AB [id number]) Physical Therapy Treatment Education Education Provided Safety M7 PT-IP Assessment and Plan Start: 03/22/25 12:03 Freq: NEEDED Status: Active Protocol: Document 03/22/25 10:35 AB (Rec: 03/22/25 12:35 AB [id number]) PT Summary Assessment and Plan Potential Rehabilitation Fair Potential Status of Condition Evolving at Evaluation Summary Impairments Pain,ROM,Strength,Balance,Coordination,Sensation, Cognition,Bed Mobility,Transfers,Gait,Activity Tolerance Assessment Summary pt is a 69 y/o F who his admitted for cervical pain. pt with chronic back pain with h/o back surgeries. pt requiring SBA for transfers and ambulation without AD. pt with c/o increase R upper back to R shoulder pain affecting activity tolerance and participation. Pt is focus on getting her pain meds. pt stated that the doctor changed her pain medication today. will assess how pt will do next tx session with the medication adjustment. Goals Bed Mobility Goal Independent Transfer Goal Independent Gait Goal Independent Gait Distance 150 Days to Meet Goals 10 Frequency of Treatment Frequency Of Once a Day Treatment Treatment Plan Physical Therapy Bed Mobility Training,Transfer Training,Gait Training, Treatment Plan Therapeutic Exercise,Balance Retraining,Discharge Planning,Hot or Cold Pack,Neuromuscular Re-ed, Coordination Retraining,Manual Therapy Precautions Cervical Spine Log Roll Precautions Recommendations To Nursing Amount of Assist 1 Person Assist Needed Discharge Recommendations PT Discharge Home with Assistance,Home Health Recommendations Transportation Needs Private Vehicle,Wheelchair/Cabulance at Discharge - PT assist 1
--- NOTE | 2025-03-22 10:37 | DIET.PN1 ---
Dietary Progress Note Assessment: RD f/u Met with pt at bedside, reports tolerating feeds so far. Noted per EMR that pt declined the 8pm feeding last night. Discussed the tube feed schedule with pt and asked if she wanted any times of the feeds to be changed for comfort/based on home schedule. Pt declines, reporting that those times are okay. Tolerating some of diet. Encouraging calorie dense drinks like Ensure as tolerated. Per FAN INSTALLER in rounds, awaiting to see if SNF can accept pt. Ht: 152.4 cm Wt: 46.5 kg BMI: 20.0 Last BM: 03/17/25 (03/19/25 22:07) MNA: 7 Ollie Score: 20 Diet: 03/21/25 Breakfast General (Regular) Diet Diet Modifications: Food Texture: Level 7 - Regular Liquid Consistency: Level 0 - Thin Tube Feeding Diet Diet Modifications: see comment on free water flush TF Supplement type: Pivot 1.5 tonja TF mode of delivery: Bolus Starting flow rate mL/hr: 237 Flow rate goal mL/hr: 237 Titration Schedule to reach Goal Rate: 1 can (237mL) 4x/day: 0800, 1200, 1600, 2000 Max total daily volume in mL: 1,500 Free fluid: 60 Free Water Frequency: Q6H Comment: *Free water frequency: Flush w/ free water 60 mL before & after each bolus Nutrition Percent Meal Consumed 25% 03/21/25 18:37 Percent Meal Consumed 120 ml pivot supp 03/20/25 17:49 Percent Meal Consumed 25% 03/20/25 15:36 Labs: RBC 4.30 X10^6/uL (4.0-5.2) 03/21/25 05:57 Hgb 14.9 g/dL (12.0-16.0) 03/21/25 05:57 Hct 42.5 % (36-46) 03/21/25 05:57 Creatinine 0.52 mg/dL (0.52-1.04) 03/21/25 05:57 Monitoring/Evaluations: following PO intakes and TF intake Electronically Signed by: Yoli Santacruz 03/22/25 10:37 Clinical Dietitian [address] [id number]
[2025-03-22 12:00] VITALS: BP 125/60; PULSE 66; RESP 18; TEMP 36.3; O2SAT 97
--- NOTE | 2025-03-22 13:05 | OT.IP.TRT ---
Current Diagnoses Dorsalgia, unspecified (03/21/25) Occupational Therapy Treatment Note M2 OT-IP Current Condition Start: 03/21/25 14:26 Freq: Status: Active Protocol: Document 03/21/25 14:26 ROD (Rec: 03/21/25 14:41 [email or web address] [id number]) Occupational Therapy Current Condition Current Condition Evaluation Date 03/21/25 Treatment Diagnosis Intractable cervical neuropathic pain, decreased self care Diagnosis Onset Date 03/19/25 Post Operative Precautions Other Precautions chronic neck and back pain has NG tube for tube feedings M3 OT- IP Subjective and Pain Start: 03/21/25 14:26 Freq: Status: Active Protocol: Document 03/22/25 13:20 [facility] (Rec: 03/22/25 13:46 [facility] Desktop) OT- Subjective Occupational Therapy Visit Type Type Treatment Note Visit Start Time 13:05 Visit Stop Time 13:19 Occupational Therapy Visit Comments Patient Comments Pt is too much pain to get up but agreed to talk about equipment needs. Patient/Caregiver TO go to SNF prior to going home. Goals OT Pain Assessment Pain When Pain Assessed At Rest Pain Present Pain Present Pain Reported Location Right Shoulder Intensity 8 Scale Used Numeric (0 - 10) M4 OT- IP ADL's Start: 03/21/25 14:26 Freq: Status: Active Protocol: Document 03/21/25 14:26 ROD (Rec: 03/21/25 14:41 ROD [id number]) OT [id number] General Evaluation Self-Feeding Ability Total Assistance Comments OT Self-Feeding Pt has NG tube. Pt was I with feeds prior to admission. Comments The unit secretary, Yoli, consulted with OT prior to eval to assess pt's I with feedings together. Yoli, present during eval for feeding assessment. Yoli recommends getting a referral for a gravity fed feeding bag when d /c home as pt is currently requires TOTAL A for effective feeding. OT educated on alternative positions to allow painful R UE to assist while performing feeding, however, none of the positions were comfortable enough to be effective. OT ADL-Grooming Comments OT Grooming Comments not observed due to p! OT ADL-Oral Care Comments Oral Care Comments not observed due to p! OT ADL-Dressing General Eval Lower Body Dressing Total Assistance Ability Areas Needing Socks Assistance OT ADL-Toileting Comments OT Toileting Not performed. Comments OT ADL-Bathing Comments OT Bathing Comments Not performed. Sponge bath may be most appropriate at this time. M5 OT- IP IADL's Start: 03/21/25 14:26 Freq: Status: Active Protocol: Document 03/21/25 14:26 [email or web address] (Rec: 03/21/25 14:41 [email or web address] [id number]) OT-Instrumental Activities of Daily Living Deficits IADL Deficits Deficits Identified Home Safety Awareness Awareness of Need Good Awareness for Assistance at Home Home Safety Comments Pt reports that she does not believe she will be able to take care of herself when she goes home due to p! Medication Management Medication Pt was performing this task prior to admission, pt may Management Comments need assist at dc Money Management Money Management No Deficits Identified Meal Preparation Meal Preparation at this time, pt would need assist on dc Comments Cdl Program Coordinator Cdl Program Coordinator at this time, pt would need assist on dc Comments Driving Driving Comments at this time, pt would need assist on dc M6 OT- IP Functional Cognition Start: 03/21/25 14:26 Freq: Status: Active Protocol: Document 03/22/25 13:20 [facility] (Rec: 03/22/25 13:46 [facility] Desktop) Cognitive Factors Limiting Selfcare Function Cognitive Ability Level of Alertness Alert Patient Orientation Name,Age,Place,Situation Attention Span Capable of Focused Attention,Capable of Sustained Ability Attention Ability to Follow Able to Follow One Step Commands Commands Cognitive Comments Cognitive Assessment Pt very focused on her pain but able to talk about Comments difficulties that pt will have at home and able to make out a list and started to talk about equipment needs. Pt will need assist with IADL needs and also assist for peg tube feedings. Pt will benefit from SNF to help work towards strategies for ADL and IADL needs. However due to pt's chronic back pain and now right shoulder pain pt will benefit from 24/ available assist after if not able to go to SNF. M7 OT- IP Mobility and Balance Start: 03/21/25 14:26 Freq: Status: Active Protocol: Document 03/21/25 14:26 ROD (Rec: 03/21/25 14:41 [email or web address] [id number]) OT- Bed Mobility Assessment Supine to Sit Supine to Sit Assist Contact Guard Assistance,1 Person Assistance,Head of Bed Elevated,Bedrails Sit to Supine Sit to Supine Assist Contact Guard Assistance,1 Person Assistance,Head of Bed Elevated,Bedrails OT-Transfer Assessment Comments Mobility Comments Pt has a difficult time focusing on anything other than her R shoulder/neck/back pain. Pt initially agreed to get up and perform sink side ADLs, when pt got into a sitting position she became very fixated on her R UE pain and how to improve it. Pt fidgeted and moved her UE in all different positions, none of them provided relief. She then initiated sit>supine and was unable to participate further. OT- Balance Assessment Sitting Balance and Reactions Static Sitting Fair Balance Ability Dynamic Sitting Fair Balance Ability M8 OT- IP Objective Assessments Start: 03/21/25 14:26 Freq: Status: Active Protocol: Document 03/21/25 14:26 ROD (Rec: 03/21/25 14:41 ROD [id number]) OT Gross Range of Motion Upper Extremity Range of Motion Assessment Right Impaired ROM Impairments L UE WFL, R UE not assessed due to pts p! and guarding OT Strength Hand Wwe Wrestler Strength Hand Dominance Right Comments Strength Comments Unable to formally assess pts strength on R due to p! and on L due to pt's agitation and fixation on R UE. OT Sensation Assessment Edema Edema Absent M9 OT- IP Assessment and Plan Start: 03/21/25 14:26 Freq: Status: Active Protocol: Document 03/22/25 13:20 [facility] (Rec: 03/22/25 13:46 [facility] Desktop) OT Summary Assessment and Plan Potential Rehabilitation Fair Potential Analytic Complexity High at Evaluation Summary OT Impairments Pain,Range of Motion,Strength,Functional Mobility, Grooming,Dressing,Toileting,Bathing,Toilet Transfers, Shower Transfers,Activity Tolerance Progress Towards Slow Progress due to Pain,Slow Progress due to Medical Goals Issues Assessment Summary Pt a bit emotional as realizes that she does not have assists to help her with some ADL and all IADL needs at home. Pt wanting to go to SNF to learn strategies and for pain control, but ultimately is aware that even after SNF, will need assist especially for IADL needs and tube feeding. Goals Self-Feeding Goal Independent Grooming Goal Independent Dressing Goal Independent,Scenario Writer,Sock Aid Toileting Goal Independent Bathing Goal Independent Toilet Transfer Goal Independent Shower Transfer Goal Independent Days to Meet Goals 19 Frequency of Treatment Other frequency 5x/wk Treatment Plan OT Treatment Plan ADL Training,Functional Mobility,Therapeutic Exercises, Patient/Family Education,Discharge Planning Discharge Recommendations OT Discharge SNF Rehab Recommendations Transportation Needs Wheelchair/Cabulance at Discharge
[2025-03-22] MEDS: fentaNYL 12 MCG/PATCH TOP (17:28)
[2025-03-22] MEDS: PRAMIPEXOLE 0.25 MG TABLET 0.125 MG PO (21:06)
[2025-03-22] MEDS: REMOVE LIDOCAINE PATCH 1 EACH TOP (21:07)
[2025-03-22 23:25] VITALS: BP 138/85; PULSE 77; RESP 18; TEMP 36.3; O2SAT 95
[2025-03-23] MEDS: KETOROLAC 30 MG/ML VIAL 15 MG IV ×4 (02:53→21:35)
[2025-03-23] MEDS: ACETAMINOPHEN 325 MG TABLET 650 MG PO ×3 (06:28→21:33)
[2025-03-23 07:06] LABS: Blood Urea Nitrogen 19 mg/dL (7-17); Calcium 10.0 mg/dL (8.4-10.2); Carbon Dioxide 21 mmol/L (22-32); Chloride 108 mmol/L (98-107); Estimated Glomerular Filt Rate > 60 mL/min (>60); Glucose 109 mg/dL (70-99); Potassium 4.2 mmol/L (3.4-5.1); Sodium 136 mmol/L (137-145)
[2025-03-23 07:13] LABS: HEMOLYSIS 58 (0-50)
--- NOTE | 2025-03-23 08:11 | PM.PN.1 ---
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 She received 1 dose and reported that it ?only takes the edge off?. She refused to work with physical therapy today as she stated she had been ?suffering for the last 5 hours?. Physical therapy attempted to see her at noon. Care management met with her today and patient felt that if her pain could be managed she could return home with home health but otherwise she would be receptive to nursing home facility placement. She tells me that she was able to get some sleep with the IV fentanyl overnight, but feels that she suffered all day. When I came by several times throughout the day today, she was notably sleeping. Nurse reports she was able to get up to the bathroom independently and was also able to toilet herself independently. Nurse also reported that her pain has been reasonably well controlled through the day. Now, the patient is quite tearful and is asking for IV fentanyl. She states she is unable to perform her tube feeds because she can not use the syringe to push the tube feed into her PEG tube. She has not active to continuous feeds or nocturnal feeds. She states if she goes home and is unable to perform her tube feeds she will simply starve to ?. When asked why she would not consider going to nocturnal feeds or continuous feeds, she states that she forgot about the tubing connected when she tried nocturnal feeds and it was disconnected and created a mess that she had to clean up. She states if she went to a continuous feeding system she does not feel she could carry the bag around on shoulder. 03/21: Ongoing pain complaints, IV morphine given. MRI of right shoulder obtained. Mostly tender in the medial aspect of the right scapula. S: Ongoing pain just medial to the right scapula. This increases with any movement of her right arm or palpation. This is prohibiting her from using her equipment to self administer tube feeds, and she lives alone. Imaging as noted below does not show any acute issues that might respond to acute treatment. She was being evaluated for nursing home facility. 03/23: Her complaints of severe pain continue. She is intolerant of many pain adjuncts so the fentanyl patch will be increased to 25 mcg. Her tenderness is centered over the right scapula. She points to both the thoracic spine and the right scapular area as the center of her pain. She is also on oxycodone and Dilaudid as needed. Imaging is reviewed again. On the CT thoracic spine there is 1 area at approximately T4-T5 where the degeneration appears to be particularly severe. There is also an area at that approximate level where the spinal fixation screw angles through the vertebral body and into the joint space. I discussed with her that those abnormalities could certainly account for her severe pain. We will check an ESR and CRP to rule out any signs of infection that are not showing up on the normal white blood count. She could certainly have some occult small fracture in the thoracic spine along with the possible hardware induced areas of pain. Her tube feeding will be changed over to continuous as she remains unable to give herself the bolus. This is a very challenging case. O: Cachectic, anxious, pacing in her room. Alert and oriented. Fluent speech. Lungs are clear, normal rate and effort. Heart is regular, no murmur gallop or rub. Abdomen is soft, non distended. Extremities are free of edema. The right shoulder range of motion is restricted. There is no significant right scapular tenderness or thoracic spine tenderness. Imaging: Shoulder MRI: 1. Severely degraded exam secondary to motion artifact. 2. Low-grade interstitial tear of the supraspinatus at the footprint. No significant glenohumeral joint effusion or suspicious marrow replacing process to suggest underlying osteomyelitis or septic arthritis. 3. Degraded assessment for fracture, recommend correlation with left shoulder radiographs to evaluate for underlying osseous abnormality. Chest x-ray: No acute cardiopulmonary abnormality is seen. Thoracic spine CT: No acute abnormality is seen. Remote, stable anterior wedge deformities are seen. Extensive postoperative hardware can be seen. Additional findings: Centrilobular emphysematous changes Biliary gas, as before Cervical spine CT: No displaced fracture or traumatic subluxation. Lumbar spine CT: No acute abnormality is seen. Extensive postoperative and degenerative changes are seen. There is a moderate amount of stool seen within the colon. Please correlate with an underlying history of constipation. A/P: 1. Acute on chronic upper back pain, active. This continues to appear muscular in nature. This has been activity limiting and prohibits her from taking care of herself by administering her tube feeds. This is not really improved over the last 3 days with IV pain medications and the use of adjunctive pain med management. ESR and CRP pending. 2. Chronic opioid use disorder/chronic pain, active. Holding her usual dose of Subutex. She is followed by a pain clinic in [place] 3. Chronic protein calorie malnutrition, active. She reports previously her weight was down to 80 lb and is now 102 lb. BMI is 19.9. She is back on tube feeds given via bolus. This will be transitioned to continuous feed at home. 4. Tobacco dependence, active. Nicotine patch as needed PLAN: -Hydromorphone IV, oxycodone by mouth, Duragesic patch. Increase Duragesic patch to 25 mcg. Continue intermittent Toradol and lidocaine patch. -discharge planning. Home on continuous tube feeding support. -rule out any other occult signs of spinal/disc infection with ESR/CRP. -visible on CT thoracic spine are 2 areas of notable abnormality including approximate T4-T5 severe loss of normal disc joint space and 1 of the fixation screws angling through the vertebral body and into a vertebral disc space at that same approximate level. Code status Full Prophylaxis On Lovenox Exam Vital Signs (past 8 hours): Oxygen Delivery Method Room Air Oxygen Flow Rate 0 Objective Labs 03/21/25 05:57 03/23/25 06:26 Labs: Laboratory Results - last 24 hr 03/23/25 06:26 Sodium 136 L Potassium 4.2 Chloride 108 H Carbon Dioxide 21 L BUN 19 H Creatinine 0.55 Estimated GFR > 60 BUN/Creatinine Ratio 34.5 H Glucose 109 H Calcium 10.0 PFSH Medical History 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, thoracic region Dorsalgia Cachexia Chronic back pain Anxiety Fibromyalgia History of anemia History of chronic pain Tobacco abuse History of alcohol abuse Major depressive disorder, recurrent episode, in partial remission with anxious distress Surgical History History of hysterectomy History of spinal fusion History of cholecystectomy Previous back surgery Family History Father Cancer Grandmother Cancer Social History household members: family Smoking Status: Current every day smoker alcohol intake: former Assessment & Plan Time-Based Coding :: [TOTAL MINUTES] spent with patient and on the chart (including review of chart, obtaining history, exam, reviewing outside data, placing orders, documenting exam and treatment plan, and counseling patient) on [DATE].
[2025-03-23 08:25] VITALS: BP 136/84; PULSE 74; RESP 18; TEMP 36.7; O2SAT 92
[2025-03-23] MEDS: ENOXAPARIN 40 MG/0.4 ML SYRINGE SUBCUT (09:18)
[2025-03-23] MEDS: NICOTINE 14 PATCH 14 MG TOP (09:19)
[2025-03-23] MEDS: LIDOCAINE 5% PATCH 1 EACH TOP (09:20)
[2025-03-23] MEDS: PANTOPRAZOLE DR 40 MG TABLET PO (09:20)
[2025-03-23] MEDS: SODIUM CHLORIDE 0.9% FLUSH 10 ML IV ×2 (09:21→21:36)
--- NOTE | 2025-03-23 11:17 | PC.NURSE ---
11:17: Pt opened her door crying, asking for RN. RN came to bedside. Pt requesting more pain medication and said I can't take much more of this. Pt goes from lying in bed crying, to sitting up, to pacing, and back to bed. Pt requested to speak with doctor about increasing her pain medications. RN administered available PRN oxycodone and notified Dr. Corona that pt is requesting to speak with him, and updated pt on this information. Pt wants her door to remain open.
--- NOTE | 2025-03-23 11:40 | PT.IPTN ---
Current Diagnoses Dorsalgia, unspecified (03/21/25) Physical Therapy Treatment Note M2 PT-IP Current Condition Start: 03/22/25 12:03 Freq: NEEDED Status: Active Protocol: Document 03/22/25 10:35 AB (Rec: 03/22/25 12:35 AB [id number]) Physical Therapy Current Condition Current Condition Evaluation Date 03/22/25 Treatment Diagnosis cervical pain; difficulty in walking Onset Date 03/21/25 M3 PT-IP Subjective Start: 03/22/25 12:03 Freq: NEEDED Status: Active Protocol: Document 03/23/25 11:40 AB (Rec: 03/23/25 12:29 AB [id number]) Subjective Physical Therapy Visit Type Type Treatment Note Visit Start Time 11:40 Visit Stop Time 11:50 Number of [employer] Visits 0 Physical Therapy Visit Comments Patient Comments c/o increase pain and wants pain medications increased Therapy Pain Assessment Pain When Pain Assessed At Rest Pain Present Pain Present Pain Reported Location Right Shoulder Intensity 10 Pain Behaviors Facial Grimacing,Guarding,Holding Area,Restlessness, Wincing Pain Management Distraction,Modification of Treatment,Re-positioning, Techniques Timing of Activity with Medications M4 PT-IP Mobility and Gait Start: 03/22/25 12:03 Freq: NEEDED Status: Active Protocol: Document 03/23/25 11:40 AB (Rec: 03/23/25 12:29 AB [id number]) PT-Bed Mobility Assessment Rolling Type of Rolling Log Rolling Level of Assist Standby Assistance Supine to Sit Supine to Sit Standby Assistance Sit to Supine Sit to Supine Standby Assistance PT-Transfer Assessment Sit to and From Stand Sit to and from Standby Assistance Stand Equipment Transfer Assistive None Device Orthotic/Prosthetic No Devices or Brace: Transfers Transfer Destination Bed,Chair Transfer Technique ambulated Transfer Ability Level of Assist Standby Assistance Comments Mobility Comments pt seen up and walking in her room and looking for the nurse for her pain meds. pt continues to c/o increase R upper back pain. nurse provided pt with pain meds and ativan. pt continues to complain of pain but again mobilizing in room without AD SBA for safety. instructed pt to do bed mobility and able to complete SBA log roll. needed increase time to complete due to c /o increase pain. pt with minimal participation due to c/o pain and stated to let the doctor know to increase her pain meds so that she can do more PT. Nurse informed PT that pt already is max out with pain meds. also confirmed that pt is moving in room by herself. informed pt that PT will be d/c'd and pt understood. nurse, hospitalist and returned case inspector also informed regarding d/c from PT. Gait Assessment Gait Gait Assistance Standby Assistance Required: Distance (Feet) 20 Able to Maintain Yes Weight Bearing Status During Gait Assistive Devices Assistive Device None Orthotic/Prosthetic No Devices or Brace: Factors Limiting Gait Function Factors Limiting Pain Gait Function M5 PT-IP Objective Assessments Start: 03/22/25 12:03 Freq: NEEDED Status: Active Protocol: Document 03/22/25 10:35 AB (Rec: 03/22/25 12:35 AB [id number]) Orientation Orientation/Cognition Level of Alertness Alert Orientation Age,Place,Situation Safety Awareness Decreased Safety Awareness Memory Description No Deficits Noted Gross Range of Motion Lower Extremity ROM Assessment Within Functional Limits Strength Upper Extremity Strength Assessment Within Functional Limits Muscle Tone Muscle Tone WNL Yes M6 PT-IP Treatment Start: 03/22/25 12:03 Freq: NEEDED Status: Active Protocol: Document 03/23/25 11:40 AB (Rec: 03/23/25 12:29 AB [id number]) Physical Therapy Treatment Education Education Provided Safety M7 PT-IP Assessment and Plan Start: 03/22/25 12:03 Freq: NEEDED Status: Active Protocol: Document 03/23/25 11:40 AB (Rec: 03/23/25 12:29 AB [id number]) PT Summary Assessment and Plan Potential Rehabilitation Poor Potential Summary Impairments Pain,Cognition,Bed Mobility,Transfers,Gait,Activity Tolerance Progress Towards Slow Progress due to Pain Goals Assessment Summary pt is SBA with mobility without AD. SBA provided only for safety. pt continues to c/o increase pain affecting mobility and participation. PT limited due to pt's c/ o increase pain regardless of what modification or interventions provided. Will d/c PT. Frequency of Treatment Frequency Of Discharge Treatment Discharge Recommendations PT Discharge Home with Assistance Recommendations Transportation Needs Private Vehicle at Discharge - PT assist 1
[2025-03-23 12:00] VITALS: BP 152/77; PULSE 83; RESP 20; TEMP 36.1; O2SAT 98
--- NOTE | 2025-03-23 12:14 | CM.DPC ---
ROHANP Cont. Reviewed EMR and team rounds for pt's medical updates and plan. Long discussion during team rounds. Pt is now ambulatory, is able to get her self to the bathroom, however her shoulder is too painful to manage her current feeding pump. She does have a plan with Ortho for OP shoulder surgery, and is just working on increasing her weight. She is able to eat/drink by mouth as well. Her sister will not be available to provide for her cg needs involving the feeding pump when she returns home. Yoli, the [employer]earing [employer]er, called [facility] and a plan was made for their RN to meet pt at her home on Friday, 03/25 at noon to provide the teaching for the gravity hanging method of her formula feeds. Current plan is d/c home on Friday am, will need Medicaid Transportation set-up for her return home.
--- NOTE | 2025-03-23 12:39 | DIET.PN1 ---
Dietary Progress Note Assessment: f/u Per [employer]ATE [employer] OFFICER in rounds, unlikely pt will be approved for SNF. Pt in lots of pain upon f/u visit today and is tearful, informed pt of reaching out for setting up a teaching with RN. Pt responded at that she needs her surgery and can't go on like this. Discussed reaching out to her ortho office and finding out what weight patient needs to be in order to qualify for the surgery. Call placed to [facility] to change from bolus enteral feeds using syringe/plunger to gravity bolus enteral feeds. They scheduled a RN to come out to pts house at noon on 03/25. Informed [employer]ER. Ht: 152.4 cm Wt: 46.5 kg BMI: 20.0 Last BM: 03/17/25 (03/19/25 22:07) MNA: 7 Ollie Score: 18 Diet: 03/21/25 Breakfast General (Regular) Diet Diet Modifications: Food Texture: Level 7 - Regular Liquid Consistency: Level 0 - Thin Tube Feeding Diet Diet Modifications: see comment on free water flush TF Supplement type: Pivot 1.5 tonja TF mode of delivery: Bolus Starting flow rate mL/hr: 237 Flow rate goal mL/hr: 237 Titration Schedule to reach Goal Rate: 1 can (237mL) 4x/day: 0800, 1200, 1600, 2000 Max total daily volume in mL: 1,500 Free fluid: 60 Free Water Frequency: Q6H Comment: *Free water frequency: Flush w/ free water 60 mL before & after each bolus Nutrition Percent Meal Consumed 0% 03/22/25 18:00 Percent Meal Consumed 100% 03/22/25 13:00 Percent Meal Consumed 25% 03/21/25 18:37 Labs: RBC 4.30 X10^6/uL (4.0-5.2) 03/21/25 05:57 Hgb 14.9 g/dL (12.0-16.0) 03/21/25 05:57 Hct 42.5 % (36-46) 03/21/25 05:57 Creatinine 0.55 mg/dL (0.52-1.04) 03/23/25 06:26 Electronically Signed by: Yoli Santacruz 03/23/25 12:39 Clinical Dietitian [address] [id number]
[2025-03-23 18:00] VITALS: BP 147/85; PULSE 71; RESP 16; TEMP 36.3; O2SAT 96
[2025-03-23] MEDS: ONDANSETRON 4 MG ODT PO (18:33)
[2025-03-23] MEDS: PRAMIPEXOLE 0.25 MG TABLET 0.125 MG PO (21:34)
[2025-03-23] MEDS: REMOVE LIDOCAINE PATCH 1 EACH TOP (21:35)
[2025-03-24] VITALS: BP 133/79; PULSE 76; RESP 17; TEMP 35.7; O2SAT 95
--- NOTE | 2025-03-24 07:08 | PM.PN.1 ---
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 She received 1 dose and reported that it ?only takes the edge off?. She refused to work with physical therapy today as she stated she had been ?suffering for the last 5 hours?. Physical therapy attempted to see her at noon. Care management met with her today and patient felt that if her pain could be managed she could return home with home health but otherwise she would be receptive to correction facility placement. She tells me that she was able to get some sleep with the IV fentanyl overnight, but feels that she suffered all day. When I came by several times throughout the day today, she was notably sleeping. Nurse reports she was able to get up to the bathroom independently and was also able to toilet herself independently. Nurse also reported that her pain has been reasonably well controlled through the day. Now, the patient is quite tearful and is asking for IV fentanyl. She states she is unable to perform her tube feeds because she can not use the syringe to push the tube feed into her PEG tube. She has not active to continuous feeds or nocturnal feeds. She states if she goes home and is unable to perform her tube feeds she will simply starve to ?. When asked why she would not consider going to nocturnal feeds or continuous feeds, she states that she forgot about the tubing connected when she tried nocturnal feeds and it was disconnected and created a mess that she had to clean up. She states if she went to a continuous feeding system she does not feel she could carry the bag around on shoulder. 03/21: Ongoing pain complaints, IV morphine given. MRI of right shoulder obtained. Mostly tender in the medial aspect of the right scapula. S: Ongoing pain just medial to the right scapula. This increases with any movement of her right arm or palpation. This is prohibiting her from using her equipment to self administer tube feeds, and she lives alone. Imaging as noted below does not show any acute issues that might respond to acute treatment. She was being evaluated for correction facility. 03/23: Her complaints of severe pain continue. She is intolerant of many pain adjuncts so the fentanyl patch will be increased to 25 mcg. Her tenderness is centered over the right scapula. She points to both the thoracic spine and the right scapular area as the center of her pain. She is also on oxycodone and Dilaudid as needed. Imaging is reviewed again. On the CT thoracic spine there is 1 area at approximately T4-T5 where the degeneration appears to be particularly severe. There is also an area at that approximate level where the spinal fixation screw angles through the vertebral body and into the joint space. I discussed with her that those abnormalities could certainly account for her severe pain. We will check an ESR and CRP to rule out any signs of infection that are not showing up on the normal white blood count. She could certainly have some occult small fracture in the thoracic spine along with the possible hardware induced areas of pain. Her tube feeding will be changed over to continuous as she remains unable to give herself the bolus. This is a very challenging case. 03/24: This morning she seems to be more at ease, less pacing in the room, perhaps less pain on the higher dose of fentanyl. Unfortunately with her lack of significant body fat reserves she is not going to have good absorption of dermal fentanyl. Later in the morning she escalates her pain complaints again but in general my conclusion is that she is doing better today. The ESR was 1 and the CRP was 3. This essentially rules out diskitis/spinal infection. She mentions that the Marinol is helping her appetite. We discussed that her Suboxone has been prescribed by an addiction medicine specialist at a clinic in [place] where they also treat chronic pain. O: Cachectic, calmer, relaxing in bed. Alert and oriented. Fluent speech. Lungs are clear, normal rate and effort. Heart is regular, no murmur gallop or rub. Abdomen is soft, non distended. Extremities are free of edema. The right shoulder range of motion is restricted. There is no significant right scapular tenderness or thoracic spine tenderness. Imaging: Shoulder MRI: 1. Severely degraded exam secondary to motion artifact. 2. Low-grade interstitial tear of the supraspinatus at the footprint. No significant glenohumeral joint effusion or suspicious marrow replacing process to suggest underlying osteomyelitis or septic arthritis. 3. Degraded assessment for fracture, recommend correlation with left shoulder radiographs to evaluate for underlying osseous abnormality. Chest x-ray: No acute cardiopulmonary abnormality is seen. Thoracic spine CT: No acute abnormality is seen. Remote, stable anterior wedge deformities are seen. Extensive postoperative hardware can be seen. Additional findings: Centrilobular emphysematous changes Biliary gas, as before Cervical spine CT: No displaced fracture or traumatic subluxation. Lumbar spine CT: No acute abnormality is seen. Extensive postoperative and degenerative changes are seen. There is a moderate amount of stool seen within the colon. Please correlate with an underlying history of constipation. A/P: 1. Acute on chronic upper back pain, active. This continues to appear muscular in nature. This has been activity limiting and prohibits her from taking care of herself by administering her tube feeds. This has not substantially improved over the last 3 days with IV pain medications and the use of adjunctive pain med management. ESR and CRP are reassuring. 2. Chronic opioid use disorder/chronic pain, active. Holding her usual dose of Subutex. She is followed by a pain clinic in [place]. Using topical fentanyl, oral oxycodone and IV hydromorphone instead. 3. Chronic protein calorie malnutrition, active. She reports previously her weight was down to 80 lb and is now 102 lb. BMI is 19.9. She is back on tube feeds given via bolus. This will be transitioned to bolus enteral feeds via gravity using her home enteral formula. 4. Tobacco dependence, active. Nicotine patch as needed PLAN: -Hydromorphone IV, oxycodone by mouth, Duragesic patch. Increased Duragesic patch to 25 mcg. Continue intermittent Toradol and lidocaine patch. -discharge planning. Home on gravity enteral feeds tube feeding support. -ruled out any other occult signs of spinal/disc infection with ESR/CRP. -visible on CT thoracic spine are 2 areas of notable abnormality including approximate T4-T5 severe loss of normal disc joint space and 1 of the fixation screws angling through the vertebral body and into a vertebral disc space at that same approximate level. Disposition: Home tomorrow if pain levels become more manageable, may need to increase the topical fentanyl dose further. Code status Full Prophylaxis On Lovenox Exam Vital Signs (past 8 hours): - 03/24/25 00:00 Temperature 96.2 F L Pulse Rate 76 Respiratory Rate 17 Blood Pressure 133/79 Pulse Oximetry 95 Oxygen Flow Rate 0 Oxygen Delivery Method Room Air Oxygen Flow Rate 0 Objective Labs 03/21/25 05:57 03/23/25 06:26 Labs: Laboratory Results - last 24 hr 03/23/25 06:26 ESR 3 Sodium 136 L Potassium 4.2 Chloride 108 H Carbon Dioxide 21 L BUN 19 H Creatinine 0.55 Estimated GFR > 60 BUN/Creatinine Ratio 34.5 H Glucose 109 H Calcium 10.0 C-Reactive Protein 1.0 PFSH Medical History 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, thoracic region Dorsalgia Cachexia Chronic back pain Anxiety Fibromyalgia History of anemia History of chronic pain Tobacco abuse History of alcohol abuse Major depressive disorder, recurrent episode, in partial remission with anxious distress Surgical History History of hysterectomy History of spinal fusion History of cholecystectomy Previous back surgery Family History Father Cancer Grandmother Cancer Social History household members: family Smoking Status: Current every day smoker alcohol intake: former Assessment & Plan Time-Based Coding :: [TOTAL MINUTES] spent with patient and on the chart (including review of chart, obtaining history, exam, reviewing outside data, placing orders, documenting exam and treatment plan, and counseling patient) on [DATE].
[2025-03-24] MEDS: ENOXAPARIN 40 MG/0.4 ML SYRINGE SUBCUT (09:16)
[2025-03-24] MEDS: NICOTINE 14 PATCH 14 MG TOP (09:17)
[2025-03-24] MEDS: PANTOPRAZOLE DR 40 MG TABLET PO (09:17)
[2025-03-24] MEDS: LIDOCAINE 5% PATCH 1 EACH TOP (09:18)
[2025-03-24] MEDS: SODIUM CHLORIDE 0.9% FLUSH 10 ML IV ×3 (09:19→20:51)
[2025-03-24 12:00] VITALS: BP 127/68; PULSE 76; RESP 20; TEMP 36.3; O2SAT 92
--- NOTE | 2025-03-24 14:04 | DIET.PN1 ---
Addendum entered by Yoli Santacruz 03/24/25 15:23: Per review of PERSONAL FINANCIAL COUNSELOR note, RN will do bedside teach tomorrow for gravity bolus enteral feeds. Original Note: Dietary Progress Note Assessment: f/u Pt with PERSONAL FINANCIAL COUNSELOR at attempted visit. Spoke to RN, pt declining feeds d/t not feeling well/pain. Dependent on d/c plan, may need to re-schedule RN home infusion visit, discussed in rounds. Ht: 152.4 cm Wt: 46.5 kg BMI: 20.0 UBW: Last BM: 03/17/25 (03/19/25 22:07) MNA: 7 Ollie Score: 18 Diet: 03/21/25 Breakfast General (Regular) Diet Diet Modifications: Food Texture: Level 7 - Regular Liquid Consistency: Level 0 - Thin Tube Feeding Diet Diet Modifications: see comment on free water flush TF Supplement type: Pivot 1.5 tonja TF mode of delivery: Bolus Starting flow rate mL/hr: 237 Flow rate goal mL/hr: 237 Titration Schedule to reach Goal Rate: 1 can (237mL) 4x/day: 0800, 1200, 1600, 2000 Max total daily volume in mL: 1,500 Free fluid: 60 Free Water Frequency: Q6H Comment: *Free water frequency: Flush w/ free water 60 mL before & after each bolus Nutrition Percent Meal Consumed 0% 03/23/25 19:30 Percent Meal Consumed 50% 03/23/25 13:31 Percent Meal Consumed 0% 03/22/25 18:00 Labs: RBC 4.30 X10^6/uL (4.0-5.2) 03/21/25 05:57 Hgb 14.9 g/dL (12.0-16.0) 03/21/25 05:57 Hct 42.5 % (36-46) 03/21/25 05:57 Creatinine 0.55 mg/dL (0.52-1.04) 03/23/25 06:26 Electronically Signed by: Yoli Santacruz 03/24/25 14:04 Clinical Dietitian [address] [address]
--- NOTE | 2025-03-24 14:19 | CM.DPC ---
Addendum entered by TENA Roach 03/24/25 14:50: ADD: Return call from Hussain at [facility] and they will just do a bedside teach for pt on gravity feeds bedside tomorrow 03/25 at 1200 so that transport does not have to be scheduled around them at home. [facility] already updated Hospitalist on the verbage needed at discharge for [facility] to switch to gravity feeds. This will need to be faxed to [facility] from dc summary at [place]. Per [facility], they can accept and aware that plan is bedside teach for gravity feeds and they can accept pt as long as she can do her enteral feeds herself or has sister to help as they cannot go to the home every day. BF Original Note: DCP Cont: Per MD, pt's pain patch increased and seems to have helped some but unlikely pt will be ready for discharge before noon tomorrow. But maybe later Friday afternoon or Sat. [place] called Hussain at [facility] to see if other open times for RN teach other than currently held 1200 spot tomorrow Friday. Hussain will check with his team and call WASHINGTON back. W[place] completed the Medicaid Transport Request form but waiting to confirm [facility] teach time before faxing. Pt is ambulatory with her legs, just has significant pain in her shoulder/arm/neck so likely could go by Medicaid taxi, w/c van not necessarily needed. Met bedside with pt and discussed being closer to discharge and pt tearful and states I can't do anything, I will be all alone and not able to do anything for myself. Discussed that she has been ambulating independently in the room, is mobile, but that it will be more challenging only using one arm but not impossible to complete some of the needed ADLs. Discussed [facility] and pt agreeable to [facility] RN/OT but still was hopeful for SNF and discussed that her insurance did not feel she was skillable enough to pay for SNF at this time. Encouraged pt again to call Genev[facility] to discuss the hardware surgery likely needed as pt states this is her goal. Pt confirms her pharmacy is [facility] in case meds needed to be picked up on the way home. Made [facility] referral based on the Vendor Calendar and F2F completed but not sent yet. TENA Roach
[2025-03-24] MEDS: KETOROLAC 30 MG/ML VIAL 15 MG IV ×2 (16:15→20:40)
--- NOTE | 2025-03-24 16:17 | PC.NURSE ---
Pt medicated several times w/various meds T/O shift for pain 03/09 Most obtainable was a 6. SL intact/patent. Tearful RE: home situation and what she will do at D/C time. Independent to BR Call light w/in reach, pt calls appropriately for needs. Continue w/ plan of care.
[2025-03-24 18:00] VITALS: BP 148/90; PULSE 82; RESP 18; TEMP 36.2; O2SAT 94
[2025-03-24 20:00] VITALS: BP 126/85; PULSE 85; RESP 18; TEMP 36.3; O2SAT 93
[2025-03-24] MEDS: ACETAMINOPHEN 325 MG TABLET 650 MG PO (20:39)
[2025-03-24] MEDS: PRAMIPEXOLE 0.25 MG TABLET 0.125 MG PO (20:40)
[2025-03-24] MEDS: REMOVE LIDOCAINE PATCH 1 EACH TOP (20:40)
[2025-03-25] MEDS: fentaNYL 100 MCG/2 ML INJ 25 MCG IV (00:58)
[2025-03-25] MEDS: HALOPERIDOL 5 MG/ML VIAL IV (00:58)
[2025-03-25 04:41] VITALS: RESP 15
--- NOTE | 2025-03-25 04:44 | PC.NURSE ---
Pt has been in constant pain and has been very emotional. Pt finally fell asleep a couple of hours ago, as to keep pt comfortable, we didn't and wont be waking her up for a full set of vitals, Per RN. Will continue to monitor pt and respiration rate.
[2025-03-25] MEDS: ACETAMINOPHEN 325 MG TABLET 650 MG PO ×3 (06:57→17:21)
--- NOTE | 2025-03-25 07:04 | PC.NURSE ---
Patient refusing tube feeds, reports that she has more of an appetite and is eating the turkey from her sandwiches.
--- NOTE | 2025-03-25 07:26 | PM.PN.1 ---
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 She received 1 dose and reported that it ?only takes the edge off?. She refused to work with physical therapy today as she stated she had been ?suffering for the last 5 hours?. Physical therapy attempted to see her at noon. Care management met with her today and patient felt that if her pain could be managed she could return home with home health but otherwise she would be receptive to residential facility placement. She tells me that she was able to get some sleep with the IV fentanyl overnight, but feels that she suffered all day. When I came by several times throughout the day today, she was notably sleeping. Nurse reports she was able to get up to the bathroom independently and was also able to toilet herself independently. Nurse also reported that her pain has been reasonably well controlled through the day. Now, the patient is quite tearful and is asking for IV fentanyl. She states she is unable to perform her tube feeds because she can not use the syringe to push the tube feed into her PEG tube. She has not active to continuous feeds or nocturnal feeds. She states if she goes home and is unable to perform her tube feeds she will simply starve to ?. When asked why she would not consider going to nocturnal feeds or continuous feeds, she states that she forgot about the tubing connected when she tried nocturnal feeds and it was disconnected and created a mess that she had to clean up. She states if she went to a continuous feeding system she does not feel she could carry the bag around on shoulder. 03/21: Ongoing pain complaints, IV morphine given. MRI of right shoulder obtained. Mostly tender in the medial aspect of the right scapula. S: Ongoing pain just medial to the right scapula. This increases with any movement of her right arm or palpation. This is prohibiting her from using her equipment to self administer tube feeds, and she lives alone. Imaging as noted below does not show any acute issues that might respond to acute treatment. She was being evaluated for residential facility. 03/23: Her complaints of severe pain continue. She is intolerant of many pain adjuncts so the fentanyl patch will be increased to 25 mcg. Her tenderness is centered over the right scapula. She points to both the thoracic spine and the right scapular area as the center of her pain. She is also on oxycodone and Dilaudid as needed. Imaging is reviewed again. On the CT thoracic spine there is 1 area at approximately T4-T5 where the degeneration appears to be particularly severe. There is also an area at that approximate level where the spinal fixation screw angles through the vertebral body and into the joint space. I discussed with her that those abnormalities could certainly account for her severe pain. We will check an ESR and CRP to rule out any signs of infection that are not showing up on the normal white blood count. She could certainly have some occult small fracture in the thoracic spine along with the possible hardware induced areas of pain. Her tube feeding will be changed over to continuous as she remains unable to give herself the bolus. This is a very challenging case. 03/24: This morning she seems to be more at ease, less pacing in the room, perhaps less pain on the higher dose of fentanyl. Unfortunately with her lack of significant body fat reserves she is not going to have good absorption of dermal fentanyl. Later in the morning she escalates her pain complaints again but in general my conclusion is that she is doing better today. The ESR was 1 and the CRP was 3. This essentially rules out diskitis/spinal infection. She mentions that the Marinol is helping her appetite. We discussed that her Suboxone has been prescribed by an addiction medicine specialist at a clinic in [place] where they also treat chronic pain. 03/25: She is walking around in her room, rocking and soothing herself in the corner. She has unconvincing reports of tenderness to touch on the right scapula and similar T-spine levels. Her fentanyl patch dose will be increased to 37 mcg. O: Cachectic, agitated, pacing, self soothing rocking Alert and oriented. Fluent speech. Lungs are clear, normal rate and effort. Heart is regular, no murmur gallop or rub. Abdomen is soft, non distended. Extremities are free of edema. The right shoulder range of motion is restricted. There is no convincing/guarding type right scapular tenderness or thoracic spine tenderness. Imaging: Shoulder MRI: 1. Severely degraded exam secondary to motion artifact. 2. Low-grade interstitial tear of the supraspinatus at the footprint. No significant glenohumeral joint effusion or suspicious marrow replacing process to suggest underlying osteomyelitis or septic arthritis. 3. Degraded assessment for fracture, recommend correlation with left shoulder radiographs to evaluate for underlying osseous abnormality. Chest x-ray: No acute cardiopulmonary abnormality is seen. Thoracic spine CT: No acute abnormality is seen. Remote, stable anterior wedge deformities are seen. Extensive postoperative hardware can be seen. Additional findings: Centrilobular emphysematous changes Biliary gas, as before Cervical spine CT: No displaced fracture or traumatic subluxation. Lumbar spine CT: No acute abnormality is seen. Extensive postoperative and degenerative changes are seen. There is a moderate amount of stool seen within the colon. Please correlate with an underlying history of constipation. A/P: 1. Acute on chronic upper back pain, active. This continues to appear musculoskeletal in nature. This has been activity limiting and prohibits her from taking care of herself by administering her tube feeds. This has not substantially improved over the last 6 days with IV pain medications and the use of adjunctive pain med management. ESR and CRP are reassuring. 2. Chronic opioid use disorder/chronic pain, active. Holding her usual dose of Subutex. She is followed by a pain clinic in [place]. Using topical fentanyl, oral oxycodone and IV hydromorphone instead. 3. Chronic protein calorie malnutrition, active. She reports previously her weight was down to 80 lb and is now 102 lb. BMI is 19.9. She is back on tube feeds given via bolus. This will be transitioned to bolus enteral feeds via gravity using her home enteral formula. 4. Tobacco dependence, active. Nicotine patch as needed PLAN: -Hydromorphone IV, oxycodone by mouth, Duragesic patch. Increased Duragesic patch to 37 mcg. Continue intermittent Toradol and lidocaine patch. -discharge planning. Home on gravity enteral feeds tube feeding support. -ruled out any other occult signs of spinal/disc infection with ESR/CRP. -visible on CT thoracic spine are 2 areas of notable abnormality including approximate T4-T5 severe loss of normal disc joint space and 1 of the fixation screws angling through the vertebral body and into a vertebral disc space at that same approximate level. Disposition: Home tomorrow if pain levels become more manageable, may need to increase the topical fentanyl dose further. Code status Full Prophylaxis On Lovenox Exam Vital Signs (past 8 hours): - 03/25/25 04:41 Respiratory Rate 15 Oxygen Delivery Method Room Air Oxygen Flow Rate 0 Objective Labs 03/21/25 05:57 03/23/25 06:26 [facility] Medical History 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, thoracic region Dorsalgia Cachexia Chronic back pain Anxiety Fibromyalgia History of anemia History of chronic pain Tobacco abuse History of alcohol abuse Major depressive disorder, recurrent episode, in partial remission with anxious distress Surgical History History of hysterectomy History of spinal fusion History of cholecystectomy Previous back surgery Family History Father Cancer Grandmother Cancer Social History household members: family Smoking Status: Current every day smoker alcohol intake: former Assessment & Plan Time-Based Coding :: [TOTAL MINUTES] spent with patient and on the chart (including review of chart, obtaining history, exam, reviewing outside data, placing orders, documenting exam and treatment plan, and counseling patient) on [DATE].
[2025-03-25] MEDS: ENOXAPARIN 40 MG/0.4 ML SYRINGE SUBCUT (08:29)
[2025-03-25] MEDS: KETOROLAC 30 MG/ML VIAL 15 MG IV (08:29)
[2025-03-25] MEDS: LIDOCAINE 5% PATCH 1 EACH TOP (08:31)
[2025-03-25] MEDS: NICOTINE 14 PATCH 14 MG TOP (08:31)
[2025-03-25] MEDS: fentaNYL 12 MCG/PATCH TOP (08:48)
[2025-03-25] MEDS: PANTOPRAZOLE DR 40 MG TABLET PO (08:52)
[2025-03-25] MEDS: SODIUM CHLORIDE 0.9% FLUSH 10 ML IV ×3 (08:52→21:44)
--- NOTE | 2025-03-25 10:44 | CM.DPNOTE ---
DCP Continued: Reviewed EMR and team rounds for pt?s medical status. Per hospitalist, pt pain management still in process as they had to increase pt topical fentanyl dose. Will need more management for the next day or so before discharge home. Pt has a scheduled gravity feed teaching with [facility] on Friday, 03/25 at 1200 at bedside. DCP placed home health orders, sent signed MD orders to [facility] via secure email. Will need discharge summary sent when completed. Transport: Medicaid Transport form completed and will need request for transport when discharge confirmed ph# [phone]. If weekend transport, ph# [phone]. Plan: Anticipating dc home on Friday, 03/26 vs. 03/27 via Medicaid Transport/Taxi, when pain managed and after [facility] gravity feed teaching. CM Team will continue to follow for coordination of discharge plans. JANET Cali
[2025-03-25 12:00] VITALS: BP 112/62; PULSE 80; RESP 20; TEMP 36.3; O2SAT 95
[2025-03-25 18:00] VITALS: BP 114/68; PULSE 72; RESP 18; TEMP 36.6; O2SAT 97
[2025-03-25 21:26] VITALS: BP 137/82; PULSE 82; RESP 18; TEMP 36.3; O2SAT 96
[2025-03-25] MEDS: PRAMIPEXOLE 0.25 MG TABLET 0.125 MG PO (21:42)
[2025-03-26] MEDS: [UNRECOGNIZED DRUG - MIXTURE] 1 EACH TUBE ×2 (01:15→20:25)
[2025-03-26] MEDS: REMOVE LIDOCAINE PATCH 1 EACH TOP ×2 (01:16→23:18)
[2025-03-26] MEDS: ACETAMINOPHEN 325 MG TABLET 650 MG PO ×4 (01:20→17:21)
[2025-03-26 03:00] VITALS: BP 122/79; PULSE 89; RESP 18; TEMP 36.2; O2SAT 96
[2025-03-26] MEDS: ENOXAPARIN 40 MG/0.4 ML SYRINGE SUBCUT (08:27)
[2025-03-26] MEDS: PANTOPRAZOLE DR 40 MG TABLET PO (08:27)
[2025-03-26] MEDS: LIDOCAINE 5% PATCH 1 EACH TOP (08:28)
[2025-03-26] MEDS: NICOTINE 14 PATCH 14 MG TOP (08:28)
[2025-03-26] MEDS: SODIUM CHLORIDE 0.9% FLUSH 10 ML IV ×2 (09:00→20:21)
[2025-03-26] MEDS: tiZANidine 4 MG TABLET 2 MG PO ×3 (10:14→20:22)
[2025-03-26 15:03] VITALS: BP 120/73; PULSE 81; RESP 16; TEMP 36; O2SAT 94
--- NOTE | 2025-03-26 17:57 | P.PN_ITS ---
Subjective Subjective Date Patient Seen: 03/26/25 Interval history: Chief complaint: Neck and shoulder pain from previous chronic degenerative arthritis status post multiple procedures admitted for pain control History of present illness: 03/19: 69-year-old female with longstanding history of chronic pain, history of opioid use disorder on chronic Subutex and now sublocade treatment, history of chronic pancreatitis resulting in severe protein calorie malnutrition for which a PEG tube was placed and she now receives enteral feeds, tobacco dependence, depression, chronic neck and back pain secondary to failed spinal fusion, history of alcohol dependence in remission since 2016, and tobacco dependence who presented to the emergency department for the 2nd time in 24 hours complaining of intractable pain. She reports she had been in her usual state of health until yesterday morning. The previous day she reported she was doing laundry and was able to perform her usual ADLs. Apparently, yesterday morning when she woke up, she noted a severe pain in her right upper back/shoulder area. She presented to the emergency department yesterday afternoon. She underwent evaluation including exam, imaging which revealed no acute abnormalities. She received 2 doses of IV fentanyl 100 mcg, 3 doses of hydromorphone 1 mg, Toradol 15 mg, lorazepam 0.5 mg, and a 12 mcg fentanyl patch. She ultimately discharged home after declining admission. Unfortunately, she returned today with ongoing intractable pain. She stated she had been unable to take care of herself at home. She had been unable to perform her own tube feeds secondary to her intractable pain. She was unable to dress herself today. Upon her return today, she did request admission. In the emergency department, she did receive 2 doses of fentanyl 50 mcg along with 1 mg of IV lorazepam. She noted these were partially effective but still complained of severe pain. Upon my assessment, she tells me that if she were home she would ?starve to ?. She states she has not had her tube feeds in a day and a half secondary to inability to get the tube feeds and do her bolus feeds. She is uncertain what formula she uses but believes it is a 2 calorie formula. She lives home alone. She notes her sister does live on [facility] as well, but states her sister does not wish to take care of her. Patient does have a chronic pain specialist who recently initiated her on Sublocade (continuous release buprenorphine) which she most recently received on March 04. She also uses sublingual buprenorphine 8 mg up to 4 times a day for her pain. She feels quite strongly that the buprenorphine will not work for her pain. Additionally, she tells me 2 years ago an orthopedic surgeon at [facility] told her she needed additional surgery. He advised that her hardware was loose. However, he told her she would need to gain weight and get healthier before he would pursue any surgical intervention. Hospital course: 03/20: Overnight, patient was given a dose of morphine which she reported was not effective as well as IV fentanyl q.3h as needed. She received 1 dose and reported that it ?only takes the edge off?. She refused to work with physical therapy today as she stated she had been ?suffering for the last 5 hours?. Physical therapy attempted to see her at noon. Care management met with her today and patient felt that if her pain could be managed she could return home with home health but otherwise she would be receptive to [facility] facility placement. She tells me that she was able to get some sleep with the IV fentanyl overnight, but feels that she suffered all day. When I came by several times throughout the day today, she was notably sleeping. Nurse reports she was able to get up to the bathroom independently and was also able to toilet herself independently. Nurse also reported that her pain has been reasonably well controlled through the day. Now, the patient is quite tearful and is asking for IV fentanyl. She states she is unable to perform her tube feeds because she can not use the syringe to push the tube feed into her PEG tube. She has not active to continuous feeds or nocturnal feeds. She states if she goes home and is unable to perform her tube feeds she will simply starve to ?. When asked why she would not consider going to nocturnal feeds or continuous feeds, she states that she forgot about the tubing connected when she tried nocturnal feeds and it was disconnected and created a mess that she had to clean up. She states if she went to a continuous feeding system she does not feel she could carry the bag around on shoulder. 03/21: Ongoing pain complaints, IV morphine given. MRI of right shoulder obtained. Mostly tender in the medial aspect of the right scapula. 03/22: Ongoing pain just medial to the right scapula. This increases with any movement of her right arm or palpation. This is prohibiting her from using her equipment to self administer tube feeds, and she lives alone. Imaging as noted below does not show any acute issues that might respond to acute treatment. She was being evaluated for [facility] facility. 03/23: Her complaints of severe pain continue. She is intolerant of many pain adjuncts so the fentanyl patch will be increased to 25 mcg. Her tenderness is centered over the right scapula. She points to both the thoracic spine and the right scapular area as the center of her pain. She is also on oxycodone and Dilaudid as needed. Imaging is reviewed again. On the CT thoracic spine there is 1 area at approximately T4-T5 where the degeneration appears to be particularly severe. There is also an area at that approximate level where the spinal fixation screw angles through the vertebral body and into the joint space. I discussed with her that those abnormalities could certainly account for her severe pain. We will check an ESR and CRP to rule out any signs of infection that are not showing up on the normal white blood count. She could certainly have some occult small fracture in the thoracic spine along with the possible hardware induced areas of pain. Her tube feeding will be changed over to continuous as she remains unable to give herself the bolus. This is a very challenging case. 03/24: This morning she seems to be more at ease, less pacing in the room, perhaps less pain on the higher dose of fentanyl. Unfortunately with her lack of significant body fat reserves she is not going to have good absorption of dermal fentanyl. Later in the morning she escalates her pain complaints again but in general my conclusion is that she is doing better today. The ESR was 1 and the CRP was 3. This essentially rules out diskitis/spinal infection. She mentions that the Marinol is helping her appetite. We discussed that her Suboxone has been prescribed by an addiction medicine specialist at a clinic in [place] where they also treat chronic pain. 03/25: She is walking around in her room, rocking and soothing herself in the corner. She has unconvincing reports of tenderness to touch on the right scapula and similar T-spine levels. Her fentanyl patch dose will be increased to 37 mcg. 03/26: Patient continues to have significant pain with movements of her neck or shoulder patient was started on a multimodal pain management regimen including scheduled acetaminophen gabapentin scheduled throughout the day tizanidine and short course of high-intensity steroid Decadron Imaging: Shoulder MRI: 1. Severely degraded exam secondary to motion artifact. 2. Low-grade interstitial tear of the supraspinatus at the footprint. No significant glenohumeral joint effusion or suspicious marrow replacing process to suggest underlying osteomyelitis or septic arthritis. 3. Degraded assessment for fracture, recommend correlation with left shoulder radiographs to evaluate for underlying osseous abnormality. Chest x-ray: No acute cardiopulmonary abnormality is seen. Thoracic spine CT: No acute abnormality is seen. Remote, stable anterior wedge deformities are seen. Extensive postoperative hardware can be seen. Assessment and plan: 1. Acute on chronic upper back pain, active. * This continues to appear musculoskeletal in nature. This has been activity limiting and prohibits her from taking care of herself by administering her tube feeds. This has not substantially improved over the last 6 days with IV pain medications and the use of adjunctive pain med management. ESR and CRP are reassuring. * M*Modal pain management including * Gabapentin * Scheduled tizanidine * Scheduled acetaminophen * Short course steroid * Oral opiates * Intravenous breakthrough opiates * Fentanyl patch * Intermittent Toradol * Lidoderm patch 2. Chronic opioid use disorder/chronic pain, active. * Holding her usual dose of Subutex. She is followed by a pain clinic in [place]. Using topical fentanyl, oral oxycodone and IV hydromorphone instead. 3. Chronic protein calorie malnutrition, active . * She reports previously her weight was down to 80 lb and is now 102 lb. BMI is 19.9. She is back on tube feeds given via bolus. This will be transitioned to bolus enteral feeds via gravity using her home enteral formula. 4. Tobacco dependence, active. Disposition: * Home tomorrow if pain levels become more manageable, may need to increase the topical fentanyl dose further. Code status * Full Prophylaxis * Lovenox 35 minutes were involved in the management of this patient including [id number] evaluation review of records discussion with care management team and nursing treatment team Exam Vital Signs (past 8 hours): - 03/26/25 15:03 Temperature 96.8 F L Pulse Rate 81 Respiratory Rate 16 Blood Pressure 120/73 Pulse Oximetry 94 Oxygen Delivery Method Room Air Oxygen Flow Rate 0 Objective Labs 03/21/25 05:57 03/23/25 06:26 ON LICENSE OF [facility] Medical History 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, thoracic region Dorsalgia Cachexia Chronic back pain Anxiety Fibromyalgia History of anemia History of chronic pain Tobacco abuse History of alcohol abuse Major depressive disorder, recurrent episode, in partial remission with anxious distress Surgical History History of hysterectomy History of spinal fusion History of cholecystectomy Previous back surgery Family History Father Cancer Grandmother Cancer Social History household members: family Smoking Status: Current every day smoker alcohol intake: former Assessment & Plan Time-Based Coding :: [TOTAL MINUTES] spent with patient and on the chart (including review of chart, obtaining history, exam, reviewing outside data, placing orders, documenting exam and treatment plan, and counseling patient) on [DATE].
[2025-03-26] MEDS: PRAMIPEXOLE 0.25 MG TABLET 0.125 MG PO (20:20)
--- NOTE | 2025-03-26 20:24 | PC.NURSE ---
Pain control: Pt has pain control issues for several. days. Dr. Corona in to see pt twice yesterday and talked with her for a long time. Adjustments were made. Fentynal patch increased and placed, addition of cymbalta. Pt reporting this am that things hadn't really improved. Dr Rios into see her twice today and talked with her about her pain management. Started several meds including decadron. This evening she is not feeling she is improving. She want to be strong enough to go home. Pain med options explained. Dr. Marie has seen her twice. She reports she will see if the steroids will work and will be evaluated in the am. Hopefully will show some improvement. She has been teary off and on this afternoon/evening. Mood a little more labile. She was instructed she maybe feeling like this due to the steroids. Hope for improvement in Am.
[2025-03-26 20:30] VITALS: BP 119/77; PULSE 86; RESP 12; TEMP 36.4; O2SAT 94
[2025-03-27 02:00] VITALS: BP 128/77; PULSE 83; RESP 18; TEMP 35.7; O2SAT 97
[2025-03-27] MEDS: ACETAMINOPHEN 325 MG TABLET 650 MG PO ×4 (02:05→19:30)
[2025-03-27 07:30] VITALS: BP 146/85; PULSE 82; RESP 15; TEMP 36.3; O2SAT 95
[2025-03-27] MEDS: PANTOPRAZOLE DR 40 MG TABLET PO (08:09)
[2025-03-27] MEDS: tiZANidine 4 MG TABLET 2 MG PO ×3 (08:09→20:51)
[2025-03-27] MEDS: NICOTINE 14 PATCH 14 MG TOP (08:10)
[2025-03-27] MEDS: ENOXAPARIN 40 MG/0.4 ML SYRINGE SUBCUT (08:11)
[2025-03-27] MEDS: fentaNYL 12 MCG/PATCH TOP (08:28)
[2025-03-27] MEDS: LIDOCAINE 5% PATCH 1 EACH TOP (08:28)
[2025-03-27] MEDS: [UNRECOGNIZED DRUG - MIXTURE] 1 EACH TUBE ×4 (08:28→20:56)
[2025-03-27] MEDS: SODIUM CHLORIDE 0.9% FLUSH 10 ML IV ×2 (08:40→20:52)
[2025-03-27 11:45] VITALS: BP 138/75; PULSE 86; RESP 16; TEMP 36.4; O2SAT 94
--- NOTE | 2025-03-27 11:53 | P.PN_ITS ---
Subjective Subjective Date Patient Seen: 03/27/25 Interval history: Chief complaint: Neck and shoulder pain from previous chronic degenerative arthritis status post multiple procedures admitted for pain control History of present illness: 03/19: 69-year-old female with longstanding history of chronic pain, history of opioid use disorder on chronic Subutex and now sublocade treatment, history of chronic pancreatitis resulting in severe protein calorie malnutrition for which a PEG tube was placed and she now receives enteral feeds, tobacco dependence, depression, chronic neck and back pain secondary to failed spinal fusion, history of alcohol dependence in remission since 2016, and tobacco dependence who presented to the emergency department for the 2nd time in 24 hours complaining of intractable pain. She reports she had been in her usual state of health until yesterday morning. The previous day she reported she was doing laundry and was able to perform her usual ADLs. Apparently, yesterday morning when she woke up, she noted a severe pain in her right upper back/shoulder area. She presented to the emergency department yesterday afternoon. She underwent evaluation including exam, imaging which revealed no acute abnormalities. She received 2 doses of IV fentanyl 100 mcg, 3 doses of hydromorphone 1 mg, Toradol 15 mg, lorazepam 0.5 mg, and a 12 mcg fentanyl patch. She ultimately discharged home after declining admission. Unfortunately, she returned today with ongoing intractable pain. She stated she had been unable to take care of herself at home. She had been unable to perform her own tube feeds secondary to her intractable pain. She was unable to dress herself today. Upon her return today, she did request admission. In the emergency department, she did receive 2 doses of fentanyl 50 mcg along with 1 mg of IV lorazepam. She noted these were partially effective but still complained of severe pain. Upon my assessment, she tells me that if she were home she would ?starve to ?. She states she has not had her tube feeds in a day and a half secondary to inability to get the tube feeds and do her bolus feeds. She is uncertain what formula she uses but believes it is a 2 calorie formula. She lives home alone. She notes her sister does live on [facility] as well, but states her sister does not wish to take care of her. Patient does have a chronic pain specialist who recently initiated her on Sublocade (continuous release buprenorphine) which she most recently received on March 04. She also uses sublingual buprenorphine 8 mg up to 4 times a day for her pain. She feels quite strongly that the buprenorphine will not work for her pain. Additionally, she tells me 2 years ago an orthopedic surgeon at [facility] told her she needed additional surgery. He advised that her hardware was loose. However, he told her she would need to gain weight and get healthier before he would pursue any surgical intervention. Hospital course: 03/20: Overnight, patient was given a dose of morphine which she reported was not effective as well as IV fentanyl q.3h as needed. She received 1 dose and reported that it ?only takes the edge off?. She refused to work with physical therapy today as she stated she had been ?suffering for the last 5 hours?. Physical therapy attempted to see her at noon. Care management met with her today and patient felt that if her pain could be managed she could return home with home health but otherwise she would be receptive to [facility] facility placement. She tells me that she was able to get some sleep with the IV fentanyl overnight, but feels that she suffered all day. When I came by several times throughout the day today, she was notably sleeping. Nurse reports she was able to get up to the bathroom independently and was also able to toilet herself independently. Nurse also reported that her pain has been reasonably well controlled through the day. Now, the patient is quite tearful and is asking for IV fentanyl. She states she is unable to perform her tube feeds because she can not use the syringe to push the tube feed into her PEG tube. She has not active to continuous feeds or nocturnal feeds. She states if she goes home and is unable to perform her tube feeds she will simply starve to ?. When asked why she would not consider going to nocturnal feeds or continuous feeds, she states that she forgot about the tubing connected when she tried nocturnal feeds and it was disconnected and created a mess that she had to clean up. She states if she went to a continuous feeding system she does not feel she could carry the bag around on shoulder. 03/21: Ongoing pain complaints, IV morphine given. MRI of right shoulder obtained. Mostly tender in the medial aspect of the right scapula. 03/22: Ongoing pain just medial to the right scapula. This increases with any movement of her right arm or palpation. This is prohibiting her from using her equipment to self administer tube feeds, and she lives alone. Imaging as noted below does not show any acute issues that might respond to acute treatment. She was being evaluated for jail facility. 03/23: Her complaints of severe pain continue. She is intolerant of many pain adjuncts so the fentanyl patch will be increased to 25 mcg. Her tenderness is centered over the right scapula. She points to both the thoracic spine and the right scapular area as the center of her pain. She is also on oxycodone and Dilaudid as needed. Imaging is reviewed again. On the CT thoracic spine there is 1 area at approximately T4-T5 where the degeneration appears to be particularly severe. There is also an area at that approximate level where the spinal fixation screw angles through the vertebral body and into the joint space. I discussed with her that those abnormalities could certainly account for her severe pain. We will check an ESR and CRP to rule out any signs of infection that are not showing up on the normal white blood count. She could certainly have some occult small fracture in the thoracic spine along with the possible hardware induced areas of pain. Her tube feeding will be changed over to continuous as she remains unable to give herself the bolus. This is a very challenging case. 03/24: This morning she seems to be more at ease, less pacing in the room, perhaps less pain on the higher dose of fentanyl. Unfortunately with her lack of significant body fat reserves she is not going to have good absorption of dermal fentanyl. Later in the morning she escalates her pain complaints again but in general my conclusion is that she is doing better today. The ESR was 1 and the CRP was 3. This essentially rules out diskitis/spinal infection. She mentions that the Marinol is helping her appetite. We discussed that her Suboxone has been prescribed by an addiction medicine specialist at a clinic in [place] where they also treat chronic pain. 03/25: She is walking around in her room, rocking and soothing herself in the corner. She has unconvincing reports of tenderness to touch on the right scapula and similar T-spine levels. Her fentanyl patch dose will be increased to 37 mcg. 03/26: Patient continues to have significant pain with movements of her neck or shoulder patient was started on a multimodal pain management regimen including scheduled acetaminophen gabapentin scheduled throughout the day tizanidine and short course of high-intensity steroid Decadron 03/27: Patient having some relief this morning until she began moving shoulder but there maybe some progress she has been on a few doses of Decadron having some practical obstacles with her gastrostomy feeding tube Review of systems: No fever or chills No palpitations shortness for breath No nausea vomiting Physical exam: No acute distress alert and oriented No labored respirations Moves all extremities Imaging: Shoulder MRI: 1. Severely degraded exam secondary to motion artifact. 2. Low-grade interstitial tear of the supraspinatus at the footprint. No significant glenohumeral joint effusion or suspicious marrow replacing process to suggest underlying osteomyelitis or septic arthritis. 3. Degraded assessment for fracture, recommend correlation with left shoulder radiographs to evaluate for underlying osseous abnormality. Chest x-ray: No acute cardiopulmonary abnormality is seen. Thoracic spine CT: No acute abnormality is seen. Remote, stable anterior wedge deformities are seen. Extensive postoperative hardware can be seen. Assessment and plan: 1. Acute on chronic upper back pain, active. * This continues to appear musculoskeletal in nature. This has been activity limiting and prohibits her from taking care of herself by administering her tube feeds. This has not substantially improved over the last 6 days with IV pain medications and the use of adjunctive pain med management. ESR and CRP are reassuring. * M*Modal pain management including * Gabapentin * Scheduled tizanidine * Scheduled acetaminophen * Short course steroid * Oral opiates * Intravenous breakthrough opiates * Fentanyl patch * Intermittent Toradol * Lidoderm patch 2. Chronic opioid use disorder/chronic pain, active. * Holding her usual dose of Subutex. She is followed by a pain clinic in [place]. Using topical fentanyl, oral oxycodone and IV hydromorphone instead. 3. Chronic protein calorie malnutrition, active . * She reports previously her weight was down to 80 lb and is now 102 lb. BMI is 19.9. She is back on tube feeds given via bolus. This will be transitioned to bolus enteral feeds via gravity using her home enteral formula. 4. Tobacco dependence, active. Disposition: * Home tomorrow if pain levels become more manageable, may need to increase the topical fentanyl dose further. Code status * Full Prophylaxis * Lovenox 35 minutes were involved in the management of this patient including [id number] evaluation review of records discussion with care management team and nursing treatment team Exam Vital Signs (past 8 hours): - 03/27/25 07:30 Temperature 97.4 F L Pulse Rate 82 Respiratory Rate 15 Blood Pressure 146/85 H Pulse Oximetry 95 Oxygen Flow Rate 0 Oxygen Delivery Method Room Air Oxygen Flow Rate 0 Objective Labs 03/21/25 05:57 03/23/25 06:26 [facility] Medical History 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, thoracic region Dorsalgia Cachexia Chronic back pain Anxiety Fibromyalgia History of anemia History of chronic pain Tobacco abuse History of alcohol abuse Major depressive disorder, recurrent episode, in partial remission with anxious distress Surgical History History of hysterectomy History of spinal fusion History of cholecystectomy Previous back surgery Family History Father Cancer Grandmother Cancer Social History household members: family Smoking Status: Current every day smoker alcohol intake: former Assessment & Plan Time-Based Coding :: [TOTAL MINUTES] spent with patient and on the chart (including review of chart, obtaining history, exam, reviewing outside data, placing orders, documenting exam and treatment plan, and counseling patient) on [DATE].
--- NOTE | 2025-03-27 12:00 | CM.DPNOTE ---
DCP note CATH LAB RADIOLOGY TECHNICIAN reviewed EMR per review, pt failed gravity feed teaching Friday with [facility] due to pain. per provider today in morning rounds, pt doing much better with pain today. increased oxy and fentanyl patch. may do better with teachings in next day or so. CATH LAB RADIOLOGY TECHNICIAN spoke with weekend dental office receptionist at [facility]. no one available over weekend for scheduling. will have to f/u with Hussain Friday to schedule new bedside teaching. P: Anticipating dc home (date pending) via Medicaid Transport/Taxi, when pain managed and after [facility] gravity feed teaching. [facility] to follow as well. CM Team will continue to follow for coordination of discharge plans. TENA Donnelly
[2025-03-27 18:00] VITALS: PULSE 80; RESP 16; O2SAT 94
--- NOTE | 2025-03-27 19:50 | PC.NURSE ---
Day shift note: 37 mcg of Fentanyl Top patch removed and discarded. 50 mcg Fentanyl patch TOP to right lower abdomen as ordered.
[2025-03-27] MEDS: PRAMIPEXOLE 0.25 MG TABLET 0.125 MG PO (20:50)
[2025-03-27] MEDS: ONDANSETRON 4 MG ODT PO (20:51)
[2025-03-27] MEDS: REMOVE LIDOCAINE PATCH 1 EACH TOP (20:53)
[2025-03-28] MEDS: ACETAMINOPHEN 325 MG TABLET 650 MG PO ×2 (01:04→06:21)
[2025-03-28 01:17] VITALS: BP 172/93; PULSE 69; RESP 16; TEMP 36.4; O2SAT 98
[2025-03-28 01:21] VITALS: BP 164/82; PULSE 74
[2025-03-28 06:00] VITALS: BP 131/66; PULSE 66
--- NOTE | 2025-03-28 08:09 | P.DS_ITS ---
History of Present Illness History of Present Illness Date Patient Seen: 03/28/25 Chief complaint: Right shoulder and back pain Narrative: Chief complaint: Neck and shoulder pain from previous chronic degenerative arthritis status post multiple procedures admitted for pain control History of present illness: 03/19: 69-year-old female with longstanding history of chronic pain, history of opioid use disorder on chronic Subutex and now sublocade treatment, history of chronic pancreatitis resulting in severe protein calorie malnutrition for which a PEG tube was placed and she now receives enteral feeds, tobacco dependence, depression, chronic neck and back pain secondary to failed spinal fusion, history of alcohol dependence in remission since 2017, and tobacco dependence who presented to the emergency department for the 2nd time in 24 hours complaining of intractable pain. She reports she had been in her usual state of health until yesterday morning. The previous day she reported she was doing laundry and was able to perform her usual ADLs. Apparently, yesterday morning when she woke up, she noted a severe pain in her right upper back/shoulder area. She presented to the emergency department yesterday afternoon. She underwent evaluation including exam, imaging which revealed no acute abnormalities. She received 2 doses of IV fentanyl 100 mcg, 3 doses of hydromorphone 1 mg, Toradol 15 mg, lorazepam 0.5 mg, and a 12 mcg fentanyl patch. She ultimately discharged home after declining admission. Unfortunately, she returned today with ongoing intractable pain. She stated she had been unable to take care of herself at home. She had been unable to perform her own tube feeds secondary to her intractable pain. She was unable to dress herself today. Upon her return today, she did request admission. In the emergency department, she did receive 2 doses of fentanyl 50 mcg along with 1 mg of IV lorazepam. She noted these were partially effective but still complained of severe pain. Upon my assessment, she tells me that if she were home she would ?starve to ?. She states she has not had her tube feeds in a day and a half secondary to inability to get the tube feeds and do her bolus feeds. She is uncertain what formula she uses but believes it is a 2 calorie formula. She lives home alone. She notes her sister does live on [facility] as well, but states her sister does not wish to take care of her. Patient does have a chronic pain specialist who recently initiated her on Sublocade (continuous release buprenorphine) which she most recently received on March 04. She also uses sublingual buprenorphine 8 mg up to 4 times a day for her pain. She feels quite strongly that the buprenorphine will not work for her pain. Additionally, she tells me 2 years ago an orthopedic surgeon at [facility] told her she needed additional surgery. He advised that her hardware was loose. However, he told her she would need to gain weight and get healthier before he would pursue any surgical intervention. Hospital course: 03/20: Overnight, patient was given a dose of morphine which she reported was not effective as well as IV fentanyl q.3h as needed. She received 1 dose and reported that it ?only takes the edge off?. She refused to work with physical therapy today as she stated she had been ?suffering for the last 5 hours?. Physical therapy attempted to see her at noon. Care management met with her today and patient felt that if her pain could be managed she could return home with home health but otherwise she would be receptive to detention facility placement. She tells me that she was able to get some sleep with the IV fentanyl overnight, but feels that she suffered all day. When I came by several times throughout the day today, she was notably sleeping. Nurse reports she was able to get up to the bathroom independently and was also able to toilet herself independently. Nurse also reported that her pain has been reasonably well controlled through the day. Now, the patient is quite tearful and is asking for IV fentanyl. She states she is unable to perform her tube feeds because she can not use the syringe to push the tube feed into her PEG tube. She has not active to continuous feeds or nocturnal feeds. She states if she goes home and is unable to perform her tube feeds she will simply starve to ?. When asked why she would not consider going to nocturnal feeds or continuous feeds, she states that she forgot about the tubing connected when she tried nocturnal feeds and it was disconnected and created a mess that she had to clean up. She states if she went to a continuous feeding system she does not feel she could carry the bag around on shoulder. 03/21: Ongoing pain complaints, IV morphine given. MRI of right shoulder obtained. Mostly tender in the medial aspect of the right scapula. 03/22: Ongoing pain just medial to the right scapula. This increases with any movement of her right arm or palpation. This is prohibiting her from using her equipment to self administer tube feeds, and she lives alone. Imaging as noted below does not show any acute issues that might respond to acute treatment. She was being evaluated for detention facility. 03/23: Her complaints of severe pain continue. She is intolerant of many pain adjuncts so the fentanyl patch will be increased to 25 mcg. Her tenderness is centered over the right scapula. She points to both the thoracic spine and the right scapular area as the center of her pain. She is also on oxycodone and Dilaudid as needed. Imaging is reviewed again. On the CT thoracic spine there is 1 area at approximately T4-T5 where the degeneration appears to be particularly severe. There is also an area at that approximate level where the spinal fixation screw angles through the vertebral body and into the joint space. I discussed with her that those abnormalities could certainly account for her severe pain. We will check an ESR and CRP to rule out any signs of infection that are not showing up on the normal white blood count. She could certainly have some occult small fracture in the thoracic spine along with the possible hardware induced areas of pain. Her tube feeding will be changed over to continuous as she remains unable to give herself the bolus. This is a very challenging case. 03/24: This morning she seems to be more at ease, less pacing in the room, perhaps less pain on the higher dose of fentanyl. Unfortunately with her lack of significant body fat reserves she is not going to have good absorption of dermal fentanyl. Later in the morning she escalates her pain complaints again but in general my conclusion is that she is doing better today. The ESR was 1 and the CRP was 3. This essentially rules out diskitis/spinal infection. She mentions that the Marinol is helping her appetite. We discussed that her Suboxone has been prescribed by an addiction medicine specialist at a clinic in [place] where they also treat chronic pain. 03/25: She is walking around in her room, rocking and soothing herself in the corner. She has unconvincing reports of tenderness to touch on the right scapula and similar T-spine levels. Her fentanyl patch dose will be increased to 37 mcg. 03/26: Patient continues to have significant pain with movements of her neck or shoulder patient was started on a multimodal pain management regimen including scheduled acetaminophen gabapentin scheduled throughout the day tizanidine and short course of high-intensity steroid Decadron 03/27: Patient having some relief this morning until she began moving shoulder but there maybe some progress she has been on a few doses of Decadron having some practical obstacles with her gastrostomy feeding tube 03/28: Pain control is satisfactory patient discharged home refer for pain management follow up Review of systems: No fever or chills No palpitations shortness for breath No nausea vomiting Physical exam: No acute distress alert and oriented No labored respirations Moves all extremities Imaging: Shoulder MRI: 1. Severely degraded exam secondary to motion artifact. 2. Low-grade interstitial tear of the supraspinatus at the footprint. No significant glenohumeral joint effusion or suspicious marrow replacing process to suggest underlying osteomyelitis or septic arthritis. 3. Degraded assessment for fracture, recommend correlation with left shoulder radiographs to evaluate for underlying osseous abnormality. Chest x-ray: No acute cardiopulmonary abnormality is seen. Thoracic spine CT: No acute abnormality is seen. Remote, stable anterior wedge deformities are seen. Extensive postoperative hardware can be seen. Assessment and plan: 1. Acute on chronic upper back pain, active. * This continues to appear musculoskeletal in nature. This has been activity limiting and prohibits her from taking care of herself by administering her tube feeds. This has not substantially improved over the last 6 days with IV pain medications and the use of adjunctive pain med management. ESR and CRP are reassuring. * M*Modal pain management including * Gabapentin * Scheduled tizanidine * Scheduled acetaminophen * Short course steroid * Oral opiates * Intravenous breakthrough opiates * Fentanyl patch * Intermittent Toradol * Lidoderm patch 2. Chronic opioid use disorder/chronic pain, active. * Holding her usual dose of Subutex. She is followed by a pain clinic in [place]. Using topical fentanyl, oral oxycodone and IV hydromorphone instead. 3. Chronic protein calorie malnutrition, active . * She reports previously her weight was down to 80 lb and is now 102 lb. BMI is 19.9. She is back on tube feeds given via bolus. This will be transitioned to bolus enteral feeds via gravity using her home enteral formula. 4. Tobacco dependence, active. Disposition: * Home tomorrow if pain levels become more manageable, may need to increase the topical fentanyl dose further. Code status * Full Prophylaxis * Sharon 35 minutes were involved in the management of this patient including [id number] evaluation review of records discussion with care management team and nursing treatment team Discharge Providers Provider Date of admission: 03/21/25 15:07 Discharge Date: 03/28/25 Primary care physician: Amy Cochran MD Consults: 03/19/25 16:10 Consult to Hospitalist Service Stat Comment: Consulting Provider: Yun Cespedes Reason for consultation: pain control Has provider been notified: Yes Consult to ENVIRONMENTAL SAFETY SPECIALIST - Switch Technician Stat Comment: Switch Technician Consult needed for:: Unable to care for self 03/19/25 16:43 Consult to Dietitian, Adult Stat Comment: Reason For Exam: pt is on tube feed 4X per day. 03/19/25 19:04 Consult to Physical Therapy Evaluate & Treat Comment: Stretches for trapezius/rhomboid strain Physician Instructions: Evaluate and Treat 03/20/25 08:12 Consult to Dietitian, Adult Routine Comment: Reason For Exam: recommend tube feeds 03/21/25 11:02 Consult to Occupational Therapy Evaluate & Treat Comment: Physician Instructions: Evaluate and treat 03/25/25 10:43 Consult to Home Health Routine Comment: RN, OT Reason For Exam: Protein calorie malnutrition,PEG tube/enteral feed 03/26/25 15:05 Consult to Pharmacy Routine Comment: Assessed as high risk Discharge provider: Silver Crabtree MD Exam Vital Signs (past 8 hours): - 03/28/25 01:17 03/28/25 01:21 03/28/25 06:00 Temperature 97.6 F Pulse Rate 69 74 66 Respiratory Rate 16 Blood Pressure 172/93 H 164/82 H 131/66 Pulse Oximetry 98 Oxygen Delivery Method Room Air Oxygen Flow Rate 0 Objective Labs 03/21/25 05:57 03/23/25 06:26 [facility] Medical History 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, thoracic region Dorsalgia Cachexia Chronic back pain Anxiety Fibromyalgia History of anemia History of chronic pain Tobacco abuse History of alcohol abuse Major depressive disorder, recurrent episode, in partial remission with anxious distress Surgical History History of hysterectomy History of spinal fusion History of cholecystectomy Previous back surgery Family History Father Cancer Grandmother Cancer Social History household members: family Smoking Status: Current every day smoker alcohol intake: former Discharge Plan Discharge Plan Patient Disposition: Home Discharge orders & Medications Prescriptions: New methocarbamol 500 mg Tablet 1,000 mg PO TID Qty: 180 0RF nicotine 14 mg/24 hr Patch 24 Hour 14 mg topical DAILY Qty: 14 0RF lidocaine 5 % Adhesive Patch,Medicated 1 patch topical DAILY Qty: 30 0RF gabapentin 100 mg Capsule 100 mg PO TID Qty: 90 0RF duloxetine 20 mg Capsule,Delayed Release(Dr/Ec) 20 mg PO DAILY Qty: 30 0RF fentanyl 75 mcg/hr patch 72 hour 1 patch transdermal Q72H Qty: 5 0RF oxycodone 15 mg tablet 15 mg PO Q6H PRN (Reason: pain) Qty: 20 0RF Continued albuterol sulfate 90 mcg/actuation HFA aerosol inhaler 2 puff inhalation Q4-6H PRN (Reason: wheezing) tizanidine 4 mg tablet 4 mg PO 3XD hydroxyzine HCl 50 mg tablet 50 mg PO Q6H PRN (Reason: anxiety, sleep, or pain) trazodone 100 mg tablet 200 mg PO ONCE PM pantoprazole 40 mg tablet,delayed release (DR/EC) 40 mg PO DAILY pramipexole 0.125 mg tablet 0.125 mg PO ONCE PM dronabinol [Marinol] 2.5 mg capsule 2.5 mg PO BID Qty: 60 0RF Rx Instructions: administer before lunch and evening meal/dinner ondansetron 4 mg tablet,disintegrating 4 mg PO Q6H PRN (Reason: nausea and vomiting) Qty: 20 0RF Discontinued buprenorphine HCl 8 mg tablet, sublingual 8 mg sublingual QID Sublocade 300 mg/1.5 mL solution, extended rel syringe 300 mg SUBCUT QMONTH Patient Comments: [NO ORIGINAL SIG] Rx Instructions: given one time a month by provider. Not available through regular pharmacy Follow up/Referrals: Amy Cochran MD [Primary Care Provider, Internal Medicine] Visit Report/Discharge Packet Stand Alone Forms: Patient Portal/API, Stroke Signs & Symptoms Discharge Data Primary Care Provider: Amy Cochran
[2025-03-28] MEDS: LIDOCAINE 5% PATCH 1 EACH TOP (08:28)
[2025-03-28] MEDS: NICOTINE 14 PATCH 14 MG TOP (08:29)
[2025-03-28] MEDS: ENOXAPARIN 40 MG/0.4 ML SYRINGE SUBCUT (08:29)
[2025-03-28] MEDS: PANTOPRAZOLE DR 40 MG TABLET PO (08:29)
[2025-03-28] MEDS: SODIUM CHLORIDE 0.9% FLUSH 10 ML IV (08:30)
[2025-03-28] MEDS: tiZANidine 4 MG TABLET 2 MG PO (08:30)
--- NOTE | 2025-03-28 12:10 | CM.DPC ---
DCP Cont. Reviewed EMR and team rounds for pt's medical status and updates. Pt has been medically cleared for home d/c, sent d/c clinicals to [facility]. Pt's grandson will be transporting her home. She is up and mobilizing in the room, has now improved enough to no longer requrie SNF rehab. No further d/c needs for CM identified at this time.
--- NOTE | 2025-03-29 19:56 | PC.NURSE ---
Late entry: On 03/26/25 patient received Lorazepam 0.5mg at 1745 for anxiety. She required freq pain medication adjustments.
== END 2025-03-28 12:20 | disposition home health service (06) | DRG 91 ==
LOC: ED 18:45 → AC 19:13
PROVIDERS: Family Medicine; Hospitalist; Admitting Provider Family Medicine; Emergency Provider Emergency Medicine; PCP Internal Medicine; Referring Provider Emergency Medicine; Visit Provider Family Medicine
DX: G89.29 Other chronic pain (principal); E43 Unspecified severe protein-calorie malnutrition; M54.6 Pain in thoracic spine; F10.21 Alcohol dependence, in remission; F11.90 Opioid use, unspecified, uncomplicated; F17.200 Nicotine dependence, unspecified, uncomplicated; M25.511 Pain in right shoulder; F41.9 Anxiety disorder, unspecified; Z98.1 Arthrodesis status; Z74.2 Need for assistance at home and no other household member able to render care; Z98.890 Other specified postprocedural states; Z93.1 Gastrostomy status; Z68.20 Body mass index [BMI] 20.0-20.9, adult
CPT/HCPCS: 36415; 71045; 72125; 72128; 72131; 73221; 80048; 80053; 82550; 83690; 84484; 85025; 85379; 85610; 85651; 85730; 86140; 93005; 93010; 96374; 96375; 96376; 97129; 97162; 97166; 97530; 97535; 99284; G0378; J1100; J1171; J1630; J1650; J1885; J2060; J2270; J2272; J3010; J3360

== ENCOUNTER 2025-04-01 14:40 | Observation (INO) | payer MEDICARE, MEDICAID, SELFPAY ==
[2025-04-01] VITALS (13 sets, daily range): BP systolic 128–161; BP diastolic 60–80; PULSE 65–88; RESP 18; TEMP 36.8; O2SAT 92–98; BMI 19.5
--- NOTE | 2025-04-01 16:53 | ED_ITS ---
HPI - Back Pain/Injury <Bea Farfan, DO - Last Filed: 04/11/25 23:34> General Chief Complaint: Back Pain/Injury Stated Complaint: chronic back pain Time Seen by Provider: 04/01/25 16:53 Source: patient and EMS Mode of arrival: EMS Limitations: no limitations History of Present Illness HPI Narrative: 69-year-old female with a history of chronic back pain with prior thoracic surgery with rods, reported that her rods or broken, history of alcohol abuse, tobacco use. Patient was supposed to of the 1st home health care visit today evaluated the patient and sent her here as they feel she is not safe to be at home. Patient states she has not been able to control her pain at home. She states she has not gotten around. Patient states no fevers or chills. No chest pain or shortness of breath. No nausea or vomiting. No new GI or urinary issues. She states orthopedic surgery as stated they can not repair her rods cause I do not think she would survive the surgery. She states she used to be on Subutex but was changed over by the hospitalist. She has been taking home pain medications but states she is not sure she is taking the exactly as prescribed. Patient notes she has not had a tube feed of rare the past day and a half. States her sister supposed to be living with her but that has not really. She feels she needs assistance in a nursing facility. Related Data Home Medications ?Medication ?Instructions ?Recorded ?Confirmed albuterol sulfate 90 mcg/actuation 2 puff inhalation Q 4-6H PRN 02/24/23 03/19/25 aerosol inhaler wheezing hydroxyzine HCl 50 mg tablet 50 mg PO Q6H PRN anxiety, sleep, 02/24/23 03/19/25 or pain pantoprazole 40 mg tablet,delayed 40 mg PO DAILY 02/2404/03/25 release pramipexole 0.125 mg tablet 0.125 mg PO ONCE PM 03/19/25 tizanidine 4 mg tablet 4 mg PO 3XD 02/24/23 5 trazodone 100 mg tablet 200 mg PO ONCE PM 02/24/23 1 Previous Rx's ?Medication ?Instructions ?Recorded dronabinol 2.5 mg capsule (Marinol) 2.5 mg PO BID #60 caps 02/25/23 ondansetron 4 mg disintegrating 4 mg PO Q6H PRN nausea and 03/24/23 tablet vomiting #20 tabs duloxetine 20 mg capsule,delayed 20 mg PO DAILY #30 ca ps 03/28/25 release lidocaine 5 % topical patch 1 patch topical DAILY #30 ea 03/28/25 methocarbamol 500 mg tablet 1,000 mg (2 x 500 mg) PO T ID #[id number] 03/28/25 tabs nicotine 14 mg/24 hr daily 14 mg topical DAILY #14 ea 03/28/25 transdermal patch dronabinol 2.5 mg capsule 2.5 mg PO BID #30 caps 04/04 fentanyl 75 mcg/hr transdermal 100 mcg topical Q72H #5 ea 04/04/25 patch gabapentin 100 mg capsule 200 mg (2 x 100 mg) PO TID # 30 caps 04/04/25 hydromorphone 2 mg tablet 2 mg PO Q4HR PRN Pain, Sever e 04/04/25 (7-10) #12 tabs lorazepam 1 mg tablet 1 mg PO Q6HR PRN Anxiety #6 tabs 04/04/25 miscellaneous medical supply #48 ea 04/04/25 Allergies Allergy/AdvReac Type Severity Reaction Status Date / Time bupropion (From Wellbutrin) Allergy Anaphylaxis Verified 04/01/25 14:49 ketamine Allergy Hallucinati Verified 04/01/25 14:49 ng pregabalin (From Lyrica) Allergy Muscle Verified 04/04/25 08:21 contractions aspirin (ASPIRIN) AdvReac Unknown Gastrointestinal Verified 04/01/25 14:49 Upset NSAIDS (Non-Steroidal AdvReac Unknown Gastrointestinal Verified 04/01/25 14:49 Anti-Inflamma (NSAIDS Upset (NON-STEROIDAL ANTI-INFLAMMA) Review of Systems <Bea Farfan DO - Last Filed: 04/11/25 23:34> Review of Systems ROS Unobtainable: All systems reviewed & are unremarkable except as noted in HPI and below Patient History <Bea Farfan DO - Last Filed: 04/11/25 23:34> Medical History 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, thoracic region Dorsalgia Cachexia Chronic back pain Anxiety Fibromyalgia History of anemia History of chronic pain Tobacco abuse History of alcohol abuse Major depressive disorder, recurrent episode, in partial remission with anxious distress Surgical History History of hysterectomy History of spinal fusion History of cholecystectomy Previous back surgery Family History Father Cancer Grandmother Cancer Social History household members: family Smoking Status: Current every day smoker alcohol intake: former Smoking Status: Current every day smoker tobacco type: cigarettes Exam <Bea Farfan DO - Last Filed: 04/11/25 23:34> Narrative Exam Narrative: GENERAL: Alert and oriented x three, thin elderly appearing female mild distress HEENT: Head normocephalic, atraumatic, EOMI, pupils reactive, face symmetric, moist mucous membranes NECK: Supple, full range of motion CARDIOVASCULAR: Regular rate and rhythm without murmurs, rubs or gallops. RESPIRATORY: Breath sounds equal bilaterally, no wheezes rales or rhonchi. ABDOMEN: Soft, nontender. Normoactive bowel sounds all 4 quadrants. No guarding or rebound, rigidity, no mass, patient has a PEG tube, the area appears clean dry and intact around it there was no drainage. : No CVA tenderness EXTREMITIES: Normal range of motion, no clubbing or edema. Neurovascularly intact NEUROLOGICAL: Cranial nerves II through XII grossly intact. Moving all extremities SKIN: Warm, dry, no petechiae, no rashes or lesions. Initial Vital Signs Initial Vital Signs: Vital Signs Temperature 98.2 F 04/01/25 14:44 Pulse Rate 88 04/01/25 14:44 Respiratory Rate 18 04/01/25 14:44 Blood Pressure 134/80 04/01/25 14:44 Pulse Oximetry 94 04/01/25 14:44 Oxygen Delivery Method Room Air 04/01/25 14:44 <Lindsey English MD - Last Filed: 04/02/25 07:28> Initial Vital Signs Initial Vital Signs: Vital Signs Temperature 98.2 F 04/01/25 14:44 Pulse Rate 88 04/01/25 14:44 Respiratory Rate 18 04/01/25 14:44 Blood Pressure 134/80 04/01/25 14:44 Pulse Oximetry 94 04/01/25 14:44 Oxygen Delivery Method Room Air 04/01/25 14:44 <Marty Dave, DO - Last Filed: 04/02/25 18:18> Initial Vital Signs Initial Vital Signs: Vital Signs Temperature 98.2 F 04/01/25 14:44 Pulse Rate 88 04/01/25 14:44 Respiratory Rate 18 04/01/25 14:44 Blood Pressure 134/80 04/01/25 14:44 Pulse Oximetry 94 04/01/25 14:44 Oxygen Delivery Method Room Air 04/01/25 14:44 Course <Bea Farfan, DO - Last Filed: 04/11/25 23:34> Orders Ordered: Discontinued Medications Acetaminophen (Acetaminophen 325 Mg Tablet) 975 mg PO Q8H [facility] Last Admin: 04/04/25 08:29 Dose: 975 mg Documented By: Admin: 04/04/25 01:24 Dose: 975 mg Documented By: Admin: 04/03/25 17:06 Dose: 975 mg Documented By: Admin: 04/03/25 08:50 Dose: 975 mg Documented By: Admin: 04/03/25 00:32 Dose: Not Given Documented By: Admin: 04/02/25 18:27 Dose: 975 mg Documented By: Admin: 04/02/25 08:56 Dose: 975 mg Documented By: Admin: 04/02/25 02:15 Dose: 975 mg Documented By: Admin: 04/01/25 17:46 Dose: 975 mg Documented By: ANASTASIYA Hydrocodone Bitart/Acetaminophen (Hydrocodone/Acet 5/325 Tablet) 2 tab PO NOW ONE Stop: 04/02/25 14:26 Last Admin: 04/02/25 14:48 Dose: 2 tab Documented By: MS Albuterol (Albuterol 2.5 Mg/3 Ml Neb (Adult)) 2.5 mg INH Q4HR PRN PRN Reason: Shortness Of Breath Or Wheezing Dronabinol (Dronabinol 2.5 Mg Capsule) 2.5 mg PO BID [facility] Last Admin: 04/04/25 08:28 Dose: 2.5 mg Documented By: Admin: 04/03/25 21:19 Dose: 2.5 mg Documented By: Admin: 04/03/25 08:53 Dose: 2.5 mg Documented By: Admin: 04/02/25 20:41 Dose: 2.5 mg Documented By: MEGGAN Duloxetine HCl (Duloxetine 20 Mg Capsule.Dr) 20 mg PO DAILY [facility] Last Admin: 04/04/25 08:30 Dose: 20 mg Documented By: Admin: 04/03/25 08:50 Dose: 20 mg Documented By: SOTO Fentanyl (Fentanyl 75 Mcg/Patch) 75 mcg TOP Q72H [facility] Last Admin: 04/02/25 08:57 Dose: 75 mcg Documented By: Fentanyl (Fentanyl 75 Mcg/Patch) 100 mcg TOP Q72H [facility] Fentanyl (Fentanyl 100 Mcg/Patch) 100 mcg TOP Q72H [facility] Last Admin: 04/04/25 10:24 Dose: 100 mcg Documented By: SOTO Gabapentin (Gabapentin 100 Mg Capsule) 100 mg PO TID [facility] Last Admin: 04/01/25 17:52 Dose: Not Given Documented By: ANASTASIYA Gabapentin (Gabapentin 100 Mg Capsule) 100 mg PO TID [facility] Last Admin: 04/03/25 21:19 Dose: 100 mg Documented By: Admin: 04/03/25 15:43 Dose: 100 mg Documented By: Admin: 04/03/25 08:51 Dose: 100 mg Documented By: Admin: 04/02/25 20:43 Dose: 100 mg Documented By: MEGGAN Gabapentin (Gabapentin 100 Mg Capsule) 200 mg PO TID [facility] Last Admin: 04/04/25 08:28 Dose: 200 mg Documented By: SOTO Hydromorphone HCl (Hydromorphone Hcl 0.5 Mg/0.5 Ml Syringe) 0.5 mg IV NOW ONE Stop: 04/01/25 17:11 Last Admin: 04/01/25 17:57 Dose: 0.5 mg Documented By: ANASTASIYA Hydromorphone HCl (Hydromorphone Hcl 0.5 Mg/0.5 Ml Syringe) 0.5 mg IV NOW ONE Stop: 04/01/25 20:11 Last Admin: 04/01/25 20:14 Dose: 0.5 mg Documented By: ANASTASIYA Hydromorphone HCl (Hydromorphone 2 Mg Tablet) 2 mg PO NOW ONE Stop: 04/02/25 06:23 Last Admin: 04/02/25 06:26 Dose: 2 mg Documented By: JOHN Hydromorphone HCl (Hydromorphone 1 Mg/Ml Syringe) 1 mg IV NOW ONE Stop: 04/02/25 12:22 Last Admin: 04/02/25 12:26 Dose: 1 mg Documented By: Hydromorphone HCl (Hydromorphone 1 Mg/Ml Syringe) 1 mg IV NOW ONE Stop: 04/02/25 16:41 Last Admin: 04/02/25 16:46 Dose: 1 mg Documented By: Hydromorphone HCl (Hydromorphone Hcl 0.5 Mg/0.5 Ml Syringe) 0.5 mg IV NOW ONE Stop: 04/02/25 17:14 Last Admin: 04/02/25 17:23 Dose: 0.5 mg Documented By: Hydromorphone HCl (Hydromorphone 2 Mg/Ml Syringe) 2 mg IV Q2H PRN PRN Reason: Pain, Severe (7-10) Last Admin: 04/04/25 06:13 Dose: 2 mg Documented By: Admin: 04/04/25 03:50 Dose: 2 mg Documented By: Admin: 04/04/25 01:23 Dose: 2 mg Documented By: Admin: 04/03/25 23:26 Dose: 2 mg Documented By: Admin: 04/03/25 20:07 Dose: 2 mg Documented By: Admin: 04/03/25 17:48 Dose: 2 mg Documented By: Admin: 04/03/25 15:43 Dose: 2 mg Documented By: Admin: 04/03/25 13:39 Dose: 2 mg Documented By: Admin: 04/03/25 11:32 Dose: 2 mg Documented By: Admin: 04/03/25 09:18 Dose: 2 mg Documented By: Admin: 04/03/25 04:49 Dose: 2 mg Documented By: Admin: 04/03/25 02:22 Dose: 2 mg Documented By: Admin: 04/02/25 23:02 Dose: 2 mg Documented By: Admin: 04/02/25 20:44 Dose: 2 mg Documented By: GILBERTO Hydromorphone HCl (Hydromorphone 2 Mg Tablet) 2 mg PO Q4HR PRN PRN Reason: Pain, Severe (7-10) Last Admin: 04/04/25 12:09 Dose: 2 mg Documented By: Admin: 04/04/25 08:33 Dose: 2 mg Documented By: SOTO Hydroxyzine HCl (Hydroxyzine Hcl 25 Mg Tablet) 50 mg PO Q6H PRN PRN Reason: Anxiety Ketorolac Tromethamine (Ketorolac 30 Mg/Ml Vial) 15 mg IV Q6H [facility] Stop: 04/03/25 20:59 Last Admin: 04/03/25 10:41 Dose: 15 mg Documented By: Admin: 04/03/25 03:29 Dose: 15 mg Documented By: Admin: 04/02/25 20:45 Dose: 15 mg Documented By: AT Lidocaine (Lidocaine 5% Patch) 1 each TOP DAILY [facility] Last Admin: 04/03/25 08:51 Dose: 1 each Documented By: Admin: 04/02/25 08:57 Dose: 1 each Documented By: Admin: 04/01/25 17:46 Dose: 1 each Documented By: ANASTASIYA Lidocaine (Lidocaine 5% Patch) 1 each TOP DAILY [facility] Last Admin: 04/04/25 08:30 Dose: 1 each Documented By: Admin: 04/03/25 11:17 Dose: Not Given Documented By: SOTO Lorazepam (Lorazepam 0.5 Mg Tablet) 1 mg PO NOW ONE Stop: 04/01/25 21:59 Last Admin: 04/01/25 22:26 Dose: 1 mg Documented By: ANASTASIYA Lorazepam (Lorazepam 1 Mg Tablet) 1 mg PO Q6HR PRN PRN Reason: Anxiety Last Admin: 04/03/25 22:42 Dose: 1 mg Documented By: Admin: 04/03/25 03:30 Dose: 1 mg Documented By: Admin: 04/02/25 22:19 Dose: 1 mg Documented By: GILBERTO Methocarbamol (Methocarbamol 500 Mg Tablet) 1,000 mg PO TID [facility] Last Admin: 04/03/25 08:51 Dose: 1,000 mg Documented By: Admin: 04/02/25 20:24 Dose: Not Given Documented By: Admin: 04/02/25 14:49 Dose: 1,000 mg Documented By: Admin: 04/02/25 08:56 Dose: 1,000 mg Documented By: Admin: 04/01/25 22:21 Dose: Not Given Documented By: Admin: 04/01/25 17:46 Dose: 1,000 mg Documented By: ANASTASIYA Methocarbamol (Methocarbamol 500 Mg Tablet) 1,000 mg PO TID [facility] Last Admin: 04/04/25 08:28 Dose: 1,000 mg Documented By: Admin: 04/03/25 21:34 Dose: Not Given Documented By: Admin: 04/03/25 17:06 Dose: 1,000 mg Documented By: Admin: 04/03/25 11:18 Dose: Not Given Documented By: Admin: 04/02/25 20:43 Dose: 1,000 mg Documented By: AT Naloxone HCl (Naloxone 0.4 Mg/Ml Vial) 0.2 mg IV Q2MIN PRN PRN Reason: Opiate Reversal Naloxone HCl (Naloxone 0.4 Mg/Ml Vial) 0.2 mg IV Q2MIN PRN PRN Reason: Opiate Reversal Nicotine (Nicotine 14 Patch) 14 mg TOP NOW ONE Stop: 04/01/25 17:08 Last Admin: 04/01/25 17:57 Dose: 14 mg Documented By: ANASTASIYA Nicotine (Nicotine 14 Patch) 14 mg TOP DAILY [facility] Last Admin: 04/04/25 08:34 Dose: 14 mg Documented By: Admin: 04/03/25 08:51 Dose: 14 mg Documented By: SOTO Non-Formulary Medication (Fentanyl Patch) 75 mcg TOP Q72H [facility] Ondansetron HCl (Ondansetron 4 Mg Odt) 4 mg PO Q6H PRN PRN Reason: Nausea And Vomiting Oxycodone HCl (Oxycodone Ir 10 Mg Tablet) 15 mg PO Q6HR PRN PRN Reason: Pain, Severe (7-10) Oxycodone HCl (Oxycodone Ir 5 Mg Tablet) 15 mg PO Q6HR PRN PRN Reason: Pain, Severe (7-10) Last Admin: 04/03/25 21:18 Dose: 15 mg Documented By: Admin: 04/03/25 06:35 Dose: 15 mg Documented By: Admin: 04/03/25 00:31 Dose: 15 mg Documented By: Admin: 04/02/25 18:28 Dose: 15 mg Documented By: Admin: 04/02/25 12:26 Dose: 15 mg Documented By: Admin: 04/02/25 06:09 Dose: 15 mg Documented By: Admin: 04/02/25 00:19 Dose: 15 mg Documented By: Admin: 04/01/25 18:17 Dose: 15 mg Documented By: ANASTASIYA Oxycodone HCl (Oxycodone Ir 5 Mg Tablet) 15 mg PO Q6H PRN PRN Reason: pain Pantoprazole Sodium (Pantoprazole Dr 40 Mg Tablet) 40 mg PO DAILY [facility] Last Admin: 04/04/25 08:28 Dose: 40 mg Documented By: Admin: 04/03/25 08:51 Dose: 40 mg Documented By: CLL Pramipexole Dihydrochloride (Pramipexole 0.25 Mg Tablet) 0.125 mg PO BEDTIME [facility] Last Admin: 04/03/25 21:20 Dose: 0.125 mg Documented By: Admin: 04/02/25 20:41 Dose: 0.125 mg Documented By: AT Tizanidine HCl (Tizanidine 4 Mg Tablet) 4 mg PO TID [facility] Last Admin: 04/04/25 08:28 Dose: 4 mg Documented By: Admin: 04/03/25 21:19 Dose: 4 mg Documented By: Admin: 04/03/25 15:43 Dose: 4 mg Documented By: Admin: 04/03/25 08:51 Dose: 4 mg Documented By: Admin: 04/02/25 20:42 Dose: 4 mg Documented By: AT Trazodone HCl (Trazodone 50 Mg Tablet) 200 mg PO BEDTIME [facility] Last Admin: 04/03/25 20:37 Dose: 200 mg Documented By: Admin: 04/02/25 20:41 Dose: 200 mg Documented By: AT Vital Signs Vital signs: Vital Signs - 8 hr 04/02/25 12:33 04/02/25 12:33 04/02/25 13:11 Pulse Rate 74 Blood Pressure 128/61 Pulse Oximetry 95 95 04/02/25 13:12 04/02/25 13:12 04/02/25 13:30 Pulse Rate 72 Blood Pressure 143/72 H 147/67 H Pulse Oximetry 96 04/02/25 13:30 04/02/25 14:00 04/02/25 14:00 Pulse Rate 71 74 Blood Pressure 120/69 Pulse Oximetry 94 95 04/02/25 14:30 04/02/25 14:30 Pulse Rate 78 Blood Pressure 158/80 H Pulse Oximetry 95 <Lindsey English MD - Last Filed: 04/02/25 07:28> Orders Ordered: Discontinued Medications Acetaminophen (Acetaminophen 325 Mg Tablet) 975 mg PO Q8H [facility] Last Admin: 04/04/25 08:29 Dose: 975 mg Documented By: Admin: 04/04/25 01:24 Dose: 975 mg Documented By: Admin: 04/03/25 17:06 Dose: 975 mg Documented By: Admin: 04/03/25 08:50 Dose: 975 mg Documented By: Admin: 04/03/25 00:32 Dose: Not Given Documented By: Admin: 04/02/25 18:27 Dose: 975 mg Documented By: Admin: 04/02/25 08:56 Dose: 975 mg Documented By: Admin: 04/02/25 02:15 Dose: 975 mg Documented By: Admin: 04/01/25 17:46 Dose: 975 mg Documented By: ANASTASIYA Hydrocodone Bitart/Acetaminophen (Hydrocodone/Acet 5/325 Tablet) 2 tab PO NOW ONE Stop: 04/02/25 14:26 Last Admin: 04/02/25 14:48 Dose: 2 tab Documented By: Albuterol (Albuterol 2.5 Mg/3 Ml Neb (Adult)) 2.5 mg INH Q4HR PRN PRN Reason: Shortness Of Breath Or Wheezing Dronabinol (Dronabinol 2.5 Mg Capsule) 2.5 mg PO BID [facility] Last Admin: 04/04/25 08:28 Dose: 2.5 mg Documented By: Admin: 04/03/25 21:19 Dose: 2.5 mg Documented By: Admin: 04/03/25 08:53 Dose: 2.5 mg Documented By: Admin: 04/02/25 20:41 Dose: 2.5 mg Documented By: AT Duloxetine HCl (Duloxetine 20 Mg Capsule.Dr) 20 mg PO DAILY [facility] Last Admin: 04/04/25 08:30 Dose: 20 mg Documented By: Admin: 04/03/25 08:50 Dose: 20 mg Documented By: SOTO Fentanyl (Fentanyl 75 Mcg/Patch) 75 mcg TOP Q72H [facility] Last Admin: 04/02/25 08:57 Dose: 75 mcg Documented By: Fentanyl (Fentanyl 75 Mcg/Patch) 100 mcg TOP Q72H [facility] Fentanyl (Fentanyl 100 Mcg/Patch) 100 mcg TOP Q72H [facility] Last Admin: 04/04/25 10:24 Dose: 100 mcg Documented By: STOO Gabapentin (Gabapentin 100 Mg Capsule) 100 mg PO TID [facility] Last Admin: 04/01/25 17:52 Dose: Not Given Documented By: ANASTASIYA Gabapentin (Gabapentin 100 Mg Capsule) 100 mg PO TID [facility] Last Admin: 04/03/25 21:19 Dose: 100 mg Documented By: Admin: 04/03/25 15:43 Dose: 100 mg Documented By: Admin: 04/03/25 08:51 Dose: 100 mg Documented By: Admin: 04/02/25 20:43 Dose: 100 mg Documented By: AT Gabapentin (Gabapentin 100 Mg Capsule) 200 mg PO TID [facility] Last Admin: 04/04/25 08:28 Dose: 200 mg Documented By: SOTO Hydromorphone HCl (Hydromorphone Hcl 0.5 Mg/0.5 Ml Syringe) 0.5 mg IV NOW ONE Stop: 04/01/25 17:11 Last Admin: 04/01/25 17:57 Dose: 0.5 mg Documented By: ANASTASIYA Hydromorphone HCl (Hydromorphone Hcl 0.5 Mg/0.5 Ml Syringe) 0.5 mg IV NOW ONE Stop: 04/01/25 20:11 Last Admin: 04/01/25 20:14 Dose: 0.5 mg Documented By: ANASTASIYA Hydromorphone HCl (Hydromorphone 2 Mg Tablet) 2 mg PO NOW ONE Stop: 04/02/25 06:23 Last Admin: 04/02/25 06:26 Dose: 2 mg Documented By: JOHN Hydromorphone HCl (Hydromorphone 1 Mg/Ml Syringe) 1 mg IV NOW ONE Stop: 04/02/25 12:22 Last Admin: 04/02/25 12:26 Dose: 1 mg Documented By: Hydromorphone HCl (Hydromorphone 1 Mg/Ml Syringe) 1 mg IV NOW ONE Stop: 04/02/25 16:41 Last Admin: 04/02/25 16:46 Dose: 1 mg Documented By: MS Hydromorphone HCl (Hydromorphone Hcl 0.5 Mg/0.5 Ml Syringe) 0.5 mg IV NOW ONE Stop: 04/02/25 17:14 Last Admin: 04/02/25 17:23 Dose: 0.5 mg Documented By: MS Hydromorphone HCl (Hydromorphone 2 Mg/Ml Syringe) 2 mg IV Q2H PRN PRN Reason: Pain, Severe (7-10) Last Admin: 04/04/25 06:13 Dose: 2 mg Documented By: Admin: 04/04/25 03:50 Dose: 2 mg Documented By: Admin: 04/04/25 01:23 Dose: 2 mg Documented By: Admin: 04/03/25 23:26 Dose: 2 mg Documented By: Admin: 04/03/25 20:07 Dose: 2 mg Documented By: Admin: 04/03/25 17:48 Dose: 2 mg Documented By: Admin: 04/03/25 15:43 Dose: 2 mg Documented By: Admin: 04/03/25 13:39 Dose: 2 mg Documented By: Admin: 04/03/25 11:32 Dose: 2 mg Documented By: Admin: 04/03/25 09:18 Dose: 2 mg Documented By: Admin: 04/03/25 04:49 Dose: 2 mg Documented By: Admin: 04/03/25 02:22 Dose: 2 mg Documented By: Admin: 04/02/25 23:02 Dose: 2 mg Documented By: Admin: 04/02/25 20:44 Dose: 2 mg Documented By: GILBERTO Hydromorphone HCl (Hydromorphone 2 Mg Tablet) 2 mg PO Q4HR PRN PRN Reason: Pain, Severe (7-10) Last Admin: 04/04/25 12:09 Dose: 2 mg Documented By: Admin: 04/04/25 08:33 Dose: 2 mg Documented By: SOTO Hydroxyzine HCl (Hydroxyzine Hcl 25 Mg Tablet) 50 mg PO Q6H PRN PRN Reason: Anxiety Ketorolac Tromethamine (Ketorolac 30 Mg/Ml Vial) 15 mg IV Q6H [facility] Stop: 04/03/25 20:59 Last Admin: 04/03/25 10:41 Dose: 15 mg Documented By: Admin: 04/03/25 03:29 Dose: 15 mg Documented By: Admin: 04/02/25 20:45 Dose: 15 mg Documented By: AT Lidocaine (Lidocaine 5% Patch) 1 each TOP DAILY [facility] Last Admin: 04/03/25 08:51 Dose: 1 each Documented By: Admin: 04/02/25 08:57 Dose: 1 each Documented By: Admin: 04/01/25 17:46 Dose: 1 each Documented By: ANASTASIYA Lidocaine (Lidocaine 5% Patch) 1 each TOP DAILY [facility] Last Admin: 04/04/25 08:30 Dose: 1 each Documented By: Admin: 04/03/25 11:17 Dose: Not Given Documented By: SOTO Lorazepam (Lorazepam 0.5 Mg Tablet) 1 mg PO NOW ONE Stop: 04/01/25 21:59 Last Admin: 04/01/25 22:26 Dose: 1 mg Documented By: ANASTASIYA Lorazepam (Lorazepam 1 Mg Tablet) 1 mg PO Q6HR PRN PRN Reason: Anxiety Last Admin: 04/03/25 22:42 Dose: 1 mg Documented By: Admin: 04/03/25 03:30 Dose: 1 mg Documented By: Admin: 04/02/25 22:19 Dose: 1 mg Documented By: GILBERTO Methocarbamol (Methocarbamol 500 Mg Tablet) 1,000 mg PO TID [facility] Last Admin: 04/03/25 08:51 Dose: 1,000 mg Documented By: Admin: 04/02/25 20:24 Dose: Not Given Documented By: Admin: 04/02/25 14:49 Dose: 1,000 mg Documented By: Admin: 04/02/25 08:56 Dose: 1,000 mg Documented By: Admin: 04/01/25 22:21 Dose: Not Given Documented By: Admin: 04/01/25 17:46 Dose: 1,000 mg Documented By: ANASTASIYA Methocarbamol (Methocarbamol 500 Mg Tablet) 1,000 mg PO TID [facility] Last Admin: 04/04/25 08:28 Dose: 1,000 mg Documented By: Admin: 04/03/25 21:34 Dose: Not Given Documented By: Admin: 04/03/25 17:06 Dose: 1,000 mg Documented By: Admin: 04/03/25 11:18 Dose: Not Given Documented By: Admin: 04/02/25 20:43 Dose: 1,000 mg Documented By: AT Naloxone HCl (Naloxone 0.4 Mg/Ml Vial) 0.2 mg IV Q2MIN PRN PRN Reason: Opiate Reversal Naloxone HCl (Naloxone 0.4 Mg/Ml Vial) 0.2 mg IV Q2MIN PRN PRN Reason: Opiate Reversal Nicotine (Nicotine 14 Patch) 14 mg TOP NOW ONE Stop: 04/01/25 17:08 Last Admin: 04/01/25 17:57 Dose: 14 mg Documented By: ANASTASIYA Nicotine (Nicotine 14 Patch) 14 mg TOP DAILY [facility] Last Admin: 04/04/25 08:34 Dose: 14 mg Documented By: Admin: 04/03/25 08:51 Dose: 14 mg Documented By: SOTO Non-Formulary Medication (Fentanyl Patch) 75 mcg TOP Q72H [facility] Ondansetron HCl (Ondansetron 4 Mg Odt) 4 mg PO Q6H PRN PRN Reason: Nausea And Vomiting Oxycodone HCl (Oxycodone Ir 10 Mg Tablet) 15 mg PO Q6HR PRN PRN Reason: Pain, Severe (7-10) Oxycodone HCl (Oxycodone Ir 5 Mg Tablet) 15 mg PO Q6HR PRN PRN Reason: Pain, Severe (7-10) Last Admin: 04/03/25 21:18 Dose: 15 mg Documented By: Admin: 04/03/25 06:35 Dose: 15 mg Documented By: Admin: 04/03/25 00:31 Dose: 15 mg Documented By: Admin: 04/02/25 18:28 Dose: 15 mg Documented By: Admin: 04/02/25 12:26 Dose: 15 mg Documented By: Admin: 04/02/25 06:09 Dose: 15 mg Documented By: Admin: 04/02/25 00:19 Dose: 15 mg Documented By: Admin: 04/01/25 18:17 Dose: 15 mg Documented By: ANASTASIYA Oxycodone HCl (Oxycodone Ir 5 Mg Tablet) 15 mg PO Q6H PRN PRN Reason: pain Pantoprazole Sodium (Pantoprazole Dr 40 Mg Tablet) 40 mg PO DAILY [facility] Last Admin: 04/04/25 08:28 Dose: 40 mg Documented By: Admin: 04/03/25 08:51 Dose: 40 mg Documented By: CLL Pramipexole Dihydrochloride (Pramipexole 0.25 Mg Tablet) 0.125 mg PO BEDTIME [facility] Last Admin: 04/03/25 21:20 Dose: 0.125 mg Documented By: Admin: 04/02/25 20:41 Dose: 0.125 mg Documented By: AT Tizanidine HCl (Tizanidine 4 Mg Tablet) 4 mg PO TID [facility] Last Admin: 04/04/25 08:28 Dose: 4 mg Documented By: Admin: 04/03/25 21:19 Dose: 4 mg Documented By: Admin: 04/03/25 15:43 Dose: 4 mg Documented By: Admin: 04/03/25 08:51 Dose: 4 mg Documented By: Admin: 04/02/25 20:42 Dose: 4 mg Documented By: AT Trazodone HCl (Trazodone 50 Mg Tablet) 200 mg PO BEDTIME [facility] Last Admin: 04/03/25 20:37 Dose: 200 mg Documented By: Admin: 04/02/25 20:41 Dose: 200 mg Documented By: AT Reevaluation(s) Reevaluation #1: [id number]: Transfer care from Dr. Farfan. Patient was re-evaluated and remains in stable condition. She does have intermittent increase in pain. Will adjust her pain regimen. Patient is awaiting for physical therapy consult in the morning as well as evaluation by social director for placement. Vital Signs Vital signs: Vital Signs - 8 hr 04/02/25 12:33 04/02/25 12:33 04/02/25 13:11 Pulse Rate 74 Blood Pressure 128/61 Pulse Oximetry 95 95 04/02/25 13:12 04/02/25 13:12 04/02/25 13:30 Pulse Rate 72 Blood Pressure 143/72 H 147/67 H Pulse Oximetry 96 04/02/25 13:30 04/02/25 14:00 04/02/25 14:00 Pulse Rate 71 74 Blood Pressure 120/69 Pulse Oximetry 94 95 04/02/25 14:30 04/02/25 14:30 Pulse Rate 78 Blood Pressure 158/80 H Pulse Oximetry 95 <Marty Dave, DO - Last Filed: 04/02/25 18:18> Orders Ordered: Discontinued Medications Acetaminophen (Acetaminophen 325 Mg Tablet) 975 mg PO Q8H [facility] Last Admin: 04/04/25 08:29 Dose: 975 mg Documented By: Admin: 04/04/25 01:24 Dose: 975 mg Documented By: Admin: 04/03/25 17:06 Dose: 975 mg Documented By: Admin: 04/03/25 08:50 Dose: 975 mg Documented By: Admin: 04/03/25 00:32 Dose: Not Given Documented By: Admin: 04/02/25 18:27 Dose: 975 mg Documented By: Admin: 04/02/25 08:56 Dose: 975 mg Documented By: Admin: 04/02/25 02:15 Dose: 975 mg Documented By: Admin: 04/01/25 17:46 Dose: 975 mg Documented By: ANASTASIYA Hydrocodone Bitart/Acetaminophen (Hydrocodone/Acet 5/325 Tablet) 2 tab PO NOW ONE Stop: 04/02/25 14:26 Last Admin: 04/02/25 14:48 Dose: 2 tab Documented By: Albuterol (Albuterol 2.5 Mg/3 Ml Neb (Adult)) 2.5 mg INH Q4HR PRN PRN Reason: Shortness Of Breath Or Wheezing Dronabinol (Dronabinol 2.5 Mg Capsule) 2.5 mg PO BID [facility] Last Admin: 04/04/25 08:28 Dose: 2.5 mg Documented By: Admin: 04/03/25 21:19 Dose: 2.5 mg Documented By: Admin: 04/03/25 08:53 Dose: 2.5 mg Documented By: Admin: 04/02/25 20:41 Dose: 2.5 mg Documented By: AT Duloxetine HCl (Duloxetine 20 Mg Capsule.Dr) 20 mg PO DAILY [facility] Last Admin: 04/04/25 08:30 Dose: 20 mg Documented By: Admin: 04/03/25 08:50 Dose: 20 mg Documented By: SOTO Fentanyl (Fentanyl 75 Mcg/Patch) 75 mcg TOP Q72H [facility] Last Admin: 04/02/25 08:57 Dose: 75 mcg Documented By: MS Fentanyl (Fentanyl 75 Mcg/Patch) 100 mcg TOP Q72H [facility] Fentanyl (Fentanyl 100 Mcg/Patch) 100 mcg TOP Q72H [facility] Last Admin: 04/04/25 10:24 Dose: 100 mcg Documented By: SOTO Gabapentin (Gabapentin 100 Mg Capsule) 100 mg PO TID [facility] Last Admin: 04/01/25 17:52 Dose: Not Given Documented By: ANASTASIYA Gabapentin (Gabapentin 100 Mg Capsule) 100 mg PO TID [facility] Last Admin: 04/03/25 21:19 Dose: 100 mg Documented By: Admin: 04/03/25 15:43 Dose: 100 mg Documented By: Admin: 04/03/25 08:51 Dose: 100 mg Documented By: Admin: 04/02/25 20:43 Dose: 100 mg Documented By: AT Gabapentin (Gabapentin 100 Mg Capsule) 200 mg PO TID [facility] Last Admin: 04/04/25 08:28 Dose: 200 mg Documented By: SOTO Hydromorphone HCl (Hydromorphone Hcl 0.5 Mg/0.5 Ml Syringe) 0.5 mg IV NOW ONE Stop: 04/01/25 17:11 Last Admin: 04/01/25 17:57 Dose: 0.5 mg Documented By: ANASTASIYA Hydromorphone HCl (Hydromorphone Hcl 0.5 Mg/0.5 Ml Syringe) 0.5 mg IV NOW ONE Stop: 04/01/25 20:11 Last Admin: 04/01/25 20:14 Dose: 0.5 mg Documented By: ANASTASIYA Hydromorphone HCl (Hydromorphone 2 Mg Tablet) 2 mg PO NOW ONE Stop: 04/02/25 06:23 Last Admin: 04/02/25 06:26 Dose: 2 mg Documented By: JOHN Hydromorphone HCl (Hydromorphone 1 Mg/Ml Syringe) 1 mg IV NOW ONE Stop: 04/02/25 12:22 Last Admin: 04/02/25 12:26 Dose: 1 mg Documented By: Hydromorphone HCl (Hydromorphone 1 Mg/Ml Syringe) 1 mg IV NOW ONE Stop: 04/02/25 16:41 Last Admin: 04/02/25 16:46 Dose: 1 mg Documented By: Hydromorphone HCl (Hydromorphone Hcl 0.5 Mg/0.5 Ml Syringe) 0.5 mg IV NOW ONE Stop: 04/02/25 17:14 Last Admin: 04/02/25 17:23 Dose: 0.5 mg Documented By: MS Hydromorphone HCl (Hydromorphone 2 Mg/Ml Syringe) 2 mg IV Q2H PRN PRN Reason: Pain, Severe (7-10) Last Admin: 04/04/25 06:13 Dose: 2 mg Documented By: Admin: 04/04/25 03:50 Dose: 2 mg Documented By: Admin: 04/04/25 01:23 Dose: 2 mg Documented By: Admin: 04/03/25 23:26 Dose: 2 mg Documented By: Admin: 04/03/25 20:07 Dose: 2 mg Documented By: Admin: 04/03/25 17:48 Dose: 2 mg Documented By: Admin: 04/03/25 15:43 Dose: 2 mg Documented By: Admin: 04/03/25 13:39 Dose: 2 mg Documented By: Admin: 04/03/25 11:32 Dose: 2 mg Documented By: Admin: 04/03/25 09:18 Dose: 2 mg Documented By: Admin: 04/03/25 04:49 Dose: 2 mg Documented By: Admin: 04/03/25 02:22 Dose: 2 mg Documented By: Admin: 04/02/25 23:02 Dose: 2 mg Documented By: Admin: 04/02/25 20:44 Dose: 2 mg Documented By: SH Hydromorphone HCl (Hydromorphone 2 Mg Tablet) 2 mg PO Q4HR PRN PRN Reason: Pain, Severe (7-10) Last Admin: 04/04/25 12:09 Dose: 2 mg Documented By: Admin: 04/04/25 08:33 Dose: 2 mg Documented By: CLL Hydroxyzine HCl (Hydroxyzine Hcl 25 Mg Tablet) 50 mg PO Q6H PRN PRN Reason: Anxiety Ketorolac Tromethamine (Ketorolac 30 Mg/Ml Vial) 15 mg IV Q6H [facility] Stop: 04/03/25 20:59 Last Admin: 04/03/25 10:41 Dose: 15 mg Documented By: Admin: 04/03/25 03:29 Dose: 15 mg Documented By: Admin: 04/02/25 20:45 Dose: 15 mg Documented By: AT Lidocaine (Lidocaine 5% Patch) 1 each TOP DAILY [facility] Last Admin: 04/03/25 08:51 Dose: 1 each Documented By: Admin: 04/02/25 08:57 Dose: 1 each Documented By: Admin: 04/01/25 17:46 Dose: 1 each Documented By: ANASTASIYA Lidocaine (Lidocaine 5% Patch) 1 each TOP DAILY [facility] Last Admin: 04/04/25 08:30 Dose: 1 each Documented By: Admin: 04/03/25 11:17 Dose: Not Given Documented By: SOTO Lorazepam (Lorazepam 0.5 Mg Tablet) 1 mg PO NOW ONE Stop: 04/01/25 21:59 Last Admin: 04/01/25 22:26 Dose: 1 mg Documented By: ANASTASIYA Lorazepam (Lorazepam 1 Mg Tablet) 1 mg PO Q6HR PRN PRN Reason: Anxiety Last Admin: 04/03/25 22:42 Dose: 1 mg Documented By: Admin: 04/03/25 03:30 Dose: 1 mg Documented By: Admin: 04/02/25 22:19 Dose: 1 mg Documented By: GILBERTO Methocarbamol (Methocarbamol 500 Mg Tablet) 1,000 mg PO TID [facility] Last Admin: 04/03/25 08:51 Dose: 1,000 mg Documented By: Admin: 04/02/25 20:24 Dose: Not Given Documented By: Admin: 04/02/25 14:49 Dose: 1,000 mg Documented By: Admin: 04/02/25 08:56 Dose: 1,000 mg Documented By: Admin: 04/01/25 22:21 Dose: Not Given Documented By: Admin: 04/01/25 17:46 Dose: 1,000 mg Documented By: ANASTASIYA Methocarbamol (Methocarbamol 500 Mg Tablet) 1,000 mg PO TID [facility] Last Admin: 04/04/25 08:28 Dose: 1,000 mg Documented By: Admin: 04/03/25 21:34 Dose: Not Given Documented By: Admin: 04/03/25 17:06 Dose: 1,000 mg Documented By: Admin: 04/03/25 11:18 Dose: Not Given Documented By: Admin: 04/02/25 20:43 Dose: 1,000 mg Documented By: AT Naloxone HCl (Naloxone 0.4 Mg/Ml Vial) 0.2 mg IV Q2MIN PRN PRN Reason: Opiate Reversal Naloxone HCl (Naloxone 0.4 Mg/Ml Vial) 0.2 mg IV Q2MIN PRN PRN Reason: Opiate Reversal Nicotine (Nicotine 14 Patch) 14 mg TOP NOW ONE Stop: 04/01/25 17:08 Last Admin: 04/01/25 17:57 Dose: 14 mg Documented By: ANASTASIYA Nicotine (Nicotine 14 Patch) 14 mg TOP DAILY [facility] Last Admin: 04/04/25 08:34 Dose: 14 mg Documented By: Admin: 04/03/25 08:51 Dose: 14 mg Documented By: SOTO Non-Formulary Medication (Fentanyl Patch) 75 mcg TOP Q72H [facility] Ondansetron HCl (Ondansetron 4 Mg Odt) 4 mg PO Q6H PRN PRN Reason: Nausea And Vomiting Oxycodone HCl (Oxycodone Ir 10 Mg Tablet) 15 mg PO Q6HR PRN PRN Reason: Pain, Severe (7-10) Oxycodone HCl (Oxycodone Ir 5 Mg Tablet) 15 mg PO Q6HR PRN PRN Reason: Pain, Severe (7-10) Last Admin: 04/03/25 21:18 Dose: 15 mg Documented By: Admin: 04/03/25 06:35 Dose: 15 mg Documented By: Admin: 04/03/25 00:31 Dose: 15 mg Documented By: Admin: 04/02/25 18:28 Dose: 15 mg Documented By: Admin: 04/02/25 12:26 Dose: 15 mg Documented By: Admin: 04/02/25 06:09 Dose: 15 mg Documented By: Admin: 04/02/25 00:19 Dose: 15 mg Documented By: Admin: 04/01/25 18:17 Dose: 15 mg Documented By: ANASTASIYA Oxycodone HCl (Oxycodone Ir 5 Mg Tablet) 15 mg PO Q6H PRN PRN Reason: pain Pantoprazole Sodium (Pantoprazole Dr 40 Mg Tablet) 40 mg PO DAILY [facility] Last Admin: 04/04/25 08:28 Dose: 40 mg Documented By: Admin: 04/03/25 08:51 Dose: 40 mg Documented By: SOTO Pramipexole Dihydrochloride (Pramipexole 0.25 Mg Tablet) 0.125 mg PO BEDTIME [facility] Last Admin: 04/03/25 21:20 Dose: 0.125 mg Documented By: Admin: 04/02/25 20:41 Dose: 0.125 mg Documented By: AT Tizanidine HCl (Tizanidine 4 Mg Tablet) 4 mg PO TID [facility] Last Admin: 04/04/25 08:28 Dose: 4 mg Documented By: Admin: 04/03/25 21:19 Dose: 4 mg Documented By: Admin: 04/03/25 15:43 Dose: 4 mg Documented By: Admin: 04/03/25 08:51 Dose: 4 mg Documented By: Admin: 04/02/25 20:42 Dose: 4 mg Documented By: AT Trazodone HCl (Trazodone 50 Mg Tablet) 200 mg PO BEDTIME [facility] Last Admin: 04/03/25 20:37 Dose: 200 mg Documented By: Admin: 04/02/25 20:41 Dose: 200 mg Documented By: AT Vital Signs Vital signs: Vital Signs - 8 hr 04/02/25 12:33 04/02/25 12:33 04/02/25 13:11 Pulse Rate 74 Blood Pressure 128/61 Pulse Oximetry 95 95 04/02/25 13:12 04/02/25 13:12 04/02/25 13:30 Pulse Rate 72 Blood Pressure 143/72 H 147/67 H Pulse Oximetry 96 04/02/25 13:30 04/02/25 14:00 04/02/25 14:00 Pulse Rate 71 74 Blood Pressure 120/69 Pulse Oximetry 94 95 04/02/25 14:30 04/02/25 14:30 Pulse Rate 78 Blood Pressure 158/80 H Pulse Oximetry 95 MDM - Back Pain/Injury <Bea Farfan, DO - Last Filed: 04/11/25 23:34> Lab Data 04/01/25 17:35 04/01/25 16:55 Labs: Lab Results 04/01/25 04/01/25 04/01/25 Range/Units 16:55 17:35 20:20 WBC 10.8 (4.5-11.0) X10^3/uL RBC 3.87 L (4.0-5.2) X10^6/uL Hgb 13.4 (12.0-16.0) g/dL Hct 38.0 (36-46) % MCV 98.2 (80-100) fL MCH 34.5 H (26-34) PG MCHC 35.2 (30-36) % RDW 12.7 (11.6-14.8) % Plt Count 341 (150-400) X10^3/uL Neut % (Auto) 71.8 (50-75) % Lymph % (Auto) 19.2 L (25-40) % [place] % (Auto) 7.4 (3-14) % Eos % (Auto) 1.0 L (2-4) % Baso % (Auto) 0.6 (0-2) % Neut # (Auto) 7800 H (2626-2631) /uL Lymph # (Auto) 2100 (4877-2912) /uL [place] # (Auto) 800 (0-900) /uL Eos # (Auto) 100 (0-450) /uL Baso # (Auto) 100 (0-100) /uL Sodium 135 L (137-145) mmol/L Potassium 4.1 (3.4-5.1) mmol/L Chloride 103 (98-107) mmol/L Carbon Dioxide 26 (22-32) mmol/L BUN 13 (7-17) mg/dL Creatinine 0.50 L (0.52-1.04) mg/dL Estimated GFR > 60 (>60) mL/min BUN/Creatinine Ratio 26.0 H (6-22) Glucose 128 H (70-99) mg/dL Calcium 10.2 (8.4-10.2) mg/dL Total Bilirubin 0.5 (0.2-1.3) mg/dL AST 22 (14-36) IU/L ALT 27 (<35) IU/L Alkaline Phosphatase 94 (38-126) U/L Total Protein 6.9 (6.3-8.2) g/dL Albumin 4.1 (3.5-5.0) g/dL Globulin 2.8 (1.7-4.1) g/dL Albumin/Globulin Ratio 1.5 (1.0-2.8) Urine Color Yellow Urine Appearance Clear Urine pH 7.0 (4.5-8.0) Ur Specific [place] 1.010 (1.000-1.035) Urine Protein Negative (Negative) Urine Glucose (UA) Negative (Negative) g/dL Urine Ketones Negative (NEGATIVE) Urine Occult Blood Negative (Negative) Urine Nitrate Negative (Negative) Urine Bilirubin Negative (NEGATIVE) Urine Urobilinogen 1.0 (0.2) E.U./dL Ur Leukocyte Esterase Negative (NEGATIVE) Urine RBC None seen (0-5/HPF) Urine WBC 0-1/hpf (0-5/HPF) Ur Squamous Epith Cells 0-1 /hpf (0-5/HPF) Ur Transition Epith Cell 0-1/hpf (0-5/HPF) Amorphous Sediment 3+ Urine Bacteria Occasional (0-1) (None) Ur Culture Indicated? Cult not indicated Vol Urine Centrifuged 10ml (spun) MDM Narrative Medical decision making narrative: Labs show white count of 10.8 hemoglobin of 13 platelets of 341, chemistries shows sodium 135 otherwise electrolytes are appropriate creatinine is not elevated, glucose is 128, LFTs are negative. Urine UA shows 1 white cell 1 squamous 1 transitional, otherwise does not show any infectious changes. Patient had recent imaging of her cervical, thoracic and lumbar spine on 03/18/2025 she has not had any new falls or trauma that she reports. At that time there was no new displaced fractures or traumatic subluxation, patient did have remote stable anterior wedge deformities in the thoracic spine. Patient met with the AIR CONDITIONING SUPERVISOR. She is interested in placement in a facility. Spoke with Dr. Najera, hospitalist he is familiar with the patient. We would be social admit. Updated patient on her findings, she is quite anxious about being in the department overnight she would rather be admitted upstairs but we discussed she does not meet any criteria at this time. She did ask for a dose of ativan. Patient had home pain medications ordered along with ed boarding orders. Signed out to overnight physician. Pending PT evaluation and AIR CONDITIONING SUPERVISOR tomorrow. <Lindsey English MD - Last Filed: 04/02/25 07:28> Lab Data Labs: Lab Results 04/01/25 04/01/25 04/01/25 Range/Units 16:55 17:35 20:20 WBC 10.8 (4.5-11.0) X10^3/uL RBC 3.87 L (4.0-5.2) X10^6/uL Hgb 13.4 (12.0-16.0) g/dL Hct 38.0 (36-46) % MCV 98.2 (80-100) fL MCH 34.5 H (26-34) PG MCHC 35.2 (30-36) % RDW 12.7 (11.6-14.8) % Plt Count 341 (150-400) X10^3/uL Neut % (Auto) 71.8 (50-75) % Lymph % (Auto) 19.2 L (25-40) % [place] % (Auto) 7.4 (3-14) % Eos % (Auto) 1.0 L (2-4) % Baso % (Auto) 0.6 (0-2) % Neut # (Auto) 7800 H (4146-7200) /uL Lymph # (Auto) 2100 (2138-3962) /uL [place] # (Auto) 800 (0-900) /uL Eos # (Auto) 100 (0-450) /uL Baso # (Auto) 100 (0-100) /uL Sodium 135 L (137-145) mmol/L Potassium 4.1 (3.4-5.1) mmol/L Chloride 103 (98-107) mmol/L Carbon Dioxide 26 (22-32) mmol/L BUN 13 (7-17) mg/dL Creatinine 0.50 L (0.52-1.04) mg/dL Estimated GFR > 60 (>60) mL/min BUN/Creatinine Ratio 26.0 H (6-22) Glucose 128 H (70-99) mg/dL Calcium 10.2 (8.4-10.2) mg/dL Total Bilirubin 0.5 (0.2-1.3) mg/dL AST 22 (14-36) IU/L ALT 27 (<35) IU/L Alkaline Phosphatase 94 (38-126) U/L Total Protein 6.9 (6.3-8.2) g/dL Albumin 4.1 (3.5-5.0) g/dL Globulin 2.8 (1.7-4.1) g/dL Albumin/Globulin Ratio 1.5 (1.0-2.8) Urine Color Yellow Urine Appearance Clear Urine pH 7.0 (4.5-8.0) Ur Specific [place] 1.010 (1.000-1.035) Urine Protein Negative (Negative) Urine Glucose (UA) Negative (Negative) g/dL Urine Ketones Negative (NEGATIVE) Urine Occult Blood Negative (Negative) Urine Nitrate Negative (Negative) Urine Bilirubin Negative (NEGATIVE) Urine Urobilinogen 1.0 (0.2) E.U./dL Ur Leukocyte Esterase Negative (NEGATIVE) Urine RBC None seen (0-5/HPF) Urine WBC 0-1/hpf (0-5/HPF) Ur Squamous Epith Cells 0-1 /hpf (0-5/HPF) Ur Transition Epith Cell 0-1/hpf (0-5/HPF) Amorphous Sediment 3+ Urine Bacteria Occasional (0-1) (None) Ur Culture Indicated? Cult not indicated Vol Urine Centrifuged 10ml (spun) <Marty Dave, DO - Last Filed: 04/02/25 18:18> Lab Data Labs: Lab Results 04/01/25 04/01/25 04/01/25 Range/Units 16:55 17:35 20:20 WBC 10.8 (4.5-11.0) X10^3/uL RBC 3.87 L (4.0-5.2) X10^6/uL Hgb 13.4 (12.0-16.0) g/dL Hct 38.0 (36-46) % MCV 98.2 (80-100) fL MCH 34.5 H (26-34) PG MCHC 35.2 (30-36) % RDW 12.7 (11.6-14.8) % Plt Count 341 (150-400) X10^3/uL Neut % (Auto) 71.8 (50-75) % Lymph % (Auto) 19.2 L (25-40) % [place] % (Auto) 7.4 (3-14) % Eos % (Auto) 1.0 L (2-4) % Baso % (Auto) 0.6 (0-2) % Neut # (Auto) 7800 H (5765-9440) /uL Lymph # (Auto) 2100 (3206-6017) /uL [place] # (Auto) 800 (0-900) /uL Eos # (Auto) 100 (0-450) /uL Baso # (Auto) 100 (0-100) /uL Sodium 135 L (137-145) mmol/L Potassium 4.1 (3.4-5.1) mmol/L Chloride 103 (98-107) mmol/L Carbon Dioxide 26 (22-32) mmol/L BUN 13 (7-17) mg/dL Creatinine 0.50 L (0.52-1.04) mg/dL Estimated GFR > 60 (>60) mL/min BUN/Creatinine Ratio 26.0 H (6-22) Glucose 128 H (70-99) mg/dL Calcium 10.2 (8.4-10.2) mg/dL Total Bilirubin 0.5 (0.2-1.3) mg/dL AST 22 (14-36) IU/L ALT 27 (<35) IU/L Alkaline Phosphatase 94 (38-126) U/L Total Protein 6.9 (6.3-8.2) g/dL Albumin 4.1 (3.5-5.0) g/dL Globulin 2.8 (1.7-4.1) g/dL Albumin/Globulin Ratio 1.5 (1.0-2.8) Urine Color Yellow Urine Appearance Clear Urine pH 7.0 (4.5-8.0) Ur Specific [place] 1.010 (1.000-1.035) Urine Protein Negative (Negative) Urine Glucose (UA) Negative (Negative) g/dL Urine Ketones Negative (NEGATIVE) Urine Occult Blood Negative (Negative) Urine Nitrate Negative (Negative) Urine Bilirubin Negative (NEGATIVE) Urine Urobilinogen 1.0 (0.2) E.U./dL Ur Leukocyte Esterase Negative (NEGATIVE) Urine RBC None seen (0-5/HPF) Urine WBC 0-1/hpf (0-5/HPF) Ur Squamous Epith Cells 0-1 /hpf (0-5/HPF) Ur Transition Epith Cell 0-1/hpf (0-5/HPF) Amorphous Sediment 3+ Urine Bacteria Occasional (0-1) (None) Ur Culture Indicated? Cult not indicated Vol Urine Centrifuged 10ml (spun) MDM Narrative Medical decision making narrative: Labs show white count of 10.8 hemoglobin of 13 platelets of 341, chemistries shows sodium 135 otherwise electrolytes are appropriate creatinine is not elevated, glucose is 128, LFTs are negative. Urine UA shows 1 white cell 1 squamous 1 transitional, otherwise does not show any infectious changes. Patient had recent imaging of her cervical, thoracic and lumbar spine on 03/18/2025 she has not had any new falls or trauma that she reports. At that time there was no new displaced fractures or traumatic subluxation, patient did have remote stable anterior wedge deformities in the thoracic spine. Patient met with the AIR CONDITIONING SUPERVISOR. She is interested in placement in a facility. Spoke with Dr. Najera, hospitalist he is familiar with the patient. We would be social admit. Updated patient on her findings, she is quite anxious about being in the department overnight she would rather be admitted upstairs but we discussed she does not meet any criteria at this time. She did ask for a dose of ativan. Patient had home pain medications ordered along with ed boarding orders. Signed out to overnight physician. Pending PT evaluation and AIR CONDITIONING SUPERVISOR tomorrow. Pt seen and examined by PT and AIR CONDITIONING SUPERVISOR and case d/w will admit for social - chronic back pain Discharge Plan Departure Patient Disposition: Admitted as Observation Clinical Impression: Chronic back pain Qualifiers: Back pain location: low back pain Back pain laterality: unspecified Sciatica presence: without sciatica Qualified Code(s): M54.50 - Low back pain, unspecified Admit Date/Time: 04/02/25 18:15 Admit Provider: Silver Crabtree ED Sign-out <Lindsey English MD - Last Filed: 04/02/25 07:28> Cosign ED Attending Cosignature Attestation: Patient signed out to Dr. Dave at 0715. She is pending pain controlled, PT evaluation, and AIR CONDITIONING SUPERVISOR for possible SNF placement.
--- NOTE | 2025-04-01 17:11 | CM.SWNOTE ---
Initial DCP Assessment /ED PSYCHIATRIC AIDE Note Patient is 69 y/o female who presents to ED via EMS due to concern for increased back pain and inability to care for self. Patient was recently admitted for similar presentation at from 03/19/25-03/28/25 and discharged with Meaghan CAMPBELL referral with recommendation for patient to f/u with Ortho. Meaghan CAMPBELL RN called 911 due to concern for patient's pain and concern for care for self at home and it is reported that Meaghan CAMPBELL RN was unable to complete assessment with patient. Patient's PCP is Amy Cochran, Patient has [facility] and Medicaid insurance. PSYCHIATRIC AIDE introduces self and meets with patient. Patient presents as A/Ox4, patient endorses that she has been experiencing some confusion and brain fog. Patient endorses she resides in [place], and her sister is only there a few days a week. Patient endorses that she has been able to get to the bathroom but has been unable to managing feeding self and manage other ADLs, patient states that her sister has not been available to help her nor does her sister show interest in helping her. Patient endorses at baseline she was able to manage ADLs but in recent weeks she has been unable to do so due to her pain, patient endorses that her pain is 15/10 at this time. Patient endorses concern for returning home and endorses interest in SNF rehab and is interested in going to any SNF rehab that will take her insurance. Patient endorses hx of SNF rehab at [facility] after hx of back surgeries. Patient states that she has been unable to reach out to Ortho because she does not know where her phone is. Patient has a PEG tube and is reliant on [facility] deliveries for nutrition. Patient reports that she was only able to feed herself yesterday. PSYCHIATRIC AIDE reaches out to Meaghan CAMPBELL, it is reported that patient only had 1 container of tube feeding in the last 2 days and patient has been too weak to feed herself. Meaghan CAMPBELL reports that were not able to admit patient due to the RN's inability to complete assessment today. PSYCHIATRIC AIDE contacts [facility] regarding patient and it is reported that patient was connected with Medicaid LTC services previously but withdrew from them in June 2024. PSYCHIATRIC AIDE completes new intake referral for [facility] services and faxes it to [facility]. This PSYCHIATRIC AIDE submitted APS report due to concern for self neglect and concern for care at home: Online Report Confirmation Number: [id number] Plan: Pending medical work up and evaluation at this time. PSYCHIATRIC AIDE recommends PT eval to determine plan of care. Pending Medicaid LTC application. Follow up with Meaghan CAMPEBLL. JANET Garcia Discharge Planning/Care Management CM Discharge Assessment Start: 04/01/25 17:05 Freq: Status: Active Protocol: Document 04/01/25 17:05 LN (Rec: 04/01/25 17:10 LN [id number]) Discharge Planning Assessment Assigned Discharge JANET Sierra [employer] Provider Amy Cochran MD Insurance Medicaid,Medicare,H2HCare DPOA/Assigned Lora Zepeda/Sister Designee Name Contact Information [phone] Advance Directives? No History Provided By Patient,Medical Record Has Patient been Yes admitted in last 30 days? Comment Admitted 03/19-03/28 with similar presentation. Prior Living Apartment/Condo Arrangements Household Members family Comment It is reported that patient's sister resides with her but she is barely there. Type of Relies on Others transporation used prior to admit Independent with ADL No 's Is patient alert and Yes oriented? Needs Assistance Bathing,Meal Prep,Managing Medications,Home Chores / With Shopping Patient/Family Custodial Facility Preference Comment anywhere that accepts her insurance
[2025-04-01 17:16] LABS: Alanine Aminotransferase 27 IU/L (<35); Albumin 4.1 g/dL (3.5-5.0); Albumin Globulin Ratio 1.5 (1.0-2.8); Alkaline Phosphatase 94 U/L (38-126); Blood Urea Nitrogen 13 mg/dL (7-17); Calcium 10.2 mg/dL (8.4-10.2); Carbon Dioxide 26 mmol/L (22-32); Chloride 103 mmol/L (98-107); Estimated Glomerular Filt Rate > 60 mL/min (>60); Globulin 2.8 g/dL (1.7-4.1); Glucose 128 mg/dL (70-99); HEMOLYSIS 16 (0-50); Potassium 4.1 mmol/L (3.4-5.1); Sodium 135 mmol/L (137-145); Total Protein 6.9 g/dL (6.3-8.2)
[2025-04-01 17:41] LABS: Add Manual Diff / Slide Review NO; Hematocrit 38.0 % (36-46); Hemoglobin 13.4 g/dL (12.0-16.0); Lymphocytes Absolute Auto 2100 /uL (1100-4500); Mean Corpuscular HGB Conc 35.2 % (30-36); Mean Corpuscular Hemoglobin 34.5 PG (26-34); Mean Corpuscular Volume 98.2 fL (80-100); Platelet Count 341 X10^3/uL (150-400)
[2025-04-01] MEDS: ACETAMINOPHEN 325 MG TABLET 975 MG PO (17:46)
[2025-04-01] MEDS: LIDOCAINE 5% PATCH 1 EACH TOP (17:46)
[2025-04-01] MEDS: NICOTINE 14 PATCH 14 MG TOP (17:57)
[2025-04-01 20:26] LABS: Appearance Urine UA CLEAR; Bilirubin Urine UA NEGATIVE (NEGATIVE); Color Urine UA YELLOW; Glucose Urine UA NEGATIVE (Negative); Ketones Urine UA NEGATIVE (NEGATIVE); Leukocyte Esterase Urine UA NEGATIVE (NEGATIVE); Nitrite Urine UA NEGATIVE (Negative); Occult Blood Urine UA NEGATIVE (Negative); Protein Urine UA NEGATIVE (Negative); Specific Gravity Urine UA 1.010 (1.000-1.035); Urobilinogen Urine UA 1.0 E.U./dL (0.2)
[2025-04-01 20:36] LABS: pH Urine UA 7.0 (4.5-8.0)
[2025-04-01 20:37] LABS: Culture Indicated Urine Cult Not Indicated
--- NOTE | 2025-04-01 21:28 | PC.NURSE ---
patient given coffee. patient reassessed for pain. patient is now hungry. Patient stated when am I getting out of this room? I've been here for 8 hours. The patient was given multiple pain meds and her pain has been reassessed frequently. The patient stated when she got here that she was not eating and not hungry. Now the patient is asking for more pain meds and food, stating that she hasn't even been given food. She went on to state that waiting in the ER room is neglect and abuse. The patient was reminded of what interventions have been done while she's been here.
--- NOTE | 2025-04-01 22:20 | PC.NURSE ---
pt placed in hospital bed from ED stretcher due to boarding in the ED for social admit
[2025-04-02] VITALS (12 sets, daily range): BP systolic 120–158; BP diastolic 61–87; PULSE 67–78; RESP 15–16; TEMP 36.7–36.9; O2SAT 94–96; BMI 19.5
[2025-04-02] MEDS: ACETAMINOPHEN 325 MG TABLET 975 MG PO ×3 (02:15→18:27)
--- NOTE | 2025-04-02 06:32 | PC.NURSE ---
Pt woke around 0545 and requested pain meds; Q6hr PRN oxycodone not due until 0615. Pt educated on importance of safe opioid medication administration. Pt was medicated with oxycodone at 0615. Pt requesting IV dilaudid. Reports dissatisfaction with her care,You aren't doing anything for my pain, it's not my fault that I was discharged too soon and now you're punishing me by sticking me in a room and letting me suffer all night. Pt was calm and sedate during the night on rounding; occasionally she turned on the call light but was dozing and rousable to verbal commands when staff arrived to room. Pt declining repositioning due to uncontrolled pain. Dr English notified of above; order for PO dilaudid received.
--- NOTE | 2025-04-02 06:32 | PC.NURSE ---
During this nurses shift 1900 - 0630 patient called for pain medications. After arriving to room to speak with patient, patient was asleep, and this nurse had to rouse her to get her attention. Patient shows no visible signs of distress during times this nurse has been in the room. Patient requesting coffee multiple times throughout shift, crackers. Advised patient that she really needs to try and rest. Rounding on patient no notable signs/sounds of distress. Patent appeared to be sleeping each time. ER provider aware.
--- NOTE | 2025-04-02 07:17 | PC.NURSE ---
Pt reports no relief after PO dilaudid with oxycodone. Dr Dave notified. Report given to oncoming POP Felix
[2025-04-02] MEDS: LIDOCAINE 5% PATCH 1 EACH TOP (08:57)
--- NOTE | 2025-04-02 11:08 | PC.NURSE ---
Pt is to be started on Pivot 1.5 with 11 Gram ProSource added for Tube feeding to be run at 30 ml/hr continuous with 100 ml water flush q4h.
--- NOTE | 2025-04-02 11:36 | PC.NURSE ---
Pt used call light to call for assistance, The patient has requested information for patient advocate services. phlebotomy services technicianIsidro and SEWER AND INSPECTORTita were made aware of patients request. Patient needed no other needs at this time.
--- NOTE | 2025-04-02 13:31 | PT-IP ANOTE ---
PT eval received. EMR reviewed. checked on pt and pt refused PT. stated that she cannot and does not want to move due to her intense pain. pt received pain meds prior but stated that she knows what pain medications she has taken but she needs the pain shot. informed nurse and showcase maker regarding PT eval refusal.
--- NOTE | 2025-04-02 14:57 | PC.NURSE ---
Addendum entered by Coleen Bailey RN 04/02/25 18:24: Pt continues to have difficulty controlling pain. This RN has been advocating for the pt to be admitted to the hospital for pain control. This RN along with the ED PC INSTALLATION ENGINEER, advocated for the pt throughout the shift including speaking to the ethics committee and eventually having a peer to peer review about the pt's intractable pain. This RN spoke to Dr. Grijalva at [phone] on the phone and then in person at [phone]. Dr. Grijalva agreed that the pt needed to be admitted for pain control. This RN also discussed with the pt that she should go to a fpc facility and the pt is currently open to the idea. Original Note: Pt appears to be in significant pain. The pt was recently discharged home and then came back with in a couple of days. The pt has been in the ED for over 24 hours. The pt's pain is not being controlled. I've expressed my concerns to Dr. Dave and one dose of IV 1 mg of Dilaudid after PC INSTALLATION ENGINEER and pharmacy weighed. Informed Dr. Dave that the one dose of 1 mg Dilaudid was ineffective. The pt is visibly upset and is visibly in pain. The pt is requesting for a patient advocate and for a second doctor to review her case. The pt believes that she was discharged home to early from her most recent hospital stay. The pt was sent back to the hospital via ambulance by the pt's home health RN.
--- NOTE | 2025-04-02 16:40 | PT.IIE ---
Surgical History (Last Reviewed 04/01/25 @ 17:12 by Bea Farfan DO) History of cholecystectomy History of hysterectomy History of spinal fusion Previous back surgery Medical History (Last Reviewed 04/01/25 @ 17:12 by Bea Farfan DO) Anxiety Cachexia Chronic back pain Dorsalgia Failure of spinal fusion Fibromyalgia History of alcohol abuse History of anemia History of chronic pain Major depressive disorder, recurrent episode, 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, thoracic region Tobacco abuse Physical Therapy Inpatient Evaluation/Re-Eval M1 PT/OT-IP Prior Functional Status Start: 04/02/25 18:18 Freq: NEEDED Status: Active Protocol: Document 04/02/25 16:40 AB (Rec: 04/02/25 18:35 AB Desktop) Medical Review Prior Functional Status Medical History Yes Reviewed Communication able to make needs known Mobility and Gait pt stated that she was modified independent with ambulation without AD but has difficulty doing her ADLs due to upper back/R shoulder pain. Social History Household Members family Living Arrangements Apartment/Condo Number of Floors ( One Floor Floors) Number of Stairs To no steps to enter Enter/Railing? Home Environment Standard Height Toilet,Tub/Shower Home Equipment Shower Seat with Backrest,Hand Held Shower Additional Social pt lives with her sister but sister is not available to History Comment assist her; pt stated that sister does not want to assist her and is usually is not at home M2 PT-IP Current Condition Start: 04/02/25 18:18 Freq: NEEDED Status: Active Protocol: Document 04/02/25 16:40 AB (Rec: 04/02/25 18:35 AB Desktop) Physical Therapy Current Condition Current Condition Evaluation Date 04/02/25 Treatment Diagnosis chronic back pain; difficulty in walking Onset Date 04/02/25 M3 PT-IP Subjective Start: 04/02/25 18:18 Freq: NEEDED Status: Active Protocol: Document 04/02/25 16:40 AB (Rec: 04/02/25 18:35 AB Desktop) Subjective Physical Therapy Visit Type Type Initial Evaluation Visit Start Time 16:40 Visit Stop Time 17:10 Notes pt refused PT this morning. checked back on pt this after and agreed to do PT. Number of CST Visits 0 Physical Therapy Visit Comments Patient Comments pt stated that she is not going to do much but will try to move some Therapy Pain Assessment Pain When Pain Assessed At Rest Pain Present Pain Present Pain Reported Location back Intensity 8 Scale Used Numeric (0 - 10) Pain Behaviors Facial Grimacing,Guarding,Restlessness,Wincing Pain Management Distraction,Modification of Treatment,Re-positioning, Techniques Timing of Activity with Medications M4 PT-IP Mobility and Gait Start: 04/02/25 18:18 Freq: NEEDED Status: Active Protocol: Document 04/02/25 16:40 AB (Rec: 04/02/25 18:35 AB Desktop) PT-Bed Mobility Assessment Supine to Sit Supine to Sit Maximum Assistance,1 Person Assistance,Head of Bed Elevated,Bedrails PT-Transfer Assessment Sit to and From Stand Sit to and from Moderate Assistance,Maximum Assistance,1 Person Stand Assistance,Use of Upper Extremities Equipment Transfer Assistive None,Gait Belt Device Orthotic/Prosthetic No Devices or Brace: Comments Mobility Comments checked with nurse and will give pt dilaudid IV. pt seen in the ED. agreed to do PT as long as she has IV pain meds. obtained PLOF and home setup. pt was just admitted 03/21/25 to 03/28/25 here at [facility] also for back pain. pt completed supine to sit max A and max cues HOB elevated. sit to stand max A and cues and ambulated in room ~ 10 ft MERCHANDISING INTERN mod A x 2. pt stated that she was independent with ambulation without AD prior to going to ED today but [facility] currently cannot ambulate due to c/o increase pain. informed pt regarding use of FWW and agreed but stated not right now and just wants to go back to bed. max A for sit to supine. positioned pt in bed. call light and table next to pt. informed vocational case manager. Gait Assessment Gait Gait Assistance Moderate Assistance,2 Person Assist Required: Distance (Feet) 10 Able to Maintain Yes Weight Bearing Status During Gait Assistive Devices Assistive Device None,Gait Belt Orthotic/Prosthetic No Devices or Brace: Gait Deviations General Gait Pattern Ataxic,Decreased Stride Length,Decreased Feet Clearance ,Step-to Gait Factors Limiting Gait Function Factors Limiting Decreased Activity Tolerance,Decreased Strength, Gait Function Difficulty Following Directions,Limited Range of Motion ,Pain,Poor Balance,Poor Safety Awareness PT-Balance Assessment Sitting Balance and Reactions Static Sitting Good Balance Ability Dynamic Sitting Fair Balance Ability Standing Balance and Reactions Static Standing Poor Balance Ability Dynamic Standing Poor Balance Ability Device Used without AD M5 PT-IP Objective Assessments Start: 04/02/25 18:18 Freq: NEEDED Status: Active Protocol: Document 04/02/25 16:40 AB (Rec: 04/02/25 18:35 AB Desktop) Orientation Orientation/Cognition Level of Alertness Alert Orientation Name,Place,Situation Safety Awareness Decreased Safety Awareness Memory Description No Deficits Noted Gross Range of Motion Lower Extremity ROM Assessment Within Functional Limits Strength Lower Extremity Strength Assessment Within Functional Limits Muscle Tone Muscle Tone WNL Yes M6 PT-IP Treatment Start: 04/02/25 18:18 Freq: NEEDED Status: Active Protocol: Document 04/02/25 16:40 AB (Rec: 04/02/25 18:35 AB Desktop) Physical Therapy Treatment Education Education Provided Safety M7 PT-IP Assessment and Plan Start: 04/02/25 18:18 Freq: NEEDED Status: Active Protocol: Document 04/02/25 16:40 AB (Rec: 04/02/25 18:35 AB Desktop) PT Summary Assessment and Plan Potential Rehabilitation Fair Potential Status of Condition Evolving at Evaluation Summary Impairments Pain,ROM,Strength,Balance,Coordination,Sensation,Tone, Cognition,Bed Mobility,Transfers,Gait,Activity Tolerance Assessment Summary pt is a 69 y/o F who presented to the ED due to back pain. pt was just admitted here in the hospital thru 03/28/25 also for back pain. pt stated that she was unable to manage her ADLs due to her pain. pt requiring max A for bed mobility and sit to stand; ambulated required MERCHANDISING INTERN mod A x 2 and only completed 10 ft. pt with c/o increase pain and refusing further activities due to pain. will continue to assess progress. Goals Bed Mobility Goal Standby Assistance Transfer Goal Standby Assistance,Front Wheeled Walker Gait Goal Standby Assistance,Front Wheel Walker Gait Distance 50 Other Goals improve bed mobility, transfers, ambulation using LRAD/ without AD 100ft mod I Days to Meet Goals 10 Frequency of Treatment Frequency Of Once a Day Treatment Treatment Plan Physical Therapy Bed Mobility Training,Transfer Training,Gait Training, Treatment Plan Therapeutic Exercise,Balance Retraining,Discharge Planning,Hot or Cold Pack,Neuromuscular Re-ed, Coordination Retraining,Manual Therapy Precautions Other Precautions falls Recommendations To Nursing Amount of Assist 2 Person Assist Needed Discharge Recommendations PT Discharge SNF Rehab Recommendations Transportation Needs Wheelchair/Cabulance,Stretcher/Ambulance at Discharge - PT assist 2
--- NOTE | 2025-04-02 18:39 | CM.DPNOTE ---
ED ROLLER PRESSER OPERATOR DCP Continued: Reviewed EMR and team rounds for pt?s medical status. Per ED Provider and ED RN, pt in 10/10 pain and pt's scheduled/home medication not covering pain. At beginning of this ROLLER PRESSER OPERATOR's shift, it is reported that pt is not eligible for acute care admission and would fall into the social admission policy. Per PT, pt refused morning attempt for evaluation due to high pain. ED ROLLER PRESSER OPERATOR entered room per pt request for a patient advocate. Patient found in bed, tearful and endorsing 10/10 pain. Patient explains that she feels she was discharged too soon and that she is not being listened to regarding her pain, I feel like they are punishing me for being discharged too soon. ED ROLLER PRESSER OPERATOR provided reflective listening to assist with emotional support/validation. ED ROLLER PRESSER OPERATOR discussed above with ED Provider who agreed to this ROLLER PRESSER OPERATOR requesting a consult with inpatient pharmacy. ROLLER PRESSER OPERATOR called Pharmacist who recommended an increase in IV Dilaudid. ROLLER PRESSER OPERATOR discussed this with ED Provider who ordered a one time increase in IV Dilaudid. Throughout the day, pt continues to state her breakthrough pain is not being managed and continues to request to speak with hospital administrators. ROLLER PRESSER OPERATOR calls Internal Ethics Consult and spoke with Nahomi Zamarripa, who suggests this ROLLER PRESSER OPERATOR call the Graphics Production Specialist wire preparation worker for possible [id number]. ROLLER PRESSER OPERATOR calls Graphics Production Specialist assistant professor of education who states she will call Provider wire preparation worker to complete [id number]. Pt appreciative of opportunity to speak with hospitalist and hospital crm system administrator. [id number] able to come to conclusion of social admission due to no safe discharge and intractable pain. 1640: PT was able to successfully complete PT evaluation due to pt managed pain, it is reported that pt is a max assist and recommending SNF Rehab. LTC Application: ROLLER PRESSER OPERATOR reviewed [facility] Long-Term Care application with pt and completed at bedside. ROLLER PRESSER OPERATOR sent via fax as well as secure email to [facility] Contacts. Plan: Acute care social admission, anticipating long chain dyeing machine operator care placement coordination vs. SNF Rehab. CM Team will continue to follow for coordination of discharge plans. JANET Cali
--- NOTE | 2025-04-02 19:43 | PM.HP.1 ---
History of Present Illness History of Present Illness Date Patient Seen: 04/02/25 Chief complaint: chronic back pain Narrative: Chief complaint: Recurrent severe back and right shoulder pain from previous chronic degenerative arthritis status post multiple procedures admitted for lack of social support History of present illness: 04/02: 69-year-old female with longstanding history of chronic pain, history of opioid use disorder on chronic Subutex and now sublocade treatment, history of chronic pancreatitis resulting in severe protein calorie malnutrition for which a PEG tube was placed and she now receives enteral feeds, tobacco dependence, depression, chronic neck and 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 Patient states she has not been able to control her pain at home. She states she has not gotten around. She has told practitioners in the past she tells me that if she were home she would ?starve to ?. She states she has not had her tube feeds in a day and a half secondary to inability to get the tube feeds and do her bolus feeds. She notes her sister does live on [facility] as well, but states her sister does not wish to take care of her. Prior to the previous admission Patient does have a chronic pain specialist who recently initiated her on Sublocade (continuous release buprenorphine) which she most recently received on March 04. She also uses sublingual buprenorphine 8 mg up to 4 times a day for her pain. She feels quite strongly that the buprenorphine will not work for her pain. Additionally, she has maintained that she saw 2 years ago an orthopedic surgeon at [facility] told her she needed additional surgery. He advised that her hardware was loose. However, he told her she would need to gain weight and get healthier before he would pursue any surgical intervention. Findings in the emergency department: CBC, CMP, UA unremarkable Case management the contacted the hospital learning and development administrator on-call who approached me with request that I write orders for social admission for this patient with which I complied. Review of systems: No fever or chills No nausea vomiting No diarrhea constipation No shortness for breath Physical exam: Alert elderly female underweight cachectic appearing miserable but alert and oriented HEENT unremarkable No labored respiration Moves all extremities but appears very antalgic Affect and mood is depressed Imaging: Shoulder MRI: 1. Severely degraded exam secondary to motion artifact. 2. Low-grade interstitial tear of the supraspinatus at the footprint. No significant glenohumeral joint effusion or suspicious marrow replacing process to suggest underlying osteomyelitis or septic arthritis. 3. Degraded assessment for fracture, recommend correlation with left shoulder radiographs to evaluate for underlying osseous abnormality. Chest x-ray: No acute cardiopulmonary abnormality is seen. Thoracic spine CT: No acute abnormality is seen. Remote, stable anterior wedge deformities are seen. Extensive postoperative hardware can be seen. Assessment and plan: 1. Acute on chronic upper back pain, active. This continues to appear musculoskeletal in nature. This has been activity limiting and prohibits her from taking care of herself by administering her tube feeds. This has not substantially improved over the last 6 days with IV pain medications and the use of adjunctive pain med management. ESR and CRP are reassuring. Multi-Modal pain management including Gabapentin Scheduled tizanidine Scheduled acetaminophen Short course steroid Oral opiates Intravenous breakthrough opiates Fentanyl patch Intermittent Toradol Lidoderm patch 2. Chronic opioid use disorder/chronic pain, active. Holding her usual dose of Subutex. She is followed by a pain clinic in [place]. Using topical fentanyl, oral oxycodone and IV hydromorphone instead. 3. Chronic protein calorie malnutrition, active She reports previously her weight was down to 80 lb and is now 102 lb. BMI is 19.9. She is back on tube feeds given via bolus. This will be transitioned to bolus enteral feeds via gravity using her home enteral formula. 4. Tobacco dependence, active. 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, thoracic region Dorsalgia Cachexia Chronic back pain Anxiety Fibromyalgia History of anemia History of chronic pain Tobacco abuse History of alcohol abuse Major depressive disorder, recurrent episode, in partial remission with anxious distress Surgical History History of hysterectomy History of spinal fusion History of cholecystectomy Previous back surgery Family History Father Cancer Grandmother Cancer Social History household members: family Smoking Status: Current every day smoker alcohol intake: former Meds Home Medications and Allergies Home Medications ?Medication ?Instructions ?Recorded ?Confirmed ?Type albuterol sulfate 90 mcg/actuation 2 puff inhalation Q4-6H PRN 02/24/23 03/19/25 History aerosol inhaler wheezing hydroxyzine HCl 50 mg tablet 50 mg PO Q6H PRN anxiety, sleep, 02/24/23 03/19/25 History or pain pantoprazole 40 mg tablet,delayed 40 mg PO DAILY 02/24/23 03/19/25 History release pramipexole 0.125 mg tablet 0.125 mg PO ONCE PM 02/24/23 03/19/25 History tizanidine 4 mg tablet 4 mg PO 3XD 02/24/23 03/19/25 History trazodone 100 mg tablet 200 mg PO ONCE PM 02/24/23 03/19/25 History dronabinol 2.5 mg capsule (Marinol) 2.5 mg PO BID #60 caps 02/25/23 03/19/25 Rx ondansetron 4 mg disintegrating 4 mg PO Q6H PRN nausea and 03/24/23 03/19/25 Rx tablet vomiting #20 tabs duloxetine 20 mg capsule,delayed 20 mg PO DAILY #30 caps 03/28/25 Rx release fentanyl 75 mcg/hr transdermal 1 patch transdermal Q72H #5 ea 03/28/25 Rx patch gabapentin 100 mg capsule 100 mg PO TID #90 caps 03/28/25 Rx lidocaine 5 % topical patch 1 patch topical DAILY #30 ea 03/28/25 Rx methocarbamol 500 mg tablet 1,000 mg (2 x 500 mg) PO TID #180 03/28/25 Rx tabs nicotine 14 mg/24 hr daily 14 mg topical DAILY #14 ea 03/28/25 Rx transdermal patch oxycodone 15 mg tablet 15 mg PO Q6H PRN pain #20 tabs 03/28/25 Rx Allergies Allergy/AdvReac Type Severity Reaction Status Date / Time bupropion (From Wellbutrin) Allergy Anaphylaxis Verified 04/01/25 14:49 gabapentin Allergy Muscle Verified 04/01/25 14:49 contractions ketamine Allergy Hallucinati Verified 04/01/25 14:49 ng pregabalin (From Lyrica) Allergy Muscle Verified 04/01/25 14:49 contractions aspirin (ASPIRIN) AdvReac Unknown Gastrointestinal Verified 04/01/25 14:49 Upset NSAIDS (Non-Steroidal AdvReac Unknown Gastrointestinal Verified 04/01/25 14:49 Anti-Inflamma (NSAIDS Upset (NON-STEROIDAL ANTI-INFLAMMA) Exam Vital Signs (past 8 hours): - 04/02/25 12:33 04/02/25 12:33 04/02/25 13:11 Pulse Rate 74 Blood Pressure 128/61 Pulse Oximetry 95 95 Oxygen Delivery Method 04/02/25 13:12 04/02/25 13:12 04/02/25 13:30 Pulse Rate 72 Blood Pressure 143/72 H 147/67 H Pulse Oximetry 96 Oxygen Delivery Method 04/02/25 13:30 04/02/25 14:00 04/02/25 14:00 Pulse Rate 71 74 Blood Pressure 120/69 Pulse Oximetry 94 95 Oxygen Delivery Method 04/02/25 14:30 04/02/25 14:30 04/02/25 18:37 Pulse Rate 78 Blood Pressure 158/80 H 137/67 Pulse Oximetry 95 Oxygen Delivery Method 04/02/25 18:37 04/02/25 19:15 Pulse Rate 70 Blood Pressure Pulse Oximetry 96 Oxygen Delivery Method Room Air Oxygen Delivery Method Room Air Objective Labs 04/01/25 17:35 04/01/25 16:55 Labs: Laboratory Results - last 24 hr 04/01/25 20:20 Urine Color Yellow Urine Appearance Clear Urine pH 7.0 Ur Specific [place] 1.010 Urine Protein Negative Urine Glucose (UA) Negative Urine Ketones Negative Urine Occult Blood Negative Urine Nitrate Negative Urine Bilirubin Negative Urine Urobilinogen 1.0 Ur Leukocyte Esterase Negative Urine RBC None seen Urine WBC 0-1/hpf Ur Squamous Epith Cells 0-1 /hpf Ur Transition Epith Cell 0-1/hpf Amorphous Sediment 3+ Urine Bacteria Occasional (0-1) Ur Culture Indicated? Cult not indicated Vol Urine Centrifuged 10ml (spun) Assessment & Plan Time-Based Coding :: [TOTAL MINUTES] spent with patient and on the chart (including review of chart, obtaining history, exam, reviewing outside data, placing orders, documenting exam and treatment plan, and counseling patient) on [DATE].
[2025-04-02] MEDS: PRAMIPEXOLE 0.25 MG TABLET 0.125 MG PO (20:41)
[2025-04-02] MEDS: tiZANidine 4 MG TABLET PO (20:42)
[2025-04-02] MEDS: GABAPENTIN 100 MG CAPSULE PO (20:43)
[2025-04-02] MEDS: HYDROmorphone 2 MG/ML SYRINGE IV ×2 (20:44→23:02)
[2025-04-02] MEDS: KETOROLAC 30 MG/ML VIAL 15 MG IV (20:45)
[2025-04-03] MEDS: HYDROmorphone 2 MG/ML SYRINGE IV ×9 (02:22→23:26)
[2025-04-03] MEDS: KETOROLAC 30 MG/ML VIAL 15 MG IV ×2 (03:29→10:41)
[2025-04-03 06:00] VITALS: BP 126/76; PULSE 76; RESP 18; TEMP 36.6; O2SAT 95
[2025-04-03] MEDS: ACETAMINOPHEN 325 MG TABLET 975 MG PO ×2 (08:50→17:06)
[2025-04-03] MEDS: GABAPENTIN 100 MG CAPSULE PO ×3 (08:51→21:19)
[2025-04-03] MEDS: LIDOCAINE 5% PATCH 1 EACH TOP (08:51)
[2025-04-03] MEDS: tiZANidine 4 MG TABLET PO ×3 (08:51→21:19)
[2025-04-03] MEDS: NICOTINE 14 PATCH 14 MG TOP (08:51)
[2025-04-03] MEDS: PANTOPRAZOLE DR 40 MG TABLET PO (08:51)
--- NOTE | 2025-04-03 10:28 | PT.IPTN ---
Physical Therapy Treatment Note M2 PT-IP Current Condition Start: 04/02/25 18:18 Freq: NEEDED Status: Active Protocol: Document 04/02/25 16:40 AB (Rec: 04/02/25 18:35 AB Desktop) Physical Therapy Current Condition Current Condition Evaluation Date 04/02/25 Treatment Diagnosis chronic back pain; difficulty in walking Onset Date 04/02/25 M3 PT-IP Subjective Start: 04/02/25 18:18 Freq: NEEDED Status: Active Protocol: Document 04/03/25 10:20 KJ (Rec: 04/03/25 10:28 KJ [id number]) Subjective Physical Therapy Visit Type Type Treatment Note Visit Start Time 09:31 Visit Stop Time 09:54 Physical Therapy Visit Comments Patient Comments In a lot of pain Therapy Pain Assessment Pain When Pain Assessed At Rest Pain Present Pain Present Pain Reported Location back Pain Management Re-positioning Techniques M4 PT-IP Mobility and Gait Start: 04/02/25 18:18 Freq: NEEDED Status: Active Protocol: Document 04/03/25 10:20 KJ (Rec: 04/03/25 10:28 KJ [id number]) PT-Bed Mobility Assessment Rolling Type of Rolling Log Rolling,Bilateral Level of Assist Contact Guard Assistance Supine to Sit Supine to Sit Contact Guard Assistance Sit to Supine Sit to Supine Moderate Assistance PT-Transfer Assessment Sit to and From Stand Sit to and from Contact Guard Assistance Stand Equipment Transfer Assistive Gait Belt Device Transfers Transfer Destination Toilet Transfer Ability Level of Assist Contact Guard Assistance Comments Mobility Comments Required assistance getting LEs back into bed Gait Assessment Gait Gait Assistance Contact Guard Assist Required: Distance (Feet) 8 Assistive Devices Assistive Device Gait Belt Gait Deviations General Gait Pattern Decreased Stride Length,Flexed Trunk Factors Limiting Gait Function Factors Limiting Limited Range of Motion,Pain Gait Function Comments Gait Comments Ambulated 8'x2 on level surface. PT-Balance Assessment Sitting Balance and Reactions Static Sitting Normal Balance Ability Dynamic Sitting Normal Balance Ability Standing Balance and Reactions Static Standing Good Balance Ability Dynamic Standing Good Balance Ability M5 PT-IP Objective Assessments Start: 04/02/25 18:18 Freq: NEEDED Status: Active Protocol: Document 04/03/25 10:20 KJ (Rec: 04/03/25 10:28 KJ [id number]) Orientation Orientation/Cognition Level of Alertness Alert Orientation Name,Age,Birthday,Month,Date,Year,Day of Week,Place, Situation Language Function No Deficits Noted Ability Memory Description No Deficits Noted Gross Range of Motion Lower Extremity ROM Assessment Within Functional Limits Other Assessments Other Other Assessments Pt is limited in mobility due to pain, she was unable to mobilize at home. M6 PT-IP Treatment Start: 04/02/25 18:18 Freq: NEEDED Status: Active Protocol: Document 04/03/25 10:20 KJ (Rec: 04/03/25 10:28 KJ [id number]) Physical Therapy Treatment Exercises Exercises Ankle Pumps,Quad Sets,Heel Slides Other Treatments Other Treatment Educated pt in importance of mobility to maintain Performed strength and independence M7 PT-IP Assessment and Plan Start: 04/02/25 18:18 Freq: NEEDED Status: Active Protocol: Document 04/03/25 10:20 KJ (Rec: 04/03/25 10:28 KJ [id number]) PT Summary Assessment and Plan Potential Rehabilitation Good Potential Status of Condition Evolving at Evaluation Summary Impairments Pain,Bed Mobility,Transfers,Gait,Activity Tolerance Assessment Summary Pt will benefit from skilled PT to improve mobility and independence. She was unable to mobilize in a functional way at home after discharge from previous hospitalization. Goals Bed Mobility Goal Independent Transfer Goal Independent Gait Goal Independent Gait Distance 50' Days to Meet Goals 5 Frequency of Treatment Frequency Of Once a Day Treatment Treatment Plan Physical Therapy Bed Mobility Training,Transfer Training,Gait Training, Treatment Plan Therapeutic Exercise Other Progress ambulation. May benefit from an assistive Recommendations and device for mobility. Next Treatment Focus Recommendations To Nursing Amount of Assist 1 Person Assist Needed Discharge Recommendations PT Discharge SNF Rehab Recommendations Transportation Needs Wheelchair/Cabulance at Discharge
--- NOTE | 2025-04-03 11:08 | P.PN_ITS ---
Subjective Subjective Date Patient Seen: 04/03/25 Interval history: Chief complaint: Recurrent severe back and right shoulder pain from previous chronic degenerative arthritis status post multiple procedures admitted for lack of social support History of present illness: 04/02: 69-year-old female with longstanding history of chronic pain, history of opioid use disorder on chronic Subutex and now sublocade treatment, history of chronic pancreatitis resulting in severe protein calorie malnutrition for which a PEG tube was placed and she now receives enteral feeds, tobacco dependence, depression, chronic neck and 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 Patient states she has not been able to control her pain at home. She states she has not gotten around. She has told practitioners in the past she tells me that if she were home she would ?starve to ?. She states she has not had her tube feeds in a day and a half secondary to inability to get the tube feeds and do her bolus feeds. She notes her sister does live on [facility] as well, but states her sister does not wish to take care of her. Prior to the previous admission Patient does have a chronic pain specialist who recently initiated her on Sublocade (continuous release buprenorphine) which she most recently received on March 04. She also uses sublingual buprenorphine 8 mg up to 4 times a day for her pain. She feels quite strongly that the buprenorphine will not work for her pain. Additionally, she has maintained that she saw 2 years ago an orthopedic surgeon at [facility] told her she needed additional surgery. He advised that her hardware was loose. However, he told her she would need to gain weight and get healthier before he would pursue any surgical intervention. Findings in the emergency department: CBC, CMP, UA unremarkable Case management the contacted the hospital sales and marketing administrator on-call who approached me with request that I write orders for social admission for this patient with which I complied. Hospital course: 04/03: Patient is sleeping after medicated this morning Review of systems: No fever or chills No nausea vomiting No diarrhea constipation No shortness for breath Physical exam: Alert elderly female underweight cachectic appearing miserable but alert and oriented HEENT unremarkable No labored respiration Moves all extremities but appears very antalgic Affect and mood is depressed Imaging: Shoulder MRI: 1. Severely degraded exam secondary to motion artifact. 2. Low-grade interstitial tear of the supraspinatus at the footprint. No significant glenohumeral joint effusion or suspicious marrow replacing process to suggest underlying osteomyelitis or septic arthritis. 3. Degraded assessment for fracture, recommend correlation with left shoulder radiographs to evaluate for underlying osseous abnormality. Chest x-ray: No acute cardiopulmonary abnormality is seen. Thoracic spine CT: No acute abnormality is seen. Remote, stable anterior wedge deformities are seen. Extensive postoperative hardware can be seen. Assessment and plan: 1. Acute on chronic upper back pain, active. * This continues to appear musculoskeletal in nature. This has been activity limiting and prohibits her from taking care of herself by administering her tube feeds. This has not substantially improved over the last 6 days with IV pain medications and the use of adjunctive pain med management. ESR and CRP are reassuring. * Multi-Modal pain management including * Gabapentin * Scheduled tizanidine * Scheduled acetaminophen * Short course steroid * Oral opiates * Intravenous breakthrough opiates * Fentanyl patch * Intermittent Toradol * Lidoderm patch 2. Chronic opioid use disorder/chronic pain, active. * Holding her usual dose of Subutex. She is followed by a pain clinic in [place]. Using topical fentanyl, oral oxycodone and IV hydromorphone instead. 3. Chronic protein calorie malnutrition, active * She reports previously her weight was down to 80 lb and is now 102 lb. BMI is 19.9. She is back on tube feeds This will be transitioned to continue enteral feeds via gravity using enteral formula. 4. Tobacco dependence, active. Disposition: * Placement [facility] pain levels become more manageable, * Accepted at [facility] in [place] Code status * Full DVT Prophylaxis * Lovenox 35 minutes were involved in the management of this patient including [id number] evaluation review of records discussion with care management team and nursing treatment team Exam Vital Signs (past 8 hours): - 04/03/25 06:00 Temperature 97.8 F Pulse Rate 76 Respiratory Rate 18 Blood Pressure 126/76 Pulse Oximetry 95 Oxygen Flow Rate 0 Oxygen Delivery Method Room Air Oxygen Flow Rate 0 Objective Labs 04/01/25 17:35 04/01/25 16:55 PFSH Medical History 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, thoracic region Dorsalgia Cachexia Chronic back pain Anxiety Fibromyalgia History of anemia History of chronic pain Tobacco abuse History of alcohol abuse Major depressive disorder, recurrent episode, in partial remission with anxious distress Surgical History History of hysterectomy History of spinal fusion History of cholecystectomy Previous back surgery Family History Father Cancer Grandmother Cancer Social History household members: family Smoking Status: Current every day smoker alcohol intake: former Assessment & Plan Time-Based Coding :: [TOTAL MINUTES] spent with patient and on the chart (including review of chart, obtaining history, exam, reviewing outside data, placing orders, documenting exam and treatment plan, and counseling patient) on [DATE].
[2025-04-03 12:00] VITALS: BP 111/74; PULSE 78; RESP 18; TEMP 36.3; O2SAT 94
--- NOTE | 2025-04-03 12:28 | PC.NURSE ---
Addendum entered by Antoinette Mancia RN 04/03/25 17:28: Patient has had a total of 237ml of Pivot1.5 tube feed in with the prosource 11g. She is getting this at 40cc/hr and tolerating well. The water flush is infusing at 400cc per 6 hours, changed from 100cc every 4 hours. Patient is resting and eating her dinner. Original Note: Patient is alert and oriented x4, she requires a lot of pain medication but is tolerating this well. Patient has had 7 or more back surgeries with rods placed. She has had iv dilaudidx2, and toradol, and two muscle relaxers. Patient does have a high pain tolerance and has been taking medications at home. She is a one person assist with fww to use the bathroom and she did work with physical therapy. Tube feeds are infusing at 30cc/hr, we will increase by 10ml increments as long as she is tolerating the feeds and the goal is to get her to 70cc/hr. She is also getting H2O flushes with tube feeds.
--- NOTE | 2025-04-03 15:08 | CM.DPC ---
DCP SNF Planning: Per MD, pt started on pain medication regimen that seemed to help during recent admission and started on continuous tube feeds at this time while awaiting business ethics professor recommendations tomorrow Wednesday 04/04. Per PT in ED and today, recommending SNF rehab before return home. SW made following SNF referrals to [facility] contracted facilities: [facility]- received and will review [facility]- secure emailed clinicals [facility]- will review with their team tomorrow Fri [facility]- secure emailed referral [facility]- reviewed and confirmed they can accept and submitted for [facility] auth today 04/03. Will need Loop Drier Operator to adjust her enteral feeds to a formula they can use at SNF, and per [facility] admissions this could be jevity 1.5, isosorce 1.5 on hand. And possibly osmolite but they do not have Pivot formula. PASRR completed but needs MD signature for hospital exempted discharge for anxiety/depression. SW sent msg to Susan Kent to review regarding above SNF request once she is back at work tomorrow 04/04. Met bedside with pt and explained role and updated her on acceptance at [facility] and now waiting to confirm if [facility] will auth SNF. Pt very appreciative and currently appears calm and comfortable, no tears and not requesting pain medications at this time and able to hold discussion. Plan: SW to follow closely for SNF auth for [facility] and pt will need Medicaid w/c van transport set up for discharge as [facility] does not provide transportation at discharge. SW to also follow up with [employer] [facility] [employer] regarding pt's Medicaid LTC plan as she will likely need [facility] vs [facility] in the future. Michelle Dominique, DRAINLAYER
[2025-04-03 18:00] VITALS: BP 105/59; PULSE 70; RESP 18; TEMP 36.2; O2SAT 95
[2025-04-03 19:00] VITALS: BP 121/67; PULSE 69; RESP 20; TEMP 36.4; O2SAT 95
[2025-04-03] MEDS: PRAMIPEXOLE 0.25 MG TABLET 0.125 MG PO (21:20)
[2025-04-04] MEDS: HYDROmorphone 2 MG/ML SYRINGE IV ×3 (01:23→06:13)
[2025-04-04] MEDS: ACETAMINOPHEN 325 MG TABLET 975 MG PO ×2 (01:24→08:29)
[2025-04-04 07:30] VITALS: BP 128/69; PULSE 89; RESP 14; TEMP 36.6; O2SAT 97
--- NOTE | 2025-04-04 08:22 | P.PN_ITS ---
Subjective Subjective Date Patient Seen: 04/04/25 Interval history: Chief complaint: Recurrent severe back and right shoulder pain from previous chronic degenerative arthritis status post multiple procedures admitted for lack of social support History of present illness: 04/02: 69-year-old female with longstanding history of chronic pain, history of opioid use disorder on chronic Subutex and now sublocade treatment, history of chronic pancreatitis resulting in severe protein calorie malnutrition for which a PEG tube was placed and she now receives enteral feeds, tobacco dependence, depression, chronic neck and 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 Patient states she has not been able to control her pain at home. She states she has not gotten around. She has told practitioners in the past she tells me that if she were home she would ?starve to ?. She states she has not had her tube feeds in a day and a half secondary to inability to get the tube feeds and do her bolus feeds. She notes her sister does live on [facility] as well, but states her sister does not wish to take care of her. Prior to the previous admission Patient does have a chronic pain specialist who recently initiated her on Sublocade (continuous release buprenorphine) which she most recently received on March 04. She also uses sublingual buprenorphine 8 mg up to 4 times a day for her pain. She feels quite strongly that the buprenorphine will not work for her pain. Additionally, she has maintained that she saw 2 years ago an orthopedic surgeon at [facility] told her she needed additional surgery. He advised that her hardware was loose. However, he told her she would need to gain weight and get healthier before he would pursue any surgical intervention. Findings in the emergency department: CBC, CMP, UA unremarkable Case management the contacted the hospital communications administrator on-call who approached me with request that I write orders for social admission for this patient with which I complied. Hospital course: 04/03: Patient is sleeping after medicated this morning Review of systems: No fever or chills No nausea vomiting No diarrhea constipation No shortness for breath Physical exam: Alert elderly female underweight cachectic appearing miserable but alert and oriented HEENT unremarkable No labored respiration Moves all extremities but appears very antalgic Affect and mood is depressed Imaging: Shoulder MRI: 1. Severely degraded exam secondary to motion artifact. 2. Low-grade interstitial tear of the supraspinatus at the footprint. No significant glenohumeral joint effusion or suspicious marrow replacing process to suggest underlying osteomyelitis or septic arthritis. 3. Degraded assessment for fracture, recommend correlation with left shoulder radiographs to evaluate for underlying osseous abnormality. Chest x-ray: No acute cardiopulmonary abnormality is seen. Thoracic spine CT: No acute abnormality is seen. Remote, stable anterior wedge deformities are seen. Extensive postoperative hardware can be seen. Assessment and plan: 1. Acute on chronic upper back pain, active. * Multi-Modal pain management including * Gabapentin * Scheduled tizanidine * Scheduled acetaminophen * Oral opiates for breakthrough * Fentanyl patch * Lidoderm patch 2. Chronic opioid use disorder/chronic pain, active. * Fentanyl patch increased to 100 mcg * IV Dilaudid and p.o. oxycodone discontinued * P.o. Dilaudid as needed for breakthrough pain * Gabapentin escalated to 200 mg t.i.d. (no intolerance) 3. Chronic protein calorie malnutrition, active * She reports previously her weight was down to 80 lb and is now 102 lb. BMI is 19.9. * She is back on tube feeds transitioned to continue enteral feeds via gravity using enteral formula. 4. Tobacco dependence, active. Disposition: * [facility]acement [facility] levels become more manageable, * Accepted at [facility] in [place] * Insurance authorization obtained * Discharge today Code status * Full DVT Prophylaxis * Lovenox 35 minutes were involved in the management of this patient including [id number] evaluation review of records discussion with care management team and nursing treatment team Exam Vital Signs (past 8 hours): - 04/04/25 07:30 Temperature 97.9 F Pulse Rate 89 Respiratory Rate 14 Blood Pressure 128/69 Pulse Oximetry 97 Oxygen Delivery Method Room Air Oxygen Flow Rate 0 Objective Labs 04/01/25 17:35 04/01/25 16:55 [facility] Medical History 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, thoracic region Dorsalgia Cachexia Chronic back pain Anxiety Fibromyalgia History of anemia History of chronic pain Tobacco abuse History of alcohol abuse Major depressive disorder, recurrent episode, in partial remission with anxious distress Surgical History History of hysterectomy History of spinal fusion History of cholecystectomy Previous back surgery Family History Father Cancer Grandmother Cancer Social History household members: family Smoking Status: Current every day smoker alcohol intake: former Assessment & Plan Time-Based Coding :: [TOTAL MINUTES] spent with patient and on the chart (including review of chart, obtaining history, exam, reviewing outside data, placing orders, documenting exam and treatment plan, and counseling patient) on [DATE].
[2025-04-04] MEDS: PANTOPRAZOLE DR 40 MG TABLET PO (08:28)
[2025-04-04] MEDS: GABAPENTIN 100 MG CAPSULE 200 MG PO (08:28)
[2025-04-04] MEDS: tiZANidine 4 MG TABLET PO (08:28)
[2025-04-04] MEDS: LIDOCAINE 5% PATCH 1 EACH TOP (08:30)
[2025-04-04] MEDS: NICOTINE 14 PATCH 14 MG TOP (08:34)
--- NOTE | 2025-04-04 08:35 | PM.DS.1 ---
History of Present Illness History of Present Illness Chief complaint: chronic back pain Narrative: Chief complaint: Recurrent severe back and right shoulder pain from previous chronic degenerative arthritis status post multiple procedures admitted for lack of social support History of present illness: 04/02: 69-year-old female with longstanding history of chronic pain, history of opioid use disorder on chronic Subutex and now sublocade treatment, history of chronic pancreatitis resulting in severe protein calorie malnutrition for which a PEG tube was placed and she now receives enteral feeds, tobacco dependence, depression, chronic neck and back pain secondary to failed spinal fusion, history of alcohol dependence in remission since 2017, and tobacco dependence who presented to the emergency department 4 days after discharge following a 10 day hospitalization for intractable pain Patient was supposed to of the 1st home health care visit today evaluated the patient and sent her here as they feel she is not safe to be at home. Patient states she has not been able to control her pain at home. She states she has not gotten around. She has told practitioners in the past she tells me that if she were home she would ?starve to ?. She states she has not had her tube feeds in a day and a half secondary to inability to get the tube feeds and do her bolus feeds. She notes her sister does live on [facility] as well, but states her sister does not wish to take care of her. Prior to the previous admission Patient does have a chronic pain specialist who recently initiated her on Sublocade (continuous release buprenorphine) which she most recently received on March 04. She also uses sublingual buprenorphine 8 mg up to 4 times a day for her pain. She feels quite strongly that the buprenorphine will not work for her pain. Additionally, she has maintained that she saw 2 years ago an orthopedic surgeon at [facility] told her she needed additional surgery. He advised that her hardware was loose. However, he told her she would need to gain weight and get healthier before he would pursue any surgical intervention. Findings in the emergency department: CBC, CMP, UA unremarkable Case management the contacted the hospital nursing administrator on-call who approached me with request that I write orders for social admission for this patient with which I complied. Review of systems: No fever or chills No nausea vomiting No diarrhea constipation No shortness for breath Physical exam: Alert elderly female underweight cachectic appearing miserable but alert and oriented HEENT unremarkable No labored respiration Moves all extremities but appears very antalgic Affect and mood is depressed Imaging: Shoulder MRI: 1. Severely degraded exam secondary to motion artifact. 2. Low-grade interstitial tear of the supraspinatus at the footprint. No significant glenohumeral joint effusion or suspicious marrow replacing process to suggest underlying osteomyelitis or septic arthritis. 3. Degraded assessment for fracture, recommend correlation with left shoulder radiographs to evaluate for underlying osseous abnormality. Chest x-ray: No acute cardiopulmonary abnormality is seen. Thoracic spine CT: No acute abnormality is seen. Remote, stable anterior wedge deformities are seen. Extensive postoperative hardware can be seen. Assessment and plan: 1. Acute on chronic upper back pain, active. This continues to appear musculoskeletal in nature. This has been activity limiting and prohibits her from taking care of herself by administering her tube feeds. This has not substantially improved over the last 6 days with IV pain medications and the use of adjunctive pain med management. ESR and CRP are reassuring. Multi-Modal pain management including Gabapentin Scheduled tizanidine Scheduled acetaminophen Short course steroid Oral opiates Intravenous breakthrough opiates Fentanyl patch Intermittent Toradol Lidoderm patch 2. Chronic opioid use disorder/chronic pain, active. Holding her usual dose of Subutex. She is followed by a pain clinic in [place]. Using topical fentanyl, oral oxycodone and IV hydromorphone instead. 3. Chronic protein calorie malnutrition, active She reports previously her weight was down to 80 lb and is now 102 lb. BMI is 19.9. She is back on tube feeds given via bolus. This will be transitioned to bolus enteral feeds via gravity using her home enteral formula. 4. Tobacco dependence, active. Disposition: Placement chcf pain levels become more manageable, Code status Full Prophylaxis Lovenox 55 minutes were involved in the management of this patient including [id number] evaluation review of records discussion with care management team and nursing treatment team Discharge Providers Provider Date of admission: 04/02/25 18:15 Discharge Date: 04/04/25 Primary care physician: Amy Cochran MD Consults: 04/01/25 14:56 Consult to ELECTRICAL ENGINEERING TEACHER - Computer Training Specialist Stat Comment: Computer Training Specialist Consult needed for:: Other reason (Comment) Comment: See triage note. Not safe at home, housing instability and food insecurity. 04/01/25 17:18 Consult to Physical Therapy Evaluate & Treat Comment: Physician Instructions: Evaluate and Treat 04/02/25 11:09 Consult to Dietitian, Adult Stat Comment: 1.5 Pivot with 11 Gram prosource 30 ml/hr Reason For Exam: Tube feeding 04/02/25 17:03 Consult to Occupational Therapy Evaluate & Treat Comment: Physician Instructions: Evaluate and treat 04/02/25 20:54 Consult to ELECTRICAL ENGINEERING TEACHER - Computer Training Specialist Routine Comment: Computer Training Specialist Consult needed for:: Lives alone 04/02/25 20:57 Consult to Pharmacy Routine Comment: review medications Discharge provider: Silver Crabtree MD Exam Vital Signs (past 8 hours): - 04/04/25 07:30 Temperature 97.9 F Pulse Rate 89 Respiratory Rate 14 Blood Pressure 128/69 Pulse Oximetry 97 Oxygen Delivery Method Room Air Oxygen Flow Rate 0 Objective Labs 04/01/25 17:35 04/01/25 16:55 PFSH Medical History 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, thoracic region Dorsalgia Cachexia Chronic back pain Anxiety Fibromyalgia History of anemia History of chronic pain Tobacco abuse History of alcohol abuse Major depressive disorder, recurrent episode, in partial remission with anxious distress Surgical History History of hysterectomy History of spinal fusion History of cholecystectomy Previous back surgery Family History Father Cancer Grandmother Cancer Social History household members: family Smoking Status: Current every day smoker alcohol intake: former Discharge Plan Discharge Plan Patient Disposition: SNF Transportation: Cabulance I certify the postop hospital chcf care is medically necessary on a continuing basis for any conditions for which he/ she received care during this hospitalization.: Yes The receiving facility has agreed to accept transfer and provide medical treatment.: Yes Discharge orders & Medications Prescriptions: New dronabinol 2.5 mg Capsule 2.5 mg PO BID Qty: 30 0RF hydromorphone 2 mg Tablet 2 mg PO Q4HR PRN (Reason: Pain, Severe (7-10)) Qty: 12 0RF gabapentin 100 mg Capsule 200 mg PO TID Qty: 30 0RF fentanyl 75 mcg/hr Patch 72 Hour 100 mcg topical Q72H Qty: 5 0RF lorazepam 1 mg Tablet 1 mg PO Q6HR PRN (Reason: Anxiety) Qty: 6 0RF (DME) miscellaneous medical supply Package See Rx Instructions .Route Qty: 48 0RF Rx Instructions: for 205- Continuous Pivot 1.5 at 45 mL/hr with 150 mL free water flushes Q6H. Isosource 1.5 tube feeding formula can be used in place of Pivot 1.5 and meets same energy/protein needs as Pivot 1.5 at 45 mL/hr Continued albuterol sulfate 90 mcg/actuation HFA aerosol inhaler 2 puff inhalation Q4-6H PRN (Reason: wheezing) tizanidine 4 mg tablet 4 mg PO 3XD hydroxyzine HCl 50 mg tablet 50 mg PO Q6H PRN (Reason: anxiety, sleep, or pain) trazodone 100 mg tablet 200 mg PO ONCE PM pantoprazole 40 mg tablet,delayed release (DR/EC) 40 mg PO DAILY pramipexole 0.125 mg tablet 0.125 mg PO ONCE PM dronabinol [Marinol] 2.5 mg capsule 2.5 mg PO BID Qty: 60 0RF Rx Instructions: administer before lunch and evening meal/dinner ondansetron 4 mg tablet,disintegrating 4 mg PO Q6H PRN (Reason: nausea and vomiting) Qty: 20 0RF methocarbamol 500 mg Tablet 1,000 mg PO TID Qty: 180 0RF nicotine 14 mg/24 hr Patch 24 Hour 14 mg topical DAILY Qty: 14 0RF lidocaine 5 % Adhesive Patch,Medicated 1 patch topical DAILY Qty: 30 0RF duloxetine 20 mg Capsule,Delayed Release(Dr/Ec) 20 mg PO DAILY Qty: 30 0RF Discontinued gabapentin 100 mg Capsule 100 mg PO TID Qty: 90 0RF fentanyl 75 mcg/hr patch 72 hour 1 patch transdermal Q72H Qty: 5 0RF oxycodone 15 mg tablet 15 mg PO Q6H PRN (Reason: pain) Qty: 20 0RF Follow up/Referrals: Amy Cochran MD [Primary Care Provider, Internal Medicine] Diet/Activity/Treatments Diet: Diet as Tolerated and Regular Food texture: Regular Diet comment: Continuous IsoSource 1.5 at 45 mL/hr with 150 mL free water flushes Q6H. Other treatments: Continuous IsoSource 1.5 at 45 mL/hr with 150 mL free water flushes Q6H. Meets 100% of needs and tube feedings provide 100% of fluid needs. Pt also able to eat general diet. EER: 1610 (35 kcals/kg) 70 g protein (1.5 g/kg per PCM) Special Rehabilitation Services Reason for rehabilitation: Recovery r/t decondition Rehab type: Physical therapy, Occupational therapy and Speech therapy Visit Report/Discharge Packet Stand Alone Forms: Patient Portal/API, Stroke Signs & Symptoms Discharge Data Primary Care Provider: Amy Cochran Attending Provider: Silver Carbtree Admdioni Date/Time: 04/02/25 18:15
--- NOTE | 2025-04-04 09:10 | PT.IPTN ---
Physical Therapy Treatment Note M2 PT-IP Current Condition Start: 04/02/25 18:18 Freq: NEEDED Status: Active Protocol: Document 04/04/25 08:30 SP (Rec: 04/04/25 11:47 SP Laptop) Physical Therapy Current Condition Current Condition Evaluation Date 04/02/25 Treatment Diagnosis chronic back pain; difficulty in walking Onset Date 04/02/25 M3 PT-IP Subjective Start: 04/02/25 18:18 Freq: NEEDED Status: Active Protocol: Document 04/04/25 08:30 SP (Rec: 04/04/25 11:47 SP Laptop) Subjective Physical Therapy Visit Type Type Treatment Note Visit Start Time 08:30 Visit Stop Time 09:10 Notes TONI Pires assisted with vital check and physical assist needed during tx while under direct supervision and instruction needed by SWITCHBOX ASSEMBLER Clare and pt permission. Vitals: supine: BP 119/69 SaO2 94% RA, seated post mobility: BP 138/79 SaO2 92%. Number of SWITCHBOX ASSEMBLER Visits 1 Physical Therapy Visit Comments Patient Comments Pt agreeable to working with SWITCHBOX ASSEMBLER. Patient Goals Pt recognized not strong enough to go home and stated her sister can't help her. Therapy Pain Assessment Pain Present Pain Present Pain Reported M4 PT-IP Mobility and Gait Start: 04/02/25 18:18 Freq: NEEDED Status: Active Protocol: Document 04/04/25 08:30 SP (Rec: 04/04/25 11:47 SP Laptop) PT-Bed Mobility Assessment Rolling Level of Assist Standby Assistance,1 Person Assistance Sit to Supine Sit to Supine Contact Guard Assistance,Minimal Assistance,1 Person Assistance,Bedrails PT-Transfer Assessment Sit to and From Stand Sit to and from Contact Guard Assistance,Minimal Assistance,1 Person Stand Assistance,Use of Upper Extremities Equipment Transfer Assistive Gait Belt,Straight Cane Device Orthotic/Prosthetic No Devices or Brace: Transfers Transfer Destination Chair Transfer Technique pt ambulate around room with SPC Transfer Ability Level of Assist Contact Guard Assistance,Minimal Assistance,1 Person Assistance Comments Mobility Comments SBA during bed mobility use of bed rails sup>sit, scoot to EOB. Pt demonstrates unsteady coming to standing use of bed to support self, demonstrates WBOS standing EOB. Instructed head turns sturdy, cues for decrease NBOS to assess static balance but states feels off balance can't do that needs to have feet apart, unsteady NBOS no AD provided during assessment. Instructed gait around room to door and back to chair approx 30 ft with SPC in LUE cues for proper patterning , little unsteady sways low Min A x1 but no LOB, SWITCHBOX ASSEMBLER assisted with IV pole peg tube mgt. Cues for fully backing up to chair and reach back to slow sit back in chair. Assisted with chair reclining and chair alarm donned, call light and all needs in reach. Discussion for safety use of FWW at this time for increased self support with unsteady mobility with SPC this tx. Gait Assessment Gait Gait Assistance Contact Guard Assist,Minimum Assistance,1 Person Assist Required: Distance (Feet) 30 Able to Maintain Yes Weight Bearing Status During Gait Assistive Devices Assistive Device Gait Belt,Straight Cane Orthotic/Prosthetic No Devices or Brace: Gait Deviations General Gait Pattern Antalgic,Decreased Stride Length,Decreased Feet Clearance,Flexed Trunk,Lateral Trunk Lean,Wide Based Gait Factors Limiting Gait Function Factors Limiting Decreased Activity Tolerance,Decreased Strength,Limited Gait Function Range of Motion,Pain,Poor Balance,Poor Safety Awareness Comments Gait Comments see mobility comments Stair Climbing Assessment Comments Stair Climbing no stairs home need to assess. Comments PT-Balance Assessment Sitting Balance and Reactions Static Sitting Normal Balance Ability Dynamic Sitting Normal Balance Ability Standing Balance and Reactions Static Standing Fair Balance Ability Dynamic Standing Poor Balance Ability Device Used no AD Comments Other Balance Tests/ Static stance WBOS head turns, unsteady CG-low min A Deviations/Treatment : M5 PT-IP Objective Assessments Start: 04/02/25 18:18 Freq: NEEDED Status: Active Protocol: Document 04/03/25 10:20 KJ (Rec: 04/03/25 10:28 KJ [id number]) Orientation Orientation/Cognition Level of Alertness Alert Orientation Name,Age,Birthday,Month,Date,Year,Day of Week,Place, Situation Language Function No Deficits Noted Ability Memory Description No Deficits Noted Gross Range of Motion Lower Extremity ROM Assessment Within Functional Limits Other Assessments Other Other Assessments Pt is limited in mobility due to pain, she was unable to mobilize at home. M6 PT-IP Treatment Start: 04/02/25 18:18 Freq: NEEDED Status: Active Protocol: Document 04/04/25 08:30 SP (Rec: 04/04/25 11:47 SP Laptop) Physical Therapy Treatment Other Treatments Other Treatment Educated pt in importance of mobility with staff to Performed maintain strength and independence M7 PT-IP Assessment and Plan Start: 04/02/25 18:18 Freq: NEEDED Status: Active Protocol: Document 04/04/25 08:30 SP (Rec: 04/04/25 11:47 SP Laptop) PT Summary Assessment and Plan Potential Rehabilitation Good Potential Status of Condition Evolving at Evaluation Summary Impairments Pain,Strength,Balance,Bed Mobility,Transfers,Gait, Activity Tolerance Progress Towards Slow Progress due to Activity Tolerance Goals Assessment Summary Pt SBA bed mobility, CG- Min A STS without AD, gait room with SPC cg- Min A due to unsteady sways. Pt will benefit from skilled PT to improve strength, balance for increased mobility independence. Pt does not have family that can give her assistance needed, recommending SNF for increased mobility independence. Goals Bed Mobility Goal Independent Transfer Goal Independent Gait Goal Independent Gait Distance 50' Days to Meet Goals 5 Frequency of Treatment Frequency Of Once a Day Treatment Treatment Plan Physical Therapy Bed Mobility Training,Transfer Training,Gait Training, Treatment Plan Therapeutic Exercise Other Progress ambulation with FWW, balance activities, LE Recommendations and strengthening. Next Treatment Focus Precautions Other Precautions falls Recommendations To Nursing Amount of Assist Standby Assistance,1 Person Assist Needed Discharge Recommendations PT Discharge SNF Rehab Recommendations Transportation Needs Wheelchair/Cabulance at Discharge - PT assist 1
--- NOTE | 2025-04-04 09:42 | DIET.CONS ---
Dietary Consultation Note Admission Date: 04/02/2025 18:15 Assessment: RD consulted for tube feed reccs. Per MULTIPLE SPINDLE SCREW MACHINE OPERATOR pt d/c to SNF today. At SNF they have Isosource 1.5. Pt can be transitioned to that with the same rate and flush below. Ht: 152.4 cm Wt: 45.359 kg BMI: 19.5 UBW: 102 lb Last BM: () MNA: Ollie Score: 20 Diet: 04/02/25 Breakfast General (Regular) Diet Diet Modifications: Food Texture: Level 7 - Regular Liquid Consistency: Level 0 - Thin 04/04/25 Breakfast Tube Feeding Diet Diet Modifications: TF Supplement type: Pivot 1.5 tonja TF mode of delivery: Continuous Starting flow rate mL/hr: 45 Flow rate goal mL/hr: 45 Titration Schedule to reach Goal Rate: - Max total daily volume in mL: 1,800 Free fluid: 150 Free Water Frequency: Q6H Nutrition Percent Meal Consumed 40% 04/03/25 20:00 Percent Meal Consumed 0% 04/03/25 18:00 Percent Meal Consumed 25% 04/03/25 12:53 Percent Meal Consumed pt ate various snacks throughout 04/03/25 06:00 night Labs: RBC 3.87 X10^6/uL (4.0-5.2) L 04/01/25 17:35 Hgb 13.4 g/dL (12.0-16.0) 04/01/25 17:35 Hct 38.0 % (36-46) 04/01/25 17:35 Creatinine 0.50 mg/dL (0.52-1.04) L 04/01/25 16:55 1. Inability to manage self care r/t inability to complete physical movement needed to feed self through enteral bolus via PEG as evidenced by acute on chronic back pain, pt unable to deliver her enteral feedings via syringe resulting in 4 days no enteral feeds before admission and pt still remains unable to deliver herself enteral feeds today 2. Severe chronic protein calorie malnutrition r/t alterations in GI related organs as evidenced by history of chronic pancreatitis resulting in inadequate oral intake and PEG placement, severe muscle wasting in temporalis, deltoid, trapezius, pectoralis major, interosseous and severe subcutaneous fat loss in buccal and orbital fat pads Interventions: 1. Continuous Pivot 1.5 at 45 mL/hr with 150 mL free water flushes Q6H. Isosource 1.5 tube feeding formula can be used in place of Pivot 1.5 and meets same energy/protein needs as Pivot 1.5 at 45 mL/hr. Meets 100% of needs and tube feedings provide 100% of fluid needs. Pt also able to eat general diet. EER: 1610 (35 kcals/kg) 70 g protein (1.5 g/kg per PCM) Monitoring/Evaluations: to d/c to SNF today, PRN Electronically Signed by: Yoli Santacruz 04/04/25 09:42 Clinical Dietitian [address] [id number]
--- NOTE | 2025-04-04 10:33 | CM.DPC ---
Addendum entered by TENA Roach 04/04/25 13:55: ADD: [facility] [email or web address] confirmed that LTC application and expedited referral received and will be reviewed. BF Original Note: DCP SNF Discharge Per MD, pt is stable on her po pain meds and medically stable to discharge to SNF today and orders completed. Special Services Supervisor kindly reviewed and completed enteral feeding recommendations and pt's Pivot can switched with IsoSource that SNF has in stock at the same rate and completed note in EMR. SW spoke to admissions at [facility] and confirmed they have insurance auth and can still accept today. Secure emailed Special Services Supervisor note, signed PASRR, signed med list, scripts, orders to review. Waiting for d/c summ to be signed. Completed Medicaid transport request form and [facility] called back and state [facility] can provide cabulance transport for pt today with pickup at 1230. Updated [facility], naphthalene still operator, MIDWIFE PRACTITIONER, and RN. SW called [facility] and updated that pt will d/c to SNF today and they will follow her there for enteral feeds after SNF. [facility] reviewing pt's LTC application and expedited form for LTC planning needs (KENZIE vs facility placement) Plan; Patient to d/c to [facility] today via medicaid transport through [facility] transport at 1230. TENA Roach
--- NOTE | 2025-04-04 10:52 | PM.DS.1 ---
History of Present Illness History of Present Illness Date Patient Seen: 04/04/25 Chief complaint: chronic back pain Narrative: Chief complaint: Recurrent severe back and right shoulder pain from previous chronic degenerative arthritis status post multiple procedures admitted for lack of social support History of present illness: 04/02: 69-year-old female with longstanding history of chronic pain, history of opioid use disorder on chronic Subutex and now sublocade treatment, history of chronic pancreatitis resulting in severe protein calorie malnutrition for which a PEG tube was placed and she now receives enteral feeds, tobacco dependence, depression, chronic neck and 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 Patient states she has not been able to control her pain at home. She states she has not gotten around. She has told practitioners in the past she tells me that if she were home she would ?starve to ?. She states she has not had her tube feeds in a day and a half secondary to inability to get the tube feeds and do her bolus feeds. She notes her sister does live on [facility] as well, but states her sister does not wish to take care of her. Prior to the previous admission Patient does have a chronic pain specialist who recently initiated her on Sublocade (continuous release buprenorphine) which she most recently received on March 04. She also uses sublingual buprenorphine 8 mg up to 4 times a day for her pain. She feels quite strongly that the buprenorphine will not work for her pain. Additionally, she has maintained that she saw 2 years ago an orthopedic surgeon at [facility] told her she needed additional surgery. He advised that her hardware was loose. However, he told her she would need to gain weight and get healthier before he would pursue any surgical intervention. Findings in the emergency department: CBC, CMP, UA unremarkable Case management the contacted the hospital application support administrator on-call who approached me with request that I write orders for social admission for this patient with which I complied. Review of systems: No fever or chills No nausea vomiting No diarrhea constipation No shortness for breath Physical exam: Alert elderly female underweight cachectic appearing miserable but alert and oriented HEENT unremarkable No labored respiration Moves all extremities but appears very antalgic Affect and mood is depressed Imaging: Shoulder MRI: 1. Severely degraded exam secondary to motion artifact. 2. Low-grade interstitial tear of the supraspinatus at the footprint. No significant glenohumeral joint effusion or suspicious marrow replacing process to suggest underlying osteomyelitis or septic arthritis. 3. Degraded assessment for fracture, recommend correlation with left shoulder radiographs to evaluate for underlying osseous abnormality. Chest x-ray: No acute cardiopulmonary abnormality is seen. Thoracic spine CT: No acute abnormality is seen. Remote, stable anterior wedge deformities are seen. Extensive postoperative hardware can be seen. Assessment and plan: 1. Acute on chronic upper back pain, active. Multi-Modal pain management including Gabapentin Scheduled tizanidine Scheduled acetaminophen Oral opiates for breakthrough Fentanyl patch Lidoderm patch 2. Chronic opioid use disorder/chronic pain, active. Fentanyl patch increased to 100 mcg IV Dilaudid and p.o. oxycodone discontinued P.o. Dilaudid as needed for breakthrough pain Gabapentin escalated to 200 mg t.i.d. (no intolerance) 3. Chronic protein calorie malnutrition, active She reports previously her weight was down to 80 lb and is now 102 lb. BMI is 19.9. She is back on tube feeds transitioned to continue enteral feeds via gravity using enteral formula. Continuous Pivot 1.5 at 45 mL/hr with 150 mL free water flushes Q6H. Isosource 1.5 tube feeding formula can be used in place of Pivot 1.5 and meets same energy/protein needs as Pivot 1.5 at 45 mL/hr 4. Tobacco dependence, active. Disposition: Placement halfway pain levels become more manageable, Accepted at [facility] in [place] Insurance authorization obtained Discharge today Code status Full DVT Prophylaxis Lovenox 35 minutes were involved in the management of this patient including [id number] evaluation review of records discussion with care management team and nursing treatment team Discharge Providers Provider Date of admission: 04/02/25 18:15 Discharge Date: 04/04/25 Primary care physician: Amy Cochran MD Consults: 04/01/25 14:56 Consult to [facility] [place] - [employer] Program Chair Stat Comment: [employer] Program Chair Consult needed for:: Other reason (Comment) Comment: See triage note. Not safe at home, housing instability and food insecurity. 04/01/25 17:18 Consult to Physical Therapy Evaluate & Treat Comment: Physician Instructions: Evaluate and Treat 04/02/25 11:09 Consult to Dietitian, Adult Stat Comment: 1.5 Pivot with 11 Gram prosource 30 ml/hr Reason For Exam: Tube feeding 04/02/25 17:03 Consult to Occupational Therapy Evaluate & Treat Comment: Physician Instructions: Evaluate and treat 04/02/25 20:54 Consult to [facility] - [employer] Program Chair Routine Comment: Business Administration Program Chair Consult needed for:: Lives alone 04/02/25 20:57 Consult to Pharmacy Routine Comment: review medications Discharge provider: Silver Crabtree MD Exam Vital Signs (past 8 hours): - 04/04/25 07:30 Temperature 97.9 F Pulse Rate 89 Respiratory Rate 14 Blood Pressure 128/69 Pulse Oximetry 97 Oxygen Delivery Method Room Air Oxygen Flow Rate 0 Objective Labs 04/01/25 17:35 04/01/25 16:55 PFSH Medical History 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, thoracic region Dorsalgia Cachexia Chronic back pain Anxiety Fibromyalgia History of anemia History of chronic pain Tobacco abuse History of alcohol abuse Major depressive disorder, recurrent episode, in partial remission with anxious distress Surgical History History of hysterectomy History of spinal fusion History of cholecystectomy Previous back surgery Family History Father Cancer Grandmother Cancer Social History household members: family Smoking Status: Current every day smoker alcohol intake: former Discharge Plan Discharge Plan Patient Disposition: SNF Transportation: [facility] I certify the postop hospital halfway care is medically necessary on a continuing basis for any conditions for which he/ she received care during this hospitalization.: Yes The receiving facility has agreed to accept transfer and provide medical treatment.: Yes Discharge orders & Medications Prescriptions: New dronabinol 2.5 mg Capsule 2.5 mg PO BID Qty: 30 0RF hydromorphone 2 mg Tablet 2 mg PO Q4HR PRN (Reason: Pain, Severe (7-10)) Qty: 12 0RF gabapentin 100 mg Capsule 200 mg PO TID Qty: 30 0RF fentanyl 75 mcg/hr Patch 72 Hour 100 mcg topical Q72H Qty: 5 0RF lorazepam 1 mg Tablet 1 mg PO Q6HR PRN (Reason: Anxiety) Qty: 6 0RF (DME) miscellaneous medical supply Package See Rx Instructions .Route Qty: 48 0RF Rx Instructions: for 205- Continuous Pivot 1.5 at 45 mL/hr with 150 mL free water flushes Q6H. Isosource 1.5 tube feeding formula can be used in place of Pivot 1.5 and meets same energy/protein needs as Pivot 1.5 at 45 mL/hr Continued albuterol sulfate 90 mcg/actuation HFA aerosol inhaler 2 puff inhalation Q4-6H PRN (Reason: wheezing) tizanidine 4 mg tablet 4 mg PO 3XD hydroxyzine HCl 50 mg tablet 50 mg PO Q6H PRN (Reason: anxiety, sleep, or pain) trazodone 100 mg tablet 200 mg PO ONCE PM pantoprazole 40 mg tablet,delayed release (DR/EC) 40 mg PO DAILY pramipexole 0.125 mg tablet 0.125 mg PO ONCE PM dronabinol [Marinol] 2.5 mg capsule 2.5 mg PO BID Qty: 60 0RF Rx Instructions: administer before lunch and evening meal/dinner ondansetron 4 mg tablet,disintegrating 4 mg PO Q6H PRN (Reason: nausea and vomiting) Qty: 20 0RF methocarbamol 500 mg Tablet 1,000 mg PO TID Qty: 180 0RF nicotine 14 mg/24 hr Patch 24 Hour 14 mg topical DAILY Qty: 14 0RF lidocaine 5 % Adhesive Patch,Medicated 1 patch topical DAILY Qty: 30 0RF duloxetine 20 mg Capsule,Delayed Release(Dr/Ec) 20 mg PO DAILY Qty: 30 0RF Discontinued gabapentin 100 mg Capsule 100 mg PO TID Qty: 90 0RF fentanyl 75 mcg/hr patch 72 hour 1 patch transdermal Q72H Qty: 5 0RF oxycodone 15 mg tablet 15 mg PO Q6H PRN (Reason: pain) Qty: 20 0RF Follow up/Referrals: Amy Cochran MD [Primary Care Provider, Internal Medicine] Diet/Activity/Treatments Diet: Diet as Tolerated and Regular Food texture: Regular Diet comment: Continuous IsoSource 1.5 at 45 mL/hr with 150 mL free water flushes Q6H. Other treatments: Continuous IsoSource 1.5 at 45 mL/hr with 150 mL free water flushes Q6H. Meets 100% of needs and tube feedings provide 100% of fluid needs. Pt also able to eat general diet. EER: 1610 (35 kcals/kg) 70 g protein (1.5 g/kg per PCM) [facility] Reason for rehabilitation: Recovery r/t decondition Rehab type: Physical therapy, Occupational therapy and Speech therapy Visit Report/Discharge Packet Stand Alone Forms: Patient Portal/API, Stroke Signs & Symptoms Discharge Data Primary Care Provider: Amy Cochran Attending Provider: Silver Crabtree Admdioni Date/Time: 04/02/25 18:15
--- NOTE | 2025-04-04 13:10 | OT.IP.EVAL ---
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, thoracic region Tobacco abuse Surgical History (Last Reviewed 04/01/25 @ 17:12 by Bea Farfan DO) History of cholecystectomy History of hysterectomy History of spinal fusion Previous back surgery Occupational Therapy Inpatient Evaluation/Re-Eval M1 PT/OT-IP Prior Functional Status Start: 04/02/25 18:18 Freq: NEEDED Status: Active Protocol: Document 04/04/25 12:54 ROD (Rec: 04/04/25 13:09 ROD [id number]) Medical Review Prior Functional Status Medical History Yes Reviewed Communication able to make needs known Mobility and Gait pt stated that she was modified independent with ambulation without AD but has difficulty doing her ADLs due to upper back/R shoulder pain. Activities of Daily Pt reports that prior to recent hospitalization and dc, Living and IADL's she was able to perform all her BADL and light housework. Pts sister assisted with grocery shopping. Pt was I with performing her tube feedings prior to recent hospitalization. Social History Household Members family Living Arrangements Apartment/Condo Number of Stairs To pts sister is sometimes in the house with her; however, Enter/Railing? pt reports that she does not assist with her care and will not be willing to assist on dc Home Environment Standard Height Toilet,Tub/Shower Home Equipment Front Wheel Walker,Shower Seat with Backrest,Hand Held Shower,Grab Bars Near Toilet,Grab Bars In Shower M2 OT-IP Current Condition Start: 04/04/25 12:53 Freq: Status: Active Protocol: Document 04/04/25 12:54 ROD (Rec: 04/04/25 13:09 ROD [id number]) Occupational Therapy Current Condition Current Condition Evaluation Date 04/04/25 Treatment Diagnosis chronic back pain, decreased selfcare Diagnosis Onset Date 04/02/25 M3 OT- IP Subjective and Pain Start: 04/04/25 12:53 Freq: Status: Active Protocol: Document 04/04/25 12:54 ROD (Rec: 04/04/25 13:09 [facility] [id number]) OT- Subjective Occupational Therapy Visit Type Type Initial Evaluation Visit Start Time 10:11 Visit Stop Time 10:30 Notes Pt up in chair and wanting to return to bed on entrance of OT. Pt agreeable to participating in therapy. Occupational Therapy Visit Comments Patient Comments I'm not able to take care of myself at home. I need to go somewhere and get stronger. Patient/Caregiver to get better Goals OT Pain Assessment Pain When Pain Assessed After Treatment Pain Present Pain Present Pain Reported Location back Scale Used did not rate M4 OT- IP ADL's Start: 04/04/25 12:53 Freq: Status: Active Protocol: Document 04/04/25 12:54 [facility] (Rec: 04/04/25 13:09 [facility] [id number]) OT NSS-Btpc-Hhpqmea General Evaluation Self-Feeding Ability Standby Assistance,Total Assistance Comments OT Self-Feeding pt is able to drink and fix her coffee when items Comments brought to her. Pt is total A for tube feedings currently. OT ADL-Grooming General Evaluation Areas Needing Retrieving/Set-up of Grooming Items Assistance Comments OT Grooming Comments Pt able to wash her face and hands on setup. Pt declined brushing her hair at this time due to not feeling well. OT ADL-Oral Care Comments Oral Care Comments pt declined at this time. OT ADL-Dressing General Eval Upper Body Dressing Standby Assistance Ability Lower Body Dressing Contact Guard Assistance,Minimal Assistance Ability Areas Needing Retrieving/Set-up of Clothing,Socks Assistance Comments OT Dressing Comments Pt doffed hospital gown and donned button up pj top with S, donned pj bottoms with CGA and socks with MIN A OT ADL-Toileting Comments OT Toileting not observed Comments OT ADL-Bathing Bathing Type Bathing Type Sponge Bath General Evaluation Bathing Ability Minimal Assistance Areas Needing Wash/Dry Upper Body,Wash/Dry Lower Extremities Assistance M5 OT- IP IADL's Start: 04/04/25 12:53 Freq: Status: Active Protocol: Document 04/04/25 12:54 ROD (Rec: 04/04/25 13:09 [facility] [id number]) OT-Instrumental Activities of Daily Living Home Safety Awareness Awareness of Need Good Awareness for Assistance at Home Medication Management Medication 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, may need assist on dc Management Comments Money Management Money Management No Deficits Identified Meal Preparation Meal Preparation at this time pt would need assist Comments Construction [employer] at this time pt would need assist Comments Driving Driving Comments at this time pt would need assist M6 OT- IP Functional Cognition Start: 04/04/25 12:53 Freq: Status: Active Protocol: Document 04/04/25 12:54 ROD (Rec: 04/04/25 13:09 [facility] [id number]) Cognitive Factors Limiting Selfcare Function Cognitive Ability Level of Alertness Alert Patient Orientation Name,Age,Place,Situation Attention Span Capable of Focused Attention,Capable of Sustained Ability Attention Ability to Follow Able to Follow One Step Commands,Able to Follow Multi- Commands Step Commands OT- Vision and Hearing OT- Hearing Assessment OT- Hearing WFL Assessment OT- Vision Assessment Visual Acuity WFL M7 OT- IP Mobility and Balance Start: 04/04/25 12:53 Freq: Status: Active Protocol: Document 04/04/25 12:54 ROD (Rec: 04/04/25 13:09 [facility] [id number]) OT- Bed Mobility Assessment Rolling Type of Rolling Roll to Left Level of Assistance Independent Sit to Supine Sit to Supine Assist Standby Assistance OT-Transfer Assessment Sit to and From Stand Sit to and from Contact Guard Assistance Stand Transfers Transfer Ability Contact Guard Assistance Technique Transfer Destination Bed Transfer Technique Stand Step Pivot Devices Transfer Assistive Gait Belt,Front Wheeled Walker Devices Comments Mobility Comments Pt needs vcs to not sit on feeding tube when returning to bed OT- Balance Assessment Sitting Balance and Reactions Static Sitting Normal Balance Ability Dynamic Sitting Normal Balance Ability Standing Balance and Reactions Static Standing Fair Balance Ability Dynamic Standing Fair Balance Ability M8 OT- IP Objective Assessments Start: 04/04/25 12:53 Freq: Status: Active Protocol: Document 04/04/25 12:54 ROD (Rec: 04/04/25 13:09 [facility] [id number]) OT Gross Range of Motion Upper Extremity Range of Motion Assessment Within Functional Limits OT Strength Upper Extremity Strength Assessment Within Functional Limits Hand Instrument Repairer Steam Plant Strength Hand Dominance Right OT-Muscle Tone Assessment Muscle Tone WNL Yes OT Sensation Assessment Edema Edema Absent M9 OT- IP Assessment and Plan Start: 04/04/25 12:53 Freq: Status: Active Protocol: Document 04/04/25 12:54 ROD (Rec: 04/04/25 13:09 ROD [id number]) OT Summary Assessment and Plan Potential Rehabilitation Fair Potential Analytic Complexity Moderate at Evaluation Summary OT Impairments Pain,Range of Motion,Strength,Functional Mobility, Grooming,Dressing,Toileting,Bathing,Toilet Transfers, Shower Transfers,Activity Tolerance Progress Towards Slow Progress due to Pain,Slow Progress due to Medical Goals Issues,Slow Progress due to Activity Tolerance Assessment Summary Pt is a 69 yo F with a hx of chronic pain and opioid disorder. Pt was hospitalized from 03/21/25-03/28/25 due to chronic pain and was dc home, 4 days later she returned to the ED due to being unable to care for herself at home. Pt was unable to feed herself or assist in her BADLs. Pt presents with decreased activity tolerance, increased pain, decreased functional mobility, and decreased BADLs. Skilled OT services are appropriate to address pt deficits and promote return toward PLOF. Pt would benefit from SNF on dc Goals Grooming Goal Independent Dressing Goal Independent Toileting Goal Independent Bathing Goal Independent Toilet Transfer Goal Independent Shower Transfer Goal Independent,Shower Chair Frequency of Treatment Other frequency 5x/wk Treatment Plan OT Treatment Plan ADL Training,Functional Mobility,Therapeutic Exercises, Patient/Family Education,Discharge Planning Discharge Recommendations OT Discharge SNF Rehab Recommendations Transportation Needs Private Vehicle,Wheelchair/Cabulance at Discharge
== END 2025-04-04 12:30 ==
LOC: ED 04-02 15:59 → AC 04-02 18:16
PROVIDERS: Emergency Medicine; Admitting Provider Internal Medicine; Emergency Provider Family Medicine; PCP Internal Medicine; Referring Provider Family Medicine; Visit Provider Internal Medicine
DX: T84.84XA Pain due to internal orthopedic prosthetic devices, implants and grafts, initial encounter (principal); M54.6 Pain in thoracic spine; M54.2 Cervicalgia; E43 Unspecified severe protein-calorie malnutrition; F32.A Depression, unspecified; Z98.1 Arthrodesis status; Z93.1 Gastrostomy status; Z79.891 Long term (current) use of opiate analgesic; F17.210 Nicotine dependence, cigarettes, uncomplicated
CPT/HCPCS: 36415; 80053; 81001; 85025; 96374; 96375; 96376; 97163; 97166; 97530; 99284; G0378; J1171; J1885

== ENCOUNTER 2025-04-28 11:46 | Emergency (ER) | payer MEDICARE, MEDICAID, SELFPAY ==
[2025-04-02 18:18] VITALS: BMI 19.5
[2025-04-28 11:52] VITALS: BP 132/61; PULSE 99; RESP 14; TEMP 36.3; O2SAT 95; BMI 20.2
--- NOTE | 2025-04-28 12:12 | ED.BACK ---
HPI - Back Pain/Injury <Don Maldonado PA-C - Last Filed: 04/28/25 19:48> General Chief Complaint: Back Pain/Injury Stated Complaint: severe back & shoulder pain Time Seen by Provider: 04/28/25 12:03 Source: patient History of Present Illness HPI Narrative: This is a 69-year-old female presenting to the emergency department due to desire to be placed in a fci facility. She was recently smoking on the property [facility] when she was discharged from their facility 2 days ago but would like to go back. She states that she was not feel safe at home due to her chronic comorbidities as noted in the record review below. She states that she was not able to feed herself due to her chronic pain as well as worried she may fall at home. She states that she has slightly deconditioned after the hospitalization noted below in his she feels weak and somewhat unsteady on her feet and needs to be at a 24/7 care facility. She denies any new acute complaints such as chest pain, shortness breath, numbness, or any other concerning signs or symptoms. Patient later reported a recent fall where she was reporting some left hip pain. Medical record review Has been here many times for chronic thoracic and back pain and cervical pain. He was last seen here 3 weeks ago due to chronic back pain. History of prior thoracic surgery with rods. History of alcohol abuse, tobacco use. She has a history of ?rods being broken? but states that orthopedic surgery can not repair her rods because they do not think she was survive surgery. Patient takes methocarbamol 1000 mg t.i.d., lidocaine patch 1 patch daily, duloxetine 20 mg daily, dronabinol, capsule, fentanyl patch, 100 mcg every 72 hours, gabapentin 200 mg t.i.d., Dilaudid q.4 hours. Patient was Admitted for a social admit. Lab work showed no acute abnormalities. Also on Suboxone. Patient was eventually discharged to [facility]. Related Data Home Medications ?Medication ?Instructions ?Recorded ?Confirmed albuterol sulfate 90 mcg/actuation 2 puff inhalation Q4-6H PRN 02/24/23 04/28/25 aerosol inhaler wheezing hydroxyzine HCl 50 mg tablet 50 mg PO Q6H PRN anxiety, sleep, 02/24/23 04/28/25 or pain pantoprazole 40 mg tablet,delayed 40 mg PO DAILY 02/24/23 04/28/25 release pramipexole 0.125 mg tablet 0.125 mg PO ONCE PM 02/24/23 04/28/25 tizanidine 4 mg tablet 4 mg PO 3XD 02/24/23 04/28/25 trazodone 100 mg tablet 200 mg PO ONCE PM 02/24/23 04/28/25 Previous Rx's ?Medication ?Instructions ?Recorded ondansetron 4 mg disintegrating 4 mg PO Q6H PRN nausea and 03/24/23 tablet vomiting #20 tabs duloxetine 20 mg capsule,delayed 20 mg PO DAILY #30 caps 03/28/25 release lidocaine 5 % topical patch 1 patch topical DAILY #30 ea 03/28/25 nicotine 14 mg/24 hr daily 14 mg topical DAILY #14 ea 03/28/25 transdermal patch dronabinol 2.5 mg capsule 2.5 mg PO BID #30 caps 04/04/25 fentanyl 75 mcg/hr transdermal 100 mcg topical Q72H #5 ea 04/04/25 patch hydromorphone 2 mg tablet 2 mg PO Q4HR PRN Pain, Severe 04/04/25 (7-10) #12 tabs lorazepam 1 mg tablet 1 mg PO Q6HR PRN Anxiety #6 tabs 04/04/25 miscellaneous medical supply #48 ea 04/04/25 Allergies Allergy/AdvReac Type Severity Reaction Status Date / Time bupropion (From Wellbutrin) Allergy Anaphylaxis Verified 04/28/25 11:52 ketamine Allergy Hallucinati Verified 04/28/25 11:52 ng pregabalin (From Lyrica) Allergy Muscle Verified 04/28/25 11:52 contractions aspirin (ASPIRIN) AdvReac Unknown Gastrointestinal Verified 04/28/25 11:52 Upset NSAIDS (Non-Steroidal AdvReac Unknown Gastrointestinal Verified 04/28/25 11:52 Anti-Inflamma (NSAIDS Upset (NON-STEROIDAL ANTI-INFLAMMA) Review of Systems <Don Maldonado PA-C - Last Filed: 04/28/25 19:48> Review of Systems Narrative: GENERAL: Denies chills, fatigue, malaise, fever, sweats. HEENT: Denies sinus pain, ear pain, sore throat, difficulty swallowing, dizziness. RESPIRATORY: Denies dyspnea, cough, wheezing, hemoptysis, sputum. CARDIOVASCULAR: Denies chest pain, palpitations, orthopnea, edema, GASTROINTESTINAL: Denies nausea, vomiting, abdominal pain, diarrhea, constipation, melena. : Denies dysuria, frequency, incontinence, hematuria, urinary retention. MUSCULOSKELETAL: Reports acute left hip pain Chronic back pain otherwise denies weakness, joint pain, or bony pain SKIN: Denies rash, skin lesions, or other NEUROLOGIC: Denies weakness, headache, numbness, change in speech, confusion, seizures, incoordination. PSYCHIATRIC: No concerning psychosocial issues. 12 point review of systems is negative except for those stated above Patient History <Don Maldonado PA-C - Last Filed: 04/28/25 19:48> Medical History 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, thoracic region Dorsalgia Cachexia Chronic back pain Anxiety Fibromyalgia History of anemia History of chronic pain Tobacco abuse History of alcohol abuse Major depressive disorder, recurrent episode, in partial remission with anxious distress Surgical History History of hysterectomy History of spinal fusion History of cholecystectomy Previous back surgery Family History Father Cancer Grandmother Cancer Social History household members: family Smoking Status: Unknown if ever smoked alcohol intake: former Smoking Status: Unknown if ever smoked tobacco type: cigarettes Exam <Don Maldonado PA-C - Last Filed: 04/28/25 19:48> Narrative Exam Narrative: GENERAL: Well-developed patient, in mild distress. HEAD: Atraumatic. Normocephalic. EYES: Pupils equal round and reactive. Extraocular motions intact. No scleral icterus. No injection or drainage. ENT: Nose without bleeding, purulent drainage. Throat without erythema, tonsillar hypertrophy or exudate. Airway patent. NECK: Trachea midline. Non tender EXTREMITIES: Mild tenderness to palpation to the left hip NEURO: AOx3. SKIN: No rash or erythema of visible areas Initial Vital Signs Initial Vital Signs: Vital Signs Temperature 97.4 F L 04/28/25 11:52 Pulse Rate 99 H 04/28/25 11:52 Respiratory Rate 14 04/28/25 11:52 Blood Pressure 132/61 04/28/25 11:52 Pulse Oximetry 95 04/28/25 11:52 Oxygen Delivery Method Room Air 04/28/25 11:52 <Quan Bhatt MD - Last Filed: 05/05/25 06:51> Initial Vital Signs Initial Vital Signs: Vital Signs Temperature 97.4 F L 04/28/25 11:52 Pulse Rate 99 H 04/28/25 11:52 Respiratory Rate 14 04/28/25 11:52 Blood Pressure 132/61 04/28/25 11:52 Pulse Oximetry 95 04/28/25 11:52 Oxygen Delivery Method Room Air 04/28/25 11:52 Course <Don Maldonado PA-C - Last Filed: 04/28/25 19:48> Orders Ordered: Discontinued Medications Dronabinol (Dronabinol 2.5 Mg Capsule) 2.5 mg PO 0700,1900 [facility] Last Admin: 04/28/25 19:10 Dose: Not Given Documented By: RB Hydromorphone HCl (Hydromorphone 2 Mg Tablet) 2 mg PO NOW ONE Stop: 04/28/25 17:17 Last Admin: 04/28/25 17:55 Dose: 2 mg Documented By: RB Lorazepam (Lorazepam 0.5 Mg Tablet) 1 mg PO NOW ONE Stop: 04/28/25 18:04 Last Admin: 04/28/25 19:10 Dose: Not Given Documented By: RB Methocarbamol (Methocarbamol 500 Mg Tablet) 1,000 mg PO TID PRN PRN Reason: Muscle Spasm Nicotine (Nicotine 14 Patch) 14 mg TOP NOW ONE Stop: 04/28/25 17:19 Last Admin: 04/28/25 17:55 Dose: 14 mg Documented By: RB Ondansetron HCl (Ondansetron 4 Mg Odt) 4 mg SL Q6HR PRN PRN Reason: Nausea Last Admin: 04/28/25 17:29 Dose: 4 mg Documented By: RB Pantoprazole Sodium (Pantoprazole Dr 20 Mg Tablet) 40 mg PO 0700 [facility] Pramipexole Dihydrochloride (Pramipexole 0.25 Mg Tablet) 0.125 mg PO BEDTIME [facility] Tizanidine HCl (Tizanidine 4 Mg Tablet) 4 mg PO TID [facility] Consultations Consultation #1: [id number]: Was informed by social work that physical therapy has recommended sniff and social work will reach out to various SNFs in the area for them to possibly accept. Still needs acceptance from SNF as well as insurance authorization. Will likely be boarding here in the emergency department, until 48 hours and then maybe possible to socially admit. 1899: Patient was stated ?I can not handle it here anymore?. Patient was made aware that if she was to discharge the process of obtaining a SNF would be restarted which patient understood. Elected to go home. Vital Signs Vital signs: Vital Signs - 8 hr 04/28/25 11:52 Temperature 97.4 F L Pulse Rate 99 H Respiratory Rate 14 Blood Pressure 132/61 Pulse Oximetry 95 Oxygen Delivery Method Room Air <Quan Bhatt MD - Last Filed: 05/05/25 06:51> Orders Ordered: Discontinued Medications Dronabinol (Dronabinol 2.5 Mg Capsule) 2.5 mg PO 0700,1900 [facility] Last Admin: 04/28/25 19:10 Dose: Not Given Documented By: RB Hydromorphone HCl (Hydromorphone 2 Mg Tablet) 2 mg PO NOW ONE Stop: 04/28/25 17:17 Last Admin: 04/28/25 17:55 Dose: 2 mg Documented By: RB Lorazepam (Lorazepam 0.5 Mg Tablet) 1 mg PO NOW ONE Stop: 04/28/25 18:04 Last Admin: 04/28/25 19:10 Dose: Not Given Documented By: RB Methocarbamol (Methocarbamol 500 Mg Tablet) 1,000 mg PO TID PRN PRN Reason: Muscle Spasm Nicotine (Nicotine 14 Patch) 14 mg TOP NOW ONE Stop: 04/28/25 17:19 Last Admin: 04/28/25 17:55 Dose: 14 mg Documented By: RB Ondansetron HCl (Ondansetron 4 Mg Odt) 4 mg SL Q6HR PRN PRN Reason: Nausea Last Admin: 04/28/25 17:29 Dose: 4 mg Documented By: RB Pantoprazole Sodium (Pantoprazole Dr 20 Mg Tablet) 40 mg PO 0700 [facility] Pramipexole Dihydrochloride (Pramipexole 0.25 Mg Tablet) 0.125 mg PO BEDTIME [facility] Tizanidine HCl (Tizanidine 4 Mg Tablet) 4 mg PO TID [facility] Vital Signs Vital signs: Vital Signs - 8 hr 04/28/25 11:52 Temperature 97.4 F L Pulse Rate 99 H Respiratory Rate 14 Blood Pressure 132/61 Pulse Oximetry 95 Oxygen Delivery Method Room Air MDM - Back Pain/Injury <Don Maldonado PA-C - Last Filed: 04/28/25 19:48> Imaging Data Extremity x-ray #1: Radiologist's Impression: [address] [address] XRay Report Signed Patient: Mayra Jacobs MR#: [id number] : 1955 Acct:[id number] Age/Sex: 69 / F Date of Service: 04/28/25 Loc: ED Accession Number: [id number] Procedure: XR hip w pel LT 2V Ordering Provider: Don Maldonado PA-C PROCEDURE: XR HIP W PEL IF DONE LT 2V INDICATIONS: L hip pain after fall TECHNIQUE: AP pelvis with lateral view(s) of the left hip(s). COMPARISON: None. FINDINGS: Bones: No fractures or dislocations. Pelvic ring appears intact. No suspicious bony lesions. Soft tissues: The visualized bowel gas pattern is normal. No suspicious soft tissue calcifications. IMPRESSION: No acute bony abnormality. Dictated by: Russell Booth M.D. on 04/28/2025 at 14:15 Approved by: Russell Booth M.D. on 04/28/2025 at 14:16 [facility] Narrative Medical decision making narrative: ED course: This is a 69-year-old female presenting to the emergency department due to continued chronic back pain as well as a desire to be sent to a fci facility. She had no new complaints but was complaining of some left hip pain after a fall which had a negative x-ray. Patient was needing to be referred to fci facilities other than [facility] as she was discharged from this 2 days ago as well as obtain authorization [place] insurance. Discussed this with the patient and the need to board in the emergency department which the patient was initially agreeable to but throughout the course of the day eventually decided that she would like to go home. Risks discussed and also reminded her that her process going to a nursing facility would need to be restarted she was discharged which the patient understood. Patient A&O x4 and able to make her own decisions and elected to discharge. CC: Back pain Complicating co-morbidities: As below Data collected from: Previous notes Medical records reviewed: Has been here many times for chronic thoracic and back pain and cervical pain. He was last seen here 3 weeks ago due to chronic back pain. History of prior thoracic surgery with rods. History of alcohol abuse, tobacco use. She was followed by home health. She has a history of ?rods being broken? but states that orthopedic surgery can not repair her rods because they do not think she was survive surgery. Patient takes methocarbamol 1000 mg t.i.d., lidocaine patch 1 patch daily, duloxetine 20 mg daily, dronabinol, capsule, fentanyl patch, 100 mcg every 72 hours, gabapentin 200 mg t.i.d., Dilaudid q.4 hours. Patient was referred to [facility]. Admitted for a social admit. Lab work showed no acute abnormalities. Also in Suboxone. Patient was eventually discharged to [facility]. Differential considered, but not limited to: Back pain, fracture Exam documented above, pertinent findings include: No concerning findings other than left hip tenderness to palpation Lab Test results independently reviewed as above. Pertinent findings: None obtained Imaging studies independently reviewed: X-rays negative Scores Used: None MIPS Elements: None Consultations: None Treatments: Patient was given 1 time orders of her home pain medications Re-evaluations: None Discussion: Discussed plan with the patient was comfortable with the plan Diagnosis: Chronic back pain Disposition: see below, along with detailed discharge instructions that have been reviewed with patient as well as indications for ED re-evaluation and additional outpatient follow up Discharge Plan Departure Patient Disposition: Home Clinical Impression: Chronic back pain Activity Restrictions/Additional Instructions: Thank you for coming to the [facility] Emergency Department today. As we discussed if you are to return we would need to restart the process finding a fci facility for you to go to. Hip x-ray was negative for fractures. Please return to the emergency department if you develop any chest pain, shortness of breath, or any other concerning signs or symptoms. I hope you feel better soon. Please follow up with your primary care provider within a week if your symptoms continue. If you do not have a primary care provider please contact the [facility] Resource line at [phone]. They will ask some questions about your medical history and help you get set up with a provider in the community. Prescriptions: No Action albuterol sulfate 90 mcg/actuation HFA aerosol inhaler 2 puff inhalation Q4-6H PRN (Reason: wheezing) tizanidine 4 mg tablet 4 mg PO 3XD hydroxyzine HCl 50 mg tablet 50 mg PO Q6H PRN (Reason: anxiety, sleep, or pain) trazodone 100 mg tablet 200 mg PO ONCE PM pantoprazole 40 mg tablet,delayed release (DR/EC) 40 mg PO DAILY pramipexole 0.125 mg tablet 0.125 mg PO ONCE PM ondansetron 4 mg tablet,disintegrating 4 mg PO Q6H PRN (Reason: nausea and vomiting) Qty: 20 0RF nicotine 14 mg/24 hr Patch 24 Hour 14 mg topical DAILY Qty: 14 0RF lidocaine 5 % Adhesive Patch,Medicated 1 patch topical DAILY Qty: 30 0RF duloxetine 20 mg Capsule,Delayed Release(Dr/Ec) 20 mg PO DAILY Qty: 30 0RF dronabinol 2.5 mg Capsule 2.5 mg PO BID Qty: 30 0RF hydromorphone 2 mg Tablet 2 mg PO Q4HR PRN (Reason: Pain, Severe (7-10)) Qty: 12 0RF fentanyl 75 mcg/hr Patch 72 Hour 100 mcg topical Q72H Qty: 5 0RF lorazepam 1 mg Tablet 1 mg PO Q6HR PRN (Reason: Anxiety) Qty: 6 0RF (DME) miscellaneous medical supply Package See Rx Instructions .Route Qty: 48 0RF Rx Instructions: for 205- Continuous Pivot 1.5 at 45 mL/hr with 150 mL free water flushes Q6H. Isosource 1.5 tube feeding formula can be used in place of Pivot 1.5 and meets same energy/protein needs as Pivot 1.5 at 45 mL/hr Referrals: Amy Cochran MD [Primary Care Provider, Internal Medicine] Stand Alone Forms: Patient Portal/API ED Sign-out <Quan Bhatt MD - Last Filed: 05/05/25 06:51> Cosign ED Attending Cosignature Attestation: I was immediately available in the department for consultation. ?This documentation has been reviewed and I agree with assessment and plan. Supervised by Quan Bhatt MD
--- NOTE | 2025-04-28 13:41 | DI.RAD.S_ITS ---
PROCEDURE: XR HIP W PEL IF DONE LT 2V INDICATIONS: L hip pain after fall TECHNIQUE: AP pelvis with lateral view(s) of the left hip(s). COMPARISON: None. FINDINGS: Bones: No fractures or dislocations. Pelvic ring appears intact. No suspicious bony lesions. Soft tissues: The visualized bowel gas pattern is normal. No suspicious soft tissue calcifications. IMPRESSION: No acute bony abnormality. Dictated by: Russell Booth M.D. on 04/28/2025 at 14:15 Approved by: Russell Booth M.D. on 04/28/2025 at 14:16
--- NOTE | 2025-04-28 15:17 | PC.NURSE ---
physical therapy has joined patient in room.
--- NOTE | 2025-04-28 16:27 | PT.IIE ---
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 Social History Household Members family Living Arrangements Apartment/Condo Additional Social Sister lives with her sometimes. History Comment M2 PT-IP Current Condition Start: 04/28/25 16:04 Freq: Status: Active Protocol: Document 04/28/25 16:05 KJ (Rec: 04/28/25 16:27 KJ [id number]) Physical Therapy Current Condition Current Condition Evaluation Date 04/27/25 Treatment Diagnosis impaired mobility M3 PT-IP Subjective Start: 04/28/25 16:04 Freq: Status: Active Protocol: Document 04/28/25 16:05 KJ (Rec: 04/28/25 16:27 KJ [id number]) Subjective Physical Therapy Visit Type Type Initial Evaluation Visit Start Time 15:13 Visit Stop Time 15:39 Physical Therapy Visit Comments Patient Comments Tells me she has pain which limits her eating and function, making her feel unsafe living at home alone. Patient Goals To be able to live at home, ambulate within apartment, feed self adequately Therapy Pain Assessment Pain When Pain Assessed During Mobility Pain Present Pain Present Pain Reported Location back Description Radiating,Shooting Pain Behaviors Guarding,Holding Area Pain Management Re-positioning Techniques M4 PT-IP Mobility and Gait Start: 04/28/25 16:04 Freq: Status: Active Protocol: Document 04/28/25 16:05 KJ (Rec: 04/28/25 16:27 KJ [id number]) PT-Transfer Assessment Sit to and From Stand Sit to and from Standby Assistance Stand Equipment Transfer Assistive Straight Cane Device Comments Mobility Comments Stands and ambulates in room w/SBA Gait Assessment Gait Gait Assistance Standby Assistance Required: Distance (Feet) 15 Assistive Devices Assistive Device Straight Cane Gait Deviations General Gait Pattern Decreased Stride Length Comments Gait Comments Pt reports worry that her legs will suddenly give out on her while ambulating. PT-Balance Assessment Sitting Balance and Reactions Static Sitting Good Balance Ability Dynamic Sitting Good Balance Ability Standing Balance and Reactions Static Standing Good Balance Ability M5 PT-IP Objective Assessments Start: 04/28/25 16:04 Freq: Status: Active Protocol: Document 04/28/25 16:05 KJ (Rec: 04/28/25 16:27 KJ [id number]) Orientation Orientation/Cognition Level of Alertness Alert Orientation Name,Age,Birthday,Month,Date,Year,Day of Week,Place, Situation Gross Range of Motion Upper Extremity ROM Assessment Bilaterally Impaired Impairments Shoulders both actively and passively Lower Extremity ROM Impairments R knee full ext, L knee lacks 5 degrees extension actively in sitting. Bilat ankles WFL Strength Upper Extremity Strength Shoulder not tested due to lack of full ROM Elbow WFL Hand chief hospital administrator 4/5 L, 4-/5 R Lower Extremity Strength Hip bilat hip abd 4/5, add 3+/5 Knee knee ext WFL within available ROM Ankle WFL M7 PT-IP Assessment and Plan Start: 04/28/25 16:04 Freq: Status: Active Protocol: Document 04/28/25 16:05 KJ (Rec: 04/28/25 16:27 KJ [id number]) PT Summary Assessment and Plan Potential Rehabilitation Fair Potential Status of Condition Evolving at Evaluation Summary Impairments Pain,ROM,Strength,Activity Tolerance Assessment Summary Pt appears to have fear of movement due to fear of pain which limits her ability to care for herself. Goals Other Goals No treatment goals; eval only. Discharge Recommendations PT Discharge SNF Rehab Recommendations Transportation Needs Wheelchair/Cabulance at Discharge
--- NOTE | 2025-04-28 16:50 | CM.IDA ---
Addendum entered by Mariela Whiting 04/28/25 19:08: GLOVE OPERATOR contacts [facility] regarding patient's discharge from ED. JANET Garcia Addendum entered by Mariela Whiting 04/28/25 19:05: Patient choice to leave ED to discharge to home to stay with friend, patient was informed that if she leaves the ED that it will limit the chances of getting into a SNF rehab facilities. Patient indicates understanding and endorses preference to d/c to home. GLOVE OPERATOR discusses HH services and patient endorses preference for [facility]. GLOVE OPERATOR to send referral to [facility] with signed order, F2F and clinicals for PT, OT, RN, HH aide and GLOVE OPERATOR. GLOVE OPERATOR informs Apolonia at [facility] that patient chose to d/c to home. Plan: Patient chose to d/c to home with HH services with [facility], patient to f/u with PCP and outpatient services. JANET Garcia Original Note: Initial DCP Assessment/ED GLOVE OPERATOR Note Patient is 69 y/o female who presents to ED via private vehicle due to concern for increased pain in back and shoulder and concern for ADLs and PEG tube feeding at home. Patient had similar presentation to the ED on 04/01 resulting in social admission and d/c to [facility] for SNF rehab. Patient discharged from [facility] on 04/22/25 and patient endorses she is seeking to return to [facility] or any SNF rehab. Patient's PCP is Amy Cochran, patient has [facility] and Medicaid insurance. GLOVE OPERATOR receives call from GLOVE OPERATOR at Patient's PCP clinic prior to arrival to ED informing GLOVE OPERATOR of patient's pending arrival to ED to seek SNF rehab. GLOVE OPERATOR enters room to meet with patient, patient endorses concern for her weakness and pain and concern for ability to perform ADLs, manage pain, feed self with PEG tube. Patient states she last received PEG tube feeding yesterday, patient is reliant on [employer] deliveries for nutrition. Patient endorses that she is not able to return home unless she has 24/7 support, and is seeking SNF rehab. Patient states that her sister resides with her but is unable to assist with managing her ADLs. Patient endorses concern that if she falls she could injure herself further. Patient has been able to ambulate with cane. Patient has hx of [facility] services and hx of SNF rehab stays at [facility] earlier this month and previously at [place]. GLOVE OPERATOR calls [facility] regarding the status of patient's LT Medicaid application. It is reported that the application is pending and has been bouncing from the SNF unit to the in home unit since patient discharged to home from [facility]. GLOVE OPERATOR calls [facility] shift supervisor film processing Silva (ph. # [phone]) and leaves regarding patient's presentation in the ED seeking SNF rehab and LTC. GLOVE OPERATOR calls [facility] and it is reported that patient cannot return there after review with administrative team due to concern for patient smoking on the premises and concern for patient's pain management. GLOVE OPERATOR informs this to patient and patient endorses that she thought she was smoking outside of the property boundaries and agrees to follow directions and guidelines of SNF facilities. PT evaluates patient and recommends SNF rehab. GLOVE OPERATOR calls Andrew Dur[facility], leaves and sends clinicals for review. GLOVE OPERATOR calls Apolonia at [facility] and she states she can review, GLOVE OPERATOR sends clinicals for review and Apolonia states she will seek insurance auth. Plan: patient to board in ED awaiting placement for SNF rehab, GLOVE OPERATOR to f/u with SNF rehab facilities reviewing patient. Patient may benefit from home therapy clinician order. JANET Garcia Discharge Planning/Care Management CM Discharge Assessment Start: 04/28/25 17:05 Freq: Status: Active Protocol: Document 04/28/25 17:06 LN (Rec: 04/28/25 17:09 LN [id number]) Discharge Planning Assessment Assigned Discharge JANET [facility] Provider Amy Cochran Insurance Medicaid,Medicare,[facility] DPOA/Assigned Sister/ Lora Zepeda Designee Name Contact Information [phone] Advance Directives? No History Provided By Patient,Medical Record Has Patient been Yes admitted in last 30 days? Comment 04/02/25-04/04/25 Prior Living Apartment/Condo Arrangements Household Members family Type of Relies on Others transporation used prior to admit Independent with ADL No 's Is patient alert and Yes oriented? Needs Assistance Eating,Managing Medications,Home Chores / Shopping With DME Already Rented / Cane Owned Patient/Family Penitentiary Facility Preference Referrals Initiated [facility]itent[facility] Additional Comment KIRSTEN and Ch[facility] Morales reviewing If patient plan is Yes SNF: Has PASSR been completed? SNF/HH Preference Patient open to any SNF facility. Has Agency SNF been Yes contacted
[2025-04-28] MEDS: ONDANSETRON 4 MG ODT SL (17:29)
[2025-04-28] MEDS: NICOTINE 14 PATCH 14 MG TOP (17:55)
== END 2025-04-28 21:18 | disposition home or self-care (01) ==
PROVIDERS: Emergency Provider Physician Assistant Medical; PCP Internal Medicine
DX: M54.6 Pain in thoracic spine (principal); M54.2 Cervicalgia; M25.552 Pain in left hip
CPT/HCPCS: 73502; 97162; 99283; 99284